=== PATIENT | female | born 1940 | race Caucasian/White ===

== ENCOUNTER → 2017-04-04 12:24 | Outpatient (CLI) | payer MEDICARE, SELFPAY ==
--- NOTE | 2017-04-04 12:28 | RAD_ITS ---
STUDY: X-RAY CHEST REASON FOR EXAM: Female, 76 years old. Shortness of breath. Dyspnea. TECHNIQUE: PA and lateral views of the chest. COMPARISON: October 09, 2016. FINDINGS: The lungs are clear and expanded. There is no demonstrated pleural abnormality. Normal size heart. Normal mediastinum and ngoc. Normal visualized pulmonary arteries. There is atherosclerotic calcification of the aortic arch with tortuosity. There are diffuse degenerative changes of the visualized thoracic spine. There is degenerative osteoarthritis of the bilateral shoulders. There is no demonstrated abnormality of the visualized soft tissue structures of the upper abdomen. RAD/Chest PA and Lateral IMPRESSION: No acute cardiopulmonary disease or interval change Electronically Signed: Galdino Kimble DO at 16:56 EST Tel [phone], Service support ,
== END ==
PROVIDERS: Family Provider Internal Medicine; PCP Internal Medicine; Visit Provider Internal Medicine
DX: R06.02 Shortness of breath (principal)
CPT/HCPCS: 71046

== ENCOUNTER → 2017-04-04 13:17 | Outpatient (CLI) | payer MEDICARE, SELFPAY ==
[2016-10-09 12:56] VITALS: BMI 43.2
[2016-10-09 14:48] VITALS: BP 112/43; BP 155/61; BP 155/81
[2016-10-10 17:28] VITALS: BP 129/92
[2017-04-04 13:49] LABS: BNP,B-Type NATRIURETIC PEPTIDE 26.4 pg/mL (0-100)
== END ==
PROVIDERS: Family Provider Internal Medicine; PCP Internal Medicine; Visit Provider Internal Medicine
DX: R06.02 Shortness of breath (principal); R60.0 Localized edema
CPT/HCPCS: 71046; 83880

== ENCOUNTER → 2017-04-06 10:10 | Outpatient (CLI) | payer MEDICARE, SELFPAY ==
[2017-04-06 10:30] LABS: Anion Gap 10 (5-15); BUN 31 mg/dL (7-18); BUN/Creat Ratio 22.3 RATIO (10-20); Calcium,Total 8.6 mg/dL (8.5-10.1); Chloride 102 mmol/L (98-107); Creatinine, Serum 1.39 mg/dL (0.55-1.02); EST Glomerular Filtration Rate 39 mL/min (>60); Est Glom Filt Rate - Afr Amer 48 mL/min (>60); Glucose 200 mg/dL (74-106); Potassium 4.3 mmol/L (3.5-5.1); Sodium Level 139 mmol/L (136-145)
== END ==
PROVIDERS: Family Provider Internal Medicine; PCP Internal Medicine; Visit Provider Internal Medicine
DX: R60.0 Localized edema (principal)
CPT/HCPCS: 80048

== ENCOUNTER → 2017-04-13 14:01 | Outpatient (CLI) | payer MEDICARE, SELFPAY ==
--- NOTE | 2017-04-13 14:06 | RAD_ITS ---
STUDY: X-RAY - LEFT SHOULDER REASON FOR EXAM: Female, 76 years old. Acute left shoulder pain. No known injury. TECHNIQUE: 4 view(s) of the shoulder. COMPARISON: None. FINDINGS: There is moderate degenerative arthrosis of the glenohumeral articulation. There is degenerative arthrosis of the acromioclavicular joint without inferior osseous spur formation. Degenerative spurring along the undersurface of the acromion. Normal humeral head and visualized proximal humerus. The soft tissue structures are unremarkable. Normal visualized pulmonary apex. RAD/Shoulder min 2 Views IMPRESSION: Moderate degree of degenerative changes of the glenohumeral joint. Degenerative spurring along the inferior aspect of the acromion. Electronically Signed: Laureano Freeman MD at 14:53 EST Tel [phone], Service support ,
== END ==
PROVIDERS: Family Provider Internal Medicine; PCP Internal Medicine; Visit Provider Internal Medicine
DX: M25.512 Pain in left shoulder (principal)
CPT/HCPCS: 73030

== ENCOUNTER → 2017-04-25 09:24 | Outpatient (CLI) | payer MEDICARE, SELFPAY ==
--- NOTE | 2017-04-25 09:32 | MRI_ITS ---
STUDY: MRI LEFT SHOULDER REASON FOR EXAM: Female, 76 years old. Shoulder pain following a fall with limited range of motion. Symptoms have been present 3-4 weeks described as dull but sharp when exerting pressure. TECHNIQUE: Standardized fat and water weighted pulse sequences were obtained in all 3 orthogonal planes. COMPARISON: None. FINDINGS: There is a massive rotator cuff tear with large full-thickness tears of both the supraspinatus and infraspinatus tendons (coronal T2 fat sat series 7, images 11 and 16). The supraspinatus tendinous detached from the greater tuberosity and medially retracted approximately 5 cm with the torn retracted tendon attrition lying immediately cephalad to the glenohumeral articulation. The infraspinatus tendinous retracted approximately 3.6 cm. There is tendinosis of the subscapularis tendon with tendon thickening. There is partial tearing of the superior tendinous slip insertion upon the humeral head (axial proton density fat sat series 5, image 8). Normal teres minor tendon. There is greater than a 50% fatty muscular atrophy of the supraspinatus muscle (Goutallier Stage IV) (sagittal T2 series 9, image 8). There is 50% fatty muscular atrophy of the infraspinatus muscle (Goutallier Stage III) (sagittal T2 series 9, image 1). There is greater than a 50% fatty muscular atrophy of the subscapularis muscle (Goutallier Stage IV). Normal teres minor muscle. There is a large volume joint effusion of the glenohumeral joint. There is cephalad migration of the humeral head, which in this right examination is abutting the inferior acromial surface (coronal T2 fat sat series 7, image 10). There is a SLAP tear of the superior labrum (coronal T2 fat sat series 7, image 12), which extends into the posterior labrum. There is intracapsular rupture of the long biceps tendon. The torn retracted tendon can be identified within the inferior aspect of the intertubercular groove (axial proton density fat sat series 5, image 14; coronal T2 fat sat series 7, image 11). There is severe hypertrophic osteoarthritis of the acromioclavicular articulation. There is a Type II morphology (curved), with a anterior downsloping orientation. There is fluid distention of the subacromial-subdeltoid bursa, which communicates with the glenohumeral joint, through a rotator cuff tear. Normal visualized coracohumeral and coracoacromial ligaments. Normal quadrilateral space. Normal axillary space. Normal deltoid muscle. Normal trapezius muscle. MRI/Upper Ext Joint Only(Routine) IMPRESSION: 1. Massive rotator cuff tear with large full-thickness tears of the supraspinatus and infraspinatus tendons. 2. Tendinosis of the subscapularis tendon with partial tearing of the superior tendinous slips at the humeral head insertion. 3. Complete intracapsular rupture of the long biceps tendon which is retracted into the intertubercular groove. 4. 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 5. Large volume joint effusion which communicates with the subacromial bursa. 6. SLAP tear of the superior labrum extending into the posterior labrum. 7. 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 Electronically Signed: Jacob Connors DO at 11:36 EST Tel , Service support ,
== END ==
PROVIDERS: Family Provider Internal Medicine; PCP Internal Medicine; Visit Provider Internal Medicine
DX: M25.512 Pain in left shoulder (principal)
CPT/HCPCS: 73221

== ENCOUNTER → 2017-06-13 07:29 | Outpatient (CLI) | payer MEDICARE, SELFPAY ==
--- NOTE | 2017-06-13 10:16 | NEURO ---
NCS and/or EMG Patient Report Ordering Doctor: Trang Talamantes DATE OF SERVICE: 06/13/17 This is a bilateral upper extremity nerve conduction study and a right upper extremity EMG performed on this 76-year-old female with paresthesias initially in her first 3 digits bilaterally now progressing to all of her digits on both hands, right-handed. He does not experience neck pain. Her diabetes is well actively well-controlled with hemoglobin A1c of 7.1. Bilateral upper extremity sensory and motor nerve conduction studies are performed demonstrating prolongation of the median motor responses bilaterally, moderate on the right side, severe on the left side. The left median sensory response is not obtainable, the right median sensory distal latency is prolonged with reduction of amplitude. The ulnar motor and sensory and radial sensory responses are normal bilaterally. The lateral median F-wave responses are prolonged. Right upper extremity needle electromyography is performed. Muscles evaluated included the first dorsal interosseous, abductor pollicis brevis, brachioradialis, biceps, triceps and deltoid muscles. All muscles demonstrated normal insertional activity with absence of pathologic spontaneous activity, motor unit potential was increased and amplitude in the median nerve distribution including the abductor pollicis brevis muscle. All other muscles demonstrated normal insertional activity and motor unit potential amplitude and pattern. Impression abnormal electrophysiologic study consistent with moderate to severe carpal tunnel syndrome bilaterally worse on the left side electrophysiologically.
== END ==
PROVIDERS: Family Provider Internal Medicine; PCP Internal Medicine; Visit Provider Internal Medicine
DX: R20.2 Paresthesia of skin (principal)
CPT/HCPCS: 95886; 95911

== ENCOUNTER → 2017-10-02 12:44 | Outpatient (CLI) | payer MEDICARE, SELFPAY ==
--- NOTE | 2017-10-02 12:47 | ECHOD_ITS ---
Reason For Study: SOB Procedure This was a 2D Doppler, Color Flow transthoracic echocardiogram. The study was technically difficult. Left Ventricle Normal LV size. Left ventricular systolic function is normal. The estimated ejection fraction is 55 %. There is evidence of diastolic dysfunction. No regional wall motion abnormalities noted. Right Ventricle Normal RV size. Normal systolic function. Atria Normal left atrium. Normal right atrium. No doppler evidence for ASD. Mitral Valve There is no mitral annular calcification. Normal mitral valve. Trivial mitral valve insufficiency. Tricuspid Valve Normal tricuspid valve. Trivial tricuspid valve insufficiency. Unable to estimate RV systolic pressure/pulmonary artery pressure due to technically difficult study. Aortic Valve The aortic valve is not well visualized. Pulmonic Valve The pulmonic valve is not well visualized. Great Vessels Normal sized aortic root. Pericardium/Pleural No pericardial effusion. MMode/2D Measurements & Calculations LVIDd: 4.3 cm IVSd: 1.1 cm Ao root diam: 2.9 cm LVIDs: 2.6 cm LVPWd: 1.1 cm LA dimension: 3.6 cm FS: 39.6 % LAV(MOD-bp): 38.3 ml LA A4 area: 13.7 cm2 RA A4 area: 11.1 cm2 LAV(MOD-bp) Indexed: 19.4 ml/m2 LAV(MOD-sp2): 33.1 ml LAV(MOD-sp4): 37.6 ml Doppler Measurements & Calculations MV E max rajat: 81.8 cm/sec Lat Peak E' Rajat: 4.9 cm/sec Med Peak E' Rajat: 4.8 cm/sec MV A max rajat: 115.5 cm/sec E/E' lat: 16.7 E/E' med: 17.1 MV E/A: 0.71 Ao V2 max: 108.8 cm/sec LV V1 max: 101.5 cm/sec PA V2 max: 117.7 cm/sec Ao max P.7 mmHg LV V1 max P.1 mmHg Interpretation Summary The study was technically difficult. Left ventricular systolic function is normal. The estimated ejection fraction is 55 %. Trivial mitral valve insufficiency. Trivial tricuspid valve insufficiency. Unable to estimate RV systolic pressure/pulmonary artery pressure due to technically difficult study. There is evidence of diastolic dysfunction. Ordering Physician: Trang Talamantes Referring Physician: Trang Talamantes Performed By: Alessia Anaya, RDFILIBERTO, RVT
== END ==
PROVIDERS: Family Provider Internal Medicine; PCP Internal Medicine; Visit Provider Internal Medicine
DX: R06.02 Shortness of breath (principal); R00.0 Tachycardia, unspecified
CPT/HCPCS: 93225; 93226; 93306

== ENCOUNTER 2017-10-28 02:28 | Emergency (ER) | payer MEDICARE, SELFPAY ==
[2017-10-28 02:28] VITALS: BP 145/72; PULSE 82; RESP 18; TEMP 36.4; O2SAT 96; BMI 46.3
--- NOTE | 2017-10-28 03:39 | ED.DCSUM_ITS ---
- ER Visit Summary Date of Service: 10/28/17 Chief Complaint: Left foot pain History of Present Illness: The patient is a 77 F who presents for 3 hours of left foot pain. Patient is having intermittent sharp shocks of pain in the left lateral foot near the fifth toe. No history of injury. They occur every 3 -4 minutes. Patient tried to Tylenol and ice without relief. She has no trouble bearing weight and no history of injury, however when the pain hits while she is walking it is so severe she feels like she might fall. She denies any fever, pain elsewhere, rash, history of neuropathy, although patient is diabetic. Physical Examination: She is awake and alert, well-nourished well-developed, afebrile and normotensive , in no distress. Examination of the lower extremities shows bilateral lower extremity edema with 2+ pitting on the dorsum of the feet. DP pulses are 2+ and symmetric. Mild chronic skin changes, left greater than right, proximal to the ankles, with mild anterior mirza erythema in this region on the left. No rash. Able to induce the sharp shocking pain with light touch to the distal lateral left foot just proximal to the fifth toe. No hyperesthesia in any other area of the foot or leg. No rash. Motor function intact. Calves are nontender with no palpable cords. Test Results: Clinical Impression(s) from Imaging Studies Foot X-Ray 10/28/17 03:36 IMPRESSION: 1. Diffuse soft tissue swelling. 2. Calcaneal spur. 3. Degenerative changes of the midfoot. 4. Intra-articular loose body at the medial clear space. 5. If there is still clinical concern for acute fracture, follow-up radiographs in 7-10 days maybe helpful in evaluating a healing radiographically occult fracture. Electronically Signed: Lynda Veras MD at 4:34 EDT , Service support , Emergency Department Course and Treatment: Patient's complaint of sharp stabbing pain localized to a small area of the left lateral foot is not consistent with pain related to DVT or cellulitis. Patient was concerned about possibility of a blood clot, and was given reassurance that that is very unlikely. Her pain seems more neuropathic in nature, and we discussed that given that she is diabetic it is possible that this could be developing neuropathy. The pain is induced with light touch, however the area of pain is so small and there is no rash making early zoster unlikely. Patient received no relief from norco. Patient is going to try topical pain medications for pain relief at home, and we discussed that at this time there is not a good option for oral medication for brief intermittent sharp nerve pain. She is to follow- up with her doctor for further discussion of her new foot pain if this continues. Patient will return if any worsening of her condition or any new symptoms develop in the leg. Discharged home with daughter. Treatment Plan: [] Disposition: [] Impression: Left lateral foot nerve pain This note was generated with [employer] dictation software. It may contain incorrect words, spelling, and punctuation that were not noted in review of the chart prior to signing ED Disposition - Plan for ED Patient: Disposition: Home or Assisted Living Chief Complaint: Lower Extremity Injury Instructions: ED Acute Pain [facility] Referrals: Trang Talamantes, [Primary Care Provider] - 3-5 Days if not improving Additional Instructions: You are having sharp nerve-like pain in your left foot of unknown origin. Your exam was not concerning for a blood clot in the leg or a skin infection. However if you develop any changes in your leg, such as worsening swelling, redness, or pain that begins to go up the calf, or if you have any fever or new concerning symptoms, please return immediately to the emergency department for another evaluation. You may find some relief from topical pain creams, such as lidocaine cream, BenGay or icy hot. These follow-up with your doctor if you continue to have the shooting pain and are unable to find any medication to relieve it. If you have any worsening of your condition or any new concerning symptoms, please return immediately to the emergency department for another evaluation.
[2017-10-28] MEDS: HYDROcodone Bitartrate/Apap 5/325 Tablet PO (04:33)
--- NOTE | 2017-10-28 05:23 | ED.DEP ---
ED Disposition - Plan for ED Patient: Disposition: Home or Assisted Living Chief Complaint: Lower Extremity Injury Instructions: ED Acute Pain [facility] Referrals: Trang Talamantes, [Primary Care Provider] - 3-5 Days if not improving Additional Instructions: You are having sharp nerve-like pain in your left foot of unknown origin. Your exam was not concerning for a blood clot in the leg or a skin infection. However if you develop any changes in your leg, such as worsening swelling, redness, or pain that begins to go up the calf, or if you have any fever or new concerning symptoms, please return immediately to the emergency department for another evaluation. You may find some relief from topical pain creams, such as lidocaine cream, BenGay or icy hot. These follow-up with your doctor if you continue to have the shooting pain and are unable to find any medication to relieve it. If you have any worsening of your condition or any new concerning symptoms, please return immediately to the emergency department for another evaluation.
[2017-10-28 05:42] VITALS: RESP 18
== END 2017-10-28 05:43 | disposition home or self-care (01) ==
PROVIDERS: Emergency Provider Emergency Medicine; Family Provider Internal Medicine; PCP Internal Medicine
DX: M79.2 Neuralgia and neuritis, unspecified (principal); R60.0 Localized edema; M77.32 Calcaneal spur, left foot; E66.9 Obesity, unspecified; E11.9 Type 2 diabetes mellitus without complications; Z79.82 Long term (current) use of aspirin; Z79.4 Long term (current) use of insulin; Z79.84 Long term (current) use of oral hypoglycemic drugs; Z79.899 Other long term (current) drug therapy
CPT/HCPCS: 73630; 99283

== ENCOUNTER → 2017-11-13 15:36 | Outpatient (CLI) | payer MEDICARE, SELFPAY ==
--- NOTE | 2017-11-13 15:38 | BI_ITS ---
MAMMOGRAPHY - BILATERAL SCREENING REASON FOR EXAM: Female, 77 years old. Routine annual screening examination. PERTINENT HISTORY: Non-contributory. TECHNIQUE: Digital bilateral breast sherin (3D mammographic acquisition) in the CC and MLO projections. 2-D mediolateral oblique (MLO) and craniocaudad (CC) views of both breasts were obtained. CAD: Full Field Digital Mammography with Computer Added Detection was performed. COMPARISON: Comparison is made with prior study dated November 10, 2015. FINDINGS: Breast Composition: There are scattered areas of fibroglandular density. There are no dominant masses or suspicious calcifications. Stable 1.1 cm well-defined nodule in the left axilla suggest a lobar small lymph node. No other significant abnormalities are identified. There has been no significant change since the prior study. BI/SCREENING MAMM (CAD), BILAT IMPRESSION: Stable bilateral screening mammogram. Yearly follow-up mammogram recommended. (A) ASSESSMENT CATEGORY: BIRADS Category 2: Benign. A letter regarding these results will be sent to the patient by the facility within 30 days. Approximately 10% of breast cancers are not detected by mammography. A normal mammogram should not delay biopsy of a clinically suspicious abnormality. [id number] Electronically Signed: Laureano Freeman MD at 8:07 EDT Tel [phone], Service support ,
== END ==
PROVIDERS: Family Provider Internal Medicine; PCP Internal Medicine; Visit Provider Internal Medicine
DX: Z12.31 Encounter for screening mammogram for malignant neoplasm of breast (principal)
CPT/HCPCS: 77063; 77067

== ENCOUNTER → 2017-11-22 08:22 | Outpatient (CLI) | payer MEDICARE, SELFPAY ==
--- NOTE | 2017-11-22 08:24 | BD_ITS ---
STUDY: DUAL ENERGY X-RAY ABSORPTIOMETRY / DXA REASON FOR EXAM: Female, 77 years old. The patient is postmenopausal. Loss of height. TECHNIQUE: Bone Mineral Density (BMD) measurements of lumbar spine and bilateral hips were obtained. COMPARISON: Comparison is made with prior study dated November 10, 2015. FINDINGS: Lumbar Spine (L1-L4): g/cm2 (1.711) / T-score (4.6) / Z-score (6.3) Findings are suggestive of normal bone density with a low fracture risk. Left Femur Total: g/cm2 (1.259) / T-score (2.0) / Z-score (3.8) Left Femoral Neck: g/cm2 (1.456) / T-score (3.0) / Z-score (5.0) Right Femur Total: g/cm2 (1.200) / T-score (1.5) / Z-score (3.3) Right Femoral Neck: g/cm2 (1.104) / T-score (0.5) / Z-score (2.4) The T-Scores on the most recent prior examination were: Lumbar Spine (L1-L4): There has been worsening of bone density since the previous examination. Left Femur Total: which represents an improvement of 6.3%. Right Femur Total: which represents a worsening of 3.1%. BD/Dexa Bone Density Study IMPRESSION: The patient is considered normal as outlined below according to World [employer] Organization (WHO) criteria with a low fracture risk. There has been worsening of bone density since the previous examination. Reference Information: The T-score is the number of standard deviations above or below the standard which is normal for young adults at their peak bone mineral density. The World Health Organization (WHO) interprets the T-scores as follows: Above -1 Normal bone density Between -1 and -2.5 Osteopenia Equal to / or below -2.5 Osteoporosis As a practical clinical guideline, osteopenia may be graded as follows: Mild -1 through -1.5 Moderate -1.6 through -2.0 Severe -2.1 through -2.4 The Z-score is the number of standard deviations above or below age-matched controls. A Z-score of less than -1.5 would be considered abnormal. References: 1. NIH Osteoporosis and Related Bone Diseases http://www.osteo.org 2. International Society for Clinical Densitometry http://www.iscd.org 3. National Osteoporosis Foundation http://www.nof.org Electronically Signed: Laureano Freeman MD at 9:51 EDT Tel [phone], Service support ,
== END ==
PROVIDERS: Family Provider Internal Medicine; PCP Internal Medicine; Visit Provider Internal Medicine
DX: Z78.0 Asymptomatic menopausal state (principal)
CPT/HCPCS: 77080

== ENCOUNTER 2018-06-17 10:24 | Inpatient (IN) | payer MEDICARE, SELFPAY ==
[2018-06-17] VITALS (13 sets, daily range): BP systolic 101–165; BP diastolic 65–85; PULSE 73–98; RESP 16–20; TEMP 35.5–37; O2SAT 92–100; BMI 47.3; BMI 47.4; BMI 47.0
--- NOTE | 2018-06-17 10:58 | RAD_ITS ---
STUDY: X-RAY CHEST REASON FOR EXAM: Female, 77 years old. Dyspnea on exertion. Swelling in legs and feet. TECHNIQUE: PA and lateral views of the chest. COMPARISON: April 04, 2017. FINDINGS: The lungs are clear and expanded. There is no pleural effusion. There is no pneumothorax. Normal size heart. Normal mediastinum and ngoc. Normal visualized pulmonary arteries. There is atherosclerotic calcification of the aortic arch with tortuosity. There are diffuse degenerative changes of the visualized thoracic spine. There is no acute osseous abnormality. There is no demonstrated abnormality of the visualized soft tissue structures of the upper abdomen. RAD/Chest PA and Lateral IMPRESSION: Stable exam. No evident acute cardiopulmonary disease. No interval change. Electronically Signed: Tylor Flower MD at 11:43 EDT , Service support ,
--- NOTE | 2018-06-17 10:58 | EKG12_ITS ---
Test Reason : SOB Blood Pressure : / mmHG Vent. Rate : 073 BPM Atrial Rate : 073 BPM P-R Int : 182 ms QRS Dur : 092 ms QT Int : 386 ms P-R-T Axes : 051 -12 052 degrees QTc Int : 425 ms Normal sinus rhythm Inferior infarct , age undetermined Poor R wave progression Abnormal ECG Confirmed by TOM MARTIN, CONNIE ([id number]), dictionary editor BROOKS GARCIA ([id number]) on 06/27/2018 8:58:02 AM Referred By: No King Confirmed By:CONNIE SANTOS MD
[2018-06-17 11:33] LABS: Absolute Lymphocyte Count 2.14 X10^3/ul (0.83-4.51); Absolute Neutrophil Count 3.5 X10^3/uL (2.0-7.7); Basophil# 0.02 X10^3/uL; Basophil% 0.3 % (0-1); Eosinophil# 0.37 X10^3/uL; Eosinophils% 5.5 % (0-5); Hematocrit 36.5 % (37-47); Hemoglobin 11.9 g/dl (12.0-15.0); Lymphocyte # 2.14 X10^3/ul (4.0); Lymphocyte % 32.1 % (19-41); Mean Corp Hgb Conc 32.6 g/gl (32-36); Mean Corpuscular Volume 95.1 fL (81-99); Mean Platelet Vol. 9.5 fl (6.2-12.0); Monocyte# 0.65 X10^3/uL; Monocyte% 9.7 % (0-10); Neutrophil # 3.48 X10^3/uL (2.7-7.7); Neutrophil % 52.3 % (47-70); Platelet Count 198 K/mm3 (150-450); RBC Distribution Width CV 13.9 % (11.6-14.6); RBC Distribution Width SD 48.1 fl (35.1-43.9); Red Blood Count 3.84 M/mm3 (4.2-5.4); White Blood Count 6.7 K/mm3 (4.4-11.0)
[2018-06-17 11:35] LABS: POSITIVE COUNT NO; POSITIVE DIFFERENTIAL NO; POSITIVE MORPHOLOGY NO
[2018-06-17 11:48] LABS: Anion Gap 4 (5-15); BUN 18 mg/dL (7-18); BUN/Creat Ratio 16.7 RATIO (10-20); Calcium,Total 8.9 mg/dL (8.5-10.1); Chloride 107 mmol/L (98-107); Creatinine, Serum 1.08 mg/dL (0.55-1.02); EST Glomerular Filtration Rate 52 mL/min (>60); Est Glom Filt Rate - Afr Amer 63 mL/min (>60); Estimated Creatinine Clearance 31.83 ml/min; Glucose 144 mg/dL (74-106); Potassium 3.9 mmol/L (3.5-5.1); Sodium Level 141 mmol/L (136-145)
[2018-06-17] MEDS: Furosemide 20 MG/2 ML VIAL IV (11:52)
[2018-06-17 12:01] LABS: Bacteria 0 SEEN /hpf (None Seen); Mucous, Urine 0 SEEN /hpf (<or=2+); Red Blood Cells-Urine 0 SEEN /hpf (0-5); Squamous Epithelial Cells - UA 0 SEEN /hpf (5-10); White Blood Cells 0 SEEN /hpf (0-5)
[2018-06-17 12:02] LABS: Color, Urine Yellow (Yellow); Glucose, Dipstick Normal (Normal); Ketone-Dipstick Negative (Negative); Leukocyte Esterase-Dipstick Negative /ul (Negative); Nitrite-Dipstick Negative (Negative); Occult Blood-Urine Negative /ul (Negative); Protein-Dipstick Negative (Negative); Urine Bilirubin Dipstick Negative (Negative); Urine Clarity Clear (Clear); Urine Urobilinogen Normal (Normal)
[2018-06-17 12:02] LABS: BNP,B-Type NATRIURETIC PEPTIDE 51.1 pg/mL (0-100)
--- NOTE | 2018-06-17 13:33 | CT_ITS ---
STUDY: CTA CHEST REASON FOR EXAM: Female, 77 years old. Increased shortness of breath. Leg edema. RADIATION DOSAGE (If Supplied By Facility): CTDIvol = ( 14.44 ) mGy, DLP = ( 935.05 ) mGycm TECHNIQUE: The examination was performed with the intravenous administration of 100 IV Isovue 300. Post-processing of the angiographic images was performed, with multiplanar reformation and 3D reconstruction. Individualized dose optimization techniques were used for this CT. COMPARISON: None. FINDINGS: HEART: Coronary artery disease/stenting. Normal cardiac size. Left ventricular hypertrophy. No pericardial effusion. AORTA/GREAT VESSELS: Normal caliber aorta. Atherosclerotic calcifications. Normal caliber great vessels. No dissection flap. Adequate contrast enhancement. PULMONARY ARTERIES: Suboptimal contrast enhancement central pulmonary artery measures 130 Hounsfield units. No central or segmental pulmonary embolism. No obvious subsegmental embolus. LUNGS/AIRWAYS: COPD/hyperexpansion. Central airways patent. No focal patchy airspace opacities. No suspicious lung nodules. No lung mass. PLEURA: No pneumothorax. No pleural effusion. MEDIASTINUM/THYROID: No pneumomediastinum. Normal thyroid. No pathologically enlarged nodes. Punctate calcified mediastinal nodes (axial image 112 series 4). SOFT TISSUES: No acute process. Shotty axillary lymph nodes. OSSEOUS STRUCTURES: Degenerative changes at the shoulders and spine. T11 superior endplate chronic compression deformity. No acute process. Mottled osteopenia. UPPER ABDOMEN/ESOPHAGUS: Normal esophagus. Hepatic steatosis. Low-attenuation region/lesion at the left hepatic lobe measuring 5 cm x 3.4 cm (axial image 30 series 4). CT/CTA Chest W/WO Contrast IMPRESSION: Limited evaluation secondary to poor contrast bolus timing No central or segmental pulmonary embolism No aortic aneurysm or dissection COPD/hyperaeration Cardiovascular disease Low-density left hepatic lobe region/lesion (follow-up hepatic protocol MRI recommended) Electronically Signed: Lm Tovar DO at 14:27 EDT Tel , Service support ,
[2018-06-17] MEDS: 0.9% Normal Saline 1,000 ML 1000 ML IV (14:27)
--- NOTE | 2018-06-17 15:14 | ED.VISSUMM ---
- ER Visit Summary Date of Service: 06/17/18 Chief Complaint: Shortness of breath History of Present Illness: The patient is a 77 F who presents with shortness of breath that has been getting worse over the past 2 weeks. Patient states she cannot catch her breath. Patient states this is worse with exertion. Patient admits to some increasing edema of her lower extremities. Patient states she has missed some doses of her Lasix recently. Patient admits to some pain in her chest when she gets short of breath. Patient denies any nausea or vomiting. She denies any fevers or chills. Patient admits to a cough but denies any sputum production. Physical Examination: Vital signs are stable. Patient is afebrile. Patient is in no acute distress. Oral mucosa is pink and moist. Neck is supple. Trachea is midline. There is no JVD noted. Heart was regular rate and rhythm. Lungs were diminished bilaterally. Abdomen is soft. Bowel sounds are normal. There is no tenderness. Extremities are intact. There is 1-2+ edema lower extremities bilaterally. Cranial nerves II through XII are intact. There are no focal motor or sensory deficits noted. Test Results: KG showed sinus rhythm with a rate of 73. There are no acute ST or T wave changes. PA and lateral chest x-ray was obtained. There is no acute cardiopulmonary process noted. Creatinine was slightly elevated at 1.08 which is consistent with previous results. CBC was normal. Troponin was normal. BNP was normal. Patient was still having some shortness of breath with exertion. CTA of the chest was obtained. There is no acute pulmonary embolism noted. Patient Emergency Department Course and Treatment: Patient was given a dose of Lasix initially. Patient was still having some dyspnea with exertion. Patient was given a DuoNeb aerosol. Case was discussed with the hospitalist. She will admit the patient for COPD exacerbation. Patient was given a dose of Solu-Medrol IV here. Disposition: Admit to hospital Impression: Dyspnea This note was generated with [employer] dictation software. It may contain incorrect words, spelling, and punctuation that were not noted in review of the chart prior to signing ED Disposition - Plan for ED Patient: Disposition: Acute Care Hospital [facility] Diagnosis: COPD exacerbation Referrals: Trang Talamantes DO [Primary Care Provider] -
--- NOTE | 2018-06-17 15:19 | ED.DCSUM_ITS ---
- ER Visit Summary Date of Service: 06/17/18 Chief Complaint: Shortness of breath History of Present Illness: The patient is a 77 F who presents with shortness of breath that has been getting worse over the past 2 weeks. Patient states she cannot catch her breath. Patient states this is worse with exertion. Patient admits to some increasing edema of her lower extremities. Patient states she has missed some doses of her Lasix recently. Patient admits to some pain in her chest when she gets short of breath. Patient denies any nausea or vomiting. She denies any fevers or chills. Patient admits to a cough but denies any sputum production. Physical Examination: Vital signs are stable. Patient is afebrile. Patient is in no acute distress. Oral mucosa is pink and moist. Neck is supple. Trachea is midline. There is no JVD noted. Heart was regular rate and rhythm. Lungs were diminished bilaterally. Abdomen is soft. Bowel sounds are normal. There is no tenderness. Extremities are intact. There is 1-2+ edema lower extremities bilaterally. Cranial nerves II through XII are intact. There are no focal motor or sensory deficits noted. Test Results: KG showed sinus rhythm with a rate of 73. There are no acute ST or T wave changes. PA and lateral chest x-ray was obtained. There is no acute cardiopulmonary process noted. Creatinine was slightly elevated at 1.08 which is consistent with previous results. CBC was normal. Troponin was normal. BNP was normal. Patient was still having some shortness of breath with exertion. CTA of the chest was obtained. There is no acute pulmonary embolism noted. Patient Emergency Department Course and Treatment: Patient was given a dose of Lasix initially. Patient was still having some dyspnea with exertion. Patient was given a DuoNeb aerosol. Case was discussed with the hospitalist. She will admit the patient for COPD exacerbation. Patient was given a dose of Solu- Medrol IV here. Disposition: Admit to hospital Impression: Dyspnea This note was generated with wildcraft dictation software. It may contain incorrect words, spelling, and punctuation that were not noted in review of the chart prior to signing ED Disposition - Plan for ED Patient: Disposition: Acute Care Hospital [facility] Diagnosis: COPD exacerbation Referrals: Trang Talamantes DO [Primary Care Provider] -
[2018-06-17] MEDS: Ipratropium/Albuterol Sulfate 3 ML AMPUL.NEB INHALATION ×3 (15:22→23:04)
--- NOTE | 2018-06-17 15:26 | CPS ---
Pt wears 2L hs at home.
--- NOTE | 2018-06-17 15:31 | CASEMGMT ---
RN CM Assessment Introduced role of RN CM to patient and patient daughter Shyla at bedside.? Patient is alert, oriented and able?to participate in RN CM Assessment. ?Care providers, pharmacy, and demographics verified. Presentation: SOB, Swelling to BLE, Weight Gain Re-Admit: No Barriers/Issues: None PCP: Trang Talamantes Specialists: Pulm- Dr Triana, Pain- dr Ornelas Preferred Pharmacy: [facility] Insurance: [facility] Rx Benefit:?Yes LNOK: Dtr Sarai Prakash LW/HPOA: Yes, HPOA- Dtr Sarai Prakash Living Arrangements:? Lives alone in a Ranch Home, 4 steps to enter. ADL?s: Independent with ambulation, using cane as needed, and Independent with ADL's Transportation: Patient drives, Dtr Shyla to drive on DC DME: Cane, Home O2 2L at night- [facility], Shower Chair HHC: Past, cannot recall Agency SNF: None Goal: Home DC PLAN: Home with no anticipated needs at this time. Concepción Tijerina RNCM
--- NOTE | 2018-06-17 15:49 | PCM.HP.STD ---
Problem List (1) COPD exacerbation Status: Suspected (2) Lymphedema Status: Chronic (3) PVD (peripheral vascular disease) Status: Chronic (4) Anxiety Status: Chronic (5) Chronic renal failure, stage 3 (moderate) Status: Chronic (6) DM type 2 (diabetes mellitus, type 2) Status: Chronic Qualifiers: Diabetes mellitus net developer programmer insulin use: with longterm use Diabetes mellitus complication status: with unspecified complications Qualified Code(s): E11.8 - Type 2 diabetes mellitus with unspecified complications; Z79.4 - care home (current) use of insulin (7) Depression Status: Chronic Qualifiers: Depression Type: unspecified Qualified Code(s): F32.9 - Major depressive disorder, single episode, unspecified (8) 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 (9) HLD (hyperlipidemia) Status: Chronic Qualifiers: Hyperlipidemia type: pure hypercholesterolemia Qualified Code(s): E78.00 - Pure hypercholesterolemia, unspecified; E78.0 - Pure hypercholesterolemia (10) HTN (hypertension) Status: Chronic Qualifiers: Hypertension type: essential hypertension Qualified Code(s): I10 - Essential (primary) hypertension (11) Iron deficiency anemia Status: Chronic Qualifiers: Iron deficiency anemia type: unspecified iron deficiency Qualified Code(s): D50.9 - Iron deficiency anemia, unspecified (12) Morbid obesity with BMI of 40.0-44.9, adult Status: Chronic History of Present Illness Date of Admission: 06/17/18 Chief Complaint: Dyspnea, worse with exertion, wheezing The patient is a 77 y/o F w/ PMHx: Morbid Obesity, Chronic lumbar back pain s/p surgery w/ hardware following w/ Pain Management, HTN, HLD, Diabetes mellitus type II, Denied MARY ANNE but on chronic 2L NC q HS, Anxiety and Depression, CKD stage III, Fe deficiency anemia, Chronic BL LE Lymphedema, PVD who presents to the [facility] ED on 06/17/18 with history of ~ 3 weeks ongoing dyspnea, worse with any effort increase, associated coughing, congestion, rhinorrhea, post-nasal drip without fever or chills with intermittent occasional wheeze concurrently more pronounced over the last 24-48 hours. She does not that her chest will occasionally feel tight with dyspnea with exertion independent of recent worsened state. She also noted initially weight gain over the last ~ 1-2 months, 3 lb increase over the last week but BNP normal, CXR and CTPA without congestion/effusions, discussed diet intake and amenable to nutrition consultation. Work-up in the ED included T 95.9, heart rate 81, BP initially 165/76, respiratory rate 20, 95% on room air, CBC with WBC 6.7, hemoglobin 11.9, platelet 198 without left shift, BMP with BUN/Cr 18/1.08, glucose 144, trop < 0.015, BNP 51.1, UA unremarkable, CXR w/ no acute cardiopulmonary process, CTPA limited secondary to poor contrast bolus timing, no central or segmental PE, no aneurysm or dissection, chronic COPD changes, low density left hepatic lobe lesion of unclear etiology, EKG w/ sinus rhythm with no acute evidence of ischemia. In the ED patient administered normal saline, Lasix 20 mg IV x1, DuoNeb. Evaluated patient and discussed with ED physician, symptoms ongoing x ~ 3 weeks, concurrent congestion, rhinorrhea, post-nasal drip, wheezing, currently wheezing, will administer solumedrol in the ED. Past Medical History Past Medical History (Chronic Problems): Chronic Problems Lymphedema (Chronic) PVD (peripheral vascular disease) (Chronic) HTN (hypertension) (Chronic) Nephrolithiasis (Chronic) HLD (hyperlipidemia) (Chronic) Iron deficiency anemia (Chronic) Anxiety (Chronic) Depression (Chronic) Osteoarthritis of knees, bilateral (Chronic) History of nephrolithiasis (Chronic) DM type 2 (diabetes mellitus, type 2) (Chronic) Morbid obesity with BMI of 40.0-44.9, adult (Chronic) Osteoarthritis (Chronic) Dermatitis (Chronic) Chronic renal failure, stage 3 (moderate) (Chronic) Foraminal stenosis of lumbar region (Chronic) Lumbar canal stenosis (Chronic) Steatosis of liver (Chronic) Obesities, morbid (Chronic) Allergies acetaminophen [From Percocet] Allergy (Verified 06/17/18 14:28) Unknown insulin detemir [From Levemir] Allergy (Verified 06/17/18 14:28) Hives oxycodone [From Percocet] Allergy (Verified 06/17/18 14:28) Unknown amlodipine [From Norvasc] Adverse Reaction (Verified 06/17/18 14:28) Itching Home Medications: Ambulatory Orders Medication Instructions Recorded Ascorbic Acid [Vitamin C] 1,000 mg PO DAILY 06/17/18 Atorvastatin Calcium [Lipitor] 20 mg PO QHS 06/17/18 Carvedilol 25 mg PO BID 06/17/18 Cataplex 3 tab PO DAILY 06/17/18 Clonidine HCl [Catapres] 0.1 mg PO DAILY 06/17/18 Furosemide [Lasix] 20 mg PO DAILY 06/17/18 Insulin Degludec [Tresiba 70 units SQ DAILY 06/17/18 Flextouch U-200] Insulin Lispro [Humalog KwikPen] 16 units SQ TIDCM 06/17/18 Iron Poly/Vit C [Niferex-150] 150 mg PO DAILYCM 06/17/18 Losartan Potassium [Cozaar] 100 mg PO DAILY 06/17/18 Metformin HCl [Metformin HCl ER] 750 mg PO DAILY 06/17/18 Metronidazole 0.75% [Metrogel] 1 applic VAGINAL DAILY 06/17/18 Multivitamin [Multivitamins] 1 each PO DAILY 06/17/18 Venlafaxine HCl [Venlafaxine HCl 75 mg PO DAILY 06/17/18 ER] Surgical History: - - Lumbar back surgery with hardware placement, tonsillectomy, right foot surgery with fusion. Psychiatric History: Anxiety, Depression DOPE HEATER History: No pertinent DOPE HEATER history Lives: Alone Smoking Status: Former smoker - Patient quit in 1990 but prior to this had been up to 3 pack/day cigarette tobacco usage. Tobacco Use: Non-smoker Alcohol: None Drugs: None - *Family History Sibling History Items: - - Patient notes a sister with history of uterine cancer.rysm Maternal History Items: - - Mother with a history of Alzheimer's dementia. Paternal History Items: - - Patient notes a paternal family history of diabetes and heart disease. Review of Systems Constitutional: Reports: Malaise, Weakness, Fatigue. Denies: Chills, Fever, Weight Change HEENT: Reports: Nasal Congestion, Post Nasal Drip, Sinus Congestion, Sinus Drainage. Denies: Head Aches Cardiovascular: Reports: Chest Tightness, Edema. Denies: Chest Pain, Heaviness, Orthopnea, Palpitations, Syncope Respiratory: Reports: Cough, Shortness of Breath, Shortness of breath upon exertion, Wheezing. Denies: Shortness of breath at rest, Sputum production Gastrointestinal: Denies: Abdominal Pain, Nausea, Vomiting Genitourinary: Denies: Dysuria Musculoskeletal: Reports: Back Pain, Joint Pain. Denies: Joint Tenderness Skin: Denies: Rash, Wounds Neurological: Denies: Numbness, Tingling, Focal weakness Psychiatric: Reports: Anxiety, Depression. Denies: Homicidal Ideations, Suicidal Ideations Hematologic/ Lymphatic: Reports: Anemia. Denies: Easy Bruising, Easy Bleeding VTE Information - Inpt Only VTE Present on Admission: No VTE Mechan Device Prophylaxis: SCD's VTE Pharm Prophylaxis ordered?: Yes Patient Problems: Active and Suspected Problems COPD exacerbation (Suspected) Subjective: Patient seated upright in ED bed, fatigued appearance, ongoing wheezing still. Objective: Physical Examination: General: awake, alert, oriented x 3 and cooperative, seated upright in the ED bed in no apparent distress, still notes ongoing dyspnea sensation although primarily with exertion with requested effort increased upon examination. Skin: normal color, turgor, no icterus, cyanosis except noted bilateral lower extremity chronic lymphedema and peripheral vascular disease stasis skin changes. HEENT: AT/NC, EOMI, PERRLA, MMM, no carotid bruits or JVD noted; however habitus with thickened neck makes examination difficult. Lungs: Diffusely diminished, greater bases, audible expiratory wheezing, mild effort, no rales or rhonchi. Heart: Regular rate and rhythm; no gallop, rub audible. Abdomen: soft, morbidly obese, NTTP, ND, normal BS, no HSM. Extremities: no cyanosis, clubbing, chronic bilateral lower extremity lymphedema however no pitting, no hair growth noted, see skin with noted chronic venous stasis skin changes. Neurological: patient awake, alert, oriented x 3; cognitive function intact; pupils equally reactive to light and accomodation; cranial nerves II-XII grossly normal, moving all 4 extremities, no focal deficits, strength moderately to severely global decrease secondary to acute presentation. Psychiatric: affect appears normal, no acute evidence of depressive or anxiety feelings. - Physical Exam Vital Signs Temp Pulse Resp BP Pulse Ox 95.9 F L 78 18 153/65 H 95 06/17/18 10:25 06/17/18 15:22 06/17/18 15:22 06/17/18 14:23 06/17/18 14:23 Oxygen Delivery Method Room Air Weight: 242 lb 8.136 oz Body Mass Index (BMI) 47.3 Finger Stick Blood Glucose 145 Laboratory Tests Past 24 Hrs 06/17/18 06/17/18 06/17/18 11:05 11:05 11:05 WBC 6.7 RBC 3.84 L Hgb 11.9 L Hct 36.5 L MCV 95.1 MCH 31.0 MCHC 32.6 RDW 13.9 RDW Differential 48.1 H Plt Count 198 MPV 9.5 Immature Gran % (Auto) 0.100 Neut % (Auto) 52.3 Lymph % (Auto) 32.1 [place] % (Auto) 9.7 Eos % (Auto) 5.5 H Baso % (Auto) 0.3 Absolute Neuts (auto) 3.5 Absolute Lymphs (auto) 2.14 Total Counted Not Reportable Sodium 141 Potassium 3.9 Chloride 107 Carbon Dioxide 30.0 Anion Gap 4 L BUN 18 Creatinine 1.08 H Estim Creat Clear Calc 31.83 Est GFR (MDRD) Af Amer 63 Est GFR (MDRD) Non-Af 52 L BUN/Creatinine Ratio 16.7 Glucose 144 H Calcium 8.9 Troponin I < 0.015 B-Natriuretic Peptide 51.1 Urine Color Urine Clarity Urine pH Ur Specific [place] Urine Protein Urine Glucose (UA) Urine Ketones Urine Occult Blood Urine Nitrite Urine Bilirubin Urine Urobilinogen Ur Leukocyte Esterase Urine RBC Urine WBC Ur Squamous Epith Cells Urine Bacteria Urine Mucus 06/17/18 11:50 WBC RBC Hgb Hct MCV MCH MCHC RDW RDW Differential Plt Count MPV Immature Gran % (Auto) Neut % (Auto) Lymph % (Auto) [place] % (Auto) Eos % (Auto) Baso % (Auto) Absolute Neuts (auto) Absolute Lymphs (auto) Total Counted Sodium Potassium Chloride Carbon Dioxide Anion Gap BUN Creatinine Estim Creat Clear Calc Est GFR (MDRD) Af Amer Est GFR (MDRD) Non-Af BUN/Creatinine Ratio Glucose Calcium Troponin I B-Natriuretic Peptide Urine Color Yellow Urine Clarity Clear Urine pH 6.0 Ur Specific [place] 1.010 Urine Protein Negative Urine Glucose (UA) Normal Urine Ketones Negative Urine Occult Blood Negative Urine Nitrite Negative Urine Bilirubin Negative Urine Urobilinogen Normal Ur Leukocyte Esterase Negative Urine RBC 0 SEEN Urine WBC 0 SEEN Ur Squamous Epith Cells 0 SEEN Urine Bacteria 0 SEEN Urine Mucus 0 SEEN Assessment/Plan All Active Problems Dehydration (Acute) Renal failure (Acute) Dizziness (Acute) Knee pain, bilateral (Acute) Frequent falls (Acute) Hydronephrosis of left kidney (Resolved) Pyelonephritis (Resolved) Septic shock (Resolved) Ureteral obstruction, left (Resolved) The patient is a 77 y/o F w/ PMHx: Morbid Obesity, Chronic lumbar back pain s/p surgery w/ hardware following w/ Pain Management, HTN, HLD, Diabetes mellitus type II, Denied MARY ANNE but on chronic 2L NC q HS, Anxiety and Depression, CKD stage III, Fe deficiency anemia, Chronic BL LE Lymphedema, PVD who presents to the [facility] ED on 06/17/18 with history of ~ 3 weeks ongoing dyspnea, worse with any effort increase, associated coughing, congestion, rhinorrhea, post-nasal drip without fever or chills with intermittent occasional wheeze concurrently more pronounced over the last 24-48 hours. (1) Acute on Chronic Suspected COPD exacerbation on Chronic Hypoxic Respiratory Failure (2L NC q HS): Work-up in the ED included T 95.9, heart rate 81, BP initially 165/76, respiratory rate 20, 95% on room air, CBC with WBC 6.7, hemoglobin 11.9, platelet 198 without left shift, BMP with BUN/Cr 18/1.08, glucose 144, trop < 0.015, BNP 51.1, UA unremarkable, CXR w/ no acute cardiopulmonary process, CTPA limited secondary to poor contrast bolus timing, no central or segmental PE, no aneurysm or dissection, chronic COPD changes, low density left hepatic lobe lesion of unclear etiology, EKG w/ sinus rhythm with no acute evidence of ischemia. Will admit to [facility] on telemetry given additional history and some concern for possible concurrent anginal equivalent, maintain on oxygen with wean as tolerated to room air, cycle cardiac enzymes, ECHO requested, repeat EKG in AM, obtain AM FLP, continue ATC duonebs, PRN albuterol, IV methylprednisolone, HOB, IS parameters, defer abx, requested viral panel and sputum cultures. ASA, NG. Upon discharge will necessitate outpatient PFTs, has seen Dr. Triana prior for MARY ANNE assessment. (2) Chronic Hypoxic Respiratory Failure: Noted to have had MARY ANNE testing which was negative per Dr. Triana but had hypoxia, on 2L NC q HS, no history of PFT testing per patient, notable tobacco use history. (3) Diabetes mellitus type II: Hold oral home regimen, continue home insulin regimen, ADA diet, accu checks w/ ISS, nutrition consulted for education and teaching. (4) Hypertension: Continue home regimen including coreg, catapres, lasix, cozaar, PRN hydralazine. (5) Hyperlipidemia: Continue home statin regimen. AM FLP. (6) Morbid Obesity: Weight loss and lifestyle changes encouraged, nutrition consulted. (7) CKD stage III: Admission BUN/Cr 18/1.08, CrCl 31, stable, trend. (8) Anxiety and Depression: Continue home venlafaxine regimen. (9) Chronic BL LE Edema with Chronic PVD: Place QUE wraps, elevation. (10) Fe Deficiency Anemia: Admission Hgb 11.9, stable, continue Fe supplementation. (11) DVT prophylaxis: SCDs, renally dosed lovenox. Code Visit Inpatient E&M: 51805 Init Hosp L3
--- NOTE | 2018-06-17 16:00 | HP.PCM_ITS ---
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 manager insulin use: with senior care use Diabetes mellitus complication status: with unspecified complications Qualified Code(s): E11.8 - Type 2 diabetes mellitus with unspecified complications; Z79.4 - senior care (current) use of insulin (7) Depression Status: Chronic Qualifiers: Depression Type: unspecified Qualified Code(s): F32.9 - Major depressive disorder, single episode, unspecified (8) 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 (9) HLD (hyperlipidemia) Status: Chronic Qualifiers: Hyperlipidemia type: pure hypercholesterolemia Qualified Code(s): E78.00 - Pure hypercholesterolemia, unspecified; E78.0 - Pure hypercholesterolemia (10) HTN (hypertension) Status: Chronic Qualifiers: Hypertension type: essential hypertension Qualified Code(s): I10 - Essenti al (primary) hypertension (11) Iron deficiency anemia Status: Chronic Qualifiers: Iron deficiency anemia type: unspecified iron deficiency Qualified Code(s): D50.9 - Iron deficiency anemia, unspecified (12) Morbid obesity with BMI of 40.0-44.9, adult Status: Chronic History of Present Illness Date of Admission: 06/17/18 Chief Complaint: Dyspnea, worse with exertion, wheezing The patient is a 77 y/o F w/ PMHx: Morbid Obesity, Chronic lumbar back pain s/p surgery w/ hardware following w/ Pain Management, HTN, HLD, Diabetes mellitus type II, Denied MARY ANNE but on chronic 2L NC q HS, Anxiety and Depression, CKD stage III, Fe deficiency anemia, Chronic BL LE Lymphedema, PVD who presents to the [facility] [place] ED on 06/17/18 with history of ~ 3 weeks ongoing dyspnea, worse with any effort increase, associated coughing, congestion, rhinorrhea, post-nasal drip without fever or chills with intermittent occasional wheeze concurrently more pronounced over the last 24-48 hours. She does not that her chest will occasionally feel tight with dyspnea with exertion independent of recent worsened state. She also noted initially weight gain over the last ~ 1-2 months, 3 lb increase over the last week but BNP normal, CXR and CTPA without congestion/effusions, discussed diet intake and amenable to nutrition consultation. Work-up in the ED included T 95.9, heart rate 81, BP initially 165/76, respiratory rate 20, 95% on room air, CBC with WBC 6.7, hemoglobin 11.9, platelet 198 without left shift, BMP with BUN/Cr 18/1.08, glucose 144, trop < 0.015, BNP 51.1, UA unremarkable, CXR w/ no acute cardiopulmonary process, CTPA limited secondary to poor contrast bolus timing, no central or segmental PE, no aneurysm or dissection, chronic COPD changes, low density left hepatic lobe lesion of unclear etiology, EKG w/ sinus rhythm with no acute evidence of ischemia. In the ED patient administered normal saline, Lasix 20 mg IV x1, DuoNeb. Evaluated patient and discussed with ED physician, symptoms ongoing x ~ 3 weeks, concurrent congestion, rhinorrhea, post-nasal drip, wheezing, currently wheezing, will administer solumedrol in the ED. Past Medical History Past Medical History (Chronic Problems): Chronic Problems Lymphedema (Chronic) PVD (peripheral vascular disease) (Chronic) HTN (hypertension) (Chronic) Nephrolithiasis (Chronic) HLD (hyperlipidemia) (Chronic) Iron deficiency anemia (Chronic) Anxiety (Chronic) Depression (Chronic) Osteoarthritis of knees, bilateral (Chronic) History of nephrolithiasis (Chronic) DM type 2 (diabetes mellitus, type 2) (Chronic) Morbid obesity with BMI of 40.0-44.9, adult (Chronic) Osteoarthritis (Chronic) Dermatitis (Chronic) Chronic renal failure, stage 3 (moderate) (Chronic) Foraminal stenosis of lumbar region (Chronic) Lumbar canal stenosis (Chronic) Steatosis of liver (Chronic) Obesities, morbid (Chronic) Allergies acetaminophen [From Percocet] Allergy (Verified 06/17/18 14:28) Unknown insulin detemir [From Levemir] Allergy (Verified 06/17/18 14:28) Hives oxycodone [From Percocet] Allergy (Verified 06/17/18 14:28) Unknown amlodipine [From Norvasc] Adverse Reaction (Verified 06/17/18 14:28) Itching Home Medications: Ambulatory Orders Medication Instructions Recorded Ascorbic Acid [Vitamin C] 1,000 mg PO DAILY 06/17/18 Atorvastatin Calcium [Lipitor] 20 mg PO QHS 06/17/18 Carvedilol 25 mg PO BID 06/17/18 Cataplex 3 tab PO DAILY 06/17/18 Clonidine HCl [Catapres] 0.1 mg PO DAILY 06/17/18 Furosemide [Lasix] 20 mg PO DAILY 06/17/18 Insulin Degludec [Tresiba 70 units SQ DAILY 06/17/18 Flextouch U-200] Insulin Lispro [Humalog KwikPen] 16 units SQ TIDCM 06/17/18 Iron Poly/Vit C [Niferex-150] 150 mg PO DAILYCM 06/17/18 Losartan Potassium [Cozaar] 100 mg PO DAILY 06/17/18 Metformin HCl [Metformin HCl ER] 750 mg PO DAILY 06/17/18 Metronidazole 0.75% [Metrogel] 1 applic VAGINAL DAILY 06/17/18 Multivitamin [Multivitamins] 1 each PO DAILY 06/17/18 Venlafaxine HCl [Venlafaxine HCl 75 mg PO DAILY 06/17/18 ER] Surgical History: - - Lumbar back surgery with hardware placement, tonsillectomy, right foot surgery with fusion. 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 Tobacco Use: Non-smoker Alcohol: None Drugs: None - *Family History Sibling History Items: - - Patient notes a sister with history of uterine cancer.rysm Maternal History Items: - - Mother with a history of Alzheimer's dementia. Paternal History Items: - - Patient notes a paternal family history of diabetes and heart disease. Review of Systems Constitutional: Reports: Malaise, Weakness, Fatigue. Denies: Chills, Fever, Weight Change HEENT: Reports: Nasal Congestion, Post Nasal Drip, Sinus Congestion, Sinus Drainage. Denies: Head Aches Cardiovascular: Reports: Chest Tightness, Edema. Denies: Chest Pain, Heaviness, Orthopnea, Palpitations, Syncope Respiratory: Reports: Cough, Shortness of Breath, Shortness of breath upon exertion, Wheezing. Denies: Shortness of breath at rest, Sputum production Gastrointestinal: Denies: Abdominal Pain, Nausea, Vomiting Genitourinary: Denies: Dysuria Musculoskeletal: Reports: Back Pain, Joint Pain. Denies: Joint Tenderness Skin: Denies: Rash, Wounds Neurological: Denies: Numbness, Tingling, Focal weakness Psychiatric: Reports: Anxiety, Depression. Denies: Homicidal Ideations, Suicidal Ideations Hematologic/ Lymphatic: Reports: Anemia. Denies: Easy Bruising, Easy Bleeding VTE Information - Inpt Only VTE Present on Admission: No VTE Mechan Device Prophylaxis: SCD's VTE Pharm Prophylaxis ordered?: Yes Patient Problems: Active and Suspected Problems COPD exacerbation (Suspected) Subjective: Patient seated upright in ED bed, fatigued appearance, ongoing wheezing still. Objective: Physical Examination: General: awake, alert, oriented x 3 and cooperative, seated upright in the ED bed in no apparent distress, still notes ongoing dyspnea sensation although primarily with exertion with requested effort increased upon examination. Skin: normal color, turgor, no icterus, cyanosis except noted bilateral lower extremity chronic lymphedema and peripheral vascular disease stasis skin changes. HEENT: AT/NC, EOMI, PERRLA, MMM, no carotid bruits or JVD noted; however habitus with thickened neck makes examination difficult. Lungs: Diffusely diminished, greater bases, audible expiratory wheezing, mild effort, no rales or rhonchi. Heart: Regular rate and rhythm; no gallop, rub audible. Abdomen: soft, morbidly obese, NTTP, ND, normal BS, no HSM. Extremities: no cyanosis, clubbing, chronic bilateral lower extremity lymphedema however no pitting, no hair growth noted, see skin with noted chronic venous stasis skin changes. Neurological: patient awake, alert, oriented x 3; cognitive function intact; pu pils equally reactive to light and accomodation; cranial nerves II-XII grossly normal, moving all 4 extremities, no focal deficits, strength moderately to severely global decrease secondary to acute presentation. Psychiatric: affect appears normal, no acute evidence of depressive or anxiety feelings. - Physical Exam Vital Signs Temp Pulse Resp BP Pulse Ox 95.9 F L 78 18 153/65 H 95 06/17/18 10:25 06/17/18 15:22 06/17/18 15:22 06/17/18 14:23 06/17/18 14:23 Oxygen Delivery Method Room Air Weight: 242 lb 8.136 oz Body Mass Index (BMI) 47.3 Finger Stick Blood Glucose 145 Laboratory Tests Past 24 Hrs 06/17/18 06/17/18 06/17/18 11:05 11:05 11:05 WBC 6.7 RBC 3.84 L Hgb 11.9 L Hct 36.5 L MCV 95.1 MCH 31.0 MCHC 32.6 RDW 13.9 RDW Differential 48.1 H Plt Count 198 MPV 9.5 Immature Gran % (Auto) 0.100 Neut % (Auto) 52.3 Lymph % (Auto) 32.1 [place] % (Auto) 9.7 Eos % (Auto) 5.5 H Baso % (Auto) 0.3 Absolute Neuts (auto) 3.5 Absolute Lymphs (auto) 2.14 Total Counted Not Reportable Sodium 141 Potassium 3.9 Chloride 107 Carbon Dioxide 30.0 Anion Gap 4 L BUN 18 Creatinine 1.08 H Estim Creat Clear Calc 31.83 Est GFR (MDRD) Af Amer 63 Est GFR (MDRD) Non-Af 52 L BUN/Creatinine Ratio 16.7 Glucose 144 H Calcium 8.9 Troponin I < 0.015 B-Natriuretic Peptide 51.1 Urine Color Urine Clarity Urine pH Ur Specific [place] Urine Protein Urine Glucose (UA) Urine Ketones Urine Occult Blood Urine Nitrite Urine Bilirubin Urine Urobilinogen Ur Leukocyte Esterase Urine RBC Urine WBC Ur Squamous Epith Cells Urine Bacteria Urine Mucus 06/17/18 11:50 WBC RBC Hgb Hct MCV MCH MCHC RDW RDW Differential Plt Count MPV Immature Gran % (Auto) Neut % (Auto) Lymph % (Auto) [place] % (Auto) Eos % (Auto) Baso % (Auto) Absolute Neuts (auto) Absolute Lymphs (auto) Total Counted Sodium Potassium Chloride Carbon Dioxide Anion Gap BUN Creatinine Estim Creat Clear Calc Est GFR (MDRD) Af Amer Est GFR (MDRD) Non-Af BUN/Creatinine Ratio Glucose Calcium Troponin I B-Natriuretic Peptide Urine Color Yellow Urine Clarity Clear Urine pH 6.0 Ur Specific [place] 1.010 Urine Protein Negative Urine Glucose (UA) Normal Urine Ketones Negative Urine Occult Blood Negative Urine Nitrite Negative Urine Bilirubin Negative Urine Urobilinogen Normal Ur Leukocyte Esterase Negative Urine RBC 0 SEEN Urine WBC 0 SEEN Ur Squamous Epith Cells 0 SEEN Urine Bacteria 0 SEEN Urine Mucus 0 SEEN Assessment/Plan All Active Problems Dehydration (Acute) Renal failure (Acute) Dizziness (Acute) Knee pain, bilateral (Acute) Frequent falls (Acute) Hydronephrosis of left kidney (Resolved) Pyelonephritis (Resolved) Septic shock (Resolved) Ureteral obstruction, left (Resolved) The patient is a 77 y/o F w/ PMHx: Morbid Obesity, Chronic lumbar back pain s/p surgery w/ hardware following w/ Pain Management, HTN, HLD, Diabetes mellitus type II, Denied MARY ANNE but on chronic 2L NC q HS, Anxiety and Depression, CKD stage III, Fe deficiency anemia, Chronic BL LE Lymphedema, PVD who presents to the [facility] [place] ED on 06/17/18 with history of ~ 3 weeks ongoing dyspnea, worse with any effort increase, associated coughing, congestion, rhinorrhea, post-nasal drip without fever or chills with intermittent occasional wheeze concurrently more pronounced over the last 24-48 hours. (1) Acute on Chronic Suspected COPD exacerbation on Chronic Hypoxic Respiratory Failure (2L NC q HS): Work-up in the ED included T 95.9, heart rate 81, BP initially 165/76, respiratory rate 20, 95% on room air, CBC with WBC 6.7, hemoglobin 11.9, platelet 198 without left shift, BMP with BUN/Cr 18/1.08, glucose 144, trop < 0.015, BNP 51.1, UA unremarkable, CXR w/ no acute cardiopulmonary process, CTPA limited secondary to poor contrast bolus timing, no central or segmental PE, no aneurysm or dissection, chronic COPD changes, low density left hepatic lobe lesion of unclear etiology, EKG w/ sinus rhythm with no acute evidence of ischemia. Will admit to [facility] on telemetry given additional history and some concern for possible concurrent anginal equivalent, maintain on oxygen with wean as tolerated to room air, cycle cardiac enzymes, ECHO requested, repeat EKG in AM, obtain AM FLP, continue ATC duonebs, PRN albuterol, IV methylprednisolone, HOB, IS parameters, defer abx, requested viral panel and sputum cultures. ASA, NG. Upon discharge will necessitate outpatient PFTs, has seen Dr. Triana prior for MARY ANNE assessment. (2) Chronic Hypoxic Respiratory Failure: Noted to have had MARY ANNE testing which was negative per Dr. Triana but had hypoxia, on 2L NC q HS, no history of PFT testing per patient, notable tobacco use history. (3) Diabetes mellitus type II: Hold oral home regimen, continue home insulin regimen, ADA diet, accu checks w/ ISS, nutrition consulted for education and teaching. (4) Hypertension: Continue home regimen including coreg, catapres, lasix, cozaar, PRN hydralazine. (5) Hyperlipidemia: Continue home statin regimen. AM FLP. (6) Morbid Obesity: Weight loss and lifestyle changes encouraged, nutrition consulted. (7) CKD stage III: Admission BUN/Cr 18/1.08, CrCl 31, stable, trend. (8) Anxiety and Depression: Continue home venlafaxine regimen. (9) Chronic BL LE Edema with Chronic PVD: Place QEU wraps, elevation. (10) Fe Deficiency Anemia: Admission Hgb 11.9, stable, continue Fe supplementation. (11) DVT prophylaxis: SCDs, renally dosed lovenox. Code Visit Inpatient E&M: 92567 Init Hosp L3
[2018-06-17] MEDS: MethylPREDNISolone 125 MG/2 ML Vial IV (16:30)
--- NOTE | 2018-06-17 16:58 | ECHOD_ITS ---
Reason For Study: Dyspena/SOB Procedure This was a 2D Doppler, Color Flow transthoracic echocardiogram. The study was technically difficult. Exam performed portable in patient room. Left Ventricle Normal LV size. Mild concentric left ventricular hypertrophy. Mid cavitary false tendon noted. Left ventricular systolic function is normal. The estimated ejection fraction is 70 %. Diastolic function is indeterminate. No regional wall motion abnormalities noted. Right Ventricle Normal RV size. Normal systolic function. Atria Normal left atrium. Normal right atrium. No doppler evidence for ASD. Mitral Valve There is no mitral annular calcification. Normal mitral valve. Trivial mitral valve insufficiency. Tricuspid Valve Normal tricuspid valve. Mild eccentric tricuspid valve insufficiency. Right ventricular systolic pressure estimated to be 34 mmHg. Aortic Valve Trisinus/trileaflet aortic valve. Mild focal aortic valve thickening. Pulmonic Valve The pulmonic valve is not well visualized. Great Vessels The aortic root is not well visualized. Pericardium/Pleural No pericardial effusion. MMode/2D Measurements & Calculations LVIDd: 4.0 cm IVSd: 1.3 cm LA dimension: 3.3 cm LVIDs: 2.6 cm LVPWd: 1.4 cm RVDd: 3.4 cm FS: 34.0 % LAV(MOD-bp): 37.7 ml LA A4 area: 14.2 cm2 RA A4 area: 14.8 cm2 LAV(MOD-bp) Indexed: 18.7 ml/m2 LAV(MOD-sp2): 41.5 ml LAV(MOD-sp4): 33.3 ml Time Measurements MV dec time: 0.21 sec Doppler Measurements & Calculations MV E max rajat: 85.1 cm/sec Lat Peak E' Rajat: 9.4 cm/sec Med Peak E' Rajat: 7.4 cm/sec MV A max rajat: 131.7 cm/sec E/E' lat: 9.1 E/E' med: 11.5 MV E/A: 0.65 MV V2 max: 147.2 cm/sec MV P1/2t max rajat: 102.7 cm/sec Ao V2 max: 158.8 cm/sec MV max P.7 mmHg MV P1/2t: 58.0 msec Ao max P.1 mmHg MV V2 mean: 81.7 cm/sec MV dec slope: 518.8 cm/sec2 Ao V2 mean: 107.5 cm/sec MV mean P.1 mmHg MVA(P1/2t): 3.8 cm2 Ao mean P.3 mmHg MV V2 VTI: 28.1 cm Ao V2 VTI: 34.3 cm LV V1 max: 127.7 cm/sec PA V2 max: 110.7 cm/sec TR max rajat: 279.1 cm/sec LV V1 max P.5 mmHg TR max P.1 mmHg LV V1 mean P.4 mmHg LV V1 mean: 85.5 cm/sec LV V1 VTI: 34.1 cm Interpretation Summary The study was technically difficult. Left ventricular systolic function is normal. The estimated ejection fraction is 70 %. Mild concentric left ventricular hypertrophy. Mid cavitary false tendon noted. Trivial mitral valve insufficiency. Mild eccentric tricuspid valve insufficiency. Mild focal aortic valve thickening. Right ventricular systolic pressure estimated to be 34 mmHg. Diastolic function is indeterminate. Ordering Physician: No King Referring Physician: No King Performed By: Eugenio Kelley RCS
[2018-06-17 17:20] LABS: Magnesium 1.4 mg/dL (1.6-2.6)
[2018-06-17] MEDS: Glucerna Shake 120 ML LIQUID PO ×2 (17:32→21:59)
[2018-06-17] MEDS: Aspirin 81 MG TAB.CHEW PO (17:32)
[2018-06-17] MEDS: Insulin Lispro 100 UNIT/ML INSULN.PEN 16 UNIT SC (17:33)
[2018-06-17 17:40] LABS: Bedside Glucose 128 mg/dL (70-110)
[2018-06-17] MEDS: guaiFENesin 1,200 MG Tablet 1200 MG PO (21:59)
[2018-06-17] MEDS: Atorvastatin Calcium 10 MG Tablet 20 MG PO (21:59)
[2018-06-17] MEDS: 0.9% NaCl Peripheral Flush Adult/Peds IV (21:59)
[2018-06-17] MEDS: Carvedilol 25 MG Tablet PO (21:59)
[2018-06-17] MEDS: Insulin Lispro 100 UNIT/ML INSULN.PEN SQ (22:00)
[2018-06-17 22:10] LABS: Bedside Glucose 267 mg/dL (70-110)
[2018-06-18] VITALS (13 sets, daily range): BP systolic 118–153; BP diastolic 56–78; PULSE 84–98; RESP 16–20; TEMP 36.4–37.2; O2SAT 91–98
--- NOTE | 2018-06-18 05:55 | EKG12_ITS ---
Test Reason : MORNING EKG Blood Pressure : / mmHG Vent. Rate : 091 BPM Atrial Rate : 091 BPM P-R Int : 180 ms QRS Dur : 106 ms QT Int : 380 ms P-R-T Axes : 061 -19 060 degrees QTc Int : 467 ms Normal sinus rhythm Normal ECG When compared with ECG of 17-JUN-2018 11:28, MANUAL COMPARISON REQUIRED, DATA IS UNCONFIRMED Confirmed by PALOMA LUCAS ([id number]), video editor BROOKS GARCIA ([id number]) on 06/20/2018 11:02:19 AM Referred By: No King Confirmed By:PALOMA LUCAS
[2018-06-18] MEDS: 0.9% NaCl Peripheral Flush Adult/Peds IV (06:15)
[2018-06-18] MEDS: Insulin Lispro 100 UNIT/ML INSULN.PEN SQ ×4 (06:15→21:53)
[2018-06-18] MEDS: Acetaminophen 325 MG Tablet 650 MG PO (06:23)
[2018-06-18 06:35] LABS: Bedside Glucose 297 mg/dL (70-110)
[2018-06-18] MEDS: Ipratropium/Albuterol Sulfate 3 ML AMPUL.NEB INHALATION ×5 (07:02→23:21)
--- NOTE | 2018-06-18 07:15 | PN_ITS ---
Patient Problems: Active and Suspected Problems COPD exacerbation (Suspected) Subjective: The patient is a 77-year-old female with a past medical history of COPD, peripheral vascular disease, anxiety/depression, chronic renal failure stage III, former smoking history, chronic pain syndrome, diabetes mellitus type 2, foraminal stenosis of lumbar region, hyperlipidemia, hypertension, iron deficiency anemia and super morbid obesity with a BMI of 47 who presented to the emergency department at [facility] on 06/17/2018 complaining of shortness of breath and wheezing that had been present for 3 weeks. Vital signs in the ER were temp 95.9, pulse rate 81, blood pressure 165/76, respiratory rate 20 and she was 93-95% saturated on room air. White blood cell count was normal at 6.7 with an unremarkable differential. Eosinophils were mildly increased at 5.5%. Hemoglobin is 11.9 and platelets were normal. BMP was remarkable for a BUN of 18 and a creatinine of 1.08 which is actually low for her. Chest x-ray showed no acute cardiopulmonary disease. A CTA of the chest was a limited study secondary to poor contrast bolus timing but showed no central or segmental pulmonary embolism. There was a low-density left hepatic lobe lesion noted. On physical examination the breath sounds were markedly diminished with expiratory wheezing. She was admitted to the hospital and started on [id number] DuoNeb aerosols and Solu-Medrol. A respiratory panel was ordered. Afebrile. Vital signs are stable. She is currently 95% saturated on room air. Serial cardiac enzymes were negative. BNP was 51. UA had 0 WBCs. Stress test in 2017 was negative. Echocardiogram in September 2017 showed a left ventricular ejection fraction of 55% with no significant valvular heart disease. There was evidence of diastolic dysfunction and the PA pressure could not be estimated due to technically difficult study due to the patient's size. Repeat ECHO was ordered for today - Physical Exam General: Alert, Oriented x3, Cooperative, No apparent distress HEENT: Atraumatic, PERRLA, Normocephalic Oral: Moist Mucosa Neck: Supple, No JVD, No Nodes, Trachea Midline Lungs: Clear to auscultation, Diminished Cardiovascular: Regular rate, Regular Rhythm, Normal S1, Normal S2, No murmurs, No Gallop Abdomen: Bowel Sounds Present, Soft, Non Tender, Non-Distended, Obese Extremities: No clubbing, No cyanosis, Edema - She has Gerardo wraps in place on both lower extremities Skin: No rashes, No breakdown Musculoskeletal: No Muscle Wasting Neurological: Cranial nerves II-XII grossly intact, Neuro grossly intact Psych/Mental Status: Normal Affect, Appropriate Vital Signs Temp Pulse Resp BP Pulse Ox 98.4 F 96 16 138/70 H 96 06/18/18 02:07 06/18/18 06:00 06/18/18 02:07 06/18/18 02:07 06/18/18 02:10 Oxygen Delivery Method Room Air Weight: 241 lb Body Mass Index (BMI) 47.0 Finger Stick Blood Glucose 145 Intake and Output for Last 24 Hours 06/16/18 06/17/18 06/18/18 23:59 23:59 23:59 Intake Total 240 / 240 1340 / 1340 Balance 240 / 240 1340 / 1340 Laboratory Tests Past 24 Hrs 06/17/18 06/17/18 06/17/18 11:05 11:05 11:05 WBC 6.7 RBC 3.84 L Hgb 11.9 L Hct 36.5 L MCV 95.1 MCH 31.0 MCHC 32.6 RDW 13.9 RDW Differential 48.1 H Plt Count 198 MPV 9.5 Immature Gran % (Auto) 0.100 Neut % (Auto) 52.3 Lymph % (Auto) 32.1 [place] % (Auto) 9.7 Eos % (Auto) 5.5 H Baso % (Auto) 0.3 Absolute Neuts (auto) 3.5 Absolute Lymphs (auto) 2.14 Total Counted Not Reportable Sodium 141 Potassium 3.9 Chloride 107 Carbon Dioxide 30.0 Anion Gap 4 L BUN 18 Creatinine 1.08 H Estim Creat Clear Calc 31.83 Est GFR (MDRD) Af Amer 63 Est GFR (MDRD) Non-Af 52 L BUN/Creatinine Ratio 16.7 Glucose 144 H Calcium 8.9 Magnesium Troponin I < 0.015 B-Natriuretic Peptide 51.1 Urine Color Urine Clarity Urine pH Ur Specific [place] Urine Protein Urine Glucose (UA) Urine Ketones Urine Occult Blood Urine Nitrite Urine Bilirubin Urine Urobilinogen Ur Leukocyte Esterase Urine RBC Urine WBC Ur Squamous Epith Cells Urine Bacteria Urine Mucus 06/17/18 06/17/18 06/17/18 11:05 11:50 18:09 WBC RBC Hgb Hct MCV MCH MCHC RDW RDW Differential Plt Count MPV Immature Gran % (Auto) Neut % (Auto) Lymph % (Auto) [place] % (Auto) Eos % (Auto) Baso % (Auto) Absolute Neuts (auto) Absolute Lymphs (auto) Total Counted Sodium Potassium Chloride Carbon Dioxide Anion Gap BUN Creatinine Estim Creat Clear Calc Est GFR (MDRD) Af Amer Est GFR (MDRD) Non-Af BUN/Creatinine Ratio Glucose Calcium Magnesium 1.4 L Troponin I < 0.015 B-Natriuretic Peptide Urine Color Yellow Urine Clarity Clear Urine pH 6.0 Ur Specific [place] 1.010 Urine Protein Negative Urine Glucose (UA) Normal Urine Ketones Negative Urine Occult Blood Negative Urine Nitrite Negative Urine Bilirubin Negative Urine Urobilinogen Normal Ur Leukocyte Esterase Negative Urine RBC 0 SEEN Urine WBC 0 SEEN Ur Squamous Epith Cells 0 SEEN Urine Bacteria 0 SEEN Urine Mucus 0 SEEN 06/17/18 06/17/18 20:38 23:43 WBC RBC Hgb Hct MCV MCH MCHC RDW RDW Differential Plt Count MPV Immature Gran % (Auto) Neut % (Auto) Lymph % (Auto) [place] % (Auto) Eos % (Auto) Baso % (Auto) Absolute Neuts (auto) Absolute Lymphs (auto) Total Counted Sodium Potassium Chloride Carbon Dioxide Anion Gap BUN Creatinine Estim Creat Clear Calc Est GFR (MDRD) Af Amer Est GFR (MDRD) Non-Af BUN/Creatinine Ratio Glucose Calcium Magnesium Troponin I < 0.015 < 0.015 B-Natriuretic Peptide Urine Color Urine Clarity Urine pH Ur Specific [place] Urine Protein Urine Glucose (UA) Urine Ketones Urine Occult Blood Urine Nitrite Urine Bilirubin Urine Urobilinogen Ur Leukocyte Esterase Urine RBC Urine WBC Ur Squamous Epith Cells Urine Bacteria Urine Mucus POC Glucose 06/18/18 06/17/18 06/17/18 06:14 21:57 17:31 POC Glucose 297 H 267 H 128 H Medical Necessity - Tobacco Use Smoking Status: Former smoker - Patient quit in 1990 but prior to this had been up to 3 pack/day cigarette tobacco usage. Tobacco Use: Non-smoker Assessment/Plan All Active Problems Dehydration (Acute) Renal failure (Acute) Dizziness (Acute) Knee pain, bilateral (Acute) Frequent falls (Acute) Hydronephrosis of left kidney (Resolved) Pyelonephritis (Resolved) Septic shock (Resolved) Ureteral obstruction, left (Resolved) Impressions 1. exertional dyspnea and chest tightness - etiology undetermined at this time She may have asthma or COPD but, she has never had PFT's so we can not be sure. It may be due to CAD or CHF or diastolic dysfunction. she may have pulmonary HTN. She will need further W/U 2. Nocturnal hypoxemia 3. Morbid obesity 4. Peripheral vascular disease 5. Anxiety/depression 6. Chronic renal failure stage III 7. Former smoker 8. Chronic pain syndrome 9. Diabetes mellitus type 2 10. Foraminal stenosis of the lumbar region 11. Hyperlipidemia 12. Hypertension 13. History of iron deficiency anemia Consult Dr. Jos Olivo to participate in management Continue aerosol treatments Echocardiogram ordered for today Continue low-dose diuretics Reevaluate in the a.m. Code Visit Inpatient E&M: 93968 Subs Hosp L2
[2018-06-18 07:45] LABS: Absolute Lymphocyte Count 1.32 X10^3/ul (0.83-4.51); Absolute Neutrophil Count 10.4 X10^3/uL (2.0-7.7); Hematocrit 37.1 % (37-47); Hemoglobin 12.5 g/dl (12.0-15.0); Lymphocyte # 1.32 X10^3/ul (4.0); Mean Corp Hgb Conc 33.7 g/gl (32-36); Mean Corpuscular Hgb 31.7 pg (27.0-32.0); Mean Corpuscular Volume 94.2 fL (81-99); Mean Platelet Vol. 9.9 fl (6.2-12.0); Monocyte# 0.25 X10^3/uL; Monocyte% 2.1 % (0-10); Neutrophil # 10.43 X10^3/uL (2.7-7.7); Neutrophil % 86.8 % (47-70); Platelet Count 207 K/mm3 (150-450); RBC Distribution Width CV 13.5 % (11.6-14.6); RBC Distribution Width SD 46.3 fl (35.1-43.9); Red Blood Count 3.94 M/mm3 (4.2-5.4)
[2018-06-18 07:54] LABS: POSITIVE COUNT NO; POSITIVE DIFFERENTIAL NO; POSITIVE MORPHOLOGY NO
[2018-06-18] MEDS: Insulin Lispro 100 UNIT/ML INSULN.PEN 16 UNIT SC ×3 (08:15→16:34)
[2018-06-18] MEDS: Furosemide 20 MG Tablet PO (08:16)
[2018-06-18] MEDS: Enoxaparin 30 MG/0.3 ML Syringe SC (08:16)
[2018-06-18] MEDS: Ascorbic Acid 500 MG Tablet 1000 MG PO (08:16)
[2018-06-18] MEDS: guaiFENesin 1,200 MG Tablet 1200 MG PO ×2 (08:16→21:59)
[2018-06-18] MEDS: Aspirin 81 MG TAB.CHEW PO (08:16)
[2018-06-18] MEDS: cloNIDine HCl 0.1 MG Tablet PO (08:16)
[2018-06-18] MEDS: Carvedilol 25 MG Tablet PO ×2 (08:16→21:59)
[2018-06-18 08:27] LABS: Anion Gap 10 (5-15); BUN 26 mg/dL (7-18); BUN/Creat Ratio 18.4 RATIO (10-20); Calcium,Total 8.8 mg/dL (8.5-10.1); Chloride 100 mmol/L (98-107); Cholesterol 129 mg/dL (200); Creatinine, Serum 1.41 mg/dL (0.55-1.02); EST Glomerular Filtration Rate 39 mL/min (>60); Est Glom Filt Rate - Afr Amer 47 mL/min (>60); Estimated Creatinine Clearance 24.38 ml/min; Glucose 308 mg/dL (74-106); High Density Lipoprotein 50 mg/dL; Potassium 3.9 mmol/L (3.5-5.1); Sodium Level 137 mmol/L (136-145); Triglycerides 99 mg/dL; Very Low Density Lipoprotein 20 mg/dL (5-40)
[2018-06-18 08:42] LABS: Hemoglobin A1c 7.6 % (4.2-6.3)
[2018-06-18 08:44] LABS: AST(SGOT) 28 U/L (15-37); Alanine Aminotransfer ALT/SGPT 27 U/L (13-56); Albumin, Serum 3.5 g/dL (3.2-5.0); Alkaline Phosphatase 74 U/L (45-117); Bilirubin, Direct 0.15 mg/dL (0.00-0.30); Globulin 3.5 g/dL (2.2-4.2); Magnesium 1.5 mg/dL (1.6-2.6)
--- NOTE | 2018-06-18 11:03 | PCM.CONS.PUL ---
Reason for Consult Date of Consultation: 06/18/18 Reason for Consultation: Shortness of breath and wheezing History of Present Illness: The patient is a 77-year-old female, with a history as outlined below, who presented to the emergency department on June 17 with complaints of progressive worsening shortness of breath and wheezing. The patient reports that over the last couple months she has become more short of breath, primarily with exertion. However, during the aforementioned time period, the patient was being treated with prednisone for an underlying skin condition. Following this, she was treated with prednisone on several occasions for presumptive bronchitis. The patient does have a previous smoking history. She reports that she initially began smoking at the age of 18 and smoked upwards of 3 packs of cigarettes per day. She quit smoking completely in 1990. She has never undergone formal pulmonary function testing. Nevertheless, she was evaluated recently by Dr. Triana over concerns for underlying sleep disordered breathing. She underwent a polysomnogram, which reportedly did not show sleep apnea, but did demonstrate nocturnal hypoxemia. She was then placed on supplemental oxygen on a nightly basis. In addition to her exertional dyspnea, she also experiences intermittent chest tightness and wheezing. She denies ever having been diagnosed with asthma in childhood. She does not currently keep any pets in her home environment. She has no history of seasonal allergic rhinitis. During her last office visit with Dr. Triana, she was given a prescription for Combivent Respimat. Nevertheless, the patient was never instructed on the use of the inhaler. She reported to me that she use the inhaler but it did not provide any symptom relief. Upon my inspection, the patient had not actually inserted the medication cartridge into the inhaler. She does report that since being hospitalized and receiving scheduled nebulizer treatments, that her perceived chest tightness and wheezing has improved. On presentation to the emergency department, the patient was noted be afebrile and hemodynamically stable. She was maintaining appropriate oxygen saturations on room air. Laboratory evaluation revealed no evidence of a leukocytosis. She did have a mild degree of peripheral eosinophilia with 5.5% eosinophils noted. Chemistry profile was largely unremarkable. Magnesium was low at 1.4. Troponin was negative. BNP was within normal limits. Urinalysis was unremarkable. CTA chest revealed suboptimal contrast-enhancement without central or segmental pulmonary embolism identified. No focal airspace disease was noted. In the emergency department, the patient was given a dose of Lasix and started on aerosol treatments and steroids. She was subsequently admitted to the medical surgical floor for ongoing management. A surface echocardiogram from September 2017 revealed normal LV size and function with an ejection fraction of 55% and evidence of diastolic dysfunction. The right ventricular systolic pressure was unable to be estimated. Respiratory viral panel was noted to be negative. The patient has been maintained on scheduled bronchodilators, IV steroids and Lasix. Past Medical History Past Medical History (Chronic Problems): Chronic Problems Lymphedema (Chronic) PVD (peripheral vascular disease) (Chronic) COPD exacerbation (Chronic) HTN (hypertension) (Chronic) Nephrolithiasis (Chronic) HLD (hyperlipidemia) (Chronic) Iron deficiency anemia (Chronic) Anxiety (Chronic) Depression (Chronic) Osteoarthritis of knees, bilateral (Chronic) History of nephrolithiasis (Chronic) DM type 2 (diabetes mellitus, type 2) (Chronic) Morbid obesity with BMI of 40.0-44.9, adult (Chronic) Osteoarthritis (Chronic) Dermatitis (Chronic) Chronic renal failure, stage 3 (moderate) (Chronic) Foraminal stenosis of lumbar region (Chronic) Lumbar canal stenosis (Chronic) Steatosis of liver (Chronic) Obesities, morbid (Chronic) Allergies insulin detemir [From Levemir] Allergy (Verified 06/17/18 14:28) Hives oxycodone [From Percocet] Allergy (Verified 06/17/18 15:55) can't remember amlodipine [From Norvasc] Adverse Reaction (Verified 06/17/18 14:28) Itching Home Medications: Ambulatory Orders Medication Instructions Recorded Ascorbic Acid [Vitamin C] 1,000 mg PO DAILY 06/17/18 Atorvastatin Calcium [Lipitor] 20 mg PO QHS 06/17/18 Carvedilol 25 mg PO BID 06/17/18 Cataplex 3 tab PO DAILY 06/17/18 Clonidine HCl [Catapres] 0.1 mg PO DAILY 06/17/18 Furosemide [Lasix] 20 mg PO DAILY 06/17/18 Insulin Degludec [Tresiba 70 units SQ DAILY 06/17/18 Flextouch U-200] Insulin Lispro [Humalog KwikPen] 16 units SQ TIDCM 06/17/18 Iron Poly/Vit C [Niferex-150] 150 mg PO DAILYCM 06/17/18 Losartan Potassium [Cozaar] 100 mg PO DAILY 06/17/18 Metformin HCl [Metformin HCl ER] 750 mg PO DAILY 06/17/18 Metronidazole 0.75% [Metrogel] 1 applic VAGINAL DAILY 06/17/18 Multivitamin [Multivitamins] 1 each PO DAILY 06/17/18 Venlafaxine HCl [Venlafaxine HCl 75 mg PO DAILY 06/17/18 ER] Surgical History: - - Lumbar back surgery with hardware placement, tonsillectomy, right foot surgery with fusion. 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 Tobacco Use: Non-smoker Alcohol: None Drugs: None - *Family History Sibling History Items: - - Patient notes a sister with history of uterine cancer.rysm Maternal History Items: - - Mother with a history of Alzheimer's dementia. Paternal History Items: - - Patient notes a paternal family history of diabetes and heart disease. Review of Systems Constitutional: Reports: Weight Change. Denies: Chills, Fever Eyes: Denies: Blurred vision, Double vision HEENT: Denies: Head Aches, Sinus Congestion, Sinus Drainage Cardiovascular: Reports: Chest Tightness, Edema Respiratory: Reports: Cough, Shortness of Breath, Shortness of breath upon exertion, Wheezing Gastrointestinal: Denies: Abdominal Pain, Nausea, Vomiting Genitourinary: Denies: Dysuria Musculoskeletal: Denies: Joint Pain, Joint Tenderness Skin: Denies: Rash, Wounds Neurological: Reports: Tremor Psychiatric: Denies: Anxiety, Depression, Homicidal Ideations, Suicidal Ideations Hematologic/ Lymphatic: Denies: Easy Bruising, Easy Bleeding Patient Problems: Active and Suspected Problems COPD exacerbation (Suspected) Objective: The patient's most recent lab work, culture data and imaging studies have all been personally reviewed. Respiratory viral panel was negative. - Physical Exam General: Alert, Oriented x3, Cooperative, No apparent distress, - - Morbidly obese. Sitting in bedside recliner. Family is present at the bedside. HEENT: Atraumatic, PERRLA, Normocephalic Oral: No Gingival or Mucosal Lesions/ Ulcerations Neck: Supple, No Nodes, Trachea Midline, - - Large neck circumference Lungs: - - Lung diaz are grossly clear bilaterally without appreciable wheezes, rales or rhonchi. Cardiovascular: Regular rate, Regular Rhythm, Normal S1, Normal S2, No murmurs Abdomen: Bowel Sounds Present, Soft, Non Tender, Obese Extremities: No clubbing, No cyanosis, Edema Skin: - - Wrapped lower extremities Musculoskeletal: No Tenderness to Palpation of Joints or Extremities Lymphatic: No Cervical, Supraclavicular, or Inguinal Adenopathy Neurological: Cranial nerves II-XII grossly intact, Neuro grossly intact Psych/Mental Status: Alert and oriented to time, place, person, mood and affect Vital Signs Temp Pulse Resp BP Pulse Ox 98.6 F 95 20 H 153/78 H 98 06/18/18 08:20 06/18/18 08:20 06/18/18 08:20 06/18/18 08:20 06/18/18 08:20 Oxygen Flow Rate (L/min) 3 Oxygen Delivery Method Nasal Cannula Weight: 241 lb Body Mass Index (BMI) 47.0 Finger Stick Blood Glucose 145 Intake and Output for Last 24 Hours 06/16/18 06/17/18 06/18/18 23:59 23:59 23:59 Intake Total 240 / 240 1340 / 1340 Balance 240 / 240 1340 / 1340 Microbiology Past 72 Hours 06/17/18 19:53 Respiratory Panel (PCR) - Final Mucosa - Nose Laboratory Tests Past 24 Hrs 06/17/18 06/17/18 06/17/18 11:05 11:05 11:05 WBC 6.7 RBC 3.84 L Hgb 11.9 L Hct 36.5 L MCV 95.1 MCH 31.0 MCHC 32.6 RDW 13.9 RDW Differential 48.1 H Plt Count 198 MPV 9.5 Immature Gran % (Auto) 0.100 Neut % (Auto) 52.3 Lymph % (Auto) 32.1 [place] % (Auto) 9.7 Eos % (Auto) 5.5 H Baso % (Auto) 0.3 Absolute Neuts (auto) 3.5 Absolute Lymphs (auto) 2.14 Total Counted Not Reportable Sodium 141 Potassium 3.9 Chloride 107 Carbon Dioxide 30.0 Anion Gap 4 L BUN 18 Creatinine 1.08 H Estim Creat Clear Calc 31.83 Est GFR (MDRD) Af Amer 63 Est GFR (MDRD) Non-Af 52 L BUN/Creatinine Ratio 16.7 Glucose 144 H Hemoglobin A1c Calcium 8.9 Magnesium Total Bilirubin Direct Bilirubin AST ALT Alkaline Phosphatase Troponin I < 0.015 B-Natriuretic Peptide 51.1 Total Protein Albumin Globulin Triglycerides Cholesterol LDL Cholesterol VLDL Cholesterol HDL Cholesterol Urine Color Urine Clarity Urine pH Ur Specific [place] Urine Protein Urine Glucose (UA) Urine Ketones Urine Occult Blood Urine Nitrite Urine Bilirubin Urine Urobilinogen Ur Leukocyte Esterase Urine RBC Urine WBC Ur Squamous Epith Cells Urine Bacteria Urine Mucus 06/17/18 06/17/18 06/17/18 11:05 11:50 18:09 WBC RBC Hgb Hct MCV MCH MCHC RDW RDW Differential Plt Count MPV Immature Gran % (Auto) Neut % (Auto) Lymph % (Auto) [place] % (Auto) Eos % (Auto) Baso % (Auto) Absolute Neuts (auto) Absolute Lymphs (auto) Total Counted Sodium Potassium Chloride Carbon Dioxide Anion Gap BUN Creatinine Estim Creat Clear Calc Est GFR (MDRD) Af Amer Est GFR (MDRD) Non-Af BUN/Creatinine Ratio Glucose Hemoglobin A1c Calcium Magnesium 1.4 L Total Bilirubin Direct Bilirubin AST ALT Alkaline Phosphatase Troponin I < 0.015 B-Natriuretic Peptide Total Protein Albumin Globulin Triglycerides Cholesterol LDL Cholesterol VLDL Cholesterol HDL Cholesterol Urine Color Yellow Urine Clarity Clear Urine pH 6.0 Ur Specific [place] 1.010 Urine Protein Negative Urine Glucose (UA) Normal Urine Ketones Negative Urine Occult Blood Negative Urine Nitrite Negative Urine Bilirubin Negative Urine Urobilinogen Normal Ur Leukocyte Esterase Negative Urine RBC 0 SEEN Urine WBC 0 SEEN Ur Squamous Epith Cells 0 SEEN Urine Bacteria 0 SEEN Urine Mucus 0 SEEN 06/17/18 06/17/18 06/18/18 20:38 23:43 07:19 WBC 12.0 H RBC 3.94 L Hgb 12.5 Hct 37.1 MCV 94.2 MCH 31.7 MCHC 33.7 RDW 13.5 RDW Differential 46.3 H Plt Count 207 MPV 9.9 Immature Gran % (Auto) 0.100 Neut % (Auto) 86.8 H Lymph % (Auto) 11.0 L [place] % (Auto) 2.1 Eos % (Auto) 0.0 Baso % (Auto) 0.0 Absolute Neuts (auto) 10.4 H Absolute Lymphs (auto) 1.32 Total Counted Not Reportable Sodium Potassium Chloride Carbon Dioxide Anion Gap BUN Creatinine Estim Creat Clear Calc Est GFR (MDRD) Af Amer Est GFR (MDRD) Non-Af BUN/Creatinine Ratio Glucose Hemoglobin A1c Calcium Magnesium Total Bilirubin Direct Bilirubin AST ALT Alkaline Phosphatase Troponin I < 0.015 < 0.015 B-Natriuretic Peptide Total Protein Albumin Globulin Triglycerides Cholesterol LDL Cholesterol VLDL Cholesterol HDL Cholesterol Urine Color Urine Clarity Urine pH Ur Specific [place] Urine Protein Urine Glucose (UA) Urine Ketones Urine Occult Blood Urine Nitrite Urine Bilirubin Urine Urobilinogen Ur Leukocyte Esterase Urine RBC Urine WBC Ur Squamous Epith Cells Urine Bacteria Urine Mucus 06/18/18 06/18/18 06/18/18 07:19 07:19 07:19 WBC RBC Hgb Hct MCV MCH MCHC RDW RDW Differential Plt Count MPV Immature Gran % (Auto) Neut % (Auto) Lymph % (Auto) [place] % (Auto) Eos % (Auto) Baso % (Auto) Absolute Neuts (auto) Absolute Lymphs (auto) Total Counted Sodium 137 Potassium 3.9 Chloride 100 Carbon Dioxide 27.0 Anion Gap 10 BUN 26 H Creatinine 1.41 H Estim Creat Clear Calc 24.38 Est GFR (MDRD) Af Amer 47 L Est GFR (MDRD) Non-Af 39 L BUN/Creatinine Ratio 18.4 Glucose 308 H Hemoglobin A1c 7.6 H Calcium 8.8 Magnesium 1.5 L Total Bilirubin 0.50 Direct Bilirubin 0.15 AST 28 ALT 27 Alkaline Phosphatase 74 Troponin I B-Natriuretic Peptide Total Protein 7.0 Albumin 3.5 Globulin 3.5 Triglycerides 99 Cholesterol 129 LDL Cholesterol 59 VLDL Cholesterol 20 HDL Cholesterol 50 Urine Color Urine Clarity Urine pH Ur Specific [place] Urine Protein Urine Glucose (UA) Urine Ketones Urine Occult Blood Urine Nitrite Urine Bilirubin Urine Urobilinogen Ur Leukocyte Esterase Urine RBC Urine WBC Ur Squamous Epith Cells Urine Bacteria Urine Mucus POC Glucose 06/18/18 06/17/18 06/17/18 06:14 21:57 17:31 POC Glucose 297 H 267 H 128 H Clinical Impression(s) from Imaging Studies Chest X-Ray 06/17/18 10:58 IMPRESSION: Stable exam. No evident acute cardiopulmonary disease. No interval change. Electronically Signed: Tylor Flower MD at 11:43 EDT , Service support , Chest CTA 06/17/18 13:33 IMPRESSION: Limited evaluation secondary to poor contrast bolus timing No central or segmental pulmonary embolism No aortic aneurysm or dissection COPD/hyperaeration Cardiovascular disease Low-density left hepatic lobe region/lesion (follow-up hepatic protocol MRI recommended) Electronically Signed: Lm DO Guy at 14:27 EDT Tel , Service support , Assessment/Plan All Active Problems Dehydration (Acute) Renal failure (Acute) Dizziness (Acute) Knee pain, bilateral (Acute) Frequent falls (Acute) Hydronephrosis of left kidney (Resolved) Pyelonephritis (Resolved) Septic shock (Resolved) Ureteral obstruction, left (Resolved) RECOMMENDATIONS: 1. Await results of repeat echocardiogram. 2. Continue nocturnal supplemental oxygen. 3. Continue scheduled bronchodilators. 4. Discontinue IV steroids. 5. Encourage incentive spirometer use and mobilize patient as tolerated. 6. Perform walking oximetry study prior to consideration for discharge from the hospital. 7. At discharge, recommend that the patient be provided with an albuterol metered-dose inhaler to be utilized PRN for shortness of breath and wheezing. 8. Outpatient pulmonary follow-up within 2 weeks of discharge so that PFTs can be obtained. IMPRESSIONS: 1. Exertional shortness of breath/wheezing The etiology for the patient's exertional dyspnea is likely multifactorial. She does report significant weight gain over the last month due to the use of prednisone. In addition, she did previously have evidence of diastolic dysfunction on prior echocardiogram. I agree with obtaining a repeat echo as ordered. Continue diuretic therapy. The patient's wheezing may be the consequence of underlying bronchospastic airway disease or cardiac in nature. While she does have a prior smoking history, the patient undoubtedly needs to undergo formal pulmonary function testing to establish a diagnosis of obstructive lung disease, prior to being initiated on therapy for COPD. At this time, I do believe that it is reasonable to continue her aerosolized bronchodilators. I do not necessarily see an indication for the patient to be continued on IV steroids. I advised the patient that I would discontinue the Combivent that was provided to her by Dr. Triana. At the time of her discharge, I would instead provide her with an albuterol metered-dose inhaler to be utilized on an as-needed basis. We can assess her symptom response to the aforementioned therapy upon her follow-up in the pulmonary medicine clinic. Once the patient is stable for discharge, I would recommend that she be set up for a follow-up visit within 2 weeks so that baseline pulmonary function studies and a 6-minute walk test can be obtained. In the interim, will await the results of her repeat echocardiogram from today. 2. Nocturnal hypoxemia The patient reports that she recently underwent a polysomnogram by Dr. Triana. Per her account, there was no evidence of sleep apnea. However, the patient was hypoxic, requiring supplemental oxygen to be worn on a nightly basis. 3. Heart failure with preserved ejection fraction Prior echocardiogram from September 2017 did reveal diastolic dysfunction with preserved ejection fraction. It is highly likely that given the patient's frequent use of corticosteroids, that she may have developed fluid retention as a consequence of said medication use. A repeat echocardiogram is currently pending. Continue low-dose diuretic therapy as ordered. This note was generated with [employer] dictation software. It may contain incorrect words, spelling, and punctuation that were not noted in checking the note before signing. Code Visit Inpatient E&M: 95000 Init Hosp L3
[2018-06-18 11:31] LABS: Bedside Glucose 408 mg/dL (70-110)
[2018-06-18] MEDS: Iron Polysaccharide Complex 150 MG CAPSULE PO (12:27)
[2018-06-18] MEDS: Venlafaxine XR 75 MG Capsule PO (12:27)
[2018-06-18] MEDS: Losartan Potassium 100 MG Tablet PO (12:28)
[2018-06-18 17:01] LABS: Bedside Glucose 312 mg/dL (70-110)
[2018-06-18] MEDS: Atorvastatin Calcium 10 MG Tablet 20 MG PO (21:59)
[2018-06-19] VITALS (13 sets, daily range): BP systolic 124–155; BP diastolic 56–81; PULSE 76–98; RESP 16–20; TEMP 36.4–36.7; O2SAT 82–98
[2018-06-19] MEDS: Insulin Lispro 100 UNIT/ML INSULN.PEN SQ ×2 (07:04→11:40)
[2018-06-19 07:10] LABS: Bedside Glucose 320 mg/dL (70-110)
[2018-06-19 07:10] LABS: Bedside Glucose 297 mg/dL (70-110)
[2018-06-19 07:10] LABS: Bedside Glucose 206 mg/dL (70-110)
[2018-06-19] MEDS: Ipratropium/Albuterol Sulfate 3 ML AMPUL.NEB INHALATION ×2 (07:25→11:28)
[2018-06-19] MEDS: Iron Polysaccharide Complex 150 MG CAPSULE PO (07:49)
[2018-06-19] MEDS: Venlafaxine XR 75 MG Capsule PO (07:49)
[2018-06-19] MEDS: Losartan Potassium 100 MG Tablet PO (07:49)
[2018-06-19] MEDS: Insulin Lispro 100 UNIT/ML INSULN.PEN 16 UNIT SC ×3 (07:49→16:39)
[2018-06-19] MEDS: Enoxaparin 30 MG/0.3 ML Syringe SC (07:52)
[2018-06-19] MEDS: cloNIDine HCl 0.1 MG Tablet PO (07:53)
[2018-06-19] MEDS: Aspirin 81 MG TAB.CHEW PO (07:53)
[2018-06-19] MEDS: Furosemide 20 MG Tablet PO (07:53)
[2018-06-19] MEDS: Ascorbic Acid 500 MG Tablet 1000 MG PO (07:53)
[2018-06-19] MEDS: guaiFENesin 1,200 MG Tablet 1200 MG PO (07:53)
[2018-06-19] MEDS: Carvedilol 25 MG Tablet PO (07:54)
--- NOTE | 2018-06-19 09:45 | PCM.PN.PUL ---
Patient Problems: Active and Suspected Problems COPD exacerbation (Suspected) Subjective: The patient was seen and examined at the bedside this morning. Events from the last 24 hours have been reviewed. The patient is currently afebrile, hemodynamically stable and maintaining appropriate oxygen saturations on room air. She did report an episode of wheezing this morning, which she felt was coming from her upper airway. Regardless, the patient did receive an aerosol treatment with subsequent resolution of her perceived wheezing. Objective: The patient's most recent lab work, culture data and imaging studies have all been personally reviewed. Respiratory viral panel was negative. CTA chest revealed suboptimal contrast-enhancement without central or segmental pulmonary embolism identified. No focal airspace disease was noted. A surface echocardiogram from September 2017 revealed normal LV size and function with an ejection fraction of 55% and evidence of diastolic dysfunction. The right ventricular systolic pressure was unable to be estimated. Repeat echocardiogram completed June 17 revealed mild concentric LVH with an ejection fraction of 70% and indeterminate diastolic function. Right ventricular systolic pressure was estimated to be 34 mmHg. RV function was normal. - Physical Exam General: Alert, Oriented x3, Cooperative, No apparent distress, - - Sitting at the bedside. HEENT: Atraumatic, PERRLA, Normocephalic Oral: No Gingival or Mucosal Lesions/ Ulcerations Neck: Supple, No Nodes, Trachea Midline Lungs: Normal air movement, No rhonchi, No wheeze, No rales Cardiovascular: Regular rate, Regular Rhythm, Normal S1, Normal S2, No murmurs Abdomen: Bowel Sounds Present, Soft, Non Tender, Obese Extremities: No clubbing, No cyanosis, Edema Skin: - - No significant change from previous. Musculoskeletal: No Tenderness to Palpation of Joints or Extremities Lymphatic: No Cervical, Supraclavicular, or Inguinal Adenopathy Neurological: Cranial nerves II-XII grossly intact, Neuro grossly intact Psych/Mental Status: Alert and oriented to time, place, person, mood and affect Vital Signs Temp Pulse Resp BP Pulse Ox 97.5 F L 87 19 H 124/56 H 95 06/19/18 08:36 06/19/18 08:36 06/19/18 08:36 06/19/18 08:36 06/19/18 08:36 Oxygen Flow Rate (L/min) 3 Oxygen Delivery Method Room Air Weight: 240 lb 15.444 oz Body Mass Index (BMI) 47.0 Finger Stick Blood Glucose 145 Intake and Output for Last 24 Hours 06/17/18 06/18/18 06/19/18 23:59 23:59 23:59 Intake Total 240 / 240 1740 / 1740 200 / 200 Balance 240 / 240 1740 / 1740 200 / 200 Microbiology Past 72 Hours 06/17/18 19:53 Respiratory Panel (PCR) - Final Mucosa - Nose POC Glucose 06/19/18 06/18/18 06/18/18 07:03 21:49 21:48 POC Glucose 206 H 320 H 297 H 06/18/18 06/18/18 16:32 11:14 POC Glucose 312 H 408 H Clinical Impression(s) from Imaging Studies Chest X-Ray 06/17/18 10:58 IMPRESSION: Stable exam. No evident acute cardiopulmonary disease. No interval change. Electronically Signed: Tylor Flower MD at 11:43 EDT , Service support , Chest CTA 06/17/18 13:33 IMPRESSION: Limited evaluation secondary to poor contrast bolus timing No central or segmental pulmonary embolism No aortic aneurysm or dissection COPD/hyperaeration Cardiovascular disease Low-density left hepatic lobe region/lesion (follow-up hepatic protocol MRI recommended) Electronically Signed: Lm Tovar DO at 14:27 EDT Tel , Service support , Medical Necessity - Tobacco Use Smoking Status: Former smoker - Patient quit in 1990 but prior to this had been up to 3 pack/day cigarette tobacco usage. Tobacco Use: Non-smoker Assessment/Plan All Active Problems Dehydration (Acute) Renal failure (Acute) Dizziness (Acute) Knee pain, bilateral (Acute) Frequent falls (Acute) Hydronephrosis of left kidney (Resolved) Pyelonephritis (Resolved) Septic shock (Resolved) Ureteral obstruction, left (Resolved) RECOMMENDATIONS: 1. Continue nocturnal supplemental oxygen. 2. Continue scheduled bronchodilators. 3. Encourage incentive spirometer use and mobilize patient as tolerated. 4. Perform walking oximetry study prior to consideration for discharge from the hospital. 5. At discharge, recommend that the patient be provided with an albuterol metered-dose inhaler to be utilized PRN for shortness of breath and wheezing. 6. The patient has been scheduled for a follow-up office visit in the pulmonary medicine clinic at 2:45 PM on June 24. The patient has been provided with an appointment card and new patient packet. IMPRESSIONS: 1. Exertional shortness of breath/wheezing The etiology for the patient's exertional dyspnea is likely multifactorial. She does report significant weight gain over the last month due to the use of prednisone. In addition, she did previously have evidence of diastolic dysfunction on prior echocardiogram. Continue diuretic therapy. The patient's wheezing may be the consequence of underlying bronchospastic airway disease or cardiac in nature. While she does have a prior smoking history, the patient undoubtedly needs to undergo formal pulmonary function testing to establish a diagnosis of obstructive lung disease, prior to being initiated on therapy for COPD. At this time, I do believe that it is reasonable to continue her aerosolized bronchodilators. I advised the patient that I would discontinue the Combivent that was provided to her by Dr. Triana. At the time of her discharge, I would instead provide her with an albuterol metered-dose inhaler to be utilized on an as-needed basis. We can assess her symptom response to the aforementioned therapy upon her follow-up in the pulmonary medicine clinic. She is currently scheduled to follow-up in the pulmonary medicine office as noted above. At that time, orders can be placed for pulmonary function studies along with a 6-minute walk test. 2. Nocturnal hypoxemia The patient reports that she recently underwent a polysomnogram by Dr. Triana. Per her account, there was no evidence of sleep apnea. However, the patient was hypoxic, requiring supplemental oxygen to be worn on a nightly basis. 3. Heart failure with preserved ejection fraction Prior echocardiogram from September 2017 did reveal diastolic dysfunction with preserved ejection fraction. It is highly likely that given the patient's frequent use of corticosteroids, that she may have developed fluid retention as a consequence of said medication use. Continue low-dose diuretic therapy as ordered. This note was generated with [employer] software. It may contain incorrect words, spelling, and punctuation that were not noted in checking the note before signing. Code Visit Inpatient E&M: 68721 Subs Hosp L2
--- NOTE | 2018-06-19 09:48 | PN_ITS ---
Patient Problems: Active and Suspected Problems COPD exacerbation (Suspected) Subjective: The patient was seen and examined at the bedside this morning. Events from the last 24 hours have been reviewed. The patient is currently afebrile, hemodynamically stable and maintaining appropriate oxygen saturations on room air. She did report an episode of wheezing this morning, which she felt was coming from her upper airway. Regardless, the patient did receive an aerosol treatment with subsequent resolution of her perceived wheezing. Objective: The patient's most recent lab work, culture data and imaging studies have all been personally reviewed. Respiratory viral panel was negative. CTA chest reve aled suboptimal contrast-enhancement without central or segmental pulmonary embolism identified. No focal airspace disease was noted. A surface echocardiogram from September 2017 revealed normal LV size and function with an ejection fraction of 55% and evidence of diastolic dysfunction. The right ventricular systolic pressure was unable to be estimated. Repeat echocardiogram completed June 17 revealed mild concentric LVH with an ejection fraction of 70% and indeterminate diastolic function. Right ventricular systolic pressure was estimated to be 34 mmHg. RV function was normal. - Physical Exam General: Alert, Oriented x3, Cooperative, No apparent distress, - - Sitting at the bedside. HEENT: Atraumatic, PERRLA, Normocephalic Oral: No Gingival or Mucosal Lesions/ Ulcerations Neck: Supple, No Nodes, Trachea Midline Lungs: Normal air movement, No rhonchi, No wheeze, No rales Cardiovascular: Regular rate, Regular Rhythm, Normal S1, Normal S2, No murmurs Abdomen: Bowel Sounds Present, Soft, Non Tender, Obese Extremities: No clubbing, No cyanosis, Edema Skin: - - No significant change from previous. Musculoskeletal: No Tenderness to Palpation of Joints or Extremities Lymphatic: No Cervical, Supraclavicular, or Inguinal Adenopathy Neurological: Cranial nerves II-XII grossly intact, Neuro grossly intact Psych/Mental Status: Alert and oriented to time, place, person, mood and affect Vital Signs Temp Pulse Resp BP Pulse Ox 97.5 F L 87 19 H 124/56 H 95 06/19/18 08:36 06/19/18 08:36 06/19/18 08:36 06/19/18 08:36 06/19/18 08:36 Oxygen Flow Rate (L/min) 3 Oxygen Delivery Method Room Air Weight: 240 lb 15.444 oz Body Mass Index (BMI) 47.0 Finger Stick Blood Glucose 145 Intake and Output for Last 24 Hours 06/17/18 06/18/18 06/19/18 23:59 23:59 23:59 Intake Total 240 / 240 1740 / 1740 200 / 200 Balance 240 / 240 1740 / 1740 200 / 200 Microbiology Past 72 Hours 06/17/18 19:53 Respiratory Panel (PCR) - Final Mucosa - Nose POC Glucose 06/19/18 06/18/18 06/18/18 07:03 21:49 21:48 POC Glucose 206 H 320 H 297 H 06/18/18 06/18/18 16:32 11:14 POC Glucose 312 H 408 H Clinical Impression(s) from Imaging Studies Chest X-Ray 06/17/18 10:58 IMPRESSION: Stable exam. No evident acute cardiopulmonary disease. No interval change. Electronically Signed: Tylor Flower MD at 11:43 EDT , Service support , Chest CTA 06/17/18 13:33 IMPRESSION: Limited evaluation secondary to poor contrast bolus timing No central or segmental pulmonary embolism No aortic aneurysm or dissection COPD/hyperaeration Cardiovascular disease Low-density left hepatic lobe region/lesion (follow-up hepatic protocol MRI recommended) Electronically Signed: Lm Tovar DO at 14:27 EDT Tel , Service support , Medical Necessity - Tobacco Use Smoking Status: Former smoker - Patient quit in 1990 but prior to this had been up to 3 pack/day cigarette tobacco usage. Tobacco Use: Non-smoker Assessment/Plan All Active Problems Dehydration (Acute) Renal failure (Acute) Dizziness (Acute) Knee pain, bilateral (Acute) Frequent falls (Acute) Hydronephrosis of left kidney (Resolved) Pyelonephritis (Resolved) Septic shock (Resolved) Ureteral obstruction, left (Resolved) RECOMMENDATIONS: 1. Continue nocturnal supplemental oxygen. 2. Continue scheduled bronchodilators. 3. Encourage incentive spirometer use and mobilize patient as tolerated. 4. Perform walking oximetry study prior to consideration for discharge from the hospital. 5. At discharge, recommend that the patient be provided with an albuterol metered-dose inhaler to be utilized PRN for shortness of breath and wheezing. 6. The patient has been scheduled for a follow-up office visit in the pulmonary medicine clinic at 2:45 PM on June 24. The patient has been provided with an appointment card and new patient packet. IMPRESSIONS: 1. Exertional shortness of breath/wheezing The etiology for the patient's exertional dyspnea is likely multifactorial. She does report significant weight gain over the last month due to the use of prednisone. In addition, she did previously have evidence of diastolic dysfunction on prior echocardiogram. Continue diuretic therapy. The patient's wheezing may be the consequence of underlying bronchospastic airway disease or cardiac in nature. While she does have a prior smoking history, the patient undoubtedly needs to undergo formal pulmonary function testing to establish a diagnosis of obstructive lung disease, prior to being initiated on therapy for COPD. At this time, I do believe that it is reasonable to continue her aerosolized bronchodilators. I advised the patient that I would discontinue the Combivent that was provided to her by Dr. Triana. At the time of her discharge, I would instead provide her with an albuterol metered-dose inhaler to be utilized on an as-needed basis. We can assess her symptom response to the aforementioned therapy upon her follow-up in the pulmonary medicine clinic. She is currently scheduled to follow-up in the pulmonary medicine office as noted above. At that time, orders can be placed for pulmonary function studies along with a 6-minute walk test. 2. Nocturnal hypoxemia The patient reports that she recently underwent a polysomnogram by Dr. Triana. Per her account, there was no evidence of sleep apnea. However, the patient was hypoxic, requiring supplemental oxygen to be worn on a nightly basis. 3. Heart failure with preserved ejection fraction Prior echocardiogram from September 2017 did reveal diastolic dysfunction with preserved ejection fraction. It is highly likely that given the patient's fr equent use of corticosteroids, that she may have developed fluid retention as a consequence of said medication use. Continue low-dose diuretic therapy as ordered. This note was generated with Expandlyation software. It may contain incorrect words, spelling, and punctuation that were not noted in checking the note before signing. Code Visit Inpatient E&M: 48275 Subs Hosp L2
[2018-06-19 12:11] LABS: Bedside Glucose 197 mg/dL (70-110)
--- NOTE | 2018-06-19 14:30 | CASEMGMT ---
ALTAF MARTINEZ received updated from therapy that patient will need walker at discharge. ALTAF MARTINEZ discussed need for walker with patient and she would like [facility] [place] for DME. Script received for walker and sent to [facility] [place]. ALTAF MARTINEZ arranged for walker to be delivered to [facility]. Walking oxygen testing redone and patient did not qualify for home oxygen.
--- NOTE | 2018-06-19 15:57 | PCM.DC ---
- Discharge Diagnoses Current Active Problems: Current Active and Chronic Problems Lymphedema (Chronic) PVD (peripheral vascular disease) (Chronic) COPD exacerbation (Chronic) You will use the following diet at home:: Calorie/Carbohydrate Controlled (specify 1200, 1400, etc), Cardiac Your food should be the consistency of: Regular Your liquids should be the consistency of: Regular/Thin Discharge Activity: Return to Normal Activity, - - Avoid exposure to any strong smells such as bleach, cleaning products, strong colognes or perfumes, paint fumes and smoke of any kind. Avoid sudden exposure to cold air because this can cause bronchospasm. You may want to cover your mouth when you go outside in the winter. Avoid exposure to anyone who is sick with a cough or sore throat. Call your doctor if you observe: Fever of 101 or Higher, Shortness of breath, Dizziness, Fainting spells, Chest pain, Uncontrolled pain Additional Instructions: You do not have to take the Furosemide. The best way to control the swelling in the legs is to watch the salt in your diet. Wear the QUE wraps for compression from the time you swing your legs out of bed in the mornig until the time you get in bed. Elevate your legs whenever you are seated. Ask Dr. Ornelas for a referral for PT at [facility] and he must write on the PT referral for Aqua therapy. The water in the pool offloads weight and it will be easier on your back. Ask your PCP for a referral to the [facility] clinic for weight managemen and blood sugar control. Keep your appt with Dr. Olivo on Sunday. Your cholesterol is well controlled and the HGBA1C is OK at 7.6......the repair coil winder's will help you to get this number even lower. Allergies/Adverse Reactions: Allergies insulin detemir [From Levemir] Allergy (Verified 06/17/18 14:28) Hives oxycodone [From Percocet] Allergy (Verified 06/17/18 15:55) can't remember amlodipine [From Norvasc] Adverse Reaction (Verified 06/17/18 14:28) Itching Medications to take at Discharge Ascorbic Acid [Vitamin C] 1,000 mg PO DAILY 06/17/18 Atorvastatin Calcium [Lipitor] 20 mg PO QHS 06/17/18 Carvedilol 25 mg PO BID 06/17/18 Cataplex 3 tab PO DAILY 06/17/18 Clonidine HCl [Catapres] 0.1 mg PO DAILY 06/17/18 Insulin Degludec [Tresiba Flextouch U-200] 70 units SQ DAILY 06/17/18 Insulin Lispro [Humalog KwikPen] 16 units SQ TIDCM 06/17/18 Iron Poly/Vit C [Niferex-150] 150 mg PO DAILYCM 06/17/18 Losartan Potassium [Cozaar] 100 mg PO DAILY 06/17/18 Metformin HCl [Metformin HCl ER] 750 mg PO DAILY 06/17/18 Metronidazole 0.75% [Metrogel Vaginal] 1 applic VAGINAL DAILY 06/17/18 Multivitamin [Multivitamins] 1 each PO DAILY 06/17/18 Venlafaxine HCl [Venlafaxine HCl ER] 75 mg PO DAILY 06/17/18 Albuterol Inhaler [Ventolin Hfa] 1 - 2 puff INHALATION Q4H PRN PRN #1 inhaler 06/19/18 The following prescriptions were given: Albuterol Inhaler [Ventolin Hfa] 1 - 2 puff INHALATION Q4H PRN PRN #1 inhaler PRN Reason: Wheezing Primary Care Physician: Trang Talamantes DO [Primary Care Provider] - Test Results: Test results from this visit will be discussed in further detail at your follow-up appointment, if applicable. Please Follow Up With: Trang Talamantes DO When: 1-2 weeks Please Follow Up With: Jos Olivo DO When: 1-2 weeks Proposed Discharge Date: 06/19/18
--- NOTE | 2018-06-19 16:02 | DCINST_ITS ---
- Discharge Diagnoses Current Active Problems: Current Active and Chronic Problems Lymphedema (Chronic) PVD (peripheral vascular disease) (Chronic) COPD exacerbation (Chronic) You will use the following diet at home:: Calorie/Carbohydrate Controlled (specify 1200, 1400, etc), Cardiac Your food should be the consistency of: Regular Your liquids should be the consistency of: Regular/Thin Discharge Activity: Return to Normal Activity, - - Avoid exposure to any strong smells such as bleach, cleaning products, strong colognes or perfumes, paint fumes and smoke of any kind. Avoid sudden exposure to cold air because this can cause bronchospasm. You may want to cover your mouth when you go outside in the winter. Avoid exposure to anyone who is sick with a cough or sore throat. Call your doctor if you observe: Fever of 101 or Higher, Shortness of breath, Dizziness, Fainting spells, Chest pain, Uncontrolled pain Additional Instructions: You do not have to take the Furosemide. The best way to control the swelling in the legs is to watch the salt in your diet. Wear the QUE wraps for compression from the time you swing your legs out of bed in the mornig until the time you get in bed. Elevate your legs whenever you are seated. Ask Dr. Ornelas for a referral for PT at [facility] and he must write on the PT referral for Aqua therapy. The water in the pool offloads weight and it will be easier on your back. Ask your PCP for a referral to the mix house operator's clinic for weight managemen and blood sugar control. Keep your appt with Dr. Olivo on Sunday. Your cholesterol is well controlled and the HGBA1C is OK at 7.6......the mix house operator's will help you to get this number even lower. Allergies/Adverse Reactions: Allergies insulin detemir [From Levemir] Allergy (Verified 06/17/18 14:28) Hives oxycodone [From Percocet] Allergy (Verified 06/17/18 15:55) can't remember amlodipine [From Norvasc] Adverse Reaction (Verified 06/17/18 14:28) Itching Medications to take at Discharge Ascorbic Acid [Vitamin C] 1,000 mg PO DAILY 06/17/18 Atorvastatin Calcium [Lipitor] 20 mg PO QHS 06/17/18 Carvedilol 25 mg PO BID 06/17/18 Cataplex 3 tab PO DAILY 06/17/18 Clonidine HCl [Catapres] 0.1 mg PO DAILY 06/17/18 Insulin Degludec [Tresiba Flextouch U-200] 70 units SQ DAILY 06/17/18 Insulin Lispro [Humalog KwikPen] 16 units SQ TIDCM 06/17/18 Iron Poly/Vit C [Niferex-150] 150 mg PO DAILYCM 06/17/18 Losartan Potassium [Cozaar] 100 mg PO DAILY 06/17/18 Metformin HCl [Metformin HCl ER] 750 mg PO DAILY 06/17/18 Metronidazole 0.75% [Metrogel Vaginal] 1 applic VAGINAL DAILY 06/17/18 Multivitamin [Multivitamins] 1 each PO DAILY 06/17/18 Venlafaxine HCl [Venlafaxine HCl ER] 75 mg PO DAILY 06/17/18 Albuterol Inhaler [Ventolin Hfa] 1 - 2 puff INHALATION Q4H PRN PRN #1 inhaler 06/19/18 The following prescriptions were given: Albuterol Inhaler [Ventolin Hfa] 1 - 2 puff INHALATION Q4H PRN PRN #1 inhaler PRN Reason: Wheezing Primary Care Physician: Trang Talamantes DO [Primary Care Provider] - Test Results: Test results from this visit will be discussed in further detail at your follow- up appointment, if applicable. Please Follow Up With: Trang Talamantes DO When: 1-2 weeks Please Follow Up With: Jos Olivo DO When: 1-2 weeks Proposed Discharge Date: 06/19/18
--- NOTE | 2018-06-19 16:15 | DS.PCM_ITS ---
Discharge Date and Diagnosis Date of Admission: 06/17/18 Date of Discharge: 06/19/18 - Primary Discharge Diagnosis Active and Suspected Problems COPD exacerbation (Suspected) - has never had PFT's so unknown if she has COPD Bronchospasm Low density lesion in the left lobe of the liver - Secondary Discharge Diagnosis Chronic Problems Lymphedema (Chronic) PVD (peripheral vascular disease) (Chronic) HTN (hypertension) (Chronic) HLD (hyperlipidemia) (Chronic) Iron deficiency anemia (Chronic) Anxiety (Chronic) Depression (Chronic) Osteoarthritis of knees, bilateral (Chronic) Knee pain, bilateral (Chronic) post fall History of nephrolithiasis (Chronic) DM type 2 (diabetes mellitus, type 2) (Chronic) Morbid obesity with BMI of 40.0-44.9, adult (Chronic) Osteoarthritis (Chronic) Dermatitis (Chronic) Chronic renal failure, stage 3 (moderate) (Chronic) Foraminal stenosis of lumbar region (Chronic) Lumbar canal stenosis (Chronic) Steatosis of liver (Chronic) Obesities, morbid (Chronic) Mild left ventricular hypertrophy Hospital Course and Treatment Imaging Results: Clinical Impression(s) from Imaging Studies Chest X-Ray 06/17/18 10:58 IMPRESSION: Stable exam. No evident acute cardiopulmonary disease. No interval change. Electronically Signed: Tylor Flower MD at 11:43 EDT , Service support , Chest CTA 06/17/18 13:33 IMPRESSION: Limited evaluation secondary to poor contrast bolus timing No central or segmental pulmonary embolism No aortic aneurysm or dissection COPD/hyperaeration Cardiovascular disease Low-density left hepatic lobe region/lesion (follow-up hepatic protocol MRI recommended) Electronically Signed: Lm Tovar DO at 14:27 EDT Tel , Service support , Dr. Jos Olivo-pulmonology Operations: None Procedures: 2-D Echocardiogram - Normal left ventricular function with an ejection fraction of 70% and mild concentric left ventricular hypertrophy. Trivial MR and mild TR. Mild aortic valve thickening with no aortic stenosis. Diastolic function is indeterminate. Summary of Care Provided: The patient is a 77-year-old female with a past medical history of COPD, peripheral vascular disease, anxiety/depression, chronic renal failure stage III, former smoking history, chronic pain syndrome, diabetes mellitus type 2, bullous pemphigoid, foraminal stenosis of the lumbar region, hyperlipidemia, hypertension, iron deficiency anemia and morbid obesity with a BMI of 47 who presented to the emergency department at [facility] on 06/17/2018 complaining of shortness of breath and wheezing that had been present for 3 weeks. Vital signs in the ER were temp 95.9, pulse rate 81, blood pressure 165/76, respiratory rate 20 and she was 93-95% saturated on room air. White blood cell count was normal at 6.7 with an unremarkable differential. Eosinophils were mildly increased at 5.5%. Hemoglobin was 11.9 and platelets were normal. BMP was remarkable for a BUN of 18 and a creatinine of 1.08 which is actually low for her. Chest x-ray showed no acute cardiopulmonary disease. EKG in the emergency room showed no significant ST or T wave changes. A CTA of the chest was a limited study secondary to poor contrast bolus timing but showed no central or segmental pulmonary embolism. There was a low-density left hepatic lobe lesion noted. On physical examination the breath sounds were markedly diminished with expiratory wheezing. She was admitted to the hospital and started on [id number] DuoNeb aerosols and Solu-Medrol. A respiratory panel was ordered. Less than 24 hours after admission her lungs were clear to auscultation without crackles, wheezes or rhonchi. she had no CP and she denied SOB. Serial cardiac enzymes were negative. Respiratory panel was negative. She has never had PFT's and therefore she can not be diagnosed with an acute exacerbation of COPD because we do not know that she has COPD. Consultation was placed with Dr. Olivo from pulmonary medicine and he recommended discontinuing steroids. Albuterol aerosols as needed were continued. On 06/19/2018 she was afebrile with stable vital signs. Pulse ox with ambulation on room air was 92% in the afternoon and she was 95% at rest. She does get somewhat short of breath with exertion however she was recently on a 3-month course of high-dose steroids to treat bullous pemphigoid and this completed in the end of March. Since that time she has been prescribed a steroid taper for wheezing. Because of the steroids she has gained 25-30 lbs and she is deconditioned. I think the QUIROGA is due to weight gain and deconditioning. While she was in the hospital she was seen by the business case analyst and she is very interested in the [facility] program they run along with diabetic clinic. She will need a referral form her PCP. She was discharged home on 06/19/2018 with a prescription for an albuterol metered-dose inhaler. She has an appointment scheduled on this coming Sunday for pulmonary function tests in the pulmonary office. She has decided she would like to follow up with Dr. Olivo. The hypodense lesion in the liver can be evaluated as an OP if it is new. If she continues to have chest pain despite the inhaler than I think she should have an OP stress test. She will follow-up with Dr. Olivo to discuss the results of pulmonary function tests. - Physical Exam General: Alert, Oriented x3, Cooperative, No apparent distress HEENT: Atraumatic, PERRLA, Normocephalic Oral: Moist Mucosa Neck: Supple, No JVD, No Nodes, Trachea Midline Lungs: Clear to auscultation, Diminished Cardiovascular: Regular rate, Regular Rhythm, Normal S1, Normal S2, No murmurs, No Gallop Abdomen: Bowel Sounds Present, Soft, Non Tender, Non-Distended, Obese Extremities: No clubbing, No cyanosis, Edema - She has Gerardo wraps in place on both lower extremities Skin: No rashes, No breakdown Musculoskeletal: No Muscle Wasting Neurological: Cranial nerves II-XII grossly intact, Neuro grossly intact Psych/Mental Status: Normal Affect, Appropriate She was instructed to follow-up with Dr. Talamantes in 1-2 weeks. - Physical Exam Vital Signs Temp Pulse Resp BP Pulse Ox 98.0 F 83 20 H 155/81 H 95 06/19/18 14:29 06/19/18 15:02 06/19/18 14:29 06/19/18 14:29 06/19/18 15:20 Oxygen Flow Rate (L/min) [ 4 AMBULATION with Oxygen] Oxygen Flow Rate (L/min) 3 Oxygen Delivery Method Room Air Weight: 240 lb 15.444 oz Body Mass Index (BMI) 47.0 Finger Stick Blood Glucose 145 Intake and Output for Last 24 Hours 06/17/18 06/18/18 06/19/18 23:59 23:59 23:59 Intake Total 240 / 240 1740 / 1740 200 / 200 Balance 240 / 240 1740 / 1740 200 / 200 Microbiology Past 72 Hours 06/17/18 19:53 Respiratory Panel (PCR) - Final Mucosa - Nose POC Glucose 06/19/18 06/19/18 06/18/18 11:39 07:03 21:49 POC Glucose 197 H 206 H 320 H 06/18/18 06/18/18 21:48 16:32 POC Glucose 297 H 312 H Discharge Activity: Return to Normal Activity, - - Avoid exposure to any strong smells such as bleach, cleaning products, strong colognes or perfumes, paint fumes and smoke of any kind. Avoid sudden exposure to cold air because this can cause bronchospasm. You may want to cover your mouth when you go outside in the winter. Avoid exposure to anyone who is sick with a cough or sore throat. Call your doctor if you observe: Fever of 101 or Higher, Shortness of breath, Dizziness, Fainting spells, Chest pain, Uncontrolled pain Home Medications: Medications to take at Discharge Ascorbic Acid [Vitamin C] 1,000 mg PO DAILY 06/17/18 Atorvastatin Calcium [Lipitor] 20 mg PO QHS 06/17/18 Carvedilol 25 mg PO BID 06/17/18 Cataplex 3 tab PO DAILY 06/17/18 Clonidine HCl [Catapres] 0.1 mg PO DAILY 06/17/18 Insulin Degludec [Tresiba Flextouch U-200] 70 units SQ DAILY 06/17/18 Insulin Lispro [Humalog KwikPen] 16 units SQ TIDCM 06/17/18 Iron Poly/Vit C [Niferex-150] 150 mg PO DAILYCM 06/17/18 Losartan Potassium [Cozaar] 100 mg PO DAILY 06/17/18 Metformin HCl [Metformin HCl ER] 750 mg PO DAILY 06/17/18 Metronidazole 0.75% [Metrogel Vaginal] 1 applic VAGINAL DAILY 06/17/18 Multivitamin [Multivitamins] 1 each PO DAILY 06/17/18 Venlafaxine HCl [Venlafaxine HCl ER] 75 mg PO DAILY 06/17/18 Albuterol Inhaler [Ventolin Hfa] 1 - 2 puff INHALATION Q4H PRN PRN #1 inhaler 06/19/18 Following Prescrptions Were Given to Patient: Albuterol Inhaler [Ventolin Hfa] 1 - 2 puff INHALATION Q4H PRN PRN #1 inhaler PRN Reason: Wheezing Primary Care Physician: Trang Talamantes DO [Primary Care Provider] - Please Follow Up With: Trang Talamantes DO When: 1-2 weeks Please Follow Up With: Jos Olivo DO When: 1-2 weeks Disposition: Home Minutes spent on discharge:: 30 Medical Necessity - Tobacco Use Smoking Status: Former smoker - Patient quit in 1990 but prior to this had been up to 3 pack/day cigarette tobacco usage. Tobacco Use: Non-smoker Meaningful Use Info Meaningful Use Diagnoses (Choose all that apply): None applicable Code Visit Inpatient E&M: 12529 Disch Hosp
[2018-06-19 17:01] LABS: Bedside Glucose 111 mg/dL (70-110)
--- NOTE | 2018-06-21 14:45 | CASEMGMT ---
ALTAF MARTINEZ DC PHONE CALL DC DATE: 06/19/18 DC Disposition: Home LACE/STRATA: 11/28 Intro role of CM to patient via phone. Pt states she does not have any questions re: her prescriptions, f/u or instructions. Pt has f/u appointments made and will be able to have transportation to appts. No care improvement suggestions given. Genesis PAKN RN ACM
== END 2018-06-19 18:53 | disposition home or self-care (01) | DRG 191 ==
LOC: ED 15:49 → MS3 16:23
PROVIDERS: Admitting Provider Family Medicine; Emergency Provider Emergency Medicine; Family Provider Internal Medicine; PCP Internal Medicine; Referring Provider Family Medicine; Visit Provider Internal Medicine
DX: J44.1 Chronic obstructive pulmonary disease with (acute) exacerbation (principal); J96.11 Chronic respiratory failure with hypoxia; Z68.42 Body mass index [BMI] 45.0-49.9, adult; Z99.81 Dependence on supplemental oxygen; Z79.4 Long term (current) use of insulin; I12.9 Hypertensive chronic kidney disease with stage 1 through stage 4 chronic kidney disease, or unspecified chronic kidney disease; E11.22 Type 2 diabetes mellitus with diabetic chronic kidney disease; N18.3 Chronic kidney disease, stage 3 (moderate); E66.01 Morbid (severe) obesity due to excess calories; D50.9 Iron deficiency anemia, unspecified; E78.5 Hyperlipidemia, unspecified; Z87.891 Personal history of nicotine dependence; I73.9 Peripheral vascular disease, unspecified; G89.4 Chronic pain syndrome; K76.9 Liver disease, unspecified; J98.01 Acute bronchospasm; I89.0 Lymphedema, not elsewhere classified; F41.9 Anxiety disorder, unspecified; M17.0 Bilateral primary osteoarthritis of knee; F32.9 Major depressive disorder, single episode, unspecified; Z87.442 Personal history of urinary calculi; K76.0 Fatty (change of) liver, not elsewhere classified; M48.061 Spinal stenosis, lumbar region without neurogenic claudication
CPT/HCPCS: 36415; 71046; 71275; 80048; 80061; 80076; 81001; 82962; 83036; 83735; 83880; 84484; 85025; 87633; 93005; 93306; 94640; 94667; 97162; 97166; 97530; 97802; 99285; J7030; Q9967; A4216; J1940

== ENCOUNTER → 2018-07-03 | Outpatient (CLI) | payer MEDICARE, SELFPAY ==
[2018-06-19 11:32] VITALS: BMI 47.3
--- NOTE | 2018-07-03 10:11 | MRI_ITS ---
STUDY: MRI ABDOMEN WITHOUT CONTRAST REASON FOR EXAM: Female, 77 years old. Liver lesion. Follow-up abnormality on CT chest. TECHNIQUE: Standardized fat and water weighted pulse sequences were obtained in all 3 orthogonal planes. COMPARISON: CTA chest 06/15/2017, CT abdomen and pelvis 02/21/2014, 02/17/2014. FINDINGS: On the CT abdomen and pelvis of 02/21/2014, bulging from the posterior margin of the left liver, there is an ill-defined lesion measuring approximately 4.5 x 4.3 x 5.7 cm. On the CTA chest 06/17/2018, in the same position and was similar morphological features, a lesion measuring approximately 5.0 x 6.2 x 3.9 cm. On today's MRI, the liver lesion exhibits circumscribed margins, mild macrolobulation, partially bilobed appearance, with a greatest craniocaudal dimension of 5.57 cm, a greatest transverse dimension of 4.18 cm, and a greatest anterior-posterior dimension of 6.1 cm. The lesion is T1 hypointense, heterogeneously T2 hyperintense, without apparent restricted diffusion. Lesion cannot be described as a simple cyst. There are no other suspicious hepatic lesions. Hepatomegaly, craniocaudal right liver 19.6 cm. Nondilated intrahepatic biliary tree. Normal gallbladder. On opposed phase imaging, there is generalized mild signal dropout throughout the liver consistent with the presence of hepatic steatosis, concordant with steatotic features on prior CT imaging. Mild pancreatic atrophy. Normal spleen. Normal adrenal glands. Normal bilateral kidneys, collecting systems, proximal ureters. No retroperitoneal mass or lymphadenopathy. Unremarkable vascular structures. Normal stomach. Observed portions of small and large bowel exhibits no acute process. Multilevel lumbar spondylosis, prominent multilevel degenerative disc disease, L3-L4 anterior listhesis, L4-L5 posterior sydney fixation with pedicle screws and laminectomy. Multilevel posterior disc bulging most severe at T12-L1. These features contributes to multilevel foraminal narrowing, and mild spinal canal narrowing at T12-L1, moderate spinal canal narrowing at L3-L4. MRI/Abdomen without Contrast IMPRESSION: The left liver lesion appears to be mildly/gradually enlarged compared to prior imaging of 2014. The lesion remains a complete characterized in the absence of IV contrast. Characterization of liver lesions requires multiphase dynamic contrast-enhanced CT or MRI of the liver (hemangioma/mass protocol) for complete characterization of enhancement and washout characteristics. Electronically Signed: Rahat Maurer MD at 12:17 EDT Tel , Service support ,
== END | disposition home or self-care (01) ==
LOC: MRI 10:01
PROVIDERS: Family Provider Internal Medicine; PCP Internal Medicine; Referring Provider Internal Medicine; Visit Provider Internal Medicine
DX: K76.9 Liver disease, unspecified (principal)
CPT/HCPCS: 74181

== ENCOUNTER → 2018-07-08 | Outpatient (CLI) | payer MEDICARE, SELFPAY ==
[2018-07-03 12:33] VITALS: BMI 47.3
--- NOTE | 2018-07-08 07:18 | MRI_ITS ---
STUDY: MRI ABDOMEN WITH CONTRAST REASON FOR EXAM: Female, 77 years old. Hepatic lesion TECHNIQUE: Standardized fat and water weighted pulse sequences were obtained in all 3 orthogonal planes post contrast administration. 20 IV Dotarem was administered. COMPARISON: Noncontrast abdominal MRI 07/03/[address] abdomen and pelvis 02/21/2014. FINDINGS: The visualized lung bases are unremarkable. The visualized portions of the heart are within normal limits. Circumscribed, bilobed mass in the left hepatic lobe, segment 2 is again seen measuring approximately 5.8 x 4.3 cm. (Previously 5.7 x 4 cm in 2013 when measured in a similar manner). This demonstrates thick, nodular peripheral enhancement which follows blood pool on all sequences with a nonenhancing, centrally T2 hyperintense component. There is no evidence of delayed washout. Again, this is hypointense on previous exam T1 sequence. This abuts and moderately narrows the left hepatic vein without evidence of thrombus or definite occlusion. There are no other enhancing hepatic lesions. Hepatomegaly again noted. Normal gallbladder and extrahepatic biliary system. Normal spleen. Normal pancreas. Normal bilateral adrenal glands. Normal right kidney. Normal left kidney. Normal visualized stomach. Normal visualized small and large bowel. Normal abdominal aorta. Normal inferior vena cava. Normal retroperitoneum. Normal abdominal wall. There is metallic hardware in the lower lumbar spine. MRI/Abdomen without Contrast IMPRESSION: 1. 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 Again, this is noted to have only mildly increased in size since CT abdomen and pelvis from 2013. 2. One-year follow-up with hepatic ultrasound can be obtained to document stability. Of note, there is an increased risk of bleeding based on size. Electronically Signed: Sammy French, at 11:41 EDT Tel , Service support ,
[2018-07-08 09:31] LABS: CREATININE FINGERSTICK 0.8 mg/dL (0.55-1.02); EGFR FINGERSTICK > 60.0000 mL/min (>60)
== END | disposition home or self-care (01) ==
PROVIDERS: Family Provider Internal Medicine; PCP Internal Medicine; Referring Provider Internal Medicine; Visit Provider Internal Medicine
DX: K76.9 Liver disease, unspecified (principal); R93.5 Abnormal findings on diagnostic imaging of other abdominal regions, including retroperitoneum
CPT/HCPCS: 74181; 74182; A9575

== ENCOUNTER → 2018-07-18 | Outpatient (CLI) | payer MEDICARE, SELFPAY ==
[2018-07-03 12:33] VITALS: BMI 47.3
--- NOTE | 2018-07-18 12:31 | RAD_ITS ---
STUDY: X-RAY CHEST REASON FOR EXAM: Female, 77 years old. Cough. TECHNIQUE: PA and lateral views of the chest. COMPARISON: [address] chest FINDINGS: Chronic appearing prominent interstitial markings of lung bases is present with no distinct focal airspace disease. There is no demonstrated pleural abnormality. Normal size heart. Normal mediastinum and ngoc. Normal visualized pulmonary arteries. There is atherosclerotic calcification of the aortic arch with tortuosity. Normal visualized thoracic spine. Normal visualized ribs, clavicles, and shoulders. There is no demonstrated abnormality of the visualized soft tissue structures of the upper abdomen. RAD/Chest PA and Lateral IMPRESSION: Mild chronic basilar interstitial markings with no distinct focal airspace disease. Underlying mild peribronchial inflammation is not excluded. Electronically Signed: Ulises Simon DO at 9:53 EDT , Service support ,
== END | disposition home or self-care (01) ==
PROVIDERS: Family Provider Internal Medicine; PCP Internal Medicine; Referring Provider Internal Medicine; Visit Provider Internal Medicine
DX: R05 Cough (principal)
CPT/HCPCS: 71046

== ENCOUNTER → 2018-07-26 | Outpatient (CLI) | payer MEDICARE, SELFPAY ==
[2018-07-03 12:33] VITALS: BMI 47.3
[2018-07-26 09:00] VITALS: PULSE 102; PULSE 103; PULSE 104; PULSE 94; PULSE 96; O2SAT 90; O2SAT 91; O2SAT 92; O2SAT 93
--- NOTE | 2018-07-26 14:48 | PCM.PSN.6M ---
PSN 6 Minute Walk Test - 6 Minute Walk Test 6 Minute Walk Test: 6 Minute Walk Test PSN:6-Minute Walk Test Start: 07/26/18 09:26 Freq: Status: Active Protocol: RESP.6MINW Document 07/26/18 09:00 HG (Rec: 07/26/18 09:31 HG [id number]) 6 Minute Walk Test Date Performed 07/26/18 Time Performed 09:00 Height 5 ft Weight: 107.048 kg Weight in Pounds 236.[address]: Gabbie Lopez Assistive device used: Cane Pre-test Oxygen Delivery Method Room Air Pulse Ox (%) 91 Pulse Rate (60-100 beats/min) 96 Dyspnea Elida Scale (0-10) 5 Exertion Elida Scale (6-20) 13 1st minute Oxygen Delivery Method Room Air Pulse Ox (%) 93 Pulse Rate (60-100 beats/min) 94 2nd minute Oxygen Delivery Method Room Air Pulse Ox (%) 92 Pulse Rate (60-100 beats/min) 102 H 3rd minute Oxygen Delivery Method Room Air Pulse Ox (%) 90 Pulse Rate (60-100 beats/min) 104 H Number of Rests Taken 1 Reported Symptoms Increased Work of Breathing 4th minute Oxygen Delivery Method Room Air Pulse Ox (%) 91 Pulse Rate (60-100 beats/min) 104 H Reported Symptoms Increased Work of Breathing 5th minute Oxygen Delivery Method Room Air Pulse Ox (%) 92 Pulse Rate (60-100 beats/min) 103 H Reported Symptoms Increased Work of Breathing 6th minute Oxygen Delivery Method Room Air Pulse Ox (%) 90 Pulse Rate (60-100 beats/min) 103 H Reported Symptoms Increased Work of Breathing Post-test Oxygen Delivery Method Room Air Pulse Ox (%) 92 Pulse Rate (60-100 beats/min) 96 Dyspnea Elida Scale (0-10) 7 Exertion Elida Scale (6-20) 16 Full Laps Walked 8 Partial Lap, Number of Tiles Walked 26 Total Distance Walked (ft) 498 - Interpretation Interpretation: The patient was able to ambulate 498 feet over the course of 6 minutes on room air with the assistance of a cane and one break. The patient was noted to have decreased baseline saturations of 91%, but dropped as low as 90% during ambulation. Some reflexive tachycardia was noted. These findings are consistent with a respiratory limitation exercise tolerance. - Recommendations Recommendations: No supplemental oxygen is indicated at this time.
== END | disposition home or self-care (01) ==
LOC: PSN 08:38
PROVIDERS: Family Provider Internal Medicine; PCP Internal Medicine; Referring Provider Nurse Practitioner Acute Care; Visit Provider Nurse Practitioner Acute Care
DX: J44.1 Chronic obstructive pulmonary disease with (acute) exacerbation (principal)
CPT/HCPCS: 94618

== ENCOUNTER → 2018-08-06 | Outpatient (CLI) | payer MEDICARE, SELFPAY ==
[2018-07-03 12:33] VITALS: BMI 47.3
--- NOTE | 2018-08-06 15:06 | PFTCOMP ---
COMPLETE PULMONARY FUNCTION TEST INTERPRETATION Brief HPI: Patient is a 77 year old female, currently under the care of Dr. Olivo, who presents to [facility] for complete pulmonary function tests secondary to diagnosis of COPD. Respiratory therapist reports good effort and reproducible results. Interpretation: Forced expiration spirometry shows a moderate large airways obstructive ventilatory defect with an FEV1 of 68% predicted. There is no significant bronchodilator response by strict ATS criteria. Spirograms are of good quality and plateau slowly, indicating slowly emptying areas of the lungs. The respiratory flow volume loop shows decreased expiratory flow rates at all lung volumes consistent with airway obstruction. Lung volumes by body plethysmography show a normal total lung capacity at 4.29 L, 108% predicted. FRC and RV are elevated out of proportion. Lung volume measurements are consistent with air-trapping. Diffusion capacity by carbon monoxide is decreased at 39% predicted. The airway resistance is normal. No previous pulmonary function tests were available for review. Impression: Irreversible moderate large airways obstructive ventilatory defect with a symmetric reduction in diffusing capacity, consistent with a diagnosis of COPD.
== END | disposition home or self-care (01) ==
LOC: PSN 08:37
PROVIDERS: Family Provider Internal Medicine; PCP Internal Medicine; Referring Provider Nurse Practitioner Acute Care; Visit Provider Nurse Practitioner Acute Care
DX: J44.1 Chronic obstructive pulmonary disease with (acute) exacerbation (principal)
CPT/HCPCS: 94060; 94726; 94729

== ENCOUNTER → 2018-08-12 | Outpatient (CLI) | payer MEDICARE, SELFPAY ==
[2018-07-03 12:33] VITALS: BMI 47.3
[2018-08-14 11:17] LABS: AFP, Tumor Marker 2.2 ng/mL (0.0-8.3); Carcinoembryonic Antigen 1.5 ng/mL (0.0-4.7)
== END | disposition home or self-care (01) ==
LOC: MTLAB 14:45
PROVIDERS: Family Provider Internal Medicine; PCP Internal Medicine; Referring Provider Internal Medicine Gastroenterology; Visit Provider Internal Medicine Gastroenterology
DX: K76.89 Other specified diseases of liver (principal)
CPT/HCPCS: 36415; 82105; 82378

== ENCOUNTER 2018-09-27 19:00 | Inpatient (IN) | payer MEDICARE, SELFPAY ==
[2018-07-03 12:33] VITALS: BMI 47.3
[2018-09-27] VITALS (12 sets, daily range): BP systolic 155–187; BP diastolic 62–97; PULSE 84–96; RESP 12–28; TEMP 36.6–36.7; O2SAT 88–97; BMI 44.7; BMI 44.8
--- NOTE | 2018-09-27 19:44 | EKG12_ITS ---
Test Reason : Blood Pressure : / mmHG Vent. Rate : 088 BPM Atrial Rate : 088 BPM P-R Int : 168 ms QRS Dur : 092 ms QT Int : 370 ms P-R-T Axes : 069 -06 069 degrees QTc Int : 447 ms Normal sinus rhythm Normal ECG Confirmed by TOM MARTIN, CONNIE ([id number]), newspaper editor PHILOMENA TREVIZO ([id number] on 09/30/2018 11:48:30 AM Referred By: Gregorio West Confirmed By:CONNIE SANTOS MD
--- NOTE | 2018-09-27 19:45 | ED.VISSUMM ---
- ER Visit Summary Date of Service: 09/27/18 Chief Complaint: Shortness of breath History of Present Illness: The patient is a 77 F presenting with shortness of breath. This started on Sunday. It worsened today. Shortness of breath is much worse with exertion. She denies chest pain. She has had a nonproductive cough. She denies fever. She is currently seeing Dr. Olivo and is being worked up for possible COPD. She wears home O2 only at night. She denies other complaints. Physical Examination: Vitals are stable. Patient is afebrile. Alert no acute distress. HEENT exam is unremarkable. Neck is supple. Lungs are wheezing bilaterally. Heart is regular rate and rhythm. Abdomen is soft nontender nondistended. Extremities are unremarkable. Skin is warm and dry. No focal neurologic deficit. Remainder of exam is unremarkable. Emergency Department Course and Treatment: Patient given albuterol, Atrovent aerosols. EKG is sinus rate of 88 with no acute ischemic changes. Chest x-ray shows No acute cardiopulmonary process. Bilateral subacromial spurs which can be associated with rotator cuff pathology. Right humeral head osteophyte unchanged. CBC, chemistries unremarkable other than glucose 198, BUN 24, creatinine 1.12. Troponin is negative. Patient initially declined BiPAP. She has improvement after breathing treatments but continues to have wheezing. With ambulation her pulse ox drops to 84% on room air. She was given Solu-Medrol IV. Will discuss with the hospitalist for admission. Disposition: Admission Impression: COPD exacerbation, hypoxia This note was generated with [employer] dictation software. It may contain incorrect words, spelling, and punctuation that were not noted in review of the chart prior to signing ED Disposition - Plan for ED Patient:
--- NOTE | 2018-09-27 19:50 | RAD_ITS ---
STUDY: X-RAY CHEST REASON FOR EXAM: Female, 77 years old. Short of breath TECHNIQUE: Portable chest COMPARISON: 07/18/2018 FINDINGS: The lungs are clear and expanded. There is no demonstrated pleural abnormality. There is a stable right humeral head osteophyte. Normal size heart. Normal mediastinum and ngoc. Normal visualized pulmonary arteries. Normal visualized aortic arch and descending thoracic aorta. Normal visualized thoracic spine. The bilateral subacromial spurs.. There is no demonstrated abnormality of the visualized soft tissue structures of the upper abdomen. RAD/Chest 1 View (Portable) IMPRESSION: No acute cardiopulmonary process Bilateral subacromial spurs which can be associated with rotator cuff pathology Right humeral head osteophyte unchanged Electronically Signed: Aayush Alejandra, at 20:07 EDT Tel , Service support ,
[2018-09-27 19:55] LABS: Absolute Lymphocyte Count 2.06 X10^3/uL (0.83-4.51); Absolute Neutrophil Count 3.9 X10^3/uL (2.0-7.7); Basophil# 0.03 X10^3/uL; Basophil% 0.4 % (0-1); Eosinophil# 0.44 X10^3/uL; Eosinophils% 6.2 % (0-5); Hematocrit 38.9 % (37-47); Hemoglobin 12.8 g/dL (12.0-15.0); Lymphocyte # 2.06 X10^3/ul (4.0); Lymphocyte % 29.1 % (19-41); Mean Corp Hgb Conc 32.9 g/dL (32-36); Mean Corpuscular Hgb 30.8 pg (27.0-32.0); Mean Corpuscular Volume 93.5 fL (81-99); Mean Platelet Vol. 10.1 fl (6.2-12.0); Monocyte# 0.63 X10^3/uL; Monocyte% 8.9 % (0-10); NRBC Flagged by Analyzer 0 % (0-5); Neutrophil # 3.88 X10^3/uL (2.7-7.7); Neutrophil % 54.8 % (47-70); Platelet Count 207 K/mm3 (150-450); RBC Distribution Width CV 13.9 % (11.6-14.6); RBC Distribution Width SD 47.4 fl (35.1-43.9); Red Blood Count 4.16 M/mm3 (4.2-5.4); White Blood Count 7.1 K/mm3 (4.4-11.0)
[2018-09-27 20:06] LABS: Anion Gap 5 (5-15); BUN 24 mg/dL (7-18); BUN/Creat Ratio 21.4 RATIO (10-20); Calcium,Total 9.2 mg/dL (8.5-10.1); Chloride 106 mmol/L (98-107); Creatinine, Serum 1.12 mg/dL (0.55-1.02); EST Glomerular Filtration Rate 50 mL/min (>60); Est Glom Filt Rate - Afr Amer 61 mL/min (>60); Estimated Creatinine Clearance 30.69 ml/min; Glucose 198 mg/dL (74-106); Potassium 3.9 mmol/L (3.5-5.1); Sodium Level 141 mmol/L (136-145)
--- NOTE | 2018-09-27 20:08 | ED.RN ---
PT REFUSES BIPAP AT THIS TIME, MADE AWARE NO FURTHER ORDERS AT THIS TIME. WILL CONTINUE TO MONITOR THE PT.
--- NOTE | 2018-09-27 20:48 | ED.RN ---
DR. DAVID MADE AWARE OF WALKING PULSE OX OF 84% ON ROOM AIR. NO FURTHER ORDERS AT THIS TIME WILL CONTINUE TO MONITOR THE PT.
[2018-09-27] MEDS: Albuterol 2.5 MG/3 ML VIAL.NEB. INHALATION ×2 (20:50)
[2018-09-27] MEDS: Ipratropium/Albuterol Sulfate 3 ML AMPUL.NEB INHALATION (20:50)
--- NOTE | 2018-09-27 21:50 | CPS ---
Patient refused this shortly after getting her on. Dr & RN were made aware of patient's refusal.
--- NOTE | 2018-09-27 22:57 | ED.RN ---
PT WANTS TO BE A FULL CODE PER DR. DAVID, WILL COMMUNICATE THIS TO FLOOR UPON TRANSFER HANDOFF.
[2018-09-27] MEDS: MethylPREDNISolone 125 MG/2 ML Vial IV (23:04)
--- NOTE | 2018-09-27 23:16 | HP.PCM_ITS ---
Problem List (1) PND (post-nasal drip) Status: Acute (2) COPD exacerbation Status: Acute (3) Lymphedema Status: Chronic (4) PVD (peripheral vascular disease) Status: Chronic (5) Dehydration Status: Acute (6) HTN (hypertension) Status: Chronic Qualifiers: Hypertension type: essential hypertension Qualified Code(s): I10 - Essential (primary) hypertension (7) Renal failure Status: Inactive (8) Nephrolithiasis Status: Ruled-out (9) HLD (hyperlipidemia) Status: Chronic Qualifiers: Hyperlipidemia type: pure hypercholesterolemia Qualified Code(s): E78.00 - Pure hypercholesterolemia, unspecified; E78.0 - Pure hypercholesterolemia (10) Iron deficiency anemia Status: Chronic Qualifiers: Iron deficiency anemia type: unspecified iron deficiency Qualified Code(s): D50.9 - Iron deficiency anemia, unspecified (11) Anxiety Status: Chronic (12) Depression Status: Chronic Qualifiers: Depression Type: unspecified Qualified Code(s): F32.9 - Major depressive disorder, single episode, unspecified (13) Osteoarthritis of knees, bilateral Status: Chronic (14) Knee pain, bilateral Status: Chronic Comment: post fall (15) History of nephrolithiasis Status: Chronic (16) DM type 2 (diabetes mellitus, type 2) Status: Chronic Qualifiers: Diabetes mellitus dedicated intermodal truck driver insulin use: with dedicated intermodal truck driver use Diabetes mellitus complication status: with unspecified complications (17) Morbid obesity with BMI of 40.0-44.9, adult Status: Chronic (18) Osteoarthritis Status: Chronic (19) Dermatitis Status: Chronic (20) Chronic renal failure, stage 3 (moderate) Status: Chronic (21) 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 Patient denies any fever or chills but she came in contact with her daughter who had features like URI. Patient also complained of chest congestion for like mucus is stuck in chest not able to cough out. Denies any chest pain or heaviness. Patient also has chronic bilateral lower extremity swelling, lymphedema. [] In ED, patient was tachypneic respiratory rate 24/min, heart rate in 90s but no fever. Pulse ox 96% on 3 L of oxygen Chest x-ray does not show acute change. Past Medical History Past Medical History (Chronic Problems): Chronic Problems (Last Reviewed 07/03/18 @ 12:59 by Gabbie Lopez, [employer]ERAL CAR DRIVER-C) Lymphedema (Chronic) PVD (peripheral vascular disease) (Chronic) HTN (hypertension) (Chronic) HLD (hyperlipidemia) (Chronic) Iron deficiency anemia (Chronic) Anxiety (Chronic) Depression (Chronic) Osteoarthritis of knees, bilateral (Chronic) Knee pain, bilateral (Chronic) post fall History of nephrolithiasis (Chronic) DM type 2 (diabetes mellitus, type 2) (Chronic) Morbid obesity with BMI of 40.0-44.9, adult (Chronic) Osteoarthritis (Chronic) Dermatitis (Chronic) Chronic renal failure, stage 3 (moderate) (Chronic) Foraminal stenosis of lumbar region (Chronic) Lumbar canal stenosis (Chronic) Steatosis of liver (Chronic) Obesities, morbid (Chronic) Medical History: Medical History (Last Reviewed 07/03/18 @ 12:59 by Gabbie Lopez, FUNERAL CAR DRIVER-C) COPD exacerbation (Suspected) J44.1 Lymphedema (Chronic) I89.0 PVD (peripheral vascular disease) (Chronic) I73.9 Dehydration (Acute) E86.0 HTN (hypertension) (Chronic) I10 Renal failure (Acute) Nephrolithiasis (Ruled-out) HLD (hyperlipidemia) (Chronic) E78.5 Iron deficiency anemia (Chronic) D50.9 Anxiety (Chronic) F41.9 Depression (Chronic) F32.9 Osteoarthritis of knees, bilateral (Chronic) M17.0 Knee pain, bilateral (Chronic) M25.561, M25.562 post fall History of nephrolithiasis (Chronic) Z87.442 DM type 2 (diabetes mellitus, type 2) (Chronic) E11.9 Morbid obesity with BMI of 40.0-44.9, adult (Chronic) E66.01, Z68.41 Osteoarthritis (Chronic) M19.90 Dermatitis (Chronic) L30.9 Chronic renal failure, stage 3 (moderate) (Chronic) N18.3 Foraminal stenosis of lumbar region (Chronic) M99.83 Lumbar canal stenosis (Chronic) M48.06 Steatosis of liver (Chronic) K76.0 Obesities, morbid (Chronic) E66.01 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 Allergies insulin detemir [From Levemir] Allergy (Verified 07/03/18 12:17) Hives oxycodone [From Percocet] Allergy (Verified 07/03/18 12:17) can't remember amlodipine [From Norvasc] Adverse Reaction (Verified 07/03/18 12:17) Itching Home Medications: Ambulatory Orders Medication Instructions Recorded Ascorbic Acid [Vitamin C] 1,000 mg PO DAILY 06/17/18 Atorvastatin Calcium [Lipitor] 20 mg PO QHS 06/17/18 Carvedilol 25 mg PO BID 06/17/18 Cataplex 3 tab PO DAILY 06/17/18 Clonidine HCl [Catapres] 0.1 mg PO DAILY 06/17/18 Insulin Degludec [Tresiba 70 units SQ DAILY 06/17/18 Flextouch U-200] Insulin Lispro [Humalog KwikPen] 16 units SQ TIDCM 06/17/18 Iron Poly/Vit C [Niferex-150] 150 mg PO DAILYCM 06/17/18 Losartan Potassium [Cozaar] 100 mg PO DAILY 06/17/18 Metformin HCl [Metformin HCl ER] 750 mg PO DAILY 06/17/18 Multivitamin [Multivitamins] 1 ea PO DAILY 06/17/18 Venlafaxine HCl [Venlafaxine HCl 75 mg PO DAILY 06/17/18 ER] metroNIDAZOLE 0.75% [Metrogel 1 applic VAGINAL DAILY 06/17/18 Vaginal] Albuterol Inhaler [Ventolin Hfa] 1 - 2 puff INHALATION Q4H PRN PRN 06/19/18 #1 inhaler fluticasone propionate 50 2 spray INTRANASAL DAILY #16 g 07/03/18 mcg/actuation nasal spray,suspension guaifenesin ER 1,200 mg tablet, 1,200 mg PO Q12H #60 tab 09/27/18 extended release 12 hr spacer 0 .ROUTE .MEDSUPPLY #1 ea 09/27/18 Surgical History: Surgical History (Last Reviewed 07/03/18 @ 12:59 by Gabbie Lopez NP-C) History of back surgery Z98.890 Surgical History: - - Lumbar back surgery with hardware placement, tonsillectomy, right foot surgery with fusion. Psychiatric History: Anxiety, Depression AIRCRAFT MANAGER History: No pertinent AIRCRAFT MANAGER history Smoking Status: Former smoker - *Family History Sibling Family History: Family History (Last Reviewed 07/03/18 @ 12:59 by TANIA Hunt) Other Advanced dementia Diabetes Enlarged heart History Items: - - Patient notes a sister with history of uterine cancer.rysm Maternal Family History: Family History (Last Reviewed 07/03/18 @ 12:59 by TANIA Hunt) Other Advanced dementia Diabetes Enlarged heart History Items: - - Mother with a history of Alzheimer's dementia. Paternal Family History: Family History (Last Reviewed 07/03/18 @ 12:59 by TANIA Hunt) Other Advanced dementia Diabetes Enlarged heart History Items: - - Patient notes a paternal family history of diabetes and heart disease. Review of Systems Constitutional: Denies: Chills, Fever, Weight Change HEENT: Reports: Post Nasal Drip. Denies: Head Aches, Sinus Congestion, Sinus Drainage Cardiovascular: Denies: Chest Pain, Palpitations Respiratory: Reports: Shortness of breath at rest, Shortness of breath upon exertion, Wheezing. Denies: Cough, Sputum production Gastrointestinal: Denies: Abdominal Pain, Nausea, Vomiting Genitourinary: Reports: Incontinence. Denies: Dysuria, Frequency, Hematuria, Urgency Musculoskeletal: Denies: Joint Pain, Joint Tenderness Skin: Denies: Rash, Wounds Neurological: Denies: Numbness, Tingling, Focal weakness Psychiatric: Denies: Anxiety, Depression, Homicidal Ideations, Suicidal Ideations Hematologic/ Lymphatic: Denies: Easy Bruising, Easy Bleeding VTE Information - Inpt Only VTE Present on Admission: No VTE Mechan Device Prophylaxis: None VTE Pharm Prophylaxis ordered?: Yes - Physical Exam General: Alert, Oriented x3, Cooperative HEENT: Atraumatic, PERRLA, EOMI, Normocephalic Oral: Dry Mucosa Neck: Supple, No JVD, Negative Carotid Bruits Lungs: Diminished - Air entry is severely diminished in all lung diaz., Rhonchi, Short of Breath, Tachypneic, Using Accessory Muscles, Wheezes Cardiovascular: Regular rate, Regular Rhythm, Normal S1, Normal S2, No murmurs Abdomen: Bowel Sounds Present, Soft, Non Tender, Non-Distended Extremities: Capillary Refill Less than 3 Seconds, Edema Skin: No rashes, No breakdown Musculoskeletal: No Tenderness to Palpation of Joints or Extremities, Arthritic Changes Neurological: Cranial nerves II-XII grossly intact, Deep Tendon Reflexes 2+/4 and Symmetrical, Neuro grossly intact, Motor Exam 5/5 strength throughout Psych/Mental Status: Normal Affect, Appropriate Vital Signs Temp Pulse Resp BP Pulse Ox 97.9 F 88 23 H 157/75 H 96 09/27/18 22:00 09/27/18 22:00 09/27/18 22:00 09/27/18 22:00 09/27/18 22:00 Oxygen Flow Rate (L/min) 3 Oxygen Delivery Method Nasal Cannula Weight: 229 lb Body Mass Index (BMI) 44.7 Finger Stick Blood Glucose 145 Laboratory Tests Past 24 Hrs 09/27/18 09/27/18 19:35 19:35 WBC 7.1 RBC 4.16 L Hgb 12.8 Hct 38.9 MCV 93.5 MCH 30.8 MCHC 32.9 RDW Std Deviation 47.4 H RDW Coeff of Harvey 13.9 Plt Count 207 MPV 10.1 Immature Gran % (Auto) 0.600 Neut % (Auto) 54.8 Lymph % (Auto) 29.1 [place] % (Auto) 8.9 Eos % (Auto) 6.2 H Baso % (Auto) 0.4 Absolute Neuts (auto) 3.9 Absolute Lymphs (auto) 2.06 Nucleated RBC % 0 Sodium 141 Potassium 3.9 Chloride 106 Carbon Dioxide 30.0 Anion Gap 5 BUN 24 H Creatinine 1.12 H Estim Creat Clear Calc 30.69 Est GFR (MDRD) Af Amer 61 Est GFR (MDRD) Non-Af 50 L BUN/Creatinine Ratio 21.4 H Glucose 198 H Calcium 9.2 Troponin I < 0.015 Assessment/Plan All Active Problems (Last Reviewed 07/03/18 @ 12:59 by Gabbie Lopez NP-C) PND (post-nasal drip) (Acute) COPD exacerbation (Acute) Dehydration (Acute) Nephrolithiasis (Ruled-out) Hydronephrosis of left kidney (Resolved) Pyelonephritis (Resolved) Septic shock (Resolved) Ureteral obstruction, left (Resolved) The patient is a 77 year old F with history of COPD as per PFT done in July 2018 came to ER for progressive worsening of shortness of breath and wheezing for 5 days. Patient denies any fever or chills but she came in contact with her daughter who had features like URI. Patient also complained of chest congestion for like mucus is stuck in chest not able to cough out. Denies any chest pain or heaviness. Patient also has chronic bilateral lower extremity swelling, lymphedema. [] In ED, patient was tachypneic respiratory rate 24/min, heart rate in 90s but no fever. Pulse ox 96% on 3 L of oxygen Chest x-ray does not show acute change. 1. COPD exacerbation: Patient is being admitted on [facility] floor. Patient is not aware of COPD diagnosis. Patient follows Dr. Copeland and PFT of July 2018 reviewed. It is reported as FEV1 68%, irreversible moderate large airway obstructive ventilatory defect with symmetric reduction in diffusion capacity, DLCO 39%. FRC and RV are elevated. This is consistent with COPD. On DuoNeb every 4 hourly, albuterol as needed, Solu-Medrol 40 mg IV every 8 hourly, Zithromax, incentive spirometry and chest physiotherapy. Respiratory panel ordered. Sputum culture if patient gets a sputum. Symptomatic management with Mucinex 2. Bilateral lower extremity edema with lymphedema, possible chronic heart failure with preserved EF: BNP ordered. Patient is carvedilol, losartan and atorvastatin. 2D echo done in May 2018 reviewed. Reported as EF 70% with indeterminant diastolic dysfunction. Normal left and right atria. Trivial MR, mild eccentric TR. RVSP 34 mmHg. No significant valvular abnormality. Probably patient has heart failure with preserved EF. Home medications continued. Troponin is normal. Patient not on Lasix at home. 3. Diabetes mellitus type 2: Accu-Chek before meals and at bedtime. Patient is on long-acting insulin 70 units and insulin lispro 16 units of cutaneous 3 times daily. Accu-Chek essences and cover with NovoLog sliding scale. 4. 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 Estimated creatinine clearance 30 mils per minute. Patient had lumbar spinal surgery in the past. Home medication reconciliation done. Multiple comorbidities complicates the present care and expect difficult and delay recovery DVT prophylaxis: On Lovenox 30 mg subcu daily, adjusted to the creatinine clearance. Laboratory Results 09/27/18 19:35: WBC 7.1, RBC 4.16 L, Hgb 12.8, Hct 38.9, MCV 93.5, MCH 30.8, MCHC 32.9, RDW Std Deviation 47.4 H, RDW Coeff of Harvey 13.9, Plt Count 207, MPV 10.1, Immature Gran % (Auto) 0.600, Neut % (Auto) 54.8, Lymph % (Auto) 29.1, [place] % (Auto) 8.9, Eos % (Auto) 6.2 H, Baso % (Auto) 0.4, Absolute Neuts (auto) 3.9, Absolute Lymphs (auto) 2.06, Nucleated RBC % 0 09/27/18 19:35: Sodium 141, Potassium 3.9, Chloride 106, Carbon Dioxide 30.0, Anion Gap 5, BUN 24 H, Creatinine 1.12 H, Estim Creat Clear Calc 30.69, Est GFR (MDRD) Af Amer 61, Est GFR (MDRD) Non-Af 50 L, BUN/Creatinine Ratio 21.4 H, Glucose 198 H, Calcium 9.2, Troponin I < 0.015 Clinical Impression(s) from Imaging Studies Chest X-Ray 09/27/18 19:50 IMPRESSION: No acute cardiopulmonary process Bilateral subacromial spurs which can be associated with rotator cuff pathology Right humeral head osteophyte unchanged Code Visit Inpatient E&M: 25777 Init Hosp L3
[2018-09-28] VITALS (11 sets, daily range): BP systolic 155–172; BP diastolic 44–92; PULSE 81–100; RESP 18–24; TEMP 36.4–37.1; O2SAT 92–96
[2018-09-28] MEDS: Albuterol 2.5 MG/3 ML VIAL.NEB. INHALATION (01:27)
[2018-09-28 01:29] LABS: BNP,B-Type NATRIURETIC PEPTIDE 26.5 pg/mL (0-100)
[2018-09-28 02:31] LABS: Bedside Glucose 218 mg/dL (70-110)
[2018-09-28] MEDS: Ipratropium/Albuterol Sulfate 3 ML AMPUL.NEB INHALATION ×4 (06:47→18:45)
[2018-09-28] MEDS: Enoxaparin 30 MG/0.3 ML Syringe SC (06:49)
[2018-09-28] MEDS: Insulin Lispro 100 UNIT/ML INSULN.PEN SC ×4 (07:02→21:37)
--- NOTE | 2018-09-28 08:12 | PCM.PN.HOSP ---
Subjective: Patient is a 77-year-old lady with history of COPD who presented to the emergency department with progressive shortness of breath and wheezing of 5 days duration and assessment of COPD with acute exacerbation was made admitted to a regular nursing floor for further management. Patient was also noted to have increasing bipedal edema. Was previously on Lasix which she took herself off in view of frequent micturition Objective: GENERAL: cooperative HEENT: Atraumatic; EYES; Anicteric, Normal Conjunctiva NECK; supple, normal thyroid, RESPIRATORY: Diminished to auscultation with bilateral wheezes CARDIOVASCULAR: Regular S1 S2, GI: soft, non-tender, normoactive bowel sounds, : No Renal angle tenderness; EXTREMITIES: edema, no clubbing, no cyanosis. MUSCULOSKELETAL: No Joint Tenderness; NEURO: Awake; no lateralizing signs. SKIN: No Rash PSYCH; Normal affect Vitals/I&O's: Vital Signs Temp Pulse Resp BP Pulse Ox 97.7 F L 82 18 155/74 H 92 09/28/18 02:41 09/28/18 07:21 09/28/18 07:21 09/28/18 02:41 09/28/18 07:21 Oxygen Flow Rate (L/min) 2 Oxygen Delivery Method Nasal Cannula Weight: 104.071 kg Body Mass Index (BMI) 44.8 Finger Stick Blood Glucose 145 Intake and Output for Last 24 Hours 09/26/18 09/27/18 09/28/18 23:59 23:59 23:59 Intake Total 434 / 434 Output Total 200 / 200 Balance 234 / 234 Laboratory Results 09/27/18 19:35: WBC 7.1, RBC 4.16 L, Hgb 12.8, Hct 38.9, MCV 93.5, MCH 30.8, MCHC 32.9, RDW Std Deviation 47.4 H, RDW Coeff of Harvey 13.9, Plt Count 207, MPV 10.1, Immature Gran % (Auto) 0.600, Neut % (Auto) 54.8, Lymph % (Auto) 29.1, [place] % (Auto) 8.9, Eos % (Auto) 6.2 H, Baso % (Auto) 0.4, Absolute Neuts (auto) 3.9, Absolute Lymphs (auto) 2.06, Nucleated RBC % 0 09/27/18 19:35: Sodium 141, Potassium 3.9, Chloride 106, Carbon Dioxide 30.0, Anion Gap 5, BUN 24 H, Creatinine 1.12 H, Estim Creat Clear Calc 30.69, Est GFR (MDRD) Af Amer 61, Est GFR (MDRD) Non-Af 50 L, BUN/Creatinine Ratio 21.4 H, Glucose 198 H, Calcium 9.2, Troponin I < 0.015 09/27/18 19:35: B-Natriuretic Peptide 26.5 09/28/18 01:11: POC Glucose 218 H 09/28/18 07:32: Sodium Pending, Potassium Pending, Chloride Pending, Carbon Dioxide Pending, Anion Gap Pending, BUN Pending, Creatinine Pending, Est GFR (MDRD) Af Amer Pending, Est GFR (MDRD) Non-Af Pending, BUN/Creatinine Ratio Pending, Glucose Pending, Calcium Pending, TSH Pending Current Medications Acetaminophen (Tylenol) 650 mg PO Q6H PRN PRN PRN Reason: Mild Pain (1-3)/Temp > 100.7 F Al Hydroxide/Mg Hydroxide (Mylanta Ii) 30 ml PO Q6H PRN PRN PRN Reason: Gastric Burning Albuterol Sulfate (Ventolin Aerosols) 2.5 mg INHALATION Q2H PRN PRN PRN Reason: Shortness of Breath/Wheezing Last Admin: 09/28/18 01:27 Dose: 2.5 mg Documented by: Albuterol/Ipratropium (Duoneb) 3 ml INHALATION Q4H.RT [facility] Last Admin: 09/28/18 06:47 Dose: 3 ml Documented by: Ascorbic Acid (Vitamin C) [facility] Atorvastatin Calcium (Lipitor) 20 mg PO QHS [facility] Carvedilol (Coreg) 25 mg PO BID [facility] Dextrose (D50w Syringe) 0 gm IV X1 PRN; Protocol PRN Reason: Hypoglycemia Enoxaparin Sodium (Lovenox) 30 mg SC DAILY@0600 [facility] Last Admin: 09/28/18 06:49 Dose: 30 mg Documented by: Furosemide (Lasix) 40 mg PO DAILY [facility] Glucagon () 1 mg IM .X1 PRN PRN Reason: Hypoglycemia Guaifenesin (Mucinex) 1,200 mg PO BID [facility] Azithromycin 500 mg/ Dextrose 255 mls @ 250 mls/hr IV Q24H [facility] Stop: 09/30/18 02:02 Last Admin: 09/28/18 01:27 Dose: 250 mls/hr Documented by: Insulin Glargine (Lantus (Bkc)) 70 units SC DAILY [facility] Insulin Human Lispro (Humalog Kwikpen (Bkc)) 0 unit SC ACHS [facility]; Protocol Last Admin: 09/28/18 07:02 Dose: 6 u Documented by: Insulin Human Lispro (Humalog Kwikpen (Bkc)) 16 unit SC TIDCM [facility] Losartan Potassium (Cozaar) 100 mg PO DAILY [facility] Melatonin (Melatonin) 3 mg PO QHS PRN PRN PRN Reason: INSOMNIA Methylprednisolone (Solu-Medrol) 40 mg IV Q8 [facility] Last Admin: 09/28/18 06:49 Dose: 40 mg Documented by: Morphine Sulfate () 2 mg IV Q3H PRN PRN PRN Reason: Severe pain (7-10/10) Multivitamins (Multivitamin) 1 tablet PO DAILY@0800 [facility] Nitroglycerin (Nitrostat) 0.4 mg SUBLINGUAL Q5M PRN PRN Reason: CARDIAC/CHEST PAIN Oxycodone HCl (Oxyir) 5 mg PO Q4H PRN PRN PRN Reason: Moderate Pain (4-6/10) Polyethylene Glycol (Miralax) 17 gm PO DAILY [facility] Polysaccharide Iron Complex (Ferrex 150) [facility] Prochlorperazine Edisylate (Compazine Iv) 5 mg IV Q4H PRN PRN PRN Reason: Breakthrough nausea/vomiting Senna/Docusate Sodium (Senokot-S, Radha-Colace) 2 tablet PO BID PRN PRN PRN Reason: Constipation Sodium Chloride () 10 - 40 ml IV UD PRN PRN Reason: SALINE FLUSH Venlafaxine HCl (Effexor Xr) 75 mg PO DAILY [facility] Medical Necessity - Tobacco Use Smoking Status: Former smoker Assessment/Plan All Active Problems (Last Reviewed 07/03/18 @ 12:59 by Gabbie Lopez NP-C) PND (post-nasal drip) (Acute) COPD exacerbation (Acute) Dehydration (Acute) Nephrolithiasis (Ruled-out) Hydronephrosis of left kidney (Resolved) Pyelonephritis (Resolved) Septic shock (Resolved) Ureteral obstruction, left (Resolved) Patient is a 77-year-old lady with history of COPD who presented to the emergency department with progressive shortness of breath and wheezing of 5 days duration and assessment of COPD with acute exacerbation was made admitted to a regular nursing floor for further management. Patient was also noted to have increasing bipedal edema. Was previously on Lasix which she took herself off in view of frequent micturition 1. COPD with acute exacerbation admitted to the regular nursing floor managed with supplemental oxygen, aerosol treatment with steroid as well as bronchodilator treatment in addition to antibiotics. Patient still remains significantly symptomatic as of 10/15/2018 2. Acute congestive heart failure with preserved ejection fraction. Echo obtained in May 2008 demonstrated EF of 70% with RVSP of 34. Patient was previously on Lasix which she took herself off this was restarted 3. Morbid obesity with BMI of 44.8 weight loss advised 4. Hypertension-blood pressure controlled, home medications continued with dose adjustment as needed 5. Diabetes mellitus type 2 patient is on long-acting insulin discontinued in addition to Accu-Cheks before meals and at bedtime with sliding scale coverage 6. Dyslipidemia-patient is on statin therapy, continued at home dose 7. Chronic bilateral lower extremity lymphedema patient is supposed to be on FARHANA hoses 8. Depression with anxiety patient is on SNRI 9. Chronic kidney disease stage III 10. Chronic back pain due to degenerative joint disease involving the knees and bilateral lumbar spine 11. History of nephrolithiasis currently asymptomatic 12. DVT prophylaxis SC Lovenox dose adjusted for kidney function Active Medications Acetaminophen (Tylenol) 650 mg PO Q6H PRN PRN PRN Reason: Mild Pain (1-3)/Temp > 100.7 F Al Hydroxide/Mg Hydroxide (Mylanta Ii) 30 ml PO Q6H PRN PRN PRN Reason: Gastric Burning Albuterol Sulfate (Ventolin Aerosols) 2.5 mg INHALATION Q2H PRN PRN PRN Reason: Shortness of Breath/Wheezing Last Admin: 09/28/18 01:27 Dose: 2.5 mg Documented by: Albuterol/Ipratropium (Duoneb) 3 ml INHALATION Q4H.RT [facility] Last Admin: 09/28/18 06:47 Dose: 3 ml Documented by: Ascorbic Acid (Vitamin C) 1,000 mg PO DAILYCM [facility] Atorvastatin Calcium (Lipitor) 20 mg PO QHS [facility] Carvedilol (Coreg) 25 mg PO BID [facility] Dextrose (D50w Syringe) 0 gm IV X1 PRN; Protocol PRN Reason: Hypoglycemia Enoxaparin Sodium (Lovenox) 30 mg SC DAILY@0600 [facility] Last Admin: 09/28/18 06:49 Dose: 30 mg Documented by: Furosemide (Lasix) 40 mg PO DAILY [facility] Glucagon () 1 mg IM .X1 PRN PRN Reason: Hypoglycemia Guaifenesin (Mucinex) 1,200 mg PO BID [facility] Azithromycin 500 mg/ Dextrose 255 mls @ 250 mls/hr IV Q24H [facility] Stop: 09/30/18 02:02 Last Admin: 09/28/18 01:27 Dose: 250 mls/hr Documented by: Insulin Glargine (Lantus (Bkc)) 70 units SC DAILY [facility] Insulin Human Lispro (Humalog Kwikpen (Bkc)) 0 unit SC ACHS [facility]; Protocol Last Admin: 09/28/18 07:02 Dose: 6 u Documented by: Insulin Human Lispro (Humalog Kwikpen (Bkc)) 16 unit SC TIDCM [facility] Losartan Potassium (Cozaar) 100 mg PO DAILY [facility] Melatonin (Melatonin) 3 mg PO QHS PRN PRN PRN Reason: INSOMNIA Methylprednisolone (Solu-Medrol) 40 mg IV Q8 [facility] Last Admin: 09/28/18 06:49 Dose: 40 mg Documented by: Morphine Sulfate () 2 mg IV Q3H PRN PRN PRN Reason: Severe pain (7-10/10) Multivitamins (Multivitamin) 1 tablet PO DAILY@0800 [facility] Nitroglycerin (Nitrostat) 0.4 mg SUBLINGUAL Q5M PRN PRN Reason: CARDIAC/CHEST PAIN Oxycodone HCl (Oxyir) 5 mg PO Q4H PRN PRN PRN Reason: Moderate Pain (4-6/10) Polyethylene Glycol (Miralax) 17 gm PO DAILY [facility] Polysaccharide Iron Complex (Ferrex 150) [facility] Prochlorperazine Edisylate (Compazine Iv) 5 mg IV Q4H PRN PRN PRN Reason: Breakthrough nausea/vomiting Senna/Docusate Sodium (Senokot-S, Radha-Colace) 2 tablet PO BID PRN PRN PRN Reason: Constipation Sodium Chloride () 10 - 40 ml IV UD PRN PRN Reason: SALINE FLUSH Venlafaxine HCl (Effexor Xr) 75 mg PO DAILY [facility] Clinical Impression(s) from Imaging Studies Chest X-Ray 09/27/18 19:50 IMPRESSION: No acute cardiopulmonary process Bilateral subacromial spurs which can be associated with rotator cuff pathology Right humeral head osteophyte unchanged Electronically Signed: Aayush Alejandra, at 20:07 EDT Tel , Service support , Code Visit Inpatient E&M: 21696 Subs Hosp L3
[2018-09-28 08:31] LABS: Bedside Glucose 313 mg/dL (70-110)
[2018-09-28 08:32] LABS: Anion Gap 7 (5-15); BUN 21 mg/dL (7-18); BUN/Creat Ratio 19.1 RATIO (10-20); Calcium,Total 9.1 mg/dL (8.5-10.1); Chloride 103 mmol/L (98-107); EST Glomerular Filtration Rate 51 mL/min (>60); Est Glom Filt Rate - Afr Amer 62 mL/min (>60); Estimated Creatinine Clearance 31.25 ml/min; Glucose 310 mg/dL (74-106); Sodium Level 137 mmol/L (136-145); Thyroid Stim Hormone (TSH) 1.24 uIU/mL (0.358-3.74)
[2018-09-28] MEDS: Iron Polysaccharide Complex 150 MG CAPSULE PO (09:00)
[2018-09-28] MEDS: Losartan Potassium 100 MG Tablet PO (09:02)
[2018-09-28] MEDS: Ascorbic Acid 500 MG Tablet 1000 MG PO (09:02)
[2018-09-28] MEDS: Carvedilol 25 MG Tablet PO ×2 (09:02→21:34)
[2018-09-28] MEDS: Multivitamins,Therapeutic Tablet 1 TABLET PO (09:02)
[2018-09-28] MEDS: Venlafaxine XR 75 MG Capsule PO (09:03)
[2018-09-28] MEDS: Polyethylene Glycol 3350 17 GM PACKET PO (09:03)
[2018-09-28] MEDS: guaiFENesin 1,200 MG Tablet 1200 MG PO ×2 (09:04→21:34)
[2018-09-28] MEDS: Furosemide 40 MG Tablet PO (09:08)
[2018-09-28] MEDS: Insulin Lispro 100 UNIT/ML INSULN.PEN 16 UNIT SC ×3 (09:14→16:59)
[2018-09-28 11:51] LABS: Bedside Glucose 360 mg/dL (70-110)
--- NOTE | 2018-09-28 15:17 | CM.UR ---
RN CM Assessment Met face to face with patient. Introduced role of RN CM to patient. Patient is alert and able to participate in RN CM Assessment. Care providers, pharmacy, and demographics verified. No family at bedside. Presentation: Progressively worsening sob Admit Dx: COPD exacerbation. Re-Admit: NO Barriers/Issues: None. PCP: Dr. Talamantes Specialists: Dr. David Olivo (pulm) and Dr. Ornelas (pain). Preferred Pharmacy: [facility] in [place]. Used to live in [place] but relocated to [place]. Insurance: [facility] Rx Benefit: yes, no problems affording medications. LNOK: Daughter Sarai Prakash LW/HPOA: Yes. Daughter Sarai is HPOA. Instructed her that we need a copy on file. States currently a lot of things are packed or a mess d/t moving. States she will bring copy in as soon as able. Living Arrangements: Lives alone in mobile home. 4 steps to enter, railings on both sides. ADL?s: Independent with self care, financial and house cleaning. Daughters help with yard work and anything she needs. Transportation: does still drive herself. Daughters will drive her whenever necessary. DME: Cane, walker, shower chair and home o2. Currently only wears home o2 at night. DME co: [employer] HHC: Past, can't remember name of agency SNF: [facility]. Goal: To return home with assistance as needed from daughters. DC PLAN: Home. New diagnosis of COPD. ? Need nebulizer. Otherwise no needs identified. Sherry Mcfarland RN, CCM.
[2018-09-28 16:36] LABS: Bedside Glucose 323 mg/dL (70-110)
[2018-09-28] MEDS: predniSONE 20 MG Tablet PO (16:58)
[2018-09-28] MEDS: Atorvastatin Calcium 20 MG Tablet PO (21:34)
[2018-09-28 21:46] LABS: Bedside Glucose 401 mg/dL (70-110)
[2018-09-29] VITALS (15 sets, daily range): BP systolic 138–182; BP diastolic 78–95; PULSE 78–90; RESP 17–20; TEMP 36.2–36.8; O2SAT 94–100
[2018-09-29] MEDS: Acetaminophen 325 MG Tablet 650 MG PO (00:43)
[2018-09-29] MEDS: MELATONIN 3 MG TABLET PO ×2 (02:06→22:35)
[2018-09-29] MEDS: Ipratropium/Albuterol Sulfate 3 ML AMPUL.NEB INHALATION ×6 (02:22→23:35)
[2018-09-29] MEDS: DiphenhydrAMINE 25 MG Capsule PO ×2 (04:37→22:36)
[2018-09-29] MEDS: Insulin Lispro 100 UNIT/ML INSULN.PEN SC ×4 (06:15→22:25)
[2018-09-29] MEDS: Enoxaparin 30 MG/0.3 ML Syringe SC (06:16)
[2018-09-29 06:20] LABS: Absolute Lymphocyte Count 1.44 X10^3/uL (0.83-4.51); Absolute Neutrophil Count 12.3 X10^3/uL (2.0-7.7); Basophil# 0.02 X10^3/uL; Basophil% 0.1 % (0-1); Hematocrit 36.9 % (37-47); Hemoglobin 12.2 g/dL (12.0-15.0); Lymphocyte # 1.44 X10^3/ul (4.0); Lymphocyte % 9.4 % (19-41); Mean Corp Hgb Conc 33.1 g/dL (32-36); Mean Corpuscular Hgb 30.4 pg (27.0-32.0); Mean Platelet Vol. 9.9 fl (6.2-12.0); Monocyte# 1.35 X10^3/uL; Monocyte% 8.8 % (0-10); NRBC Flagged by Analyzer 0 % (0-5); Neutrophil # 12.29 X10^3/uL (2.7-7.7); Neutrophil % 80.1 % (47-70); POSITIVE MORPHOLOGY YES; Platelet Count 229 K/mm3 (150-450); RBC Distribution Width CV 13.8 % (11.6-14.6); RBC Distribution Width SD 46.6 fl (35.1-43.9); Red Blood Count 4.01 M/mm3 (4.2-5.4); White Blood Count 15.3 K/mm3 (4.4-11.0)
[2018-09-29 06:23] LABS: Differential Indicated SCAN CRITERIA MET
[2018-09-29 06:35] LABS: Anion Gap 8 (5-15); BUN 29 mg/dL (7-18); BUN/Creat Ratio 25.2 RATIO (10-20); Calcium,Total 8.7 mg/dL (8.5-10.1); Chloride 101 mmol/L (98-107); Creatinine, Serum 1.15 mg/dL (0.55-1.02); EST Glomerular Filtration Rate 49 mL/min (>60); Est Glom Filt Rate - Afr Amer 59 mL/min (>60); Estimated Creatinine Clearance 29.89 ml/min; Glucose 266 mg/dL (74-106); Magnesium 1.8 mg/dL (1.6-2.6); Sodium Level 138 mmol/L (136-145)
[2018-09-29 06:50] LABS: Bedside Glucose 258 mg/dL (70-110)
--- NOTE | 2018-09-29 07:42 | PN_ITS ---
Subjective: Adjusted patient systemic steroid use discontinue IV Solu-Medrol start the patient on p.o. prednisone. Also did increase her pre-meal short acting insulin in view of persistent hyperglycemia Patient did complain of going into a panic attack around 3 AM in the morning. She was finally able to settle down. She did admit to some improvement in her breathing overall Objective: GENERAL: cooperative HEENT: Atraumatic; EYES; Anicteric, Normal Conjunctiva NECK; supple, normal thyroid, RESPIRATORY: Diminished to auscultation CARDIOVASCULAR: Regular S1 S2, GI: soft, non-tender, normoactive bowel sounds, : No Renal angle tenderness; EXTREMITIES: edema, no clubbing, no cyanosis. MUSCULOSKELETAL: No Joint Tenderness; NEURO: Awake; no lateralizing signs. SKIN: No Rash PSYCH; Normal affect Vitals/I&O's: Vital Signs Temp Pulse Resp BP Pulse Ox 98.0 F 88 20 H 156/78 H 95 09/29/18 01:58 09/29/18 02:22 09/29/18 02:22 09/29/18 01:58 09/29/18 02:22 Oxygen Flow Rate (L/min) 2 Oxygen Delivery Method Nasal Cannula Weight: 104.071 kg Body Mass Index (BMI) 44.8 Finger Stick Blood Glucose 145 Intake and Output for Last 24 Hours 09/27/18 09/28/18 09/29/18 23:59 23:59 23:59 Intake Total 2144 / 2144 200 / 200 Output Total 1725 / 1725 Balance 419 / 419 200 / 200 Microbiology Past 72 Hours 09/28/18 01:40 Mucosa - Nasopharyngeal Respiratory Panel (PCR) - Final Laboratory Results 09/28/18 06:58: POC Glucose 313 H 09/28/18 07:32: Sodium 137, Potassium 4.0, Chloride 103, Carbon Dioxide 27.0, Anion Gap 7, BUN 21 H, Creatinine 1.10 H, Estim Creat Clear Calc 31.25, Est GFR (MDRD) Af Amer 62, Est GFR (MDRD) Non-Af 51 L, BUN/Creatinine Ratio 19.1, Glucose 310 H, Calcium 9.1, TSH 1.24 09/28/18 11:45: POC Glucose 360 H 09/28/18 16:28: POC Glucose 323 H 09/28/18 21:36: POC Glucose 401 H 09/29/18 05:38: WBC 15.3 H, RBC 4.01 L, Hgb 12.2, Hct 36.9 L, MCV 92.0, MCH 30.4, MCHC 33.1, RDW Std Deviation 46.6 H, RDW Coeff of Harvey 13.8, Plt Count 229, MPV 9.9, Immature Gran % (Auto) 1.600 H, Neut % (Auto) 80.1 H, Lymph % (Auto) 9.4 L, [place] % (Auto) 8.8, Eos % (Auto) 0.0, Baso % (Auto) 0.1, Absolute Neuts (auto) 12.3 H, Absolute Lymphs (auto) 1.44, Nucleated RBC % 0 09/29/18 05:38: Sodium 138, Potassium 4.0, Chloride 101, Carbon Dioxide 29.0, Anion Gap 8, BUN 29 H, Creatinine 1.15 H, Estim Creat Clear Calc 29.89, Est GFR (MDRD) Af Amer 59 L, Est GFR (MDRD) Non-Af 49 L, BUN/Creatinine Ratio 25.2 H, Glucose 266 H, Calcium 8.7, Magnesium 1.8 09/29/18 06:13: POC Glucose 258 H Current Medications Acetaminophen (Tylenol) 650 mg PO Q6H PRN PRN PRN Reason: Mild Pain (1-3)/Temp > 100.7 F Last Admin: 09/29/18 00:43 Dose: 650 mg Documented by: Al Hydroxide/Mg Hydroxide (Mylanta Ii) 30 ml PO Q6H PRN PRN PRN Reason: Gastric Burning Albuterol Sulfate (Ventolin Aerosols) 2.5 mg INHALATION Q2H PRN PRN PRN Reason: Shortness of Breath/Wheezing Last Admin: 09/28/18 01:27 Dose: 2.5 mg Documented by: Albuterol/Ipratropium (Duoneb) 3 ml INHALATION Q4H.RT [facility] Last Admin: 09/29/18 07:18 Dose: 3 ml Documented by: Ascorbic Acid (Vitamin C) 1,000 mg PO DAILYCM [facility] Last Admin: 09/28/18 09:02 Dose: 1,000 mg Documented by: Atorvastatin Calcium (Lipitor) 20 mg PO QHS [facility] Last Admin: 09/28/18 21:34 Dose: 20 mg Documented by: Carvedilol (Coreg) 25 mg PO BID [facility] Last Admin: 09/28/18 21:34 Dose: 25 mg Documented by: Dextrose (D50w Syringe) 0 gm IV X1 PRN; Protocol PRN Reason: Hypoglycemia Diphenhydramine HCl (Benadryl) 25 mg PO TID PRN PRN PRN Reason: itching Last Admin: 09/29/18 04:37 Dose: 25 mg Documented by: Enoxaparin Sodium (Lovenox) 30 mg SC DAILY@0600 [facility] Last Admin: 09/29/18 06:16 Dose: 30 mg Documented by: Furosemide (Lasix) 40 mg PO DAILY [facility] Last Admin: 09/28/18 09:08 Dose: 40 mg Documented by: Glucagon () 1 mg IM .X1 PRN PRN Reason: Hypoglycemia Guaifenesin (Mucinex) 1,200 mg PO BID [facility] Last Admin: 09/28/18 21:34 Dose: 1,200 mg Documented by: Azithromycin 500 mg/ Dextrose 255 mls @ 250 mls/hr IV Q24H [facility] Stop: 09/30/18 02:02 Last Admin: 09/28/18 21:32 Dose: 250 mls/hr Documented by: Insulin Glargine (Lantus (Bkc)) 70 units SC DAILY [facility] Last Admin: 09/28/18 09:15 Dose: 70 units Documented by: Insulin Human Lispro (Humalog Kwikpen (Bkc)) 0 unit SC ACHS [facility]; Protocol Last Admin: 09/29/18 06:15 Dose: 4 u Documented by: Insulin Human Lispro (Humalog Kwikpen (Bkc)) 20 unit SC TIDCM [facility] Losartan Potassium (Cozaar) 100 mg PO DAILY [facility] Last Admin: 09/28/18 09:02 Dose: 100 mg Documented by: Melatonin (Melatonin) 3 mg PO QHS PRN PRN PRN Reason: INSOMNIA Last Admin: 09/29/18 02:06 Dose: 3 mg Documented by: Morphine Sulfate () 2 mg IV Q3H PRN PRN PRN Reason: Severe pain (7-10/10) Multivitamins (Multivitamin) 1 tablet PO DAILY@0800 [facility] Last Admin: 09/28/18 09:02 Dose: 1 tablet Documented by: Nitroglycerin (Nitrostat) 0.4 mg SUBLINGUAL Q5M PRN PRN Reason: CARDIAC/CHEST PAIN Oxycodone HCl (Oxyir) 5 mg PO Q4H PRN PRN PRN Reason: Moderate Pain (4-6/10) Polyethylene Glycol (Miralax) 17 gm PO DAILY [facility] Last Admin: 09/28/18 09:03 Dose: 17 gm Documented by: Polysaccharide Iron Complex (Ferrex 150) [facility] Last Admin: 09/28/18 09:00 Dose: 150 mg Documented by: Pred[facility]one () [facility] Last Admin: 09/28/18 16:58 Dose: 20 mg Documented by: Prochlorperazine Edisylate (Compazine Iv) 5 mg IV Q4H PRN PRN PRN Reason: Breakthrough nausea/vomiting Senna/Docusate Sodium (Senokot-S, Radha-Colace) 2 tablet PO BID PRN PRN PRN Reason: Constipation Sodium Chloride () 10 - 40 ml IV UD PRN PRN Reason: SALINE FLUSH Venlafaxine HCl (Effexor Xr) 75 mg PO DAILY [facility] Last Admin: 09/28/18 09:03 Dose: 75 mg Documented by: Medical Necessity - Tobacco Use Smoking Status: Former smoker Assessment/Plan All Active Problems (Last Reviewed 07/03/18 @ 12:59 by Gabbie Lopez NP-C) PND (post-nasal drip) (Acute) COPD exacerbation (Acute) Dehydration (Acute) Nephrolithiasis (Ruled-out) Hydronephrosis of left kidney (Resolved) Pyelonephritis (Resolved) Septic shock (Resolved) Ureteral obstruction, left (Resolved) Patient is a 77-year-old lady with history of COPD who presented to the emergency department with progressive shortness of breath and wheezing of 5 days duration and assessment of COPD with acute exacerbation was made admitted to a regular nursing floor for further management. Patient was also noted to have increasing bipedal edema. Was previously on Lasix which she took herself off in view of frequent micturition 1. COPD with acute exacerbation admitted to the regular nursing floor managed with supplemental oxygen, aerosol treatment with steroid as well as bronchodilator treatment in addition to antibiotics. Patient still remains significantly symptomatic as of 09/28/2018 ~09/29/2018: Patient seen some improvement in her breathing. Patient switched from IV Solu-Medrol to p.o. prednisone. An order was given for patient to be assessed for home oxygen on the morning of 09/30/2018. 2. Acute congestive heart failure with preserved ejection fraction. Echo obtained in May 2008 demonstrated EF of 70% with RVSP of 34. Patient was previously on Lasix which she took herself off this was restarted 3. Morbid obesity with BMI of 44.8 weight loss advised 4. Hypertension-blood pressure controlled, home medications continued with dose adjustment as needed 5. Diabetes mellitus type 2 patient is on long-acting insulin discontinued in addition to Accu-Cheks before meals and at bedtime with sliding scale coverage increase patient's short acting pre-meal insulin 6. Dyslipidemia-patient is on statin therapy, continued at home dose 7. Chronic bilateral lower extremity lymphedema patient is supposed to be on FARHANA hoses 8. Depression with anxiety patient is on SNRI 9. Chronic kidney disease stage III 10. Chronic back pain due to degenerative joint disease involving the knees and bilateral lumbar spine 11. History of nephrolithiasis currently asymptomatic 12. DVT prophylaxis SC Lovenox dose adjusted for kidney function Active Medications Acetaminophen (Tylenol) 650 mg PO Q6H PRN PRN PRN Reason: Mild Pain (1-3)/Temp > 100.7 F Al Hydroxide/Mg Hydroxide (Mylanta Ii) 30 ml PO Q6H PRN PRN PRN Reason: Gastric Burning Albuterol Sulfate (Ventolin Aerosols) 2.5 mg INHALATION Q2H PRN PRN PRN Reason: Shortness of Breath/Wheezing Last Admin: 09/28/18 01:27 Dose: 2.5 mg Documented by: Albuterol/Ipratropium (Duoneb) 3 ml INHALATION Q4H.RT [facility] Last Admin: 09/28/18 06:47 Dose: 3 ml Documented by: Ascorbic Acid (Vitamin C) 1,000 mg PO DAILYCM [facility] Atorvastatin Calcium (Lipitor) 20 mg PO QHS [facility] Carvedilol (Coreg) 25 mg PO BID [facility] Dextrose (D50w Syringe) 0 gm IV X1 PRN; Protocol PRN Reason: Hypoglycemia Enoxaparin Sodium (Lovenox) 30 mg SC DAILY@0600 [facility] Last Admin: 09/28/18 06:49 Dose: 30 mg Documented by: Furosemide (Lasix) 40 mg PO DAILY [facility] Glucagon () 1 mg IM .X1 PRN PRN Reason: Hypoglycemia Guaifenesin (Mucinex) 1,200 mg PO BID [facility] Azithromycin 500 mg/ Dextrose 255 mls @ 250 mls/hr IV Q24H [facility] Stop: 09/30/18 02:02 Last Admin: 09/28/18 01:27 Dose: 250 mls/hr Documented by: Insulin Glargine (Lantus (Bkc)) 70 units SC DAILY [facility] Insulin Human Lispro (Humalog Kwikpen (Bkc)) 0 unit SC ACHS [facility]; Protocol Last Admin: 09/28/18 07:02 Dose: 6 u Documented by: Insulin Human Lispro (Humalog Kwikpen (Bkc)) 16 unit SC TIDCM [facility] Losartan Potassium (Cozaar) 100 mg PO DAILY [facility] Melatonin (Melatonin) 3 mg PO QHS PRN PRN PRN Reason: INSOMNIA Methylprednisolone (Solu-Medrol) 40 mg IV Q8 [facility] Last Admin: 09/28/18 06:49 Dose: 40 mg Documented by: Morphine Sulfate () 2 mg IV Q3H PRN PRN PRN Reason: Severe pain (7-10/10) Multivitamins (Multivitamin) 1 tablet PO DAILY@0800 [facility] Nitroglycerin (Nitrostat) 0.4 mg SUBLINGUAL Q5M PRN PRN Reason: CARDIAC/CHEST PAIN Oxycodone HCl (Oxyir) 5 mg PO Q4H PRN PRN PRN Reason: Moderate Pain (4-6/10) Polyethylene Glycol (Miralax) 17 gm PO DAILY [facility] Polysaccharide Iron Complex (Ferrex 150) [facility] Prochlorperazine Edisylate (Compazine Iv) 5 mg IV Q4H PRN PRN PRN Reason: Breakthrough nausea/vomiting Senna/Docusate Sodium (Senokot-S, Radha-Colace) 2 tablet PO BID PRN PRN PRN Reason: Constipation Sodium Chloride () 10 - 40 ml IV UD PRN PRN Reason: SALINE FLUSH Venlafaxine HCl (Effexor Xr) 75 mg PO DAILY [facility] Clinical Impression(s) from Imaging Studies Chest X-Ray 09/27/18 19:50 IMPRESSION: No acute cardiopulmonary process Bilateral subacromial spurs which can be associated with rotator cuff pathology Right humeral head osteophyte unchanged Electronically Signed: Aayush Alejandra, at 20:07 EDT Tel , Service support , Code Visit Inpatient E&M: 07873 Subs Hosp L2
[2018-09-29] MEDS: Iron Polysaccharide Complex 150 MG CAPSULE PO (10:19)
[2018-09-29] MEDS: Insulin Lispro 100 UNIT/ML INSULN.PEN 20 UNIT SC ×3 (10:20→17:10)
[2018-09-29] MEDS: Multivitamins,Therapeutic Tablet 1 TABLET PO (10:21)
[2018-09-29] MEDS: Ascorbic Acid 500 MG Tablet 1000 MG PO (10:21)
[2018-09-29] MEDS: Carvedilol 25 MG Tablet PO ×2 (10:21→22:22)
[2018-09-29] MEDS: Losartan Potassium 100 MG Tablet PO (10:21)
[2018-09-29] MEDS: Venlafaxine XR 75 MG Capsule PO (10:22)
[2018-09-29] MEDS: Polyethylene Glycol 3350 17 GM PACKET PO (10:23)
[2018-09-29] MEDS: guaiFENesin 1,200 MG Tablet 1200 MG PO ×2 (10:23→22:22)
[2018-09-29] MEDS: predniSONE 20 MG Tablet PO ×2 (10:26→17:10)
[2018-09-29] MEDS: Furosemide 40 MG Tablet PO (10:26)
--- NOTE | 2018-09-29 10:47 | NURSING ---
gets sob w/ activity
[2018-09-29 13:00] LABS: Bedside Glucose 239 mg/dL (70-110)
[2018-09-29] MEDS: Senna/Docusate Sodium 1 Tablet 2 TABLET PO (17:14)
[2018-09-29 18:00] LABS: Bedside Glucose 238 mg/dL (70-110)
[2018-09-29] MEDS: Atorvastatin Calcium 20 MG Tablet PO (22:22)
[2018-09-29] MEDS: 0.9% NaCl Peripheral Flush Adult/Peds IV (22:30)
[2018-09-29 23:15] LABS: Bedside Glucose 249 mg/dL (70-110)
[2018-09-30] VITALS (10 sets, daily range): BP systolic 139–173; BP diastolic 79–93; PULSE 68–85; RESP 18–20; TEMP 36.4–36.9; O2SAT 90–97
[2018-09-30] MEDS: Ipratropium/Albuterol Sulfate 3 ML AMPUL.NEB INHALATION ×3 (02:59→11:28)
[2018-09-30 05:53] LABS: Absolute Lymphocyte Count 2.36 X10^3/uL (0.83-4.51); Absolute Neutrophil Count 9.1 X10^3/uL (2.0-7.7); Basophil# 0.02 X10^3/uL; Basophil% 0.2 % (0-1); Eosinophil# 0.03 X10^3/uL; Eosinophils% 0.2 % (0-5); Hematocrit 36.8 % (37-47); Hemoglobin 12.4 g/dL (12.0-15.0); Lymphocyte # 2.36 X10^3/ul (4.0); Lymphocyte % 18.6 % (19-41); Mean Corp Hgb Conc 33.7 g/dL (32-36); Mean Platelet Vol. 10.1 fl (6.2-12.0); Monocyte# 0.98 X10^3/uL; Monocyte% 7.7 % (0-10); NRBC Flagged by Analyzer 0 % (0-5); Neutrophil # 9.14 X10^3/uL (2.7-7.7); Neutrophil % 72.2 % (47-70); Platelet Count 210 K/mm3 (150-450); RBC Distribution Width CV 13.9 % (11.6-14.6); RBC Distribution Width SD 47.2 fl (35.1-43.9); White Blood Count 12.7 K/mm3 (4.4-11.0)
[2018-09-30 06:04] LABS: Anion Gap 9 (5-15); BUN 36 mg/dL (7-18); Chloride 104 mmol/L (98-107); EST Glomerular Filtration Rate 57 mL/min (>60); Est Glom Filt Rate - Afr Amer 69 mL/min (>60); Estimated Creatinine Clearance 34.38 ml/min; Glucose 150 mg/dL (74-106); Potassium 4.4 mmol/L (3.5-5.1); Sodium Level 140 mmol/L (136-145)
[2018-09-30] MEDS: Insulin Lispro 100 UNIT/ML INSULN.PEN SC ×2 (06:22→11:18)
[2018-09-30] MEDS: Enoxaparin 30 MG/0.3 ML Syringe SC (06:23)
[2018-09-30 06:56] LABS: Bedside Glucose 152 mg/dL (70-110)
[2018-09-30] MEDS: Losartan Potassium 100 MG Tablet PO (08:02)
[2018-09-30] MEDS: Iron Polysaccharide Complex 150 MG CAPSULE PO (08:02)
[2018-09-30] MEDS: Ascorbic Acid 500 MG Tablet 1000 MG PO (08:03)
[2018-09-30] MEDS: predniSONE 20 MG Tablet PO (08:03)
[2018-09-30] MEDS: Multivitamins,Therapeutic Tablet 1 TABLET PO (08:03)
[2018-09-30] MEDS: Insulin Lispro 100 UNIT/ML INSULN.PEN 20 UNIT SC ×2 (08:10→11:18)
--- NOTE | 2018-09-30 09:41 | DCINST_ITS ---
- Discharge Diagnoses Reason(s) for Visit for Discharge Instructions: Shortness of breath You will use the following diet at home:: Calorie/Carbohydrate Controlled (specify 1200, 1400, etc) - 1800, Cardiac Your food should be the consistency of: Regular Your liquids should be the consistency of: Regular/Thin Discharge Activity: Return to Normal Activity Additional Instructions: Continue to take all your medications as prescribed. Take note of your prednisone taper. Continue to take your lasix and continue to weigh yourself everyday. Restrict your fluids to less than 1500mls. Follow-up with your primary care doctor within 1-2 weeks. Take note of changes to your medications. Allergies/Adverse Reactions: Allergies insulin detemir [From Levemir] Allergy (Verified 07/03/18 12:17) Hives oxycodone [From Percocet] Allergy (Verified 07/03/18 12:17) can't remember amlodipine [From Norvasc] Adverse Reaction (Verified 07/03/18 12:17) Itching Medications to take at Discharge Ascorbic Acid [Vitamin C] 1,000 mg PO DAILY 06/17/18 Atorvastatin Calcium [Lipitor] 20 mg PO QHS 06/17/18 Carvedilol 25 mg PO BID 06/17/18 Insulin Degludec [Tresiba Flextouch U-200] 70 units SQ DAILY 06/17/18 Iron Poly/Vit C [Niferex-150] 150 mg PO DAILYCM 06/17/18 Losartan Potassium [Cozaar] 100 mg PO DAILY 06/17/18 Metformin HCl [Metformin HCl ER] 750 mg PO DAILY 06/17/18 Multivitamin [Multivitamins] 1 ea PO DAILY 06/17/18 Venlafaxine HCl [Venlafaxine HCl ER] 75 mg PO DAILY 06/17/18 Albuterol Inhaler [Ventolin Hfa] 1 - 2 puff INHALATION Q4H PRN PRN #1 inhaler 06/19/18 fluticasone propionate 50 mcg/actuation nasal spray,suspension 2 spray INTRANASAL DAILY #16 g 07/03/18 guaifenesin ER 1,200 mg tablet, extended release 12 hr 1,200 mg PO Q12H #60 tab 09/27/18 spacer 0 .ROUTE .MEDSUPPLY #1 ea 09/27/18 Furosemide [Lasix] 40 mg PO DAILY #30 tab 09/30/18 Insulin Lispro [Humalog KwikPen] 20 unit SUBCUT TIDCM #0 insuln.pen 09/30/18 The following prescriptions were given: Furosemide [Lasix] 40 mg PO DAILY #30 tab Primary Care Physician: Trang Talamantes DO [Primary Care Provider] - Please follow up with your Primary Care Physician in: within 1-2 weeks Test Results: Test results from this visit will be discussed in further detail at your follow- up appointment, if applicable. Please Follow Up With: Jos Olivo DO When: within 1-2 weeks Proposed Discharge Date: 09/30/18
[2018-09-30] MEDS: Carvedilol 25 MG Tablet PO (10:01)
[2018-09-30] MEDS: Venlafaxine XR 75 MG Capsule PO (10:01)
[2018-09-30] MEDS: Furosemide 40 MG Tablet PO (10:02)
[2018-09-30] MEDS: guaiFENesin 1,200 MG Tablet 1200 MG PO (10:03)
[2018-09-30] MEDS: Polyethylene Glycol 3350 17 GM PACKET PO (10:03)
--- NOTE | 2018-09-30 10:06 | DS.PCM_ITS ---
Discharge Date and Diagnosis Date of Admission: 09/28/18 Date of Discharge: 09/30/18 - Primary Discharge Diagnosis Acute COPD exacerbation Acute on chronic CHF with preserved EF - Secondary Discharge Diagnosis Chronic Problems (Last Reviewed 07/03/18 @ 12:59 by Gabbie Lopez NP-C) Lymphedema (Chronic) PVD (peripheral vascular disease) (Chronic) HTN (hypertension) (Chronic) HLD (hyperlipidemia) (Chronic) Iron deficiency anemia (Chronic) Anxiety (Chronic) Depression (Chronic) Osteoarthritis of knees, bilateral (Chronic) Knee pain, bilateral (Chronic) post fall History of nephrolithiasis (Chronic) DM type 2 (diabetes mellitus, type 2) (Chronic) Morbid obesity with BMI of 40.0-44.9, adult (Chronic) Osteoarthritis (Chronic) Dermatitis (Chronic) Chronic renal failure, stage 3 (moderate) (Chronic) Foraminal stenosis of lumbar region (Chronic) Lumbar canal stenosis (Chronic) Steatosis of liver (Chronic) Obesities, morbid (Chronic) Hospital Course and Treatment Imaging Results: Clinical Impression(s) from Imaging Studies Chest X-Ray 09/27/18 19:50 IMPRESSION: No acute cardiopulmonary process Bilateral subacromial spurs which can be associated with rotator cuff pathology Right humeral head osteophyte unchanged Electronically Signed: Aayush Alejandra, at 20:07 EDT Tel , Service support , Clinical Impression(s) from Imaging Studies Chest X-Ray 09/27/18 19:50 IMPRESSION: No acute cardiopulmonary process Bilateral subacromial spurs which can be associated with rotator cuff pathology Right humeral head osteophyte unchanged Electronically Signed: Aayush Alejandra at 20:07 EDT Tel , Service support , Operations: None Procedures: None Summary of Care Provided: The patient is a 77 year old F with multiple comorbidities significant for hypertension, chronic diastolic CHF, type II DM, morbid obesity who comes in with progressive shortness of breath ongoing for 5 days. Patient's active management was that of acute CHF exacerbation as well as acute COPD exacerbation. Patient continued to improve on breathing treatments, IV Lasix, as well as Solu-Medrol. She was transitioned to p.o. Lasix and prednisone. Patient did not qualify for oxygen on ambulation. She was prescribed nebulizers at discharge. Patient will follow-up with pulmonology in the outpatient as well as her primary care doctor within 1-2 weeks. She was discharged with a prednisone taper. Subjective: On the day of discharge, patient was seen and examined. Denied any new complaints. She felt improved. Objective: Physical Exam General: Alert, Oriented x3, Cooperative HEENT: Atraumatic, PERRLA, EOMI, Normocephalic Oral: Dry Mucosa Neck: Supple, No JVD, Negative Carotid Bruits Lungs: Diminished - Air entry is severely diminished in all lung diaz., Scattered wheezes Cardiovascular: Regular rate, Regular Rhythm, Normal S1, Normal S2, No murmurs Abdomen: Bowel Sounds Present, Soft, Non Tender, Non-Distended Extremities: Capillary Refill Less than 3 Seconds, Edema +1 Skin: No rashes, No breakdown Musculoskeletal: No Tenderness to Palpation of Joints or Extremities, Arthritic Changes Neurological: Cranial nerves II-XII grossly intact, Deep Tendon Reflexes 2+/4 and Symmetrical, Neuro grossly intact, Motor Exam 5/5 strength throughout Psych/Mental Status: Normal Affect, Appropriate - Physical Exam Vital Signs Temp Pulse Resp BP Pulse Ox 98.2 F 80 18 139/79 H 96 09/30/18 09:20 09/30/18 09:20 09/30/18 09:20 09/30/18 09:37 09/30/18 09:20 Oxygen Flow Rate (L/min) 2 Oxygen Delivery Method Room Air Weight: 104.071 kg Body Mass Index (BMI) 44.8 Finger Stick Blood Glucose 145 Intake and Output for Last 24 Hours 09/28/18 09/29/18 09/30/18 23:59 23:59 23:59 Intake Total 2144 / 2144 600 / 1059 459 / 459 Output Total 1725 / 1725 700 / 1100 400 / 400 Balance 419 / 419 -100 / -41 59 / 59 Microbiology Past 72 Hours 09/29/18 09:00 Gram Stain - Final Sputum, Expectorated/Coughed 09/28/18 01:40 Respiratory Panel (PCR) - Final Mucosa - Nasopharyngeal Laboratory Tests Past 24 Hrs 09/30/18 09/30/18 05:28 05:28 WBC 12.7 H RBC 4.00 L Hgb 12.4 Hct 36.8 L MCV 92.0 MCH 31.0 MCHC 33.7 RDW Std Deviation 47.2 H RDW Coeff of Harvey 13.9 Plt Count 210 MPV 10.1 Immature Gran % (Auto) 1.100 H Neut % (Auto) 72.2 H Lymph % (Auto) 18.6 L [place] % (Auto) 7.7 Eos % (Auto) 0.2 Baso % (Auto) 0.2 Absolute Neuts (auto) 9.1 H Absolute Lymphs (auto) 2.36 Nucleated RBC % 0 Sodium 140 Potassium 4.4 Chloride 104 Carbon Dioxide 27.0 Anion Gap 9 BUN 36 H Creatinine 1.00 Estim Creat Clear Calc 34.38 Est GFR (MDRD) Af Amer 69 Est GFR (MDRD) Non-Af 57 L BUN/Creatinine Ratio 36.0 H Glucose 150 H Calcium 9.0 POC Glucose 09/30/18 09/29/18 09/29/18 06:19 22:24 17:08 POC Glucose 152 H 249 H 238 H 09/29/18 12:51 POC Glucose 239 H Discharge Diet: Low fat/ Low Cholesterol, 2000 mg Sodium Diet, Carb Control Diet Discharge Activity: Return to Normal Activity Home Medications: Medications to take at Discharge Ascorbic Acid [Vitamin C] 1,000 mg PO DAILY 06/17/18 Atorvastatin Calcium [Lipitor] 20 mg PO QHS 06/17/18 Carvedilol 25 mg PO BID 06/17/18 Insulin Degludec [Tresiba Flextouch U-200] 70 units SQ DAILY 06/17/18 Iron Poly/Vit C [Niferex-150] 150 mg PO DAILYCM 06/17/18 Losartan Potassium [Cozaar] 100 mg PO DAILY 06/17/18 Metformin HCl [Metformin HCl ER] 750 mg PO DAILY 06/17/18 Multivitamin [Multivitamins] 1 ea PO DAILY 06/17/18 Venlafaxine HCl [Venlafaxine HCl ER] 75 mg PO DAILY 06/17/18 Albuterol Inhaler [Ventolin Hfa] 1 - 2 puff INHALATION Q4H PRN PRN #1 inhaler 06/19/18 fluticasone propionate 50 mcg/actuation nasal spray,suspension 2 spray INTRANASAL DAILY #16 g 05/08/19 guaifenesin ER 1,200 mg tablet, extended release 12 hr 1,200 mg PO Q12H #60 tab 09/27/18 spacer 0 .ROUTE .MEDSUPPLY #1 ea 09/27/18 Furosemide [Lasix] 40 mg PO DAILY #30 tab 09/30/18 Insulin Lispro [Humalog KwikPen] 20 unit SUBCUT TIDCM #0 insuln.pen 09/30/18 Prednisone 10 mg PO DAILY #30 tab 09/30/18 Following Prescrptions Were Given to Patient: Furosemide [Lasix] 40 mg PO DAILY #30 tab Prednisone 10 mg PO DAILY #30 tab Transmission Status: Received by [id number] Primary Care Physician: Trang Talamantes DO [Primary Care Provider] - Please follow up with your Primary Care Physician in: within 1-2 weeks Please Follow Up With: Jos Olivo DO When: within 1-2 weeks Disposition: Home Minutes spent on discharge:: 40 Patient Condition:: Stable Medical Necessity - Tobacco Use Smoking Status: Former smoker Tobacco Use: Non-smoker Meaningful Use Info Meaningful Use Diagnoses (Choose all that apply): CHF - CHF QUE/ARB ordered at discharge?: Yes Documented LVEF (%): 70 Code Visit Inpatient E&M: 89116 Disch Hosp
--- NOTE | 2018-09-30 10:06 | CASEMGMT ---
ALTAF MARTINEZ updated by nursing the patient does not qualify for home o2 with portability. Per Hospitalist, patient will need nebulizer at discharge. ALTAF MARTINEZ reviewed CM Assessment and patient is established with [facility] for DME. ALTAF MARTINEZ in to updated patient regarding nebulizer, patient states that she would like nebulizer drop shipped to her house. ALTAF MARTINEZ received script for nebulizer and sent to [facility]. Patient declined further needs at this time. JUAN will continue to follow this patient and plan for a safe discharge.
[2018-09-30 11:10] LABS: Bedside Glucose 203 mg/dL (70-110)
[2018-09-30] MEDS: Albuterol 2.5 MG/3 ML VIAL.NEB. INHALATION (14:14)
--- NOTE | 2018-09-30 14:42 | CASEMGMT ---
Social Work Note Per dealer sales manager questions, pt has completed HCPOA and LW, hasn't provided copies to [facility] and is able to bring in copies. Vicky Solorio PROFESSOR OF FOOD BIOCHEMISTRY, TOOL BUILDER
--- NOTE | 2018-10-01 13:58 | CASEMGMT ---
ALTAF MARTINEZ DC PHONE CALL DC DATE: 09/30/18 DC Disposition: Home Diagnosis on Discharge: COPD exacerbation LACE/STRATA: 01/29 Intro role of CM to patient via phone. Pt states she has prescriptions and understood her instructions well. F/U appt is made. No questions at this time. No care improvement suggestions were given. Genesis SAVAGE RN AC
== END 2018-09-30 15:55 | disposition home or self-care (01) | DRG 291 ==
LOC: ED 22:42 → MS3 23:10
PROVIDERS: Internal Medicine; Admitting Provider Internal Medicine; Emergency Provider Emergency Medicine; Family Provider Internal Medicine; PCP Internal Medicine; Referring Provider Internal Medicine; Visit Provider Internal Medicine
DX: I13.0 Hypertensive heart and chronic kidney disease with heart failure and stage 1 through stage 4 chronic kidney disease, or unspecified chronic kidney disease (principal); I50.33 Acute on chronic diastolic (congestive) heart failure; J44.1 Chronic obstructive pulmonary disease with (acute) exacerbation; Z68.41 Body mass index [BMI] 40.0-44.9, adult; E66.01 Morbid (severe) obesity due to excess calories; E78.5 Hyperlipidemia, unspecified; M17.0 Bilateral primary osteoarthritis of knee; M47.896 Other spondylosis, lumbar region; I89.0 Lymphedema, not elsewhere classified; F41.8 Other specified anxiety disorders; N18.3 Chronic kidney disease, stage 3 (moderate); R09.02 Hypoxemia; K76.0 Fatty (change of) liver, not elsewhere classified; M48.061 Spinal stenosis, lumbar region without neurogenic claudication; Z87.891 Personal history of nicotine dependence; Z87.442 Personal history of urinary calculi; Z79.4 Long term (current) use of insulin
CPT/HCPCS: 36415; 71045; 80048; 82962; 83735; 83880; 84443; 84484; 85025; 87070; 87205; 87633; 93005; 94002; 94640; 94667; 94668; 99285; J7040; A4216

== ENCOUNTER → 2018-12-09 09:18 | Outpatient (CLI) | payer MEDICARE, SELFPAY ==
[2018-11-27 12:44] VITALS: BMI 44.0
--- NOTE | 2018-12-09 10:00 | MRI_ITS ---
STUDY: MRI LUMBAR SPINE WITHOUT CONTRAST REASON FOR EXAM: Female, 78 years old. Low back pain. Prior surgery. TECHNIQUE: Standardized fat and water weighted pulse sequences were obtained in the sagittal and axial planes. COMPARISON: May 01, 2016. FINDINGS: Exaggerated lumbar lordosis. No significant scoliosis. Conus medullaris terminates normally at the L1 level. No acute fracture, dislocation or osseous destruction. T11 Schmorl's node. Posterior spinal fixation at the L4 and L5 levels. Multilevel laminectomy extending from L2-3 through L5-S1. Paraspinal muscle atrophy. Normal aorta. Normal retroperitoneum. Small left renal cyst. T12-L1: Mild endplate spondylosis. Central caudal disc extrusion with moderate central canal narrowing (axial image 26 series 5). Extruded disc material measures approximately 10 mm x 15 mm x 17 mm. Facet joint arthrosis. Bilateral lateral recess narrowing without impingement.. Normal bilateral intervertebral neural foramina. L1-2: Mild endplate spondylosis. Disc bulge/uncovering without central canal narrowing. Facet joint arthrosis. Normal central canal and bilateral lateral recesses. Bilateral neural femoral narrowing without impingement. Minimal grade 1 spondylolisthesis. L2-3: Mild endplate spondylosis. Disc disc bulge/uncovering without central canal narrowing. Facet joint arthrosis. Normal central canal and bilateral lateral recesses. Bilateral neural foraminal narrowing without impingement. Grade 1 spondylolisthesis. L3-4: Mild endplate spondylosis. Disc bulge/uncovering with mild/moderate central canal narrowing. Facet joint arthrosis. Bilateral lateral recess narrowing with impingement. Bilateral neural foraminal narrowing with impingement. Grade 1 spondylolisthesis. L4-5: Normal endplates. Disc bulge, annular fissure, without central canal narrowing. Facet joint arthrosis. Normal central canal and bilateral lateral recesses. Right neural foraminal narrowing without impingement. L5-S1: Mild endplate spondylosis. Shallow asymmetric disc bulge without central canal narrowing. Facet joint arthrosis. Normal central canal and bilateral lateral recesses. Normal bilateral intervertebral neural foramina. MRI/Spine Lumbar (Routine) IMPRESSION: Extensive multilevel intervertebral disc disease with disc extrusion at T12-L1 with moderate central canal narrowing Multilevel grade 1 spondylolisthesis with moderate central canal narrowing at the L3-4 level Multilevel lateral recess narrowing with impingement of the bilateral descending L4 nerve roots Multilevel neural foraminal narrowing with impingement of the bilateral exiting L3 nerve roots Exaggerated lumbar lordosis with moderate/severe osteoarthritis Lower lumbar surgical fixation with multilevel laminectomy Electronically Signed: Lm Tovar DO at 12:14 EDT Tel , Service support ,
== END ==
PROVIDERS: Family Provider Internal Medicine; PCP Internal Medicine; Referring Provider Nurse Practitioner Family
DX: M47.817 Spondylosis without myelopathy or radiculopathy, lumbosacral region (principal)
CPT/HCPCS: 72148

== ENCOUNTER 2019-03-13 09:30 | Outpatient (RCR) | payer MEDICARE, SELFPAY ==
[2018-11-27 12:44] VITALS: BMI 44.0
--- NOTE | 2018-12-18 09:22 | HP.PTEVAL_ITS ---
Patient's Visit Information VIC ALEXANDER is a 78 year old F referred to Physical Therapy by TANIA Ferguson with a diagnosis of Degenerative spondylolisthesis, IV disc degeneration. Date of Evaluation: 12/18/18 Physical Therapist: Lm Pretty, DPT, OCS, CSCS - Visit Plan Frequency: 2x /Week Duration: 4-6 Weeks Plan: 2x/week for 4-6 weeks for pool therapy for: 1. LB ROM emphasizing flexion stretches, LE stretches to hip flexors and quads and ITB. 2. Core strength focus NS. 3. Glut stretching and muscle pumping execises. 4. Progress all to I pool program as helpful. Pt going on cruise at [facility] and wants to walk better/farther - Subjective Findings: I have back pain. Buttocks have been hurting lately for the last year. Has to bend over to compensate for that pain. Can't stand up straight due to excruciating pain in buttocks. Cortisone shots and nerve ablations. They did not help. They may want to put injections in buttocks. Had therapy 2 years ago and had to stop as daughter was having medical issues. it was not helping back pain at the time. Had surgery 2-3 yrs ago to clean out herniated discs and stenosis and put two rods in. Had pain in back at the time and that surgery helped. was able to walk without cane then but has had to use it for the last year due to buttock pain. Also needs ti for balance. Pain is in both buttocks and is constant faint but mostly when she stands. Sitting is also comfortable but faint discomfort. Sleep is ususally OK but hurts buttocks to turn in bed. Sidelying is comfortable. Not employed. 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 Has gained weight over the last year. No regular exercises . Does basics at home just has to sit and rest alot. 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 Also needs L TSA but not a candidate. - Pain B buttocks Pain Intensity (Out of 10): 1 Pain Intensity Range: 1, 9 - Objective Walks with cane mod I but slow and no hip extension with end of stance phase. Hunched over at wais and LB. transfers to and fro supine and sit I. Slow and painful to sit and hesitant. Posture is forward head and flat LB lordosis. reflexes 1/3 patella and achilles. Sensation WNL to gross light touch in LE. Strength in hips is 3/5 abd and ext and 3+ add. Knees are 4- HS and 3+ quads. ankles are 4 in DF and 4- inv/ev. LE AROM limited in ext to -5 degrees B hips. Knees and ankles WFL. LB AROM ext is non existent adn painful, flexion is mod tight, SB are max tight. Poor movement in LB. Hip flexors very tight as are quads, HS not bad at -5 90/90 test. Max tenderness in glut max B and into GT and TB B. - Goals Goal 1:: No tenderness in gluts or GT area to palpation. Goal Time Frame: 4-6 Weeks Goal 2:: Pt feel 50% improved in buttock pain at 4/10 at worst Goal Time Frame: 4-6 Weeks Goal 3:: Pt score less than 40% disability on oswestry LB. Goal Time Frame: 4-6 Weeks Goal 4:: I approp HEP to minimize future problems. Goal Time Frame: 4-6 Weeks Goal 5:: Pt transfer and roll at nigth without noticing buttock pain. Goal Time Frame: 4-6 Weeks - Rehabilitation Potential Physical Therapy Diagnosis: Lumbar degenerative changes casuing gait abnormalities and glut tenderness. Rehabilitation Potential: Fair - Anticipated Interventions Patient/Client Instruction: Educate patient on: Condition, Plan of Care For the Purpose of:: To decrease pain, To increase ROM, To improve nutrient delivery to tissue, To improve muscle performance and motor function, To improve ability of physical actions for home/community/work/leisure, To improve gait and locomotor functions Therapeutic Exercise to Include: Strength training, Postural training, Flexibilty training, Gait and locomotor training, In an aquatic setting, Active ROM, Dynamic Lumbar Stabilization For the Purpose of:: To decrease pain, To increase ROM, To improve nutrient delivery to tissue, To improve muscle performance and motor function, To increase tolerance to activity/condition/position, To improve ability of physical actions for home/community/work/leisure, To improve gait and locomotor functions Thank you for the opportunity to evaluate your patient. For Medicare and Medicare HMO plans, please review the plan of care and approve it. It will need to be FAXED BACK to us at [phone] for Medicare purposes. For Medicare only, by signing this I certify the plan of care. Please let me know if there are questions or concerns regarding this plan of care. Physician Signature: Date:
--- NOTE | 2019-01-30 10:24 | HP.PTREVAL ---
Shyla Veliz, DREDGE OPERATOR-C, It has been my pleasure to treat VIC ALEXANDER over the last 9 visits for Degenerative spondylolisthesis, IV disc degeneration. Please see the progress note below for an update on the physical therapy plan of care! Subjective: Pool was so much easier than land. Standing up straight was easier as was walking. Overall she felt better in the pool but not as much out of the pool. Relief for a couple hours after each session. Still has pain stretching up to get mail. No f/u with pain doctor anytime soon. Had alot of those treatments. May go to spine surgeon next. Pain this week has been 7/10 walking and gone upon sitting. Did fall earlier this week and could not get up, had to call squad, did not get injured. May join and continue in the [employer] open swim and could do that herself. Wants to ex and get off floor easier. Fall was from a chair that broke on her not a balance issue. Objective/Function: L/S ext ROM only to neutral and painful, SB slightly painful and mod limited, Flexion is min limited and withotu pain. Strength LE 4-/5. Gait with wh walker is mod I today. Pt seems motivated to continue in the pool and wants to progress to land PT for strength, ROM and getting up off floor which she was embarassed that she could not do. Plan Plan: 2x/week for 4 weeks for land based ex to compliment her now I pool program. Focus on ... 1. LB ROM. 2. Core strength. 3. General postural and LE strength. 4. Getting up off floor. May use gym or home based ex depending on patient wishes. Goals and new goal appropriate and fair prognosis. Goals Goal 1:: No tenderness in gluts or GT area to palpation. Goal Time Frame: 4-6 Weeks Goal Progress: improved 50%, approp Goal 2:: Pt feel 50% improved in buttock pain at 4/10 at worst Goal Time Frame: 4-6 Weeks Goal Progress: slow rogress, approp Goal 3:: Pt score less than 40% disability on oswestry LB. Goal Time Frame: 4-6 Weeks Goal 4:: I approp HEP to minimize future problems. Goal Time Frame: 4-6 Weeks Goal Progress: pool, not land yet. Goal 5:: Pt transfer and roll at nigth without noticing buttock pain. Goal Time Frame: 4-6 Weeks Goal Progress: not improved, approp Goal 6:: Get up off floor with VC only Goal Time Frame: 2-4 Weeks Goal Progress: New Goal Anticipated Interventions Patient/Client Instruction: Educate patient on: Condition, Plan of Care For the Purpose of:: To decrease pain, To increase ROM, To improve nutrient delivery to tissue, To improve muscle performance and motor function, To improve ability of physical actions for home/community/work/leisure, To improve gait and locomotor functions Therapeutic Exercise to Include: Strength training, Postural training, Flexibilty training, Gait and locomotor training, In an aquatic setting, Active ROM, Dynamic Lumbar Stabilization For the Purpose of:: To decrease pain, To increase ROM, To improve nutrient delivery to tissue, To improve muscle performance and motor function, To increase tolerance to activity/condition/position, To improve ability of physical actions for home/community/work/leisure, To improve gait and locomotor functions Please do not hesitate to contact me at [phone] by phone or if you have questions or concerns regarding this new plan of care! Sincerely, Lm Pretty, DPT, OCS, CSCS
--- NOTE | 2019-03-13 10:12 | HP.PTDCSUM ---
HP - PT D/C Summary It has been my pleasure to treat VIC ALEXANDER under orders from Shyla Veliz, WADEC, for the diagnosis of Degenerative spondylolisthesis, IV disc degeneration for a total of 17 visit(s). Discharge Date: 03/13/19 Please see the following information for a summary of their discharge status. - Subjective Subjective: Feels better. Can walk without walker now. Slowly straightening up. Butt hurts less and less. Still hurts a little but not bad. 3/10 at times. Feels like can continue on her own. No f/u with doctor. Got off the floor a few times at home. - Pain B buttocks Pain Intensity (Out of 10): 3 BLEs Pain Intensity (Out of 10): 0 R knee Pain Intensity (Out of 10): 0 - Overall Improvement % Improvement: 75 - Objective Objective/Function: Meeting goals very wella dn feeling much better when workign out, motivated to continue. Walking well only slightly hunched and standing straighter. Steps prefers R but can use either one with two railings, left slightly weaker. - Goals Goal 1:: No tenderness in gluts or GT area to palpation. Goal Progress: 75% Goal 2:: Pt feel 50% improved in buttock pain at 4/10 at worst Goal Progress: Goal Met Goal 3:: Pt score less than 40% disability on oswestry LB. Goal Progress: Goal Met Goal 4:: I approp HEP to minimize future problems. Goal Progress: Goal Met Goal 5:: Pt transfer and roll at nigth without noticing buttock pain. Goal Progress: Goal Met, in morning. Goal 6:: Get up off floor with VC only Goal Progress: Goal Met - Plan Plan: d/c - D/C Information Discharge Comments: Doing wella dn will continue in gym and pool on own and contact doctor if pain worsens again. If there are questions or concerns regarding this patient's physical therapy, please feel free to call me at [phone]. Thank you for the referral of this patient. Sincerely, Lm Pretty, DPT, OCS, CSCS
== END 2019-03-13 19:00 | disposition home or self-care (01) ==
LOC: PT 09:30
PROVIDERS: Family Provider Internal Medicine; PCP Internal Medicine; Referring Provider Nurse Practitioner Family; Visit Provider Nurse Practitioner Family
DX: M43.10 Spondylolisthesis, site unspecified (principal); M51.17 Intervertebral disc disorders with radiculopathy, lumbosacral region; M79.10 Myalgia, unspecified site; M12.9 Arthropathy, unspecified; M47.817 Spondylosis without myelopathy or radiculopathy, lumbosacral region; M46.1 Sacroiliitis, not elsewhere classified; M53.2X8 Spinal instabilities, sacral and sacrococcygeal region
CPT/HCPCS: 97110; 97113; 97162; 97530

== ENCOUNTER → 2019-07-08 08:45 | Outpatient (CLI) | payer MEDICARE, SELFPAY ==
[2019-01-08 07:57] VITALS: BMI 44.0
== END ==
PROVIDERS: PCP Internal Medicine; Referring Provider Physician Assistant; Visit Provider Physician Assistant
DX: L30.9 Dermatitis, unspecified (principal); L20.89 Other atopic dermatitis; L29.8 Other pruritus
CPT/HCPCS: 36415

== ENCOUNTER → 2020-02-18 10:44 | Outpatient (CLI) | payer MEDICARE, SELFPAY ==
[2019-07-09 08:30] VITALS: BMI 44.0
[2020-01-07 09:01] VITALS: BMI 45.3
--- NOTE | 2020-02-18 10:47 | BI_ITS ---
MAMMOGRAPHY - BILATERAL SCREENING REASON FOR EXAM: Female, 79 years old. Routine annual screening examination. PERTINENT HISTORY: Non-contributory. TECHNIQUE: Digital bilateral breast sherron (3D mammographic acquisition) in the CC and MLO projections. 2-D mediolateral oblique (MLO) and craniocaudad (CC) views of both breasts were obtained. CAD: Full Field Digital Mammography with Computer Added Detection was performed. COMPARISON: Comparison is made with prior study dated 11/13/2017 and 11/10/2015. FINDINGS: Breast Composition: There are scattered areas of fibroglandular density. There are no dominant masses or suspicious calcifications. Stable 1.1 cm nodular density in the left axillary region suggestive of a small lymph node. No other significant abnormalities are identified. There has been no significant change since the prior study. BI/SCREEN MAMM (CAD) W/SHERRON BILAT IMPRESSION: Stable bilateral screening mammogram. Yearly follow-up mammogram recommended. (A) ASSESSMENT CATEGORY: BIRADS Category 2: Benign. A letter regarding these results will be sent to the patient by the facility within 30 days. Approximately 10% of breast cancers are not detected by mammography. A normal mammogram should not delay biopsy of a clinically suspicious abnormality. [id number] Electronically Signed: Laureano Freeman, at 13:04 EST , Service support ,
--- NOTE | 2020-02-18 11:13 | BD_ITS ---
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 COMPARISON: Comparison is made with prior study dated 11/22/2017. FINDINGS: Lumbar Spine (L1-L4): g/cm2 (1.744) / T-score (4.8) / Z-score (6.6) Findings are suggestive of normal bone density with a low fracture risk. Left Femur Total: g/cm2 (1.163) / T-score (1.2) / Z-score (3.1) Left Femoral Neck: g/cm2 (0.936) / T-score (-0.7) / Z-score (1.3) Right Femur Total: g/cm2 (1.137) / T-score (1.0) / Z-score (2.9) Right Femoral Neck: g/cm2 (0.907) / T-score (-0.9) / Z-score (1.1) The T-Scores on the most recent prior examination were: Lumbar Spine (L1-L4): There has been improvement of bone density since the previous examination. Left Femur Total: which represents a worsening of 7.6%. Right Femur Total: which represents a worsening of 5.3%. BD/Dexa Bone Density Study IMPRESSION: The patient is considered normal as outlined below according to World [employer] Organization (WHO) criteria with a low fracture risk. There has been worsening of bone density since the previous examination. Reference Information: The T-score is the number of standard deviations above or below the standard which is normal for young adults at their peak bone mineral density. The World Health Organization (WHO) interprets the T-scores as follows: Above -1 Normal bone density Between -1 and -2.5 Osteopenia Equal to / or below -2.5 Osteoporosis As a practical clinical guideline, osteopenia may be graded as follows: Mild -1 through -1.5 Moderate -1.6 through -2.0 Severe -2.1 through -2.4 The Z-score is the number of standard deviations above or below age-matched controls. A Z-score of less than -1.5 would be considered abnormal. References: 1. NIH Osteoporosis and Related Bone Diseases www osteo.org 2. International Society for Clinical Densitometry www iscd.org 3. National Osteoporosis Foundation www nof.org Electronically Signed: Laureano Freeman, at 8:58 EST , Service support ,
== END ==
PROVIDERS: PCP Internal Medicine; Referring Provider Internal Medicine; Visit Provider Internal Medicine
DX: Z12.31 Encounter for screening mammogram for malignant neoplasm of breast (principal); Z78.0 Asymptomatic menopausal state
CPT/HCPCS: 77063; 77067; 77080

== ENCOUNTER → 2020-06-11 14:53 | Outpatient (CLI) | payer MEDICARE, SELFPAY ==
[2020-01-07 09:01] VITALS: BMI 45.3
--- NOTE | 2020-06-11 14:56 | CT_ITS ---
STUDY: CTA CHEST REASON FOR EXAM: Female, 79 years old. ELEVATED DDIMER RADIATION DOSAGE (If Supplied By Facility): CTDIvol = ( 10.08 ) mGy, DLP = ( 441.56 ) mGycm TECHNIQUE: The examination was performed with the intravenous administration of IV 100mL Isovue-370. Post-processing of the angiographic images was performed, with multiplanar reformation and 3D reconstruction. Individualized dose optimization techniques were used for this CT. COMPARISON: Comparison is made with prior study dated 06/17/2018. FINDINGS: Normal enhancement of the main pulmonary artery and right and left pulmonary arteries. Normal enhancement of the bilateral peripheral pulmonary arteries. There is no demonstrated pulmonary embolism. Normal thoracic aorta and visualized great vessels. There is no demonstrated aortic dissection. There are calcifications of the coronary arteries. Normal mediastinum. Normal hilar regions. Normal visualized trachea and bronchi. The lungs are well expanded. Normal pulmonary parenchyma. Normal pleura. Normal chest wall structures. There are degenerative changes of thoracic spine. Stable 5 cm x 3.4 cm cystic structure arising from the medial aspect of the left lobe of the liver. CT/CTA Chest W/WO Contrast IMPRESSION: No evidence of pulmonary embolism. There has been no change as compared to prior study. Electronically Signed: Laureano Freeman MD at 15:35 EDT , Service support ,
[2020-06-11 15:15] LABS: CREATININE FINGERSTICK 1.2 mg/dL (0.55-1.02)
== END ==
PROVIDERS: PCP Internal Medicine; Referring Provider Internal Medicine; Visit Provider Internal Medicine
DX: R79.89 Other specified abnormal findings of blood chemistry (principal); R06.02 Shortness of breath
CPT/HCPCS: 71275; 83880; 84484; 85379; Q9967

== ENCOUNTER → 2020-06-11 | Outpatient (CLI) | payer MEDICARE, SELFPAY ==
[2020-01-07 09:01] VITALS: BMI 45.3
[2020-06-11 14:11] LABS: BNP,B-Type NATRIURETIC PEPTIDE 43.5 pg/mL (0-100)
[2020-06-11 14:13] LABS: D-Dimer Quantitative (DVT/PE) 0.71 FEU/ug/m (0.27-0.49)
== END | disposition home or self-care (01) ==
LOC: LABSPEC 13:47
PROVIDERS: PCP Internal Medicine; Visit Provider Internal Medicine
DX: R06.02 Shortness of breath (principal)
CPT/HCPCS: 83880; 84484; 85379

== ENCOUNTER → 2020-09-22 10:45 | Outpatient (CLI) | payer MEDICARE, SELFPAY ==
[2020-07-07 09:03] VITALS: BMI 45.5
--- NOTE | 2020-09-22 10:48 | ECHOD_ITS ---
Reason For Study: SOB Procedure This was a 2D Doppler, Color Flow transthoracic echocardiogram. The study was technically difficult. Exam performed in department. Left Ventricle Normal LV size. Left ventricular systolic function is normal. The estimated ejection fraction is 65 %. Diastolic function is indeterminate. No regional wall motion abnormalities noted. Right Ventricle Normal RV size. Normal systolic function. Atria Normal left atrium. Normal right atrium. No doppler evidence for ASD. Mitral Valve There is mild mitral annular calcification. Normal mitral valve. Trivial mitral valve insufficiency. Tricuspid Valve Normal tricuspid valve. Mild tricuspid valve insufficiency. Right ventricular systolic pressure estimated to be 33 mmHg. Aortic Valve The aortic valve is not well visualized. Pulmonic Valve The pulmonic valve is not well visualized. Great Vessels The aortic root is not well visualized. Pericardium/Pleural No pericardial effusion. MMode/2D Measurements & Calculations LVIDd: 3.5 cm IVSd: 1.2 cm LA dimension: 3.6 cm LVIDs: 2.3 cm LVPWd: 1.1 cm RVDd: 3.1 cm FS: 32.7 % LAV(MOD-bp): 47.8 ml LA A4 area: 15.6 cm2 RA A4 area: 12.2 cm2 LAV(MOD-bp) Indexed: 24.0 ml/m2 LAV(MOD-sp2): 42.2 ml LAV(MOD-sp4): 43.3 ml Time Measurements MV dec time: 0.24 sec Doppler Measurements & Calculations MV E max rajat: 92.7 cm/sec Lat Peak E' Rajat: 5.5 cm/sec Med Peak E' Rajat: 5.4 cm/sec MV A max rajat: 112.7 cm/sec E/E' lat: 16.9 E/E' med: 17.3 MV E/A: 0.82 MV V2 max: 132.9 cm/sec MV P1/2t max rajat: 115.6 cm/sec Ao V2 max: 125.5 cm/sec MV max P.1 mmHg MV P1/2t: 86.6 msec Ao max P.3 mmHg MV V2 mean: 82.6 cm/sec MV dec slope: 391.0 cm/sec2 MV mean P.1 mmHg MVA(P1/2t): 2.5 cm2 MV V2 VTI: 38.1 cm LV V1 max: 105.3 cm/sec PA V2 max: 98.2 cm/sec TR max rajat: 272.3 cm/sec LV V1 max P.4 mmHg TR max P.6 mmHg ECHO/Echo Complete Interpretation Summary The study was technically difficult. Left ventricular systolic function is normal. The estimated ejection fraction is 65 %. There is mild mitral annular calcification. Trivial mitral valve insufficiency. Mild tricuspid valve insufficiency. Right ventricular systolic pressure estimated to be 33 mmHg. Diastolic function is indeterminate. Ordering Physician: Trang Talamantes Referring Physician: Trang Talamantes Performed By: Eugenio Kelley RCS
== END ==
PROVIDERS: PCP Internal Medicine; Referring Provider Internal Medicine; Visit Provider Internal Medicine
DX: R06.02 Shortness of breath (principal)
CPT/HCPCS: 93306

== ENCOUNTER 2020-11-19 21:13 | Emergency (ER) | payer MEDICARE, SELFPAY ==
[2020-11-19 21:15] VITALS: BP 159/66; PULSE 103; RESP 18; TEMP 36.8; O2SAT 100; BMI 44.9
--- NOTE | 2020-11-19 22:12 | RAD_ITS ---
HISTORY: Trauma, injury, knee pain EXAMINATION/TECHNIQUE: XR Knee 1 or 2 Views: COMPARISON: 04/29/16 FINDINGS: BONES/JOINTS: No acute fracture or dislocation. [place] severe degenerative changes which have progressed from prior study. No sclerotic or destructive changes observed. SOFT TISSUES: No soft tissue swelling or gas. No radiopaque foreign body. RAD/Knee 1 or 2 Views IMPRESSION: No acute bony abnormality. at 2256 Reported and signed by: Andre Garcia MD Electronically Signed: Andre Garcia MD at 22:54 EDT Tel , Service support ,
--- NOTE | 2020-11-19 22:13 | ED.VIS.LOWEX ---
HPI History of Present Illness Chief Complaint: Lower Extremity Injury Informant: patient Occured/Mechanism Mechanism/Context: Yes other see comment below Comment: twisted Onset/Context/Timing Onset: Days (5) Context: Sudden Onset (gradually worse) Timing: Continuous Quality of Pain: Aching Location: L knee Current Severity: Severe Maximum Severity: Severe Worsened by: bearing weight Relieved by: rest & remaining still Associated Symptoms Associated Symptoms: Negative for Parasthesia and Weakness Narrative Narrative: Patient has been dealing with chronic left knee pain for months, she saw orthopedics and was told she has severe osteoarthritis of that knee and it would be reasonable to consider a total knee arthroplasty. This was about 1 week ago. After that appointment, about 5 days ago, she states she was walking and accidentally twisted it. It hurt, and the pain is progressively getting worse ever since, now she cannot put any weight on it. She has a walker at home, but even with that she is not able to get around because any degree of weightbearing left lower extremity gives her severe pain in her knee, she has pain in the popliteal fossa and in the joint, but she complains of the most pain anteriorly around the kneecap. No neurologic symptoms distally or prodromal symptoms prior to twisting it, nor does she have pain in the hip joint, the hip flexors, or the foot/ankle. [facility] Medical History (Updated 11/20/20 @ 00:[address] 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 Home Medications ascorbic acid (vitamin C) 1,000 mg PO DAILY 06/17/18 [History Last Taken 06/17/18] atorvastatin 20 mg PO QHS 06/17/18 [History Last Taken 06/16/18] carvedilol 25 mg PO BID 06/17/18 [History Last Taken 06/17/18] insulin degludec 86 units SQ QHS 06/17/18 [History Last Taken 06/09/18] iron aspgl,ps complex-vit C-sa 150 mg PO DAILYCM 06/17/18 [History Last Taken 06/17/18] losartan 100 mg PO DAILY 06/17/18 [History Last Taken 06/16/18] metformin 750 mg PO BID 06/17/18 [History Last Taken 06/17/18] multivitamin 1 ea PO DAILY 06/17/18 [History Last Taken 06/17/18] venlafaxine 75 mg PO DAILY 06/17/18 [History Last Taken 06/16/18] spacer #1 ea 09/27/18 [Rx Last Taken Unknown] ipratropium 0.5 mg-albuterol 3 mg (2.5 mg base)/3 mL nebulization soln 3 ml INHALATION Q6H #180 ml 10/14/18 [Rx Last Taken Unknown] dupilumab 300 mg/2 mL subcutaneous syringe 300 mg SC Q2W 01/07/20 [History Last Taken Unknown] umeclidinium 62.5 mcg-vilanterol 25 mcg/actuation powdr for inhalation 1 inh INHALATION Q24H #3 device 07/07/20 [Rx Last Taken Unknown] albuterol sulfate 90 mcg/actuation aerosol inhaler 1 - 2 puff INHALATION Q4H PRN PRN #3 device 10/26/20 [Rx Last Taken Unknown] furosemide 20 mg PO DAILY 11/19/20 [History Last Taken Unknown] guaifenesin 1,200 mg PO QHS 11/19/20 [History Last Taken Unknown] insulin aspart U-100 [Novolog Flexpen U-100 Insulin] See Protocol SUBCUT 11/19/20 [History Last Taken Unknown] oxygen-air delivery systems 11/19/20 [History Last Taken Unknown] hydrocodone-acetaminophen 1 tab PO Q4H PRN PRN 3 Days #18 tablet 11/20/20 [Rx Last Taken Unknown] Allergy/AdvReac Type Severity Reaction Status Date / Time gabapentin [From Neurontin] Allergy PT UNSURE Verified 11/19/20 22:13 OF REACTION insulin detemir Allergy Hives Verified 07/07/20 09:04 [From Levemir] oxycodone [From Percocet] Allergy PT UNSURE Verified 11/19/20 22:13 OF REACTION amlodipine [From Norvasc] AdvReac Itching Verified 07/07/20 09:04 Family History Other Advanced dementia Diabetes Enlarged heart Surgical History History of back surgery Social History adopted: No housing: house Smoking Status: Former smoker quit date: 02/26/90 pack-years: 3 Tobacco: How many years used: 30 ROS ROS ED Constitutional Constitutional ED: Denies chills or fever(s) Musculoskeletal Musculoskeletal: Reports extremity pain; Denies neck pain Integumentary Denies Abrasions, rash or wounds Neurologic Neurologic: Denies paresthesias or weakness EXAM Physical Exam Const Vital Signs: 11/19/20 21:15 Temperature 98.2 F Temperature Source Temporal Pulse Rate 103 H Respiratory Rate 18 Blood Pressure 159/66 H Blood Pressure Mean 97 Pulse Ox 100 Oxygen Delivery Method Room Air Positive well nourished and well developed General Appearance ED: well developed and NAD Neck full ROM and supple Cardio Cardio Narrative: Intact left foot pulse. Back/Spine normal ROM and normal to inspection Extremity Extremity Narrative: Obesity greatly limits the left knee exam. Very limited range of motion, can barely flex 5-10 degrees. Extensor mechanism is intact. There is patellar and tibial tuberosity tenderness, no other bony tenderness. No gross deformities. There is pain with stressing every ligament, but the joint is stable and there is no gross laxity. Very limited evaluation of the ACL/PCL since the patient is not able to flex at all, but again there is no instability grossly. Difficult to evaluate if there is an effusion or not due to obesity. There is no tenderness in the hip flexors or distally. Neuro oriented x3, no focal motor deficits and no sensory deficits noted Sensorium / Orientation: alert Psych mental status grossly normal and thought process normal Skin no wounds Rashes: no rashes MDM MDM MDM Narrative Medical decision making narrative: X-rays obtained, shows significant degenerative arthritis, no acute fractures. No large effusion noted either. I did offer the patient an arthrocentesis to see if it helped her pain, but since there is no large effusion seen on x-ray, she does not want that, understandably. She was given options, namely pain control and discharge home with close outpatient follow-up, and an Gerardo wrap versus admission and short-term rehab if needed. She really wanted to go home so we gave her a [place] and an Gerardo wrap and waited for it to work and observe her for a while. She was able to get up and at least put a little weight on it, which she was not able to do before. She states it hurts but she can tolerate it and think she will be able to function at home. She was offered admission. Advised to follow-up with orthopedics which she intends to do. Etiologies include simple sprain in addition to meniscus injury or other soft tissue injury external to the joint. Radiography Diagnostic Testing: Radiology Impression Knee X-Ray 11/19/20 22:12 IMPRESSION: No acute bony abnormality. at 2256 Reported and signed by: Andre Garcia MD Electronically Signed: Andre Garcia MD at 22:54 EDT Tel , Service support , Discharge Plan Triage Chief Complaint: Lower Extremity Injury ED Provider: Chilango Bailey Dx/Rx/DC Orders Clinical Impression: Left knee sprain, Osteoarthritis of knees, bilateral Instructions: ED Knee Sprain Prescriptions: New hydrocodone-acetaminophen [hydrocodone-acetaminophen] 1 TABLET tablet 1 tab PO Q4H PRN PRN (Reason: Pain) 3 Days Qty: 18 RF: 0 No Action Dupixent Syringe 300 mg/2 mL syringe 300 mg SC Q2W RF: 0 Anoro Ellipta 62.5-25 mcg/actuation blister with device 1 inh inhalation Q24H Qty: 3 RF: 3 multivitamin 1 EACH tablet 1 ea PO DAILY RF: 0 carvedilol 25 MG tablet 25 mg PO BID RF: 0 ascorbic acid (vitamin C) 1,000 MG tablet 1,000 mg PO DAILY RF: 0 venlafaxine 75 MG capsule,extended release 24hr 75 mg PO DAILY RF: 0 atorvastatin 10 MG tablet 20 mg PO QHS RF: 0 losartan 100 MG tablet 100 mg PO DAILY RF: 0 metformin 750 MG tablet extended release 24 hr 750 mg PO BID RF: 0 iron aspgl,ps complex-vit C-sa 150 MG capsule 150 mg PO DAILYCM RF: 0 insulin degludec 200 UNIT/ML insulin pen 86 units SQ QHS RF: 0 insulin aspart U-100 [Novolog Flexpen U-100 Insulin] 100 unit/mL (3 mL) insulin pen See Protocol SUBCUT RF: 0 furosemide 40 MG tablet 20 mg PO DAILY RF: 0 guaifenesin 1,200 mg tablet extended release 12hr 1,200 mg PO QHS RF: 0 (DME) oxygen-air delivery systems Device MISCELLANEOUS RF: 0 (DME) spacer 0 .Route .MEDSUPPLY Qty: 1 RF: 0 ipratropium-albuterol 0.5 mg-3 mg(2.5 mg base)/3 mL solution for nebulization 3 ml INHALATION Q6H Qty: 180 RF: 3 albuterol sulfate 90 mcg/actuation HFA aerosol inhaler 1 - 2 puff inhalation Q4H PRN PRN (Reason: Wheezing) Qty: 3 RF: 3 Primary Care Provider: Trang Talamantes Referrals: Trang Talamantes DO [Primary Care Provider] - Wild Mancilla DO [STAFF PHYSICIAN] - (when able) Disposition Disposition: Home, Self Care
[2020-11-19] MEDS: HYDROcodone Bitartrate/Apap 5/325 Tablet PO (23:08)
== END 2020-11-20 00:37 | disposition home or self-care (01) ==
PROVIDERS: Emergency Provider Emergency Medicine; PCP Internal Medicine
DX: S83.92XA Sprain of unspecified site of left knee, initial encounter (principal); M17.0 Bilateral primary osteoarthritis of knee; X50.1XXA Overexertion from prolonged static or awkward postures, initial encounter; Y93.01 Activity, walking, marching and hiking; Y92.9 Unspecified place or not applicable; D50.9 Iron deficiency anemia, unspecified; I12.9 Hypertensive chronic kidney disease with stage 1 through stage 4 chronic kidney disease, or unspecified chronic kidney disease; E11.22 Type 2 diabetes mellitus with diabetic chronic kidney disease; N18.30 Chronic kidney disease, stage 3 unspecified; E66.01 Morbid (severe) obesity due to excess calories; E78.5 Hyperlipidemia, unspecified; F32.9 Major depressive disorder, single episode, unspecified; F41.9 Anxiety disorder, unspecified; I89.0 Lymphedema, not elsewhere classified; J44.9 Chronic obstructive pulmonary disease, unspecified; E11.51 Type 2 diabetes mellitus with diabetic peripheral angiopathy without gangrene; K76.0 Fatty (change of) liver, not elsewhere classified; M48.061 Spinal stenosis, lumbar region without neurogenic claudication; Z68.41 Body mass index [BMI] 40.0-44.9, adult; Z87.442 Personal history of urinary calculi; Z79.4 Long term (current) use of insulin; Z79.899 Other long term (current) drug therapy; Z87.891 Personal history of nicotine dependence
CPT/HCPCS: 73560; 99284

== ENCOUNTER 2020-12-09 09:30 | Outpatient (RCR) | payer MEDICARE, SELFPAY ==
--- NOTE | 2020-11-09 09:28 | HP.PTEVAL ---
Patient's Visit Information VIC ALEXANDER is a 80 year old F referred to Physical Therapy by TANIA Ferguson with a diagnosis of GEGENERATIVE SPONDYLOTHESIS,LUMBAR RADICULOPATHY,LS SPONDYLOSIS,DDD. Date of Evaluation: 11/09/20 Physical Therapist: Dov Alvarado, PT, Cert MDT, OCS - Visit Plan Frequency: 2x /Week Duration: 4 Weeks Plan: PT INTERVETIONS AQUATIC THERAPY WITH POSTURE EX'S,DLS,LE FLEXABLITY AND STRENGTHENING AND HEP - Subjective This 80 y/o male presents to physical therapy with lumbar pain. Patient has had lumbar pain many years with lumbar fusion ~ 6years ago. Patient continues to have low back pain . Also has left knee pain which requires TKR and left shoulder pain. Patient pain symmetrical region . Patient pain worse with aggravating factors walking and standing `~ 5 min ,bending lifting affects ADL's. Alleviating factors rest and injections. Patient has epidural injection and aplasia nerve which helps pain. Patient use cane for gait and has rollator used at home or when pain is worse. Denies paresthesia/tingling. Bowel/bladder-. Patient is able to sleep at night. Patient has tramadol. Patient pain affects function and ADL'S. Patient condition affects QOL. Patient goals decrease pain and stand up. SOCIAL: single. VOCATION: retired - Pain Bilateral Back Pain Intensity (Out of 10): 7 Pain Intensity Range: 10 - Objective POSTURE: mild forward posture, mod thoracic kyphosis. GAIT: reciprocal pattern antalgic gait forward posture. EDEMA: 1+ bilateral legs. SYMMITIES: align. LUMBAR ROM: flexion mod loss, extension severe loss, side glides mod loss. MMT: quads/hams 4-/5,hip flexion 4-/5,ankle 4/5. FLEXABLITY: hams min loss. HIP ROM: 20 DEGREES - Special Tests L/S Slump test left side: Negative L/S Slump test right side: Negative L/S Left Straight Leg Raise: Negative L/S Right Straight Leg Raise: Negative Lumbar Standing: Flexion - Mechanical Response: No effect Lumbar Standing: Flexion - Symptoms During Testing: No effect Lumbar Standing: Flexion - Symptoms After Testing: No effect Lumbar Standing: Extension - Mechanical Response: No effect Lumbar Standing: Extension - Symptoms During Testing: Increases Lumbar Standing: Extension - Symptoms After Testing: No worse Lumbar Standing: Right Side Glides - Mechanical Response: No effect Lumbar Standing: Right Side [place] - Symptoms During Testing: No effect Lumbar Standing: Right Side [place] - Symptoms After Testing: No effect Lumbar Standing: Left Side [place] - Mechanical Response: No effect Lumbar Standing: Left Side [place] - Symptoms During Testing: No effect Lumbar Standing: Left Side [place] - Symptoms After Testing: No effect - Balance/Special Test Scores Oswestry Low Back Score: 27 - Goals Goal 1:: I with HPE and Aquatic therapy to improve function Goal Time Frame: 4-6 Weeks Goal 2:: Patient to decrease pain by 50% better to ambulate and stand 10 mins Goal Time Frame: 6-8 Weeks Goal 3:: Patient to improve LUMBAR ROM to improve function with putting on pants Goal Time Frame: 4-6 Weeks Goal 4:: Patient to increase strength BLE by 4/5 to improve ability to walk and stand 10 mins Goal Time Frame: 4-6 Weeks Goal 5:: Patient to improve back owestry score by 5 points to improve QOL Goal Time Frame: 4-6 Weeks - Rehabilitation Potential Physical Therapy Diagnosis: This 80 y/o female presents with LBP with h/o lumbar fusion with pain ,poor ROM ,decrease strength and gait and standing 5 mins thus benefit from skilled PT. Rehabilitation Potential: Good - Anticipated Interventions Patient/Client Instruction: Educate patient on: Condition, Plan of Care For the Purpose of:: To decrease pain, To increase ROM, To improve muscle performance and motor function, To improve ability to perform ADL's, To increase tolerance to activity/condition/position, To improve ability of physical actions for home/community/work/leisure, To improve health of tissue, To decrease soft tissue restriction, To increase flexibility/ROM Therapeutic Exercise to Include: Strength training, Endurance training, Balance training, Postural training, Flexibilty training, In an aquatic setting, Dynamic Lumbar Stabilization For the Purpose of:: To decrease pain, To increase ROM, To improve muscle performance and motor function, To improve ability to perform ADL's, To increase tolerance to activity/condition/position, To improve ability of physical actions for home/community/work/leisure, To improve health of tissue, To decrease soft tissue restriction, To increase flexibility/ROM, To prevent re-injury Thank you for the opportunity to evaluate your patient. For Medicare and Medicare HMO plans, please review the plan of care and approve it. It will need to be FAXED BACK to us at [phone] for Medicare purposes. For Medicare only, by signing this I certify the plan of care. Please let me know if there are questions or concerns regarding this plan of care. Physician Signature: Date:
--- NOTE | 2020-12-09 10:11 | HP.PTDCSUM ---
It has been my pleasure to treat VIC ALEXANDER referred by TANIA Ferguson, with the diagnosis of GEGENERATIVE SPONDYLOTHESIS,LUMBAR RADICULOPATHY,LS SPONDYLOSIS,DDD for a total of 5 visit(s). Discharge Date: 12/09/20 Please see the following information for a summary of their discharge status. Subjective: Patient plans to have TKR ..Seen DR Mancilla had x-rays and MRI. Wants to cont with water ex's. Patient unable to stand for 2 mins due Bilateral Back Pain Intensity (Out of 10): 4 L knee Pain Intensity (Out of 10): 8 % Improvement: 50 Objective/Function: POSTURE: mild forward. GAIT ambulated with fww slow peggy. BALANCE: fair+. LUMBAR ROM mod flexion, extension severe loss Goal 1:: I with HPE and Aquatic therapy to improve function Goal Progress: Goal Met Goal 2:: Patient to decrease pain by 50% better to ambulate and stand 10 mins Goal 3:: Patient to improve LUMBAR ROM to improve function with putting on pants Goal Progress: Progressing Goal 4:: Patient to increase strength BLE by 4/5 to improve ability to walk and stand 10 mins Goal Progress: Progressing Goal 5:: Patient to improve back owestry score by 5 points to improve QOL Goal Progress: Progressing Plan: D/C PLAN TKR PER PATIENT Discharge Comments: Plan for TKR If there are questions or concerns regarding this patient's physical therapy, please feel free to call me at [phone]. Thank you for the referral of this patient. Sincerely, Dov Alvarado, PT, Cert MDT, OCS Balance/Gait/Functional tests - Balance/Special Test Scores Oswestry Low Back Score: 19
== END 2020-12-09 19:00 | disposition home or self-care (01) ==
LOC: PT 09:30
PROVIDERS: PCP Internal Medicine; Referring Provider Nurse Practitioner Family; Visit Provider Nurse Practitioner Family
DX: M43.10 Spondylolisthesis, site unspecified (principal); M51.37 Other intervertebral disc degeneration, lumbosacral region; M54.17 Radiculopathy, lumbosacral region; M12.9 Arthropathy, unspecified; M47.817 Spondylosis without myelopathy or radiculopathy, lumbosacral region
CPT/HCPCS: 97110; 97113; 97162; 97530

== ENCOUNTER → 2021-01-12 07:01 | Outpatient (CLI) | payer MEDICARE, SELFPAY ==
--- NOTE | 2021-01-12 07:03 | CT_ITS ---
STUDY: CT SCAN LOWER EXTREMITY LEFT REASON FOR EXAM: Female, 80 years old. KNEE PAIN. [facility] protocol. RADIATION DOSAGE (If Supplied By Facility): CTDIvol = ( 19.52 ) mGy, DLP = ( 1424.33 ) mGycm. Individualized dose optimization techniques were used for this CT.? TECHNIQUE: Multiple axial tomographic images of the hip joint, knee joint and ankle joint were obtained. Coronal and sagittal reconstruction was obtained as well. COMPARISON: None. FINDINGS: Imaging of the left hip joint was obtained. There are small benign-appearing left inguinal lymph nodes. There is evidence of an acetabular spur along the superior lateral aspect of the acetabulum. Mild degree of joint space narrowing. Imaging of the knee joint was obtained. There is a moderate to marked degree of joint space narrowing involving both the medial and lateral compartments of knee joint with degenerative spurring along the distal femoral condyles. Mild degree of joint space narrowing of the femoral patellar joint with degenerative spurs along the superior aspect of the patella. There is a small joint effusion. Imaging of the ankle joint was obtained. There is evidence of a plantar spur as well as a spur at the insertion of the Achilles tendon. CT/Extremity Lower without Contra IMPRESSION: Moderate to marked degree of tricompartmental osteoarthritis of the knee joint. Small joint effusion. Electronically Signed: Laureano Freeman MD at 8:40 EST , Service support ,
[2021-01-12 08:43] LABS: Absolute Lymphocyte Count 2.32 X10^3/uL (0.83-4.51); Absolute Neutrophil Count 4.8 X10^3/uL (2.0-7.7); Basophil# 0.04 X10^3/uL; Basophil% 0.5 % (0-1); Eosinophil# 0.24 X10^3/uL; Hematocrit 35.9 % (37-47); Hemoglobin 11.5 g/dL (12.0-15.0); Lymphocyte # 2.32 X10^3/ul (0.83-4.51); Lymphocyte % 28.6 % (19-41); Mean Corpuscular Hgb 29.9 pg (27.0-32.0); Mean Corpuscular Volume 93.5 fL (81-99); Mean Platelet Vol. 9.9 fl (6.2-12.0); Monocyte# 0.68 X10^3/uL; Monocyte% 8.4 % (0-10); NRBC Flagged by Analyzer 0 % (0-5); Neutrophil # 4.81 X10^3/uL (2.7-7.7); Neutrophil % 59.3 % (47-70); Platelet Count 233 K/mm3 (150-450); RBC Distribution Width CV 13.9 % (11.6-14.6); RBC Distribution Width SD 47.2 fl (35.1-43.9); Red Blood Count 3.84 M/mm3 (4.2-5.4); White Blood Count 8.1 K/mm3 (4.4-11.0)
[2021-01-12 09:12] LABS: Anion Gap 5 (5-15); BUN 32 mg/dL (7-18); BUN/Creat Ratio 30.8 RATIO (10-20); Calcium,Total 8.9 mg/dL (8.5-10.1); Chloride 108 mmol/L (98-107); Creatinine, Serum 1.04 mg/dL (0.55-1.02); EST Glomerular Filtration Rate 54 mL/min (>60); Est Glom Filt Rate - Afr Amer 66 mL/min (>60); Glucose 177 mg/dL (74-106); Potassium 4.5 mmol/L (3.5-5.1); Sodium Level 138 mmol/L (136-145)
[2021-01-12 09:49] LABS: Hemoglobin A1c 6.6 % (3.8-5.6)
[2021-01-17 11:36] LABS: Magnesium 1.8 mg/dL (1.6-2.6)
== END ==
PROVIDERS: Anesthesiology; PCP Internal Medicine; Referring Provider Orthopaedic Surgery; Visit Provider Orthopaedic Surgery
DX: Z01.818 Encounter for other preprocedural examination (principal); M17.12 Unilateral primary osteoarthritis, left knee; Z01.810 Encounter for preprocedural cardiovascular examination
CPT/HCPCS: 36415; 73700; 80048; 83036; 83735; 85025; 87077; 87081

== ENCOUNTER 2021-01-14 10:30 | Outpatient (RCR) | payer MEDICARE, SELFPAY ==
--- NOTE | 2020-12-17 12:31 | HP.PTEVAL ---
Patient's Visit Information VIC ALEXANDER is a 80 year old F referred to Physical Therapy by Dr. Trang Talamantes DO with a diagnosis of Torn medial and lateral meniscus. Date of Evaluation: 12/17/20 Physical Therapist: Dilma Godwin - Visit Plan Frequency: 2x /Week Duration: 4 Weeks Plan: Pt to begin pool ther ex program for increased activity tolerance, decreased pain, and increased participation in functional activities to strengthen LEs prior to possible future TKA. - Subjective Pt had been coming to therapy at [facility] ~3 wks ago for her chronic back pain. She had back surgery in 2017 (unsure of procedure, just that she has some rods and screws). She was doing pool therapy 2x/wk, but only came for 2-3 sessions before quitting as she thought the movement was making her worse. Went back to doctor as back pain was not improving and for worsening L knee pain. MRI showed tears of lateral and medical menisci as well as extensive arthritis. Doctor recommended replacement; for which she does not yet have a date. Pt ambulates with a walker at baseline (for about a year), and uses it both in and out of her home. She has a cane that she was using on and off for awhile, but did not feel secure. Pt lives alone and has 5 stairs to get into her house with handrails that she navigates very slowly and very carefully. Pt sleeps on right side curled up in the position. Pt reports she was told she has extensive spinal stenosis as well. Reports pain keeps her up at night, and that, at the very best, pain is 5/10 with the knee slightly bent in either sitting or lying down. The pain is at it's worst (10/10) when she is trying to go from sitting to standing or when she rolls over in bed at night. Reports constant N&T in fingertips and sometimes in legs. - Pain L knee Pain Intensity (Out of 10): 5 Pain Intensity Range: 5, 10 - Objective POSTURE: kyphotic posture, forward trunk flexion (due to spinal stenosis), forward head. NEURO: diminished light touch to fingertips, otherwise light touch intact. ROM: WFL through available range (limited by body habitus). EDEMA: Pt has 2+ pitting edema in ankles. L ankle girth larger than R. Pt stated she was told she should wear compression stockings; encouraged her to do so. MMT: RLE: knee f/e 4/5, R hip 3+/5, hip abd/add 4/5. LLE: knee f/e 3/5 (pain/failure with any resistance), hip abd/add 3/5, hip flexion (3/5). GAIT: Pt amb with FWW and with slow angalgic gait (decreased speed, peggy). Forward trunk flexion while leaning on FWW. - Balance/Special Test Scores Lower Extremity Functional Score: 9 - Goals Goal 1:: Pt to report decrease in knee pain to at least 2/10 at rest as indicated by decreased use of Vicodin. Goal Time Frame: 4-6 Weeks Goal 2:: Pt to report compliance with HEP. Goal Time Frame: 2-4 Weeks Goal 3:: Pt to demonstrate increase in LLE strength (at least 4/5) as indicated by increased tolerance to functional STS activity. Goal Time Frame: 4-6 Weeks - Rehabilitation Potential Physical Therapy Diagnosis: Pt presents with s/s consistent with torn medial and lateral meniscus. Rehabilitation Potential: Fair - Anticipated Interventions Patient/Client Instruction: Educate patient on: Condition, Plan of Care Therapeutic Exercise to Include: Strength training, Postural training, In an aquatic setting, Active ROM For the Purpose of:: To decrease pain, To decrease swelling/inflammation, To increase ROM Functional electric stimulation: Yes Cryotherapy (ice pack, ice massage): Yes Thermo therapy (hot pack): Yes Ultrasound (thermal/non thermal): Yes Thank you for the opportunity to evaluate your patient. For Medicare and Medicare HMO plans, please review the plan of care and approve it. It will need to be FAXED BACK to us at [phone] for Medicare purposes. For Medicare only, by signing this I certify the plan of care. Please let me know if there are questions or concerns regarding this plan of care. Physician Signature: Date:
--- NOTE | 2021-01-14 10:51 | HP.PTDCSUM ---
It has been my pleasure to treat VIC ALEXANDER referred by Dr. Trang Talamantes DO, with the diagnosis of Torn medial and lateral meniscus for a total of 10 visit(s). Discharge Date: 01/14/21 Please see the following information for a summary of their discharge status. Subjective: Pt reports that her L knee is bad and her back is bad. She is having a L TKR on 01-31-2021. She is scheduled for a PT eval with us but might have to stay in rehab for awhile. She lives by herself. She drives. L knee Pain Intensity (Out of 10): 6 LB Pain Intensity (Out of 10): 5 % Improvement: 25 Objective/Function: L knee flex 4-. L knee ext 4-. gait: walks leaning on her walker with decrease stance time on the L LE. Goal 1:: Pt to report decrease in knee pain to at least 2/10 at rest as indicated by decreased use of Vicodin. Goal Progress: Goal Met Goal 2:: Pt to report compliance with HEP. Goal Progress: Goal Met Goal 3:: Pt to demonstrate increase in LLE strength (at least 4/5) as indicated by increased tolerance to functional STS activity. Goal Progress: Progressing Plan: DC PT to HEP until L TKR. Discharge Comments: DC PT If there are questions or concerns regarding this patient's physical therapy, please feel free to call me at [phone]. Thank you for the referral of this patient. Sincerely, Janice Hunter, MPT Balance/Gait/Functional tests - Balance/Special Test Scores Lower Extremity Functional Score: 22
== END 2021-01-14 19:00 | disposition home or self-care (01) ==
LOC: PT 10:30
PROVIDERS: PCP Internal Medicine; Referring Provider Internal Medicine; Visit Provider Internal Medicine
DX: M25.569 Pain in unspecified knee (principal); R53.1 Weakness; M48.061 Spinal stenosis, lumbar region without neurogenic claudication
CPT/HCPCS: 97113; 97161; 97530

== ENCOUNTER → 2021-01-19 12:36 | Outpatient (CLI) | payer MEDICARE, SELFPAY | PROVIDERS: PCP Internal Medicine; Referring Provider Orthopaedic Surgery; Visit Provider Orthopaedic Surgery | DX: U07.1 COVID-19 (principal) | CPT/HCPCS: 87635; C9803; U0005; U0003 ==

== ENCOUNTER 2021-01-22 15:53 | Emergency (ER) | payer MEDICARE, SELFPAY ==
[2021-01-22 15:53] VITALS: BP 177/98; PULSE 83; RESP 16; TEMP 36.6; O2SAT 99; BMI 44.7
[2021-01-22 16:11] VITALS: PULSE 78; RESP 20; O2SAT 98
--- NOTE | 2021-01-22 16:24 | EX.ED.DYSGE1 ---
HPI History of Present Illness Chief Complaint: General Illness Informant: patient Onset/Context/Timing Onset: Days (6) Context: Gradual Onset Timing: Continuous Quality: cough, sob Location: chest Current Severity: Moderate Maximum Severity: Moderate Worsened by: exertion Relieved by: rest Associated Symptoms Associated Symptoms: fatigue, fevers, diarrhea Associated Symptoms ED: cough Narrative Narrative: Patient on day #6 of Covy[place], she had a positive test as a preoperative test because she was scheduled for a total knee arthroplasty on January 31. Incidentally she had a minor cough when she had the test that turned out positive, and now she feels worse with severe fatigue, some dyspnea, coughing, headaches, myalgias, diarrhea that resolved. She denies any chest pains, near syncope or syncope, focal neurologic problems. She states she initially presents here to the emergency department and seek of monoclonal antibody treatment assuming that we did it here, however she found out that we do not. Patient has history of COPD, she is on 2 L of oxygen every night but not during the day. [facility] Medical History Anemia Anxiety Arthritis Back pain Cancer Chronic renal failure, stage 3 (moderate) COPD exacerbation Dehydration Depression Dermatitis Diabetes DM type 2 (diabetes mellitus, type 2) Foraminal stenosis of lumbar region Former smoker High cholesterol History of echocardiogram History of edema History of nephrolithiasis History of steroid therapy History of stress test HLD (hyperlipidemia) HTN (hypertension) Insulin dependent diabetes mellitus Iron deficiency anemia Knee pain, bilateral Lumbar canal stenosis Lymphedema Morbid obesity with BMI of 40.0-44.9, adult Nephrolithiasis Obesities, morbid On home oxygen therapy Osteoarthritis Osteoarthritis of knees, bilateral Post-menopausal PVD (peripheral vascular disease) Renal failure Steatosis of liver 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 Walker as ambulation aid Wears dentures Wears glasses Home Medications ascorbic acid (vitamin C) 1,000 mg PO DAILY 06/17/18 [History Last Taken 06/17/18] atorvastatin 20 mg PO QHS 06/17/18 [History Last Taken 06/16/18] carvedilol 25 mg PO BID 06/17/18 [History Last Taken 06/17/18] insulin degludec 86 units SQ QHS 06/17/18 [History Last Taken 06/09/18] iron aspgl,ps complex-vit C-sa [Ferrex 150 Plus] 150 mg PO DAILYCM 06/17/18 [History Last Taken 06/17/18] losartan 100 mg PO DAILY 06/17/18 [History Last Taken 06/16/18] metformin 750 mg PO BID 06/17/18 [History Last Taken 06/17/18] multivitamin 1 ea PO DAILY 06/17/18 [History Last Taken 06/17/18] venlafaxine 75 mg PO DAILY 06/17/18 [History Last Taken 06/16/18] spacer #1 ea 09/27/18 [Rx Last Taken Unknown] ipratropium 0.5 mg-albuterol 3 mg (2.5 mg base)/3 mL nebulization soln 3 ml INHALATION Q6H #180 ml 10/14/18 [Rx Last Taken Unknown] dupilumab 300 mg/2 mL subcutaneous syringe 300 mg SC Q2W 01/07/20 [History Last Taken Unknown] albuterol sulfate 90 mcg/actuation aerosol inhaler 1 - 2 puff INHALATION Q4H PRN PRN #3 device 10/26/20 [Rx Last Taken Unknown] furosemide 20 mg PO MOWEFR 11/19/20 [History Last Taken Unknown] guaifenesin 1,200 mg PO QHS 11/19/20 [History Last Taken Unknown] insulin aspart U-100 [Novolog Flexpen U-100 Insulin] 20 unit SUBCUT TID 11/19/20 [History Last Taken Unknown] oxygen-air delivery systems 11/19/20 [History Last Taken Unknown] hydrocodone-acetaminophen 1 tab PO Q4H PRN PRN 3 Days #18 tablet 11/20/20 [Rx Last Taken Unknown] cholecalciferol (vitamin D3) [Vitamin D3] 25 mcg PO DAILY 01/17/21 [History Last Taken Unknown] clonidine HCl 0.1 mg PO DAILY 01/17/21 [History Last Taken Unknown] umeclidinium-vilanterol [Anoro Ellipta] 1 inh INHALATION Q24H 01/17/21 [History Last Taken Unknown] Allergy/AdvReac Type Severity Reaction Status Date / Time gabapentin [From Neurontin] Allergy PT UNSURE Verified 01/22/21 15:58 OF REACTION insulin detemir Allergy Hives Verified 01/22/21 15:58 [From Levemir] oxycodone [From Percocet] Allergy PT UNSURE Verified 01/22/21 15:58 OF REACTION amlodipine [From Norvasc] AdvReac Itching Verified 01/22/21 15:58 Family History (Reviewed 01/07/21 @ 10:07 by Gabbie Lopez PHYSICAL THERAPIST CENTER MANAGER, PHYSICAL THERAPIST CENTER MANAGER-C) Other Advanced dementia Diabetes Enlarged heart Surgical History History of back surgery History of tonsillectomy and adenoidectomy Hx of melanoma excision Hx of surgical procedure Social History adopted: No housing: house Smoking Status: Former smoker quit date: 02/26/90 pack-years: 3 Tobacco: How many years used: 30 ROS ROS ED Constitutional Constitutional ED: Reports body ache(s), chills, fatigue, fever(s), headache(s) and malaise Eyes Eyes: Denies change in vision or diplopia ENT ENT ED: Denies loss taste/smell, rhinorrhea or sore throat Cardiovascular Cardiovascular: Reports pedal edema; Denies chest pain or palpitations Respiratory/Chest Respiratory/Chest: Reports cough, dyspnea and dyspnea on exertion Gastrointestinal Gastrointestinal: Reports diarrhea; Denies abdominal pain, nausea or vomiting Genitourinary Genitourinary ED: Denies dysuria or hematuria Musculoskeletal Musculoskeletal: Denies back pain or neck pain Integumentary Denies abscess or rash Neurologic Neurologic: Reports headache(s); Denies paresthesias or weakness Psychiatric Psychiatric: Denies anxiety or suicidal thoughts EXAM Physical Exam Const Vital Signs: 01/22/21 15:53 01/22/21 16:11 01/22/21 16:12 Temperature 97.8 F Temperature Source Temporal Pulse Rate 83 78 Respiratory Rate 16 20 H Respiratory Effort Normal Respiratory Pattern Normal Blood Pressure 177/98 H Blood Pressure Mean 124 Pulse Ox 99 98 Oxygen Delivery Method Room Air Room Air Positive well nourished and well developed Constitutional Narrative: Malaised-appearing, no distress. Conversive in full sentences. General Appearance ED: well developed and NAD HEENT Reports moist mucous membranes normocephalic and atraumatic Eyes PERRL and EOMs intact bilaterally Neck full ROM and supple Resp normal respiratory effort and clear to auscultation bilaterally Cardio regular rate, regular rhythm and no murmurs Rate: Negative for tachycardic GI non-tender and non-distended Auscultation: normoactive bowel sounds Palpation: soft Back/Spine no CVA tenderness General Back: other FROM Extremity normal to inspection and no calf tenderness General Extremety ED: Yes edema; Negative for pulses abnormal or tenderness General Extremity: edema bilateral lower extremity Details: trace; Negative for pulses abnormal Neuro oriented x3, CN's II-XII intact bilaterally and no sensory deficits noted Sensorium / Orientation: awake and alert Motor Exam: strength 5/5 throughout Skin no rashes or lesions noted and no wounds MDM MDM MDM Narrative Medical decision making narrative: Patient was observed, she is doing well clinically without active dyspnea while resting. She maintained excellent pulse oximetry, 96-99% throughout her visit on room air. She does have some patchy infiltrates consistent with mild Covid pneumonitis at this time. Since she is maintaining good oxygen levels, this does not change the treatment, at this time none are indicated. She states she has been using the albuterol inhaler occasionally, but has not really been trying any rescue treatments, and has not been wheezing or feeling like her COPD is flared up. For these reasons, I do not think steroids are indicated right now, especially since she has been having a little more water retention lately which we could make worse with steroids if she does not need them. I did discuss with her that if she ends up needing oxygen during the day or 18/09, that that would change that picture, and we discussed reasons to return to the hospital. She will be referred to the monoclonal antibody infusion clinic, as she is definitely candidate with multiple risk factors. She was amenable to that, we discussed watching her oxygen levels at home she does have a pulse oximeter, and she was given appropriate instructions regarding that. All questions answered at the bedside prior to discharge. Lab Data Attestation: I reviewed the patient's lab results. Labs: Laboratory Results - last 24 hr 01/22/21 01/22/21 16:18 16:18 WBC 6.2 RBC 4.24 Hgb 13.0 Hct 38.6 MCV 91.0 MCH 30.7 MCHC 33.7 RDW Std Deviation 47.0 H RDW Coeff of Harvey 13.9 Plt Count 193 MPV 9.8 Immature Gran % (Auto) 0.600 Neut % (Auto) 60.5 Lymph % (Auto) 24.2 [place] % (Auto) 14.2 H Eos % (Auto) 0.2 Baso % (Auto) 0.3 Absolute Neuts (auto) 3.8 Absolute Lymphs (auto) 1.50 Nucleated RBC % 0 Sodium 135 L Potassium 4.7 Chloride 103 Carbon Dioxide 24.0 Anion Gap 8 BUN 37 H Creatinine 1.22 H Estim Creat Clear Calc 26.86 Est GFR (MDRD) Af Amer 55 L Est GFR (MDRD) Non-Af 45 L BUN/Creatinine Ratio 30.3 H Glucose 165 H Calcium 9.0 Troponin I High Sens 16 Radiography Diagnostic Testing: Clinical Impression(s) from Imaging Studies Chest X-Ray 01/22/21 16:35 IMPRESSION: 1. Mild left lower lobe patchy infiltrates are present. The remaining lung diaz are unremarkable Electronically Signed: Regulo Martínez MD at 17:36 EST , Service support , Discharge Plan Triage Chief Complaint: General Illness ED Provider: Chilango Bailey Dx/Rx/DC Orders Clinical Impression: Pneumonia due to COVID-19 virus, COPD (chronic obstructive pulmonary disease) Instructions: Coronavirus Disease 2019 (COVID-19): Caring for Yourself or Others Prescriptions: No Action Dupixent Syringe 300 mg/2 mL syringe 300 mg SC Q2W RF: 0 multivitamin 1 EACH tablet 1 ea PO DAILY RF: 0 carvedilol 25 MG tablet 25 mg PO BID RF: 0 ascorbic acid (vitamin C) 1,000 MG tablet 1,000 mg PO DAILY RF: 0 venlafaxine 75 MG capsule,extended release 24hr 75 mg PO DAILY RF: 0 atorvastatin 10 MG tablet 20 mg PO QHS RF: 0 losartan 100 MG tablet 100 mg PO DAILY RF: 0 metformin 750 MG tablet extended release 24 hr 750 mg PO BID RF: 0 Ferrex 150 Plus 150 MG capsule 150 mg PO DAILYCM RF: 0 insulin degludec 200 UNIT/ML insulin pen 86 units SQ QHS RF: 0 insulin aspart U-100 [Novolog Flexpen U-100 Insulin] 100 unit/mL (3 mL) insulin pen 20 unit SUBCUT TID RF: 0 furosemide 40 MG tablet 20 mg PO MOWEFR RF: 0 guaifenesin 1,200 mg tablet extended release 12hr 1,200 mg PO QHS RF: 0 (DME) oxygen-air delivery systems Device MISCELLANEOUS RF: 0 hydrocodone-acetaminophen [hydrocodone-acetaminophen] 1 TABLET tablet 1 tab PO Q4H PRN PRN (Reason: Pain) 3 Days Qty: 18 RF: 0 clonidine HCl 0.1 mg tablet 0.1 mg PO DAILY RF: 0 cholecalciferol (vitamin D3) [Vitamin D3] 25 mcg (1,000 unit) Tablet 25 mcg PO DAILY RF: 0 Anoro Ellipta 62.5-25 mcg/actuation blister with device 1 inh inhalation Q24H RF: 0 (DME) spacer 0 .Route .MEDSUPPLY Qty: 1 RF: 0 ipratropium-albuterol 0.5 mg-3 mg(2.5 mg base)/3 mL solution for nebulization 3 ml INHALATION Q6H Qty: 180 RF: 3 albuterol sulfate 90 mcg/actuation HFA aerosol inhaler 1 - 2 puff inhalation Q4H PRN PRN (Reason: Wheezing) Qty: 3 RF: 3 Other Ambulatory Orders: COVID Outpatient Monoclonal Antibody Referral (Routine) Timeframe: 1 Day Facility: [facility] - Location: [facility] Ordered By: Dr. Chilango Bailey Primary Care Provider: Trang Talamantes Referrals: Trang Talamantes DO [Primary Care Provider] - As Needed Activity Restrictions/Additional Instructions: Try to get a home portable pulse oximeter and closely watch your oxygen levels periodically. If you stay below 90% for more than a minute or so, and/or you are feeling like your breathing is getting worse, you may put your oxygen on at 2 L and may go up to 4 L as needed to make sure you stay in the 90s. If you are feeling very short of breath, or needing more oxygen than this, return to the emergency department for further evaluation. If you do end up needing oxygen throughout the day in order to stay in the 90s, make sure you either return to the ER or call your doctor since at that point, you will need to be put on dexamethasone (steroids). You can stop isolating after 10 days of illness (for you, , January 27) if you are feeling better, not needing oxygen, and you have had no more fevers without the need for Tylenol or ibuprofen for 24 hours. Disposition Disposition: Home, Self Care
--- NOTE | 2021-01-22 16:35 | RAD_ITS ---
STUDY: X-RAY CHEST REASON FOR EXAM: Female, 80 years old. MULTIPLE COMPLAINTS, WEAKNESS, SORE THROAT, FATIGUE. DAY 5 OF COVID, USES HOME O2 AT NIGHT FOR COPD covid sob TECHNIQUE: Single AP portable view of the chest. COMPARISON: September 27, 2018 FINDINGS: Mild left lower lobe patchy infiltrates are present. The remaining lung diaz are unremarkable. There is no demonstrated pleural abnormality. Normal size heart. Normal mediastinum and ngoc. Normal visualized pulmonary arteries. There is atherosclerotic calcification of the aortic arch with tortuosity. There are diffuse degenerative changes of the visualized thoracic spine. Reidentification of spinal hardware. There is no demonstrated abnormality of the visualized soft tissue structures of the upper abdomen. RAD/Chest 1 View (Portable) IMPRESSION: 1. Mild left lower lobe patchy infiltrates are present. The remaining lung diaz are unremarkable Electronically Signed: Regulo Martínez MD at 17:36 EST , Service support ,
[2021-01-22 16:39] LABS: Absolute Neutrophil Count 3.8 X10^3/uL (2.0-7.7); Basophil# 0.02 X10^3/uL; Basophil% 0.3 % (0-1); Eosinophil# 0.01 X10^3/uL; Eosinophils% 0.2 % (0-5); Hematocrit 38.6 % (37-47); Lymphocyte % 24.2 % (19-41); Mean Corp Hgb Conc 33.7 g/dL (32-36); Mean Corpuscular Hgb 30.7 pg (27.0-32.0); Mean Platelet Vol. 9.8 fl (6.2-12.0); Monocyte# 0.88 X10^3/uL; Monocyte% 14.2 % (0-10); NRBC Flagged by Analyzer 0 % (0-5); Neutrophil # 3.76 X10^3/uL (2.7-7.7); Neutrophil % 60.5 % (47-70); Platelet Count 193 K/mm3 (150-450); RBC Distribution Width CV 13.9 % (11.6-14.6); Red Blood Count 4.24 M/mm3 (4.2-5.4); White Blood Count 6.2 K/mm3 (4.4-11.0)
[2021-01-22 17:08] LABS: Anion Gap 8 (5-15); BUN 37 mg/dL (7-18); BUN/Creat Ratio 30.3 RATIO (10-20); Chloride 103 mmol/L (98-107); Creatinine, Serum 1.22 mg/dL (0.55-1.02); EST Glomerular Filtration Rate 45 mL/min (>60); Est Glom Filt Rate - Afr Amer 55 mL/min (>60); Estimated Creatinine Clearance 26.86 ml/min; Glucose 165 mg/dL (74-106); Potassium 4.7 mmol/L (3.5-5.1); Sodium Level 135 mmol/L (136-145); Troponin-I HS 16 pg/mL (3.0-54.0)
[2021-01-22 18:22] VITALS: O2SAT 97
== END 2021-01-22 18:23 | disposition home or self-care (01) ==
PROVIDERS: Emergency Provider Emergency Medicine; PCP Internal Medicine
DX: U07.1 COVID-19 (principal); J12.82 Pneumonia due to coronavirus disease 2019; J44.0 Chronic obstructive pulmonary disease with (acute) lower respiratory infection; D50.9 Iron deficiency anemia, unspecified; E11.22 Type 2 diabetes mellitus with diabetic chronic kidney disease; E66.01 Morbid (severe) obesity due to excess calories; E78.00 Pure hypercholesterolemia, unspecified; E78.5 Hyperlipidemia, unspecified; F32.A Depression, unspecified; F41.9 Anxiety disorder, unspecified; I12.9 Hypertensive chronic kidney disease with stage 1 through stage 4 chronic kidney disease, or unspecified chronic kidney disease; N18.30 Chronic kidney disease, stage 3 unspecified; I89.0 Lymphedema, not elsewhere classified; M17.0 Bilateral primary osteoarthritis of knee; M48.061 Spinal stenosis, lumbar region without neurogenic claudication; Z68.41 Body mass index [BMI] 40.0-44.9, adult; Z87.442 Personal history of urinary calculi; Z79.4 Long term (current) use of insulin; Z79.899 Other long term (current) drug therapy; Z87.891 Personal history of nicotine dependence
CPT/HCPCS: 71045; 80048; 84484; 85025; 99282

== ENCOUNTER 2021-01-23 17:49 | Emergency (ER) | payer MEDICARE, SELFPAY ==
[2021-01-23 17:51] VITALS: BP 152/109; PULSE 92; RESP 26; TEMP 37.1; O2SAT 95; BMI 44.1
--- NOTE | 2021-01-23 17:57 | ED.RN ---
DAUGHTER CALLS WITH CONCERNS FOR INCREASED WEAKNESS, COVID PNEUMONIA. SHE STAYED IN HER CHAIR LAST NIGHT AND DID NOT MOVE. DAUGHTER FOUND HER NOT WEARING HER OXYGEN, BILATERAL HANDS ARE BLUE, LIPS AND CHIN ARE BLUE.
[2021-01-23 18:25] LABS: Absolute Lymphocyte Count 1.51 X10^3/uL (0.83-4.51); Absolute Neutrophil Count 4.3 X10^3/uL (2.0-7.7); Basophil# 0.02 X10^3/uL; Basophil% 0.3 % (0-1); Hematocrit 39.6 % (37-47); Hemoglobin 13.1 g/dL (12.0-15.0); Lymphocyte # 1.51 X10^3/ul (0.83-4.51); Lymphocyte % 22.4 % (19-41); Mean Corp Hgb Conc 33.1 g/dL (32-36); Mean Corpuscular Hgb 29.9 pg (27.0-32.0); Mean Corpuscular Volume 90.4 fL (81-99); Mean Platelet Vol. 9.6 fl (6.2-12.0); Monocyte# 0.89 X10^3/uL; Monocyte% 13.2 % (0-10); NRBC Flagged by Analyzer 0 % (0-5); Neutrophil # 4.29 X10^3/uL (2.7-7.7); Neutrophil % 63.8 % (47-70); Platelet Count 205 K/mm3 (150-450); RBC Distribution Width SD 46.9 fl (35.1-43.9); Red Blood Count 4.38 M/mm3 (4.2-5.4); White Blood Count 6.7 K/mm3 (4.4-11.0)
--- NOTE | 2021-01-23 18:25 | RAD_ITS ---
STUDY: X-RAY CHEST REASON FOR EXAM: Female, 80 years old. weak PT COVID POSITIVE ON FRIDAY 01/19, COMES TO ED TONIGHT FOR COLD AND CYANOTIC HANDS AND FEET. TECHNIQUE: Frontal view of the chest COMPARISON: 22 January 2021 FINDINGS: Pulmonary volumes are low with extensive predominantly mid to lower lung zone interstitial opacities. There is no pneumothorax, cardiomegaly or edema. There are degenerative changes in the right shoulder. RAD/Chest 1 View (Portable) IMPRESSION: Extensive bilateral Covid pneumonia. Electronically Signed: Jana Harry MD at 19:27 EST Tel , Service support ,
[2021-01-23 18:49] LABS: Anion Gap 10 (5-15); BUN 41 mg/dL (7-18); BUN/Creat Ratio 29.9 RATIO (10-20); Chloride 103 mmol/L (98-107); Creatinine, Serum 1.37 mg/dL (0.55-1.02); EST Glomerular Filtration Rate 40 mL/min (>60); Est Glom Filt Rate - Afr Amer 48 mL/min (>60); Estimated Creatinine Clearance 23.92 ml/min; Glucose 184 mg/dL (74-106); Potassium 4.3 mmol/L (3.5-5.1); Sodium Level 135 mmol/L (136-145); Troponin-I HS 17 pg/mL (3.0-54.0)
--- NOTE | 2021-01-23 20:15 | EDS_ITS ---
HPI History of Present Illness Chief Complaint: General Illness Narrative Narrative: Patient here for generalized weakness. Associated with her hands and feet feeling cold. Symptoms started on Sunday. She was diagnosed with COVID- 19 on Sunday. She was seen here yesterday for generalized weakness. She was discharged home. She said she continues to be weak and would like to be admitted to the hospital. No new or worsening issues otherwise. [facility] Medical History Anemia Anxiety Arthritis Back pain Cancer Chronic renal failure, stage 3 (moderate) COPD exacerbation Dehydration Depression Dermatitis Diabetes DM type 2 (diabetes mellitus, type 2) Foraminal stenosis of lumbar region Former smoker High cholesterol History of echocardiogram History of edema History of nephrolithiasis History of steroid therapy History of stress test HLD (hyperlipidemia) HTN (hypertension) Insulin dependent diabetes mellitus Iron deficiency anemia Knee pain, bilateral Lumbar canal stenosis Lymphedema Morbid obesity with BMI of 40.0-44.9, adult Nephrolithiasis Obesities, morbid On home oxygen therapy Osteoarthritis Osteoarthritis of knees, bilateral Post-menopausal PVD (peripheral vascular disease) Renal failure Steatosis of liver 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 Walker as ambulation aid Wears dentures Wears glasses Home Medications ascorbic acid (vitamin C) 1,000 mg PO DAILY 06/17/18 [History Last Taken 06/17/18] atorvastatin 20 mg PO QHS 06/17/18 [History Last Taken 06/16/18] carvedilol 25 mg PO BID 06/17/18 [History Last Taken 06/17/18] insulin degludec 86 units SQ QHS 06/17/18 [History Last Taken 06/09/18] iron aspgl,ps complex-vit C-sa [Ferrex 150 Plus] 150 mg PO DAILYCM 06/17/18 [History Last Taken 06/17/18] losartan 100 mg PO DAILY 06/17/18 [History Last Taken 06/16/18] metformin 750 mg PO BID 06/17/18 [History Last Taken 06/17/18] multivitamin 1 ea PO DAILY 06/17/18 [History Last Taken 06/17/18] venlafaxine 75 mg PO DAILY 06/17/18 [History Last Taken 06/16/18] spacer #1 ea 09/27/18 [Rx Last Taken Unknown] ipratropium 0.5 mg-albuterol 3 mg (2.5 mg base)/3 mL nebulization soln 3 ml INHALATION Q6H #180 ml 10/14/18 [Rx Last Taken Unknown] dupilumab 300 mg/2 mL subcutaneous syringe 300 mg SC Q2W 01/07/20 [History Last Taken Unknown] albuterol sulfate 90 mcg/actuation aerosol inhaler 1 - 2 puff INHALATION Q4H PRN PRN #3 device 10/26/20 [Rx Last Taken Unknown] furosemide 20 mg PO MOWEFR 11/19/20 [History Last Taken Unknown] guaifenesin 1,200 mg PO QHS 11/19/20 [History Last Taken Unknown] insulin aspart U-100 [Novolog Flexpen U-100 Insulin] 20 unit SUBCUT TID 11/19/20 [History Last Taken Unknown] oxygen-air delivery systems 11/19/20 [History Last Taken Unknown] hydrocodone-acetaminophen 1 tab PO Q4H PRN PRN 3 Days #18 tablet 11/20/20 [Rx Last Taken Unknown] cholecalciferol (vitamin D3) [Vitamin D3] 25 mcg PO DAILY 01/17/21 [History Last Taken Unknown] clonidine HCl 0.1 mg PO DAILY 01/17/21 [History Last Taken Unknown] umeclidinium-vilanterol [Anoro Ellipta] 1 inh INHALATION Q24H 01/17/21 [History Last Taken Unknown] Allergy/AdvReac Type Severity Reaction Status Date / Time gabapentin [From Neurontin] Allergy PT UNSURE Verified 01/23/21 17:50 OF REACTION insulin detemir Allergy Hives Verified 01/23/21 17:50 [From Levemir] oxycodone [From Percocet] Allergy PT UNSURE Verified 01/23/21 17:50 OF REACTION amlodipine [From Norvasc] AdvReac Itching Verified 01/23/21 17:50 Family History Other Advanced dementia Diabetes Enlarged heart Surgical History History of back surgery History of tonsillectomy and adenoidectomy Hx of melanoma excision Hx of surgical procedure Social History adopted: No housing: house Smoking Status: Former smoker quit date: 02/26/90 pack-years: 3 Tobacco: How many years used: 30 ROS ROS ED Constitutional Constitutional ED: Reports chills ENT ENT ED: Denies ear pain Cardiovascular Cardiovascular: Denies chest pain Respiratory/Chest Respiratory/Chest: Reports cough and dyspnea Gastrointestinal Gastrointestinal: Denies abdominal pain, constipation, diarrhea, nausea or vomiting Genitourinary Genitourinary ED: Denies dysuria Musculoskeletal Musculoskeletal: Denies arthralgias or myalgias Integumentary Denies rash Neurologic Neurologic: Denies headache(s), paresthesias or weakness Psychiatric Psychiatric: Denies anxiety or depression Endocrine Endocrinology: Denies polyuria Allergic/Immunologic Allergic/Immunologic ED: Denies urticaria EXAM Physical Exam Const Vital Signs: 01/23/21 17:51 01/23/21 18:07 Temperature 98.8 F Temperature Source Oral Pulse Rate 92 Respiratory Rate 26 H Respiratory Effort Normal Blood Pressure 152/109 H Blood Pressure Mean 123 Pulse Ox 95 Oxygen Delivery Method Room Air Positive well nourished and well developed General Appearance ED: well developed HEENT Negative for trauma or tenderness Eyes EOMs intact bilaterally Neck supple Resp normal respiratory effort and clear to auscultation bilaterally Cardio regular rate and regular rhythm GI normal to inspection, nondistended, normoactive bowel sounds Neuro oriented x3 and no sensory deficits noted Sensorium / Orientation: alert Motor Exam: strength 5/5 throughout Psych mental status grossly normal Skin no rashes or lesions noted MDM MDM MDM Narrative Medical decision making narrative: Chest x-ray showed bilateral Covid pneumonia. Reviewed by the radiologist and myself. Labs were all fairly stable. Patient has COVID-19 but is not hypoxic or septic. Her vitals and labs are stable. I advised her that hospitalization will not fix her problems and that she may be sick for days or even weeks. There is no indication for hospitalization at this point. She will be discharged home with symptomatic care. Impression #1 COVID-19 Lab Data Labs: Laboratory Results - last 24 hr 01/23/21 01/23/21 17:55 17:55 WBC 6.7 RBC 4.38 Hgb 13.1 Hct 39.6 MCV 90.4 MCH 29.9 MCHC 33.1 RDW Std Deviation 46.9 H RDW Coeff of Harvey 14.0 Plt Count 205 MPV 9.6 Immature Gran % (Auto) 0.300 Neut % (Auto) 63.8 Lymph % (Auto) 22.4 [place] % (Auto) 13.2 H Eos % (Auto) 0.0 Baso % (Auto) 0.3 Absolute Neuts (auto) 4.3 Absolute Lymphs (auto) 1.51 Nucleated RBC % 0 Sodium 135 L Potassium 4.3 Chloride 103 Carbon Dioxide 22.0 Anion Gap 10 BUN 41 H Creatinine 1.37 H Estim Creat Clear Calc 23.92 Est GFR (MDRD) Af Amer 48 L Est GFR (MDRD) Non-Af 40 L BUN/Creatinine Ratio 29.9 H Glucose 184 H Calcium 9.0 Troponin I High Sens 17 Radiography Diagnostic Testing: Clinical Impression(s) from Imaging Studies Chest X-Ray 01/23/21 18:25 IMPRESSION: Extensive bilateral Covid pneumonia. Electronically Signed: Jana Harry MD at 19:27 EST Tel , Service support , Discharge Plan Triage Chief Complaint: General Illness ED Provider: Baljeet Perez Dx/Rx/DC Orders Clinical Impression: COVID-19 Instructions: Coronavirus Disease 2019 (COVID-19): Overview Prescriptions: No Action Dupixent Syringe 300 mg/2 mL syringe 300 mg SC Q2W RF: 0 multivitamin 1 EACH tablet 1 ea PO DAILY RF: 0 carvedilol 25 MG tablet 25 mg PO BID RF: 0 ascorbic acid (vitamin C) 1,000 MG tablet 1,000 mg PO DAILY RF: 0 venlafaxine 75 MG capsule,extended release 24hr 75 mg PO DAILY RF: 0 atorvastatin 10 MG tablet 20 mg PO QHS RF: 0 losartan 100 MG tablet 100 mg PO DAILY RF: 0 metformin 750 MG tablet extended release 24 hr 750 mg PO BID RF: 0 Ferrex 150 Plus 150 MG capsule 150 mg PO DAILYCM RF: 0 insulin degludec 200 UNIT/ML insulin pen 86 units SQ QHS RF: 0 insulin aspart U-100 [Novolog Flexpen U-100 Insulin] 100 unit/mL (3 mL) insulin pen 20 unit SUBCUT TID RF: 0 furosemide 40 MG tablet 20 mg PO MOWEFR RF: 0 guaifenesin 1,200 mg tablet extended release 12hr 1,200 mg PO QHS RF: 0 (DME) oxygen-air delivery systems Device MISCELLANEOUS RF: 0 hydrocodone-acetaminophen [hydrocodone-acetaminophen] 1 TABLET tablet 1 tab PO Q4H PRN PRN (Reason: Pain) 3 Days Qty: 18 RF: 0 clonidine HCl 0.1 mg tablet 0.1 mg PO DAILY RF: 0 cholecalciferol (vitamin D3) [Vitamin D3] 25 mcg (1,000 unit) Tablet 25 mcg PO DAILY RF: 0 Anoro Ellipta 62.5-25 mcg/actuation blister with device 1 inh inhalation Q24H RF: 0 (DME) spacer 0 .Route .MEDSUPPLY Qty: 1 RF: 0 ipratropium-albuterol 0.5 mg-3 mg(2.5 mg base)/3 mL solution for nebulization 3 ml INHALATION Q6H Qty: 180 RF: 3 albuterol sulfate 90 mcg/actuation HFA aerosol inhaler 1 - 2 puff inhalation Q4H PRN PRN (Reason: Wheezing) Qty: 3 RF: 3 Primary Care Provider: Trang Talamantes Referrals: Trang Talamantes DO [Primary Care Provider] - Disposition Disposition: Home, Self Care
[2021-01-23 20:27] VITALS: PULSE 92; RESP 20; O2SAT 95
--- NOTE | 2021-01-23 21:12 | ED.RN ---
PT was cleaned up, new adult diaper placed. PT had large overgrown of yeast in groin and inbetween buttocks. Appropriate cream was liberally placed. PT states she has nystatin powder at home. I encouraged her to use that or call for more from family doctor. PT was aggressively educated on keeping active and moving as much as possible at home. PT also aggressively encouraged to ask for help in her care until feeling better from COVID. Educated PT on alternating Tylenol and Ibuprofen, keeping hydrated. Family had concerns on getting her into the house d/t weakness. [facility]. Suggested calling Adult Protective Services and/or [facility] for home help. There is a family member able to stay with patient tonight, encouraged to accept help and have other family members help in her care.
== END 2021-01-23 21:05 | disposition home or self-care (01) ==
PROVIDERS: Emergency Provider Emergency Medicine; PCP Internal Medicine
DX: U07.1 COVID-19 (principal); J12.82 Pneumonia due to coronavirus disease 2019; J44.0 Chronic obstructive pulmonary disease with (acute) lower respiratory infection; D50.9 Iron deficiency anemia, unspecified; E66.01 Morbid (severe) obesity due to excess calories; Z68.41 Body mass index [BMI] 40.0-44.9, adult; E78.00 Pure hypercholesterolemia, unspecified; E78.5 Hyperlipidemia, unspecified; F32.A Depression, unspecified; F41.9 Anxiety disorder, unspecified; K76.0 Fatty (change of) liver, not elsewhere classified; I12.9 Hypertensive chronic kidney disease with stage 1 through stage 4 chronic kidney disease, or unspecified chronic kidney disease; E11.22 Type 2 diabetes mellitus with diabetic chronic kidney disease; N18.30 Chronic kidney disease, stage 3 unspecified; I89.0 Lymphedema, not elsewhere classified; E11.51 Type 2 diabetes mellitus with diabetic peripheral angiopathy without gangrene; M17.0 Bilateral primary osteoarthritis of knee; M48.061 Spinal stenosis, lumbar region without neurogenic claudication; Z87.442 Personal history of urinary calculi; Z79.4 Long term (current) use of insulin; Z79.899 Other long term (current) drug therapy; Z87.891 Personal history of nicotine dependence
CPT/HCPCS: 71045; 80048; 84484; 85025; 96360; 99285; J7040; A4216

== ENCOUNTER 2021-01-24 15:31 | Outpatient (CLI) | payer MEDICARE, SELFPAY ==
[2021-01-24] MEDS: 0.9% Saline Lock 10 ML Syringe IV (16:07)
[2021-01-24 16:11] VITALS: BP 106/41; PULSE 63; RESP 20; TEMP 36.3; O2SAT 97; BMI 43.0
[2021-01-24 16:43] VITALS: BP 109/43; PULSE 61; RESP 16; TEMP 36.3; O2SAT 99
[2021-01-24 17:43] VITALS: BP 106/46; PULSE 62; RESP 16; TEMP 36.4; O2SAT 100
== END 2021-01-24 17:43 | disposition home or self-care (01) ==
LOC: MS3OUT 15:31 → MS3 15:32
PROVIDERS: PCP Internal Medicine; Referring Provider Nurse Practitioner Adult Health; Visit Provider Nurse Practitioner Adult Health
DX: Z23 Encounter for immunization (principal); U07.1 COVID-19
CPT/HCPCS: J7050; M0245; Q0245; A4216

== ENCOUNTER 2021-01-25 11:04 | Observation (INO) | payer MEDICARE, SELFPAY ==
[2021-01-25] VITALS (8 sets, daily range): BP systolic 86–148; BP diastolic 39–74; PULSE 64–88; RESP 18–24; TEMP 36.4–36.9; O2SAT 90–97; BMI 44.7; BMI 43.1
--- NOTE | 2021-01-25 12:57 | EX.ED.DYSGE1 ---
HPI History of Present Illness Chief Complaint: Complaint Informant: patient Onset/Context/Timing Onset: Weeks (1) Context: Gradual Onset Timing: Continuous Quality: Burning Location: Perineum Worsened by: Pressure, urination Relieved by: Nothing Narrative Narrative: Patient presents with sores in her perineum that have been getting worse over the past week. Patient states the sores feel like a burning sensation. Patient states that the pain is worse whenever she sits on them and whenever she urinates. Patient states nothing seems to help with it. Patient also admits to some dizziness and lightheadedness. Patient states that she is prone to becoming septic with any infection. Patient also admits to some wheezing. Patient denies any fevers or chills. [facility] Medical History Anemia Anxiety Arthritis Back pain Cancer Chronic renal failure, stage 3 (moderate) COPD exacerbation Dehydration Depression Dermatitis Diabetes DM type 2 (diabetes mellitus, type 2) Foraminal stenosis of lumbar region Former smoker High cholesterol History of echocardiogram History of edema History of nephrolithiasis History of steroid therapy History of stress test HLD (hyperlipidemia) HTN (hypertension) Insulin dependent diabetes mellitus Iron deficiency anemia Knee pain, bilateral Lumbar canal stenosis Lymphedema Morbid obesity with BMI of 40.0-44.9, adult Nephrolithiasis Obesities, morbid On home oxygen therapy Osteoarthritis Osteoarthritis of knees, bilateral Post-menopausal PVD (peripheral vascular disease) Renal failure Steatosis of liver 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 Walker as ambulation aid Wears dentures Wears glasses Home Medications ascorbic acid (vitamin C) 1,000 mg PO DAILY 06/17/18 [History Last Taken 06/17/18] atorvastatin 20 mg PO QHS 06/17/18 [History Last Taken 06/16/18] carvedilol 25 mg PO BID 06/17/18 [History Last Taken 06/17/18] insulin degludec 86 units SQ QHS 06/17/18 [History Last Taken 06/09/18] iron aspgl,ps complex-vit C-sa [Ferrex 150 Plus] 150 mg PO DAILYCM 06/17/18 [History Last Taken 06/17/18] losartan 100 mg PO DAILY 06/17/18 [History Last Taken 06/16/18] metformin 750 mg PO BID 06/17/18 [History Last Taken 06/17/18] multivitamin 1 ea PO DAILY 06/17/18 [History Last Taken 06/17/18] venlafaxine 75 mg PO DAILY 06/17/18 [History Last Taken 06/16/18] spacer #1 ea 09/27/18 [Rx Last Taken Unknown] dupilumab 300 mg/2 mL subcutaneous syringe 300 mg SC Q2W 01/07/20 [History Last Taken Unknown] albuterol sulfate 90 mcg/actuation aerosol inhaler 1 - 2 puff INHALATION Q4H PRN PRN #3 device 10/26/20 [Rx Last Taken Unknown] furosemide 20 mg PO MOWEFR 11/19/20 [History Last Taken Unknown] guaifenesin 1,200 mg PO QHS 11/19/20 [History Last Taken Unknown] insulin aspart U-100 [Novolog Flexpen U-100 Insulin] 20 unit SUBCUT TID 11/19/20 [History Last Taken Unknown] oxygen-air delivery systems 11/19/20 [History Last Taken Unknown] cholecalciferol (vitamin D3) [Vitamin D3] 25 mcg PO DAILY 01/17/21 [History Last Taken Unknown] clonidine HCl 0.1 mg PO DAILY 01/17/21 [History Last Taken Unknown] umeclidinium-vilanterol [Anoro Ellipta] 1 inh INHALATION Q24H 01/17/21 [History Last Taken Unknown] cephalexin 500 mg PO Q6 #28 capsule 01/25/21 [Rx Last Taken Unknown] hydrocodone-acetaminophen 1 tab PO Q6H PRN PRN 3 Days #10 tablet 01/25/21 [Rx Last Taken Unknown] nystatin 1 applic TOPICAL BID #30 g 01/25/21 [Rx Last Taken Unknown] Allergy/AdvReac Type Severity Reaction Status Date / Time gabapentin [From Neurontin] Allergy PT UNSURE Verified 01/25/21 11:32 OF REACTION insulin detemir Allergy Hives Verified 01/25/21 11:32 [From Levemir] amlodipine [From Norvasc] AdvReac Itching Verified 01/25/21 11:32 Family History Other Advanced dementia Diabetes Enlarged heart Surgical History History of back surgery History of tonsillectomy and adenoidectomy Hx of melanoma excision Hx of surgical procedure Social History adopted: No housing: house Smoking Status: Former smoker quit date: 02/26/90 pack-years: 3 Tobacco: How many years used: 30 ROS ROS ED Constitutional Constitutional ED: Denies chills or fever(s) Eyes Eyes: Denies blurry vision or change in vision ENT ENT ED: Reports sore throat; Denies rhinorrhea Cardiovascular Cardiovascular: Denies chest pain or palpitations Respiratory/Chest Respiratory/Chest: Reports dyspnea; Denies cough Gastrointestinal Gastrointestinal: Denies nausea or vomiting Genitourinary Genitourinary ED: Reports dysuria; Denies hematuria Musculoskeletal Musculoskeletal: Reports back pain and neck pain Integumentary Denies abscess or rash Neurologic Neurologic: Reports headache(s) and weakness Allergic/Immunologic Allergic/Immunologic ED: Denies mouth swelling or urticaria EXAM Physical Exam Const Vital Signs: 01/25/21 11:25 01/25/21 13:27 01/25/21 13:29 Temperature 97.6 F L Temperature Source Oral Pulse Rate 65 64 Respiratory Rate 24 H 19 H Respiratory Pattern Tachypnea Blood Pressure 86/39 L 90/55 L Blood Pressure Mean 54 66 Pulse Ox 90 93 Oxygen Delivery Method Room Air Room Air 01/25/21 15:03 01/25/21 17:35 Temperature Temperature Source Pulse Rate 70 72 Respiratory Rate 22 H 22 H Respiratory Pattern Blood Pressure 108/64 116/74 Blood Pressure Mean 78 88 Pulse Ox 95 97 Oxygen Delivery Method Room Air Room Air Positive well nourished, well developed and obese General Appearance ED: well developed Nutritional Appearance: obese HEENT Reports moist mucous membranes Neck supple and no JVD Resp normal respiratory effort Auscultation: wheezes expiratory wheezes and throughout Cardio regular rate, regular rhythm and no murmurs GI normal to inspection, nondistended, normoactive bowel sounds and non-tender Palpation: soft Extremity normal to inspection General Extremety ED: Negative for edema or tenderness General Extremity: Negative for edema Neuro oriented x3, CN's II-XII intact bilaterally and no sensory deficits noted Sensorium / Orientation: alert Motor Exam: strength 5/5 throughout Psych mental status grossly normal Skin no rashes or lesions noted MDM MDM MDM Narrative Medical decision making narrative: Patient was given DuoNeb aerosol here. CBC was essentially within normal limits. Comprehensive metabolic profile showed a slightly elevated creatinine of 1.57 and a BUN of sixty-five. These are consistent with prior results. Lactate was normal. Urinalysis shows leukocyte esterase of 500 with 50-100 white blood cells and 2+ bacteria. Patient was given a dose of Rocephin here. Portable 1 view chest x-ray was obtained. On my interpretation, lung diaz show mild residual markings at the lung bases which are improved compared to previous x-ray. There is normal cardiac silhouette. Bony thorax is normal. There is no acute process noted. Radiologist also interpreted the x-ray and agrees. Corrigan catheter was placed. Patient was given a dose of nystatin cream. Patient would prefer to keep the Corrigan catheter in. Patient was given a leg bag. Patient was given a prescription for Keflex. Patient was also given prescription for nystatin cream. Patient was also given a prescription for [place]. Patient was instructed to follow-up with her primary care physician in 2 to 3 days. Patient and daughter understood and were agreeable with the plan. All questions were answered. Prior to being discharged, patient felt like she could not care for herself at home. Daughter states she did not feel patient was safe going home. caseworker intake was in to evaluate the patient. caseworker intake stated the patient would need to be admitted before going to a nursing facility. Case was discussed with the hospitalist. He will admit the patient for observation. Patient and family understood and were agreeable with the plan. All questions were answered. Lab Data Attestation: I reviewed the patient's lab results. Labs: Laboratory Results - last 24 hr 01/25/21 01/25/21 01/25/21 13:20 13:20 13:20 WBC 8.2 RBC 3.56 L Hgb 10.6 L Hct 32.3 L MCV 90.7 MCH 29.8 MCHC 32.8 RDW Std Deviation 47.4 H RDW Coeff of Harvey 14.1 Plt Count 146 L MPV 9.7 Immature Gran % (Auto) 1.700 H Neut % (Auto) 79.4 H Lymph % (Auto) 12.7 L Pershing % (Auto) 6.1 Eos % (Auto) 0.0 Baso % (Auto) 0.1 Absolute Neuts (auto) 6.5 Absolute Lymphs (auto) 1.04 Nucleated RBC % 0 Sodium 136 Potassium 4.6 Chloride 106 Carbon Dioxide 21.0 Anion Gap 9 BUN 65 H Creatinine 1.57 H Estim Creat Clear Calc 20.87 Est GFR (MDRD) Af Amer 41 L Est GFR (MDRD) Non-Af 34 L BUN/Creatinine Ratio 41.4 H Glucose 57 L Lactic Acid 1.0 Calcium 8.3 L Total Bilirubin 0.20 AST 110 H ALT 59 H Alkaline Phosphatase 48 Total Protein 6.3 L Albumin 2.5 L Globulin 3.8 Albumin/Globulin Ratio 0.7 L Urine Color Urine Clarity Urine pH Ur Specific Gaffney Urine Protein Urine Glucose (UA) Urine Ketones Urine Occult Blood Urine Nitrite Urine Bilirubin Urine Urobilinogen Ur Leukocyte Esterase Urine RBC Urine WBC Ur Squamous Epith Cells Urine Bacteria Urine Mucus 01/25/21 13:45 WBC RBC Hgb Hct MCV MCH MCHC RDW Std Deviation RDW Coeff of Harvey Plt Count MPV Immature Gran % (Auto) Neut % (Auto) Lymph % (Auto) Pershing % (Auto) Eos % (Auto) Baso % (Auto) Absolute Neuts (auto) Absolute Lymphs (auto) Nucleated RBC % Sodium Potassium Chloride Carbon Dioxide Anion Gap BUN Creatinine Estim Creat Clear Calc Est GFR (MDRD) Af Amer Est GFR (MDRD) Non-Af BUN/Creatinine Ratio Glucose Lactic Acid Calcium Total Bilirubin AST ALT Alkaline Phosphatase Total Protein Albumin Globulin Albumin/Globulin Ratio Urine Color Yellow Urine Clarity Sl. Cloudy Urine pH 5.0 Ur Specific Gaffney 1.020 Urine Protein 30 H Urine Glucose (UA) Normal Urine Ketones Negative Urine Occult Blood 250 H Urine Nitrite Negative Urine Bilirubin Negative Urine Urobilinogen Normal Ur Leukocyte Esterase 500 H Urine RBC 0 SEEN Urine WBC 50-100 SEEN Ur Squamous Epith Cells 0 SEEN Urine Bacteria 2+ Urine Mucus 0 SEEN Radiography Chest X-Ray - ED: 1 View, Read by ED Physician, Read by Radiologist and Chronic Changes Diagnostic Testing: Clinical Impression(s) from Imaging Studies Chest X-Ray 01/25/21 13:23 IMPRESSION: Mild residual increased markings at the lung bases although there has been improvement as compared to prior study. Electronically Signed: Laureano Freeman MD at 13:34 EST , Service support , Treatment and Re-Evaluation Vital Sign Attestation:: Vital signs were reviewed prior to admission. They are stable. Discharge Plan Dx/Rx/DC Orders Clinical Impression: Urinary tract infection, Tinea cruris, COVID-19 Disposition Disposition: Acute Care Hospital [facility]
--- NOTE | 2021-01-25 13:23 | RAD_ITS ---
STUDY: X-RAY CHEST REASON FOR EXAM: Female, 80 years old. Dyspnea TECHNIQUE: Single AP portable view of the chest. COMPARISON: Comparison is made with prior study dated 01/23/2021. FINDINGS: Minimal residual increased markings persist at the lung bases although there has been improvement. Further follow-up is recommended. Hyperinflation. Normal size heart. Normal mediastinum and ngoc. Normal visualized pulmonary arteries. There is atherosclerotic tortuosity of the aortic arch and descending thoracic aorta. There are diffuse degenerative changes of the visualized thoracic spine. Normal visualized ribs, clavicles, and shoulders. There is no demonstrated abnormality of the visualized soft tissue structures of the upper abdomen. RAD/Chest 1 View (Portable) IMPRESSION: Mild residual increased markings at the lung bases although there has been improvement as compared to prior study. Electronically Signed: Laureano Freeman MD at 13:34 EST , Service support ,
[2021-01-25] MEDS: Ipratropium/Albuterol Sulfate 3 ML AMPUL.NEB INHALATION (13:27)
[2021-01-25 13:29] LABS: Absolute Lymphocyte Count 1.04 X10^3/uL (0.83-4.51); Absolute Neutrophil Count 6.5 X10^3/uL (2.0-7.7); Basophil# 0.01 X10^3/uL; Basophil% 0.1 % (0-1); Hematocrit 32.3 % (37-47); Hemoglobin 10.6 g/dL (12.0-15.0); Lymphocyte # 1.04 X10^3/ul (0.83-4.51); Lymphocyte % 12.7 % (19-41); Mean Corp Hgb Conc 32.8 g/dL (32-36); Mean Corpuscular Hgb 29.8 pg (27.0-32.0); Mean Corpuscular Volume 90.7 fL (81-99); Mean Platelet Vol. 9.7 fl (6.2-12.0); Monocyte% 6.1 % (0-10); NRBC Flagged by Analyzer 0 % (0-5); Neutrophil # 6.51 X10^3/uL (2.7-7.7); Neutrophil % 79.4 % (47-70); Platelet Count 146 K/mm3 (150-450); RBC Distribution Width CV 14.1 % (11.6-14.6); RBC Distribution Width SD 47.4 fl (35.1-43.9); Red Blood Count 3.56 M/mm3 (4.2-5.4); White Blood Count 8.2 K/mm3 (4.4-11.0)
[2021-01-25 13:45] LABS: ALB/GLOB Ratio 0.7 RATIO (0.9-2.4); AST(SGOT) 110 U/L (15-37); Alanine Aminotransfer ALT/SGPT 59 U/L (13-56); Albumin, Serum 2.5 g/dL (3.2-5.0); Alkaline Phosphatase 48 U/L (45-117); Anion Gap 9 (5-15); BUN 65 mg/dL (7-18); BUN/Creat Ratio 41.4 RATIO (10-20); Calcium,Total 8.3 mg/dL (8.5-10.1); Chloride 106 mmol/L (98-107); Creatinine, Serum 1.57 mg/dL (0.55-1.02); EST Glomerular Filtration Rate 34 mL/min (>60); Est Glom Filt Rate - Afr Amer 41 mL/min (>60); Estimated Creatinine Clearance 20.87 ml/min; Globulin 3.8 g/dL (2.2-4.2); Glucose 57 mg/dL (74-106); Potassium 4.6 mmol/L (3.5-5.1); Protein, Total 6.3 g/dL (6.4-8.2); Sodium Level 136 mmol/L (136-145)
[2021-01-25 13:53] LABS: Mucous, Urine 0 SEEN /hpf (<or=2+); Red Blood Cells-Urine 0 SEEN /hpf (0-5); Squamous Epithelial Cells - UA 0 SEEN /hpf (5-10)
[2021-01-25 13:57] LABS: Color, Urine Yellow (Yellow); Glucose, Dipstick Normal (Normal); Ketone-Dipstick Negative (Negative); Leukocyte Esterase-Dipstick 500 /ul (Negative); Nitrite-Dipstick Negative (Negative); Occult Blood-Urine 250 /ul (Negative); Protein-Dipstick 30 mg/dl (Negative); Urine Bilirubin Dipstick Negative (Negative); Urine Clarity Sl. Cloudy (Clear); Urine Urobilinogen Normal (Normal)
[2021-01-25 14:02] LABS: Bacteria 2+ /hpf (None Seen); White Blood Cells 50-100 SEEN /hpf (0-5)
[2021-01-25] MEDS: Morphine 4 MG/ML Syringe IV (15:58)
[2021-01-25] MEDS: Ceftriaxone 1 GM/50 ML BAG IV (16:01)
[2021-01-25] MEDS: Nystatin Ointment 1 APPLIC TOPICAL (17:46)
--- NOTE | 2021-01-25 17:59 | CM.ED ---
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 SW discussed home health options. Pts daughter said that she has concerns of patient going home and her safety at home. SW clarified as to what the plan is for patient and patient and the daughter said that she is concerned as patient has COPD and diabetes and comorbidities and also has diarrhea related to the covid so she is concerned that her mother would become septic again . Patient's daughter said that patient had been septic in the past and on a vent so she is concerned for patient's safety about going home. ELADIO updated RN and MD. Patient will be admitted. SW spent extensive time with patient and her daughter educating them on SNF are not all accepting COVID + patients, if there is bed availability and approval from the insurance. Daughter verbalized understanding. Patient has never been in SNF before. Patient's daughter and patient were provided with SNF list of [facility] and list of approved providers for patient's insurance. Daughter reports that there preference [facility]. SW again reiterated that due to COVID patient may not have that as an option for placement and they verbalized understanding. Plan: Admit patient for SNF [facility]
--- NOTE | 2021-01-25 18:26 | PCM.HP.STD ---
Documented by User: Luis Felipe AVENDAÑO 01/25/21 18:46 HPI - General General Date of Admission: 01/25/21 Date of Service: 01/25/21 Chief Complaint: Adult failure to thrive HPI Narrative VIC ALEXANDER is a 80-year-old female who presents to the ED at [facility] on 01/25/2021 with a chief complaint of adult failure to thrive. Patient and patient's daughter reports that patient can no longer take care of herself and appropriately manage her hygiene. Patient reports that this has led to increased burning with urination as well as painful and red wounds in her perianal and perigenital region. Patient reports that this is an ongoing problem that is just gotten progressively worse and is increasingly difficult to manage. Of note, patient began feeling ill on 01/17/2021 and subsequently got a Covid antigen test which was positive. Patient reports her COVID-19 symptoms include fever, chills, weakness, and myalgias/arthralgias. Patient was not admitted for COVID-19 infection although did receive monoclonal antibody infusion yesterday. Patient has received 2 doses of the COVID-19 vaccine, although has not gotten a chance to schedule her booster yet. Vital signs in the ED are temperature of 97.6 ?F, HR of 65, BP of 90/55, RR of 24 and patient was satting 93% on room air. CBC shows WBCs at 8.2, hemoglobin of 10.6 and platelets at 146. BMP shows electrolytes within normal limits although creatinine is 1.57 with a BUN of 65 and GFR is 34. Chest x-ray showed mild residual increased markings at the lung bases with improvement compared to prior study. [facility] Medical History Anemia Anxiety Arthritis Back pain Cancer Chronic renal failure, stage 3 (moderate) COPD exacerbation Dehydration Depression Dermatitis Diabetes DM type 2 (diabetes mellitus, type 2) Foraminal stenosis of lumbar region Former smoker High cholesterol History of echocardiogram History of edema History of nephrolithiasis History of steroid therapy History of stress test HLD (hyperlipidemia) HTN (hypertension) Insulin dependent diabetes mellitus Iron deficiency anemia Knee pain, bilateral Lumbar canal stenosis Lymphedema Morbid obesity with BMI of 40.0-44.9, adult Nephrolithiasis Obesities, morbid On home oxygen therapy Osteoarthritis Osteoarthritis of knees, bilateral Post-menopausal PVD (peripheral vascular disease) Renal failure Steatosis of liver 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 Walker as ambulation aid Wears dentures Wears glasses Home Medications ascorbic acid (vitamin C) 1,000 mg PO DAILY 06/17/18 [History Last Taken 01/25/21] carvedilol 25 mg PO BID 06/17/18 [History Last Taken 01/25/21] insulin degludec 86 units SQ QHS 06/17/18 [History Last Taken 01/24/21] iron aspgl,ps complex-vit C-sa [Ferrex 150 Plus] 150 mg PO DAILYCM 06/17/18 [History Last Taken 01/25/21] losartan 100 mg PO DAILY 06/17/18 [History Last Taken 01/24/21] metformin 750 mg PO BID 06/17/18 [History Last Taken 01/25/21] multivitamin 1 ea PO DAILY 06/17/18 [History Last Taken 01/25/21] venlafaxine 75 mg PO DAILY 06/17/18 [History Last Taken 01/24/21] spacer #1 ea 09/27/18 [Rx Last Taken Unknown] dupilumab 300 mg/2 mL subcutaneous syringe 300 mg SC Q2W 01/07/20 [History Last Taken 01/20/21] albuterol sulfate 90 mcg/actuation aerosol inhaler 1 - 2 puff INHALATION Q4H PRN PRN #3 device 10/26/20 [Rx Last Taken 01/23/21] guaifenesin 1,200 mg PO QHS 11/19/20 [History Last Taken 01/24/21] insulin aspart U-100 [Novolog Flexpen U-100 Insulin] 20 unit SUBCUT TID 11/19/20 [History Last Taken 01/24/21] oxygen-air delivery systems 11/19/20 [History Last Taken Unknown] cholecalciferol (vitamin D3) [Vitamin D3] 25 mcg PO BID 01/17/21 [History Last Taken 01/25/21] clonidine HCl 0.1 mg PO DAILY MDD HEART 01/17/21 [History Last Taken 01/24/21] umeclidinium-vilanterol [Anoro Ellipta] 1 inh INHALATION Q24H 01/17/21 [History Last Taken 01/25/21] atorvastatin 20 mg PO QHS 01/25/21 [History Last Taken 01/24/21] cephalexin 500 mg PO Q6 #28 capsule 01/25/21 [Rx Last Taken Unknown] furosemide 20 mg PO MOWEFR 01/25/21 [History Last Taken 01/24/21] nystatin 1 applic TOPICAL BID #30 g 01/25/21 [Rx Last Taken Unknown] nystatin 1 applic TOPICAL DAILY PRN PRN 01/25/21 [History Last Taken 01/25/21] Allergy/AdvReac Type Severity Reaction Status Date / Time gabapentin [From Neurontin] Allergy PT UNSURE Verified 01/25/21 11:32 OF REACTION insulin detemir Allergy Hives Verified 01/25/21 11:32 [From Levemir] amlodipine [From Norvasc] AdvReac Itching Verified 01/25/21 11:32 Family History (Updated 01/25/21 @ 18:33 by Luis Felipe AVENDAÑO) Father Colon cancer Diabetes Mother Diabetes Other Advanced dementia Enlarged heart Surgical History History of back surgery History of tonsillectomy and adenoidectomy Hx of melanoma excision Hx of surgical procedure Social History (Updated 01/25/21 @ 18:34 by Luis Felipe AVENDAÑO) adopted: No housing: house Smoking Status: Former smoker quit date: 02/26/90 pack-years: 90 Tobacco: How many years used: 30 alcohol intake: former substance use type: does not use ROS Constitutional Constitutional: Reports chills, fatigue, fever(s), malaise and weakness; Denies anorexia, change in weight, night sweats or other Eyes Eyes: Denies blurry vision, change in eye color, change in vision, discharge from eye(s), double vision, erythema, eye pain, loss of vision or other ENT HEENT: Denies abnormal hearing, dysphagia, ear pain, epistaxis, headache(s), hearing loss, nasal congestion, nasal discharge, post nasal drip, sinus pressure, sore throat or other Cardiovascular Cardiovascular: Reports dyspnea on exertion; Denies chest pain, claudication, edema, lightheadedness, orthopnea, palpitations, paroxysmal nocturnal dyspnea, rapid heart rate, syncope or other Respiratory/Chest Respiratory/Chest: Reports shortness of breath with exertion; Denies cough, dyspnea, excessive phlegm production, hemoptysis, productive cough, shortness of breath at rest, wheezing or other Gastrointestinal Gastrointestinal: Reports nausea and vomiting; Denies abdominal pain, coffee ground emesis, constipation, diarrhea, dyspepsia, hematemesis, hematochezia, loose stools, melena or other Genitourinary Genitourinary: Reports burning urination, difficulty urinating, dysuria and hematuria; Denies nocturia, urinary frequency, urinary hesitancy, urinary incontinence, urinary urgency or other Musculoskeletal Musculoskeletal: Reports arthralgias and myalgias; Denies back pain, joint pain, joint stiffness, joint swelling, neck pain or other Neurologic Neurologic: Denies abnormal gait, abnormal speech, confusion, disequilibrium, dizziness, focal weakness, headache(s), numbness, paresthesias, seizure-like activity, seizures, syncope, tingling, tremor(s) or other Psychiatric Psychiatric: Denies anxiety, depression, homicidal ideation, suicidal ideation or other Endocrine Endocrinology: Denies change in body appearance, cold intolerance, excessive sweating, heat intolerance, polydipsia, polyuria or other Hematologic/Lymphatic Hematologic/Lymphatic: Denies anemia, easy bleeding, easy bruising, lymphadenopathy or other Vital Signs Vital Signs Vital Signs: 01/25/21 11:25 01/25/21 13:27 01/25/21 13:29 Temperature 97.6 F L Temperature Source Oral Pulse Rate 65 64 Respiratory Rate 24 H 19 H Respiratory Pattern Tachypnea Blood Pressure 86/39 L 90/55 L Blood Pressure Mean 54 66 Pulse Ox 90 93 Oxygen Delivery Method Room Air Room Air 01/25/21 15:03 01/25/21 17:35 Temperature Temperature Source Pulse Rate 70 72 Respiratory Rate 22 H 22 H Respiratory Pattern Blood Pressure 108/64 116/74 Blood Pressure Mean 78 88 Pulse Ox 95 97 Oxygen Delivery Method Room Air Room Air Weight Weight: 229 lb Body Mass Index (BMI) 44.7 Physical Exam Const alert and oriented x3 General Appearance: cooperative HEENT normocephalic, head/scalp atraumatic and hearing grossly normal bilaterally Eyes PERRL, EOMs intact bilaterally and conjunctivae normal Neck no lymphadenopathy, supple and no JVD Resp normal respiratory effort, no retractions, no use of accessory muscles and clear to auscultation bilaterally Cardio regular rate, regular rhythm, no murmurs and no JVD GI soft to palpation and non-tender GI Narrative: Diffuse red satellite lesions about the suprapubic, perigenital and perianal region. Skin Skin Narrative: See GI. Neuro CN's II-XII intact bilaterally Psych affect normal Results Lab / Micro Data Result Diagrams: 01/25/21 13:20 01/25/21 13:20 Labs: Laboratory Results - last 24 hr 01/25/21 13:20: WBC 8.2, RBC 3.56 L, Hgb 10.6 L, Hct 32.3 L, MCV 90.7, MCH 29.8, MCHC 32.8, RDW Std Deviation 47.4 H, RDW Coeff of Harvey 14.1, Plt Count 146 L, MPV 9.7, Immature Gran % (Auto) 1.700 H, Neut % (Auto) 79.4 H, Lymph % (Auto) 12.7 L, [place] % (Auto) 6.1, Eos % (Auto) 0.0, Baso % (Auto) 0.1, Absolute Neuts (auto) 6.5, Absolute Lymphs (auto) 1.04, Nucleated RBC % 0 01/25/21 13:20: Sodium 136, Potassium 4.6, Chloride 106, Carbon Dioxide 21.0, Anion Gap 9, BUN 65 H, Creatinine 1.57 H, Estim Creat Clear Calc 20.87, Est GFR (MDRD) Af Amer 41 L, Est GFR (MDRD) Non-Af 34 L, BUN/Creatinine Ratio 41.4 H, Glucose 57 L, Calcium 8.3 L, Total Bilirubin 0.20, AST 110 H, ALT 59 H, Alkaline Phosphatase 48, Total Protein 6.3 L, Albumin 2.5 L, Globulin 3.8, Albumin/Globulin Ratio 0.7 L 01/25/21 13:20: Lactic Acid 1.0 01/25/21 13:45: Urine Color Yellow, Urine Clarity Sl. Cloudy, Urine pH 5.0, Ur Specific [place] 1.020, Urine Protein 30 H, Urine Glucose (UA) Normal, Urine Ketones Negative, Urine Occult Blood 250 H, Urine Nitrite Negative, Urine Bilirubin Negative, Urine Urobilinogen Normal, Ur Leukocyte Esterase 500 H, Urine RBC 0 SEEN, Urine WBC 50-100 SEEN, Ur Squamous Epith Cells 0 SEEN, Urine Bacteria 2+, Urine Mucus 0 SEEN Radiology Impression Chest X-Ray 01/25/21 13:23 IMPRESSION: Mild residual increased markings at the lung bases although there has been improvement as compared to prior study. Electronically Signed: Laureano Freeman MD at 13:34 EST , Service support , Assessment & Plan Assessment/Plan (1) Urinary tract infection: (2) COVID-19: PLAN: Patient is a 80-year-old female who presents to the ED at [facility] on 01/25/2021 with a chief complaint of failure to thrive. Patient will be admitted for management of acute cystitis as well as placement. 1) Adult failure to thrive Patient reports a chronic history of not being able to care her self which is resulted in decreased hygiene, difficulty with urination and possible Kanchan in the suprapubic, perigenital, perianal region. Patient's daughter reports that her mother is becoming increasingly difficult to take care of and that is significant strain on her and her . Patient reports that in addition to not being able to take care of herself for a while, her recent COVID-19 infection has only made these things worse. Plan; admit to [facility], PT/OT eval ordered, case management eval ordered, as needed medications ordered. 2) acute cystitis Patient presents with a 5-day history of progressively worsening dysuria. Vital signs obtained in the ED are stable and patient is afebrile. CBC does not demonstrate a leukocytosis. Lactic acid not elevated. UA obtained in the ED shows yellow cloudy urine with negative nitrites, 500 leukocyte esterase and 2+ bacteria. Plan; obtain urine cultures, continue Rocephin initiated in the ED. 3) COVID-19 infection Patient self reported that she feels increasingly weak since being infected with COVID-19, and that this is made her failure to thrive on the course. Patient denies any respiratory symptoms, although does report fever, chills, dysuria and nausea with vomiting. Patient has received 2 doses of the Covid vaccine, although has not received her booster yet. Chest x-ray obtained in the ED demonstrated mild residual increased markings at lung bases which is improved from prior study. Plan; as above, O2 per protocol. 4) Kanchan Patient with red satellite lesions in the suprapubic, perigenital and perianal region. Patient reports that she has nystatin powder at home but that it just sloughs off after being applied. We will order nystatin ointment as well as initiate the patient on Diflucan. Home medication list was not reconciled at the time of this note, chronic medications need to be reviewed for continueation or hold. CODE STATUS: Full code Advance care planning: Patient's daughter Shyla is healthcare power of assistant attorney general and is to make decisions for patient in the event that she cannot do so herself. Patient does have a living will, although is not on file. DVT prophylaxis - Lovenox Patient seen by Luis Felipe Plunkett PA-C, under the supervision of Dr. Jennings. Documented by User: Dr. Erich Jennings, 01/25/21 21:29 HPI - General General Date of Admission: 01/25/21 [facility] Medical History Anemia Anxiety Arthritis Back pain Cancer Chronic renal failure, stage 3 (moderate) COPD exacerbation Dehydration Depression Dermatitis Diabetes DM type 2 (diabetes mellitus, type 2) Foraminal stenosis of lumbar region Former smoker High cholesterol History of echocardiogram History of edema History of nephrolithiasis History of steroid therapy History of stress test HLD (hyperlipidemia) HTN (hypertension) Insulin dependent diabetes mellitus Iron deficiency anemia Knee pain, bilateral Lumbar canal stenosis Lymphedema Morbid obesity with BMI of 40.0-44.9, adult Nephrolithiasis Obesities, morbid On home oxygen therapy Osteoarthritis Osteoarthritis of knees, bilateral Post-menopausal PVD (peripheral vascular disease) Renal failure Steatosis of liver 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 Walker as ambulation aid Wears dentures Wears glasses Home Medications ascorbic acid (vitamin C) 1,000 mg PO DAILY 06/17/18 [History Last Taken 01/25/21] carvedilol 25 mg PO BID 06/17/18 [History Last Taken 01/25/21] insulin degludec 86 units SQ QHS 06/17/18 [History Last Taken 01/24/21] iron aspgl,ps complex-vit C-sa [Ferrex 150 Plus] 150 mg PO DAILYCM 06/17/18 [History Last Taken 01/25/21] losartan 100 mg PO DAILY 06/17/18 [History Last Taken 01/24/21] metformin 750 mg PO BID 06/17/18 [History Last Taken 01/25/21] multivitamin 1 ea PO DAILY 06/17/18 [History Last Taken 01/25/21] venlafaxine 75 mg PO DAILY 06/17/18 [History Last Taken 01/24/21] spacer #1 ea 09/27/18 [Rx Last Taken Unknown] dupilumab 300 mg/2 mL subcutaneous syringe 300 mg SC Q2W 01/07/20 [History Last Taken 01/20/21] albuterol sulfate 90 mcg/actuation aerosol inhaler 1 - 2 puff INHALATION Q4H PRN PRN #3 device 10/26/20 [Rx Last Taken 01/23/21] guaifenesin 1,200 mg PO QHS 11/19/20 [History Last Taken 01/24/21] insulin aspart U-100 [Novolog Flexpen U-100 Insulin] 20 unit SUBCUT TID 11/19/20 [History Last Taken 01/24/21] oxygen-air delivery systems 11/19/20 [History Last Taken Unknown] cholecalciferol (vitamin D3) [Vitamin D3] 25 mcg PO BID 01/17/21 [History Last Taken 01/25/21] clonidine HCl 0.1 mg PO DAILY MDD HEART 01/17/21 [History Last Taken 01/24/21] umeclidinium-vilanterol [Anoro Ellipta] 1 inh INHALATION Q24H 01/17/21 [History Last Taken 01/25/21] atorvastatin 20 mg PO QHS 01/25/21 [History Last Taken 01/24/21] cephalexin 500 mg PO Q6 #28 capsule 01/25/21 [Rx Last Taken Unknown] furosemide 20 mg PO MOWEFR 01/25/21 [History Last Taken 01/24/21] nystatin 1 applic TOPICAL BID #30 g 01/25/21 [Rx Last Taken Unknown] nystatin 1 applic TOPICAL DAILY PRN PRN 01/25/21 [History Last Taken 01/25/21] Allergy/AdvReac Type Severity Reaction Status Date / Time gabapentin [From Neurontin] Allergy PT UNSURE Verified 01/25/21 11:32 OF REACTION insulin detemir Allergy Hives Verified 01/25/21 11:32 [From Levemir] amlodipine [From Norvasc] AdvReac Itching Verified 01/25/21 11:32 Family History (Updated 01/25/21 @ 18:33 by Luis Felipe AVENDAÑO) Father Colon cancer Diabetes Mother Diabetes Other Advanced dementia Enlarged heart Surgical History History of back surgery History of tonsillectomy and adenoidectomy Hx of melanoma excision Hx of surgical procedure Social History (Updated 01/25/21 @ 18:34 by Luis Felipe AVENDAÑO) adopted: No housing: house Smoking Status: Former smoker quit date: 02/26/90 pack-years: 90 Tobacco: How many years used: 30 alcohol intake: former substance use type: does not use Results Lab / Micro Data Result Diagrams: 01/25/21 13:20 01/25/21 13:20 Charges/Coding Addendum Addendum: Patient was seen and examined independently of Luis Felipe Plunkett, she came to the emergency room today complaining of generalized weakness and debility. Patient was diagnosed with COVID-19 on 01/19/2021, patient stated that she got the monoclonal antibody treatment. Patient is not requiring oxygen here in the emergency room. Work-up in the ER included labs which revealed a normal white blood cell count, hemoglobin was slightly low at 10.6, creatinine was elevated at 1.57 and BUN was 65. Patient's UA obtained via Corrigan catheter revealed findings indicative of a cystitis. Patient was afebrile in the emergency room On examination she appeared in good health and spirits, she does not appear to be in any distress. Vital signs as documented. Skin-there is evidence of extreme excoriation in the perineal area and in the groin area bilaterally.. Neck without JVD, thyroid appears normal, trachea is midline, neck is supple. Lungs clear, normal air movement was noted. Heart exam notable for regular rhythm, normal sounds and absence of murmurs, rubs or gallops. Abdomen unremarkable and without evidence of organomegaly, masses, or abdominal aortic enlargement, bowel sounds are present in all 4 quadrants, no abdominal tenderness was noted. Extremities nonedematous, no cyanosis was noted, no clubbing was noted. Neuro: Cranial nerves II through XII are grossly intact, no focal motor deficits were noted, sensation to light touch and pinprick is intact, motor exam 5/5 throughout. Psych: Patient is alert and oriented x3, she does not appear anxious or depressed, she does not appear agitated. 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 Patient will be seen by PT and OT, patient and the patient's daughter are aware that it may be difficult for the patient to get into a fdc facility given her recent diagnosis of COVID-19. I do not feel the patient needs to be placed on dexamethasone due to the fact that she is not hypoxic. I have reviewed Luis Felipe Plunkett's history and physical including his medical assessment and plan of care and endorse it. Visit Charges OBSV E&M: 64016 Initial observation care L3
[2021-01-25] MEDS: Heparin Injection (Vial) 5,000 UNIT/ML VIAL 5000 UNIT SC (23:48)
[2021-01-25] MEDS: Carvedilol 25 MG Tablet PO (23:49)
[2021-01-25] MEDS: Atorvastatin Calcium 20 MG Tablet PO (23:49)
[2021-01-25] MEDS: Cholecalciferol (VIT D3) 25 MCG TABLET (1,000 UNITS) PO (23:49)
[2021-01-26 00:16] LABS: Bedside Glucose 106 mg/dL (70-110)
--- NOTE | 2021-01-26 01:25 | PCS.PANDOC ---
PANDEMIC DOCUMENTATION INITIATED: Date: 10/11/2020 Time: 190
[2021-01-26 04:34] VITALS: BP 115/54; PULSE 79; RESP 18; TEMP 37.2; O2SAT 96
[2021-01-26] MEDS: Menthol/Lanolin/Calamine/Znox 113 GM Tube 1 APPLIC TOPICAL ×3 (04:39→22:09)
[2021-01-26] MEDS: Fluconazole 100 MG Tablet 200 MG PO (08:38)
[2021-01-26] MEDS: Furosemide 20 MG Tablet PO (08:38)
[2021-01-26] MEDS: Cholecalciferol (VIT D3) 25 MCG TABLET (1,000 UNITS) PO ×2 (08:38→22:09)
[2021-01-26] MEDS: cloNIDine HCl 0.1 MG Tablet PO (08:38)
[2021-01-26] MEDS: Carvedilol 25 MG Tablet PO ×2 (08:39→22:09)
[2021-01-26] MEDS: Venlafaxine XR 75 MG Capsule PO (08:39)
[2021-01-26] MEDS: Ascorbic Acid 500 MG Tablet 1000 MG PO (08:39)
[2021-01-26] MEDS: Losartan Potassium 100 MG Tablet PO (08:39)
[2021-01-26] MEDS: Heparin Injection (Vial) 5,000 UNIT/ML VIAL 5000 UNIT SC ×3 (08:39→22:10)
[2021-01-26] MEDS: Nystatin Ointment 1 APPLIC TOPICAL ×2 (08:40→12:21)
[2021-01-26] MEDS: Umeclidinium Bromide Inhaler 1 PUFF INHALATION (08:42)
[2021-01-26 09:03] VITALS: BP 122/60; PULSE 88; RESP 18; TEMP 37; O2SAT 97
[2021-01-26 09:30] LABS: Bedside Glucose 78 mg/dL (70-110)
--- NOTE | 2021-01-26 09:52 | CASEMGMT ---
Addendum entered by Vicky Solorio 01/26/21 10:59: SW in to speak with pt and introduced self and role at [facility]. SW spoke with pt about SNF. SW informed pt that [facility] likely not able to accept pt as pt is only 9 days from post positive COVID test. Pt states they want to change their mind on SNF anyway and now prefers [facility]. SW informed pt that this woker will send referral to [facility] now. Pt asked that this worker keep Ofelia updated. SW placed a call to [facility] and spoke with Jenifer. CC willing to review referral. SW placed a call to [facility] and spoke with Naomi and asked her to disregard refrral. Plan: SNF pending acceptance and pre-cert Vicky Solorio [employer] Addendum entered by Vicky Solorio 01/26/21 10:37: ELADIO updated that [facility] is only accepting COVID+ pt's that are 14 days from positive test and are asymptomatic. Pt is only 9 days post positive test. SW to discuss other SNF options with pt. Original Note: Social Work Note SW reviewed chart. Pt tested positive 01/17/2021 for COVID and is in precautions. SNF was discussed with pt and pt's daughter. Pt and pt's daughter preferred SNF is [facility]. ELADIO placed a call to [facility] and asked to speak to admissions. SW was told to just go ahead and fax referral. SW faxed referral. SW to fax PT/OT once completed. Plan: SNF pending acceptance and pre-cert Vicky Solorio [employer]
[2021-01-26 12:36] LABS: Bedside Glucose 142 mg/dL (70-110)
--- NOTE | 2021-01-26 13:35 | PCM.PN.HOSP ---
Documented by User: Luis Felipe AVENDAÑO 01/26/21 13:48 Subjective Subjective Patient is a 80-year-old female comfortably lying in bed, alert and orient x3. Patient reports significant improvement in her discomfort from admission and denies development of any new symptoms overnight. Does not appear in acute distress. Objective Data Objective Data Vital Signs: Vital Signs Temp Pulse Resp BP Pulse Ox 98.6 F 88 18 122/60 H 97 01/26/21 09:03 01/26/21 09:03 01/26/21 09:03 01/26/21 09:03 01/26/21 09:03 Oxygen Flow Rate (L/min) 2 Oxygen Delivery Method Nasal Cannula Weight: 220 lb 10.923 oz Body Mass Index (BMI) 43.1 Intake & Output: Intake and Output for Last 24 Hours 01/24/21 01/25/21 01/26/21 23:59 23:59 23:59 Intake Total 50 / 50 Output Total 500 / 500 Balance 50 / 50 -500 / -500 Lab / Micro Data Result Diagrams: 01/25/21 13:20 01/25/21 13:20 Labs: Laboratory Results - last 24 hr 01/25/21 13:20: Sodium 136, Potassium 4.6, Chloride 106, Carbon Dioxide 21.0, Anion Gap 9, BUN 65 H, Creatinine 1.57 H, Estim Creat Clear Calc 20.87, Est GFR (MDRD) Af Amer 41 L, Est GFR (MDRD) Non-Af 34 L, BUN/Creatinine Ratio 41.4 H, Glucose 57 L, Calcium 8.3 L, Total Bilirubin 0.20, AST 110 H, ALT 59 H, Alkaline Phosphatase 48, Total Protein 6.3 L, Albumin 2.5 L, Globulin 3.8, Albumin/Globulin Ratio 0.7 L 01/25/21 13:20: Lactic Acid 1.0 01/25/21 13:45: Urine Color Yellow, Urine Clarity Sl. Cloudy, Urine pH 5.0, Ur Specific [place] 1.020, Urine Protein 30 H, Urine Glucose (UA) Normal, Urine Ketones Negative, Urine Occult Blood 250 H, Urine Nitrite Negative, Urine Bilirubin Negative, Urine Urobilinogen Normal, Ur Leukocyte Esterase 500 H, Urine RBC 0 SEEN, Urine WBC 50-100 SEEN, Ur Squamous Epith Cells 0 SEEN, Urine Bacteria 2+, Urine Mucus 0 SEEN 01/25/21 23:59: POC Glucose 106 01/26/21 08:36: POC Glucose 78 01/26/21 12:18: POC Glucose 142 H Radiography Diagnostic Testing: Radiology Impression Chest X-Ray 01/25/21 13:23 IMPRESSION: Mild residual increased markings at the lung bases although there has been improvement as compared to prior study. Electronically Signed: Laureano Freeman MD at 13:34 EST , Service support , Physical Exam Const alert, oriented x3 and no apparent distress HEENT head/scalp atraumatic and moist oral mucous membranes Head and Scalp: normocephalic Eyes PERRL, EOMs intact bilaterally and conjunctivae normal Neck no lymphadenopathy, supple and no JVD Resp normal respiratory effort, no retractions, no use of accessory muscles and clear to auscultation bilaterally Cardio regular rate, regular rhythm, no murmurs and no JVD GI normal to inspection, nondistended, normoactive bowel sounds, soft to palpation and non-tender Extremity normal to inspection, full ROM and no clubbing, cyanosis or edema Skin no rashes or lesions noted, no wounds and skin turgor normal Neuro CN's II-XII intact bilaterally Psych affect normal Assessment & Plan Assessment/Plan (1) Urinary tract infection: (2) COVID-19: PLAN: Day 1 Discharge planning: Discharge to [facility] pending acceptance and pre-CERT 1) Adult failure to thrive Placement as above. 2) acute cystitis Vital signs are stable and patient is afebrile. CBC does not demonstrate a leukocytosis. Lactic acid not elevated. UA obtained in the ED shows yellow cloudy urine with negative nitrites, 500 leukocyte esterase and 2+ bacteria. Plan; initiate Keflex for 5 days, 500 mg p.o. every 8 hours. 3) COVID-19 infection On admission patient reportesd infectious symptoms to include fever, chills dysuria and nausea with vomiting for the past week. Denies any respiratory symptoms. Patient's vital signs are stable and patient is afebrile and satting 97% on 2 L via nasal cannula. Patient not initiated on any Decadron or remdesivir due to unremarkable respiratory symptoms. 4) Kanchan Patient with red satellite lesions in the suprapubic, perigenital and perianal region. Patient reports that she has nystatin powder at home but that it just sloughs off after being applied. We will order nystatin ointment as well as initiate the patient on Diflucan. DVT prophylaxis -Heparin Patient seen by Luis Felipe Plunkett PA-C, under the supervision of Dr. Jennings. Documented by User: Dr. Erich Jennings, 01/26/21 19:42 Objective Data Lab / Micro Data Result Diagrams: 01/25/21 13:20 01/25/21 13:20 Charges/Coding Addendum Addendum: Patient was seen and examined today independently of Luis Felipe Plunkett, she is now requiring low-flow oxygen at rest-at the time of my examination, she was on 2 L via nasal cannula. I talked to the patient briefly again today about use of remdesivir-she refuses to take it. I have decided to bump the patient's Lasix to 40 mg daily starting tomorrow morning, I will give an extra 20 mg of Lasix p.o. today. If patient is still hypoxic tomorrow, I will ask her whether she would consider taking dexamethasone. On examination she appeared in good health and spirits, she does not appear to be in any distress. Vital signs as documented. Skin warm and dry and without overt rashes. Neck without JVD, thyroid appears normal, trachea is midline, neck is supple. Lungs clear, normal air movement was noted. Heart exam notable for regular rhythm, normal sounds and absence of murmurs, rubs or gallops. Abdomen unremarkable and without evidence of organomegaly, masses, or abdominal aortic enlargement, bowel sounds are present in all 4 quadrants, no abdominal tenderness was noted. Extremities nonedematous, no cyanosis was noted, no clubbing was noted. Neuro: Cranial nerves II through XII are grossly intact, no focal motor deficits were noted, sensation to light touch and pinprick is intact, motor exam 5/5 throughout. Psych: Patient is alert and oriented x3, she does not appear anxious or depressed, she does not appear agitated. I have reviewed Luis Felipe Plunkett's progress note including his medical assessment and plan of care and with the above additions, endorse it. Visit Charges OBSV E&M: 15487 Subsequent observation care L3
--- NOTE | 2021-01-26 13:58 | CASEMGMT ---
ALTAF CM in to discuss PAIZ form with patient. RN CM explained PAIZ form, patient voiced understanding. Pt signed form and filed in chart. Pt provided with a copy of signed PAIZ form. Patient had no further questions or concerns at this time.
[2021-01-26] MEDS: Cephalexin 500 MG Capsule PO ×2 (14:57→22:09)
--- NOTE | 2021-01-26 14:59 | CASEMGMT ---
Addendum entered by Vicky Solorio 01/26/21 15:36: SW received message from pt's daughter Ofelia requesting call back. SW placed another call to Ofelia, no answer, SW left message. Original Note: Social Work Note SW received message from Jenifer at [facility] stating they can accept pt and will submit for pre-cert once PT/OT note are available. SW checked chart, no PT/OT available at this time. SW to fax PT/OT when available. SW placed a call to pt's daughter Ofelia and left message requesting call back. SW placed a call to pt and updated her that [facility] is able to accept pending pre-cert. Pt states understanding. SW informed pt that this worker did try to call her daughter Ofelia but she did not answer. Plan: [facility] pending pre-cert Vicky Solorio SAFETY AND SECURITY MANAGER, CIRCLE EDGER
[2021-01-26 15:00] VITALS: BP 108/94; PULSE 88; RESP 16; TEMP 37; O2SAT 94
[2021-01-26 16:59] VITALS: O2SAT 91
[2021-01-26] MEDS: Insulin Lispro 100 UNIT/ML INSULN.PEN SC (17:19)
[2021-01-26 17:21] LABS: Bedside Glucose 278 mg/dL (70-110)
[2021-01-26 22:01] VITALS: BP 121/47; PULSE 70; RESP 20; TEMP 36.8; O2SAT 95
[2021-01-26] MEDS: Atorvastatin Calcium 20 MG Tablet PO (22:09)
[2021-01-26] MEDS: Nystatin Powder 15gm Bottle 1 APPLIC TOPICAL (22:10)
[2021-01-26] MEDS: Acetaminophen 325 MG Tablet 650 MG PO (22:14)
[2021-01-27] VITALS (8 sets, daily range): BP systolic 106–120; BP diastolic 50–74; PULSE 64–84; RESP 18; TEMP 36.5–37; O2SAT 94–96
[2021-01-27] MEDS: Acetaminophen 325 MG Tablet 650 MG PO (04:57)
[2021-01-27] MEDS: Heparin Injection (Vial) 5,000 UNIT/ML VIAL 5000 UNIT SC ×2 (04:58→14:22)
[2021-01-27] MEDS: Cephalexin 500 MG Capsule PO ×2 (04:58→14:22)
[2021-01-27] MEDS: Nystatin Powder 15gm Bottle 1 APPLIC TOPICAL ×2 (04:58→14:20)
[2021-01-27] MEDS: Menthol/Lanolin/Calamine/Znox 113 GM Tube 1 APPLIC TOPICAL ×2 (04:59→14:21)
[2021-01-27 06:26] LABS: Bedside Glucose 135 mg/dL (70-110)
[2021-01-27 07:46] LABS: Absolute Lymphocyte Count 2.08 X10^3/uL (0.83-4.51); Absolute Neutrophil Count 2.9 X10^3/uL (2.0-7.7); Basophil# 0.01 X10^3/uL; Basophil% 0.2 % (0-1); Eosinophil# 0.09 X10^3/uL; Eosinophils% 1.6 % (0-5); Hematocrit 34.4 % (37-47); Hemoglobin 11.3 g/dL (12.0-15.0); Lymphocyte # 2.08 X10^3/ul (0.83-4.51); Lymphocyte % 36.7 % (19-41); Mean Corp Hgb Conc 32.8 g/dL (32-36); Mean Corpuscular Volume 91.2 fL (81-99); Mean Platelet Vol. 9.8 fl (6.2-12.0); Monocyte# 0.53 X10^3/uL; Monocyte% 9.3 % (0-10); NRBC Flagged by Analyzer 0 % (0-5); Neutrophil # 2.88 X10^3/uL (2.7-7.7); Neutrophil % 50.8 % (47-70); POSITIVE MORPHOLOGY YES; Platelet Count 163 K/mm3 (150-450); RBC Distribution Width CV 14.4 % (11.6-14.6); RBC Distribution Width SD 48.3 fl (35.1-43.9); Red Blood Count 3.77 M/mm3 (4.2-5.4); White Blood Count 5.7 K/mm3 (4.4-11.0)
[2021-01-27 08:03] LABS: Anion Gap 7 (5-15); BUN 49 mg/dL (7-18); BUN/Creat Ratio 50.6 RATIO (10-20); Calcium,Total 8.4 mg/dL (8.5-10.1); Chloride 111 mmol/L (98-107); Creatinine, Serum 0.97 mg/dL (0.55-1.02); EST Glomerular Filtration Rate 59 mL/min (>60); Est Glom Filt Rate - Afr Amer 71 mL/min (>60); Estimated Creatinine Clearance 33.78 ml/min; Glucose 116 mg/dL (74-106); Potassium 4.3 mmol/L (3.5-5.1); Sodium Level 140 mmol/L (136-145)
[2021-01-27 08:08] LABS: Differential Indicated SCAN CRITERIA MET
[2021-01-27 09:16] LABS: Reactive Lymphocyte 1+
--- NOTE | 2021-01-27 09:20 | CASEMGMT ---
Addendum entered by Vicky Solorio 01/27/21 14:37: Social Work Note SW received message from Jenifer at [facility] stating pre-cert has been obtained, pt can discharge to [facility] today. ELADIO updated physician and PA. Pt is medically ready for discharge today. ELADIO completed PAS/RR in [facility]. ELADIO spoke with RN, pt to transport via wheelchair van. Original Note: Social Work Note ELADIO faxed PT/OT to [facility]. Plan: [facility] pending pre-cert Vicky Solorio RADIATOR CLEANER, BARIATRIC PHYSICIAN
[2021-01-27] MEDS: Carvedilol 25 MG Tablet PO (09:45)
[2021-01-27] MEDS: Ascorbic Acid 500 MG Tablet 1000 MG PO (09:45)
[2021-01-27] MEDS: Cholecalciferol (VIT D3) 25 MCG TABLET (1,000 UNITS) PO (09:45)
[2021-01-27] MEDS: Furosemide 20 MG Tablet PO (09:45)
[2021-01-27] MEDS: Venlafaxine XR 75 MG Capsule PO (09:45)
[2021-01-27] MEDS: cloNIDine HCl 0.1 MG Tablet PO (09:45)
[2021-01-27] MEDS: Umeclidinium Bromide Inhaler 1 PUFF INHALATION (09:46)
[2021-01-27] MEDS: Losartan Potassium 100 MG Tablet PO (09:46)
[2021-01-27] MEDS: Fluconazole 100 MG Tablet 200 MG PO (09:46)
--- NOTE | 2021-01-27 12:03 | PN.HOSP_ITS ---
Documented by User: TANIA Rodriguez 01/27/21 12:08 Subjective Subjective Patient seen and examined. Patient sitting in bed no distress noted. Patient denies any complaints at this time. Objective Data Objective Data Vital Signs: Vital Signs Temp Pulse Resp BP Pulse Ox 98.6 F 64 18 120/64 94 01/27/21 09:52 01/27/21 09:52 01/27/21 09:52 01/27/21 09:52 01/27/21 10:56 Oxygen Flow Rate (L/min) 3 Oxygen Delivery Method Nasal Cannula Weight: 220 lb 10.923 oz Body Mass Index (BMI) 43.1 Intake & Output: Intake and Output for Last 24 Hours 01/25/21 01/26/21 01/27/21 23:59 23:59 23:59 Intake Total 50 / 50 400 / 400 Output Total 1425 / 1425 500 / 500 Balance 50 / 50 -1425 / -1425 -100 / -100 Lab / Micro Data Result Diagrams: 01/27/21 07:00 01/27/21 06:50 Labs: Laboratory Results - last 24 hr 01/26/21 12:18: POC Glucose 142 H 01/26/21 17:16: POC Glucose 278 H 01/26/21 22:00: POC Glucose 135 H 01/27/21 06:50: Sodium 140, Potassium 4.3, Chloride 111 H, Carbon Dioxide 22.0, Anion Gap 7, BUN 49 H, Creatinine 0.97, Estim Creat Clear Calc 33.78, Est GFR (MDRD) Af Amer 71, Est GFR (MDRD) Non-Af 59 L, BUN/Creatinine Ratio 50.6 H, Glucose 116 H, Calcium 8.4 L 01/27/21 07:00: WBC 5.7, RBC 3.77 L, Hgb 11.3 L, Hct 34.4 L, MCV 91.2, MCH 30.0, MCHC 32.8, RDW Std Deviation 48.3 H, RDW Coeff of Harvey 14.4, Plt Count 163, MPV 9.8, Immature Gran % (Auto) 1.400 H, Neut % (Auto) 50.8, Lymph % (Auto) 36.7, [place] % (Auto) 9.3, Eos % (Auto) 1.6, Baso % (Auto) 0.2, Absolute Neuts (auto) 2.9, Absolute Lymphs (auto) 2.08, Nucleated RBC % 0, Reactive Lymphocytes 1+ Physical Exam Const alert, oriented x3 and no apparent distress HEENT head/scalp atraumatic Head and Scalp: normocephalic Eyes conjunctivae normal and no scleral icterus Neck full ROM and supple General: trachea midline Resp normal respiratory effort and clear to auscultation bilaterally Cardio regular rate, regular rhythm, S1 normal heart sound and S2 normal heart sound GI normal to inspection, nondistended, normoactive bowel sounds, soft to palpation and non-tender Extremity normal to inspection and full ROM General Extremity: edema bilateral lower extremity Details: moderate Skin no rashes or lesions noted, no wounds and skin turgor normal Neuro oriented x3, moves all extremities, no focal motor deficits and no sensory d eficits noted Sensorium / Orientation: awake and alert Psych affect normal Assessment & Plan Assessment/Plan (1) Urinary tract infection: QUALIFIERS: Hematuria presence: without hematuria Urinary tract infection type: acute cystitis Qualified Code(s): N30.00 - Acute cystitis without hematuria (2) COVID-19: PLAN: Patient is a 80-year-old female who was recently diagnosed with COVID-19 but presents to the ER with complaints of urinary symptoms. Patient also diagnosed with failure to thrive and was admitted for SNF placement. 1. Adult failure to thrive -Pending placement at [facility], awaiting pre-CERT 2. Acute cystitis -Continue Keflex -Patient reports mild improvement in symptoms -No signs or symptoms of sepsis 3. COVID-19 -Patient currently on 2 L nasal cannula which is the patient baseline -Patient has been symptomatic for approximately 1 week, continue Covid precautions 4. Kanchan -Continue nystatin and Diflucan DVT prophylaxis-subcu heparin This patient was seen by Anastasia Wolfe NP-C under the supervision of Dr. Jennings. Documented by User: Dr. Erich Jennings, 01/28/21 21:42 Objective Data Lab / Micro Data Result Diagrams: 01/27/21 07:00 01/27/21 06:50 Charges/Coding Addendum Addendum: Patient was seen and examined today, she does not appear to be in any respiratory distress and she has no complaints of any chest pain. Patient remains on nasal cannula oxygen at night but has also been using it during the day according to nursing. On examination she appeared her stated age, she does not appear to be in any distress. Vital signs as documented. Skin warm and dry and without overt rashes. Neck without JVD, thyroid appears normal, trachea is midline, neck is supple. Lungs clear, normal air movement was noted. Heart exam notable for regular rhythm, normal sounds and absence of murmurs, rubs or gallops. Abdomen unremarkable and without evidence of organomegaly, masses, or abdominal aortic enlargement, bowel sounds are present in all 4 quadrants, no abdominal tenderness was noted. Extremities nonedematous, no cyanosis was noted, no clubbing was noted. Neuro: Cranial nerves II through XII are grossly intact, no focal motor deficits were noted, sensation to light touch and pinprick is intact, motor exam 5/5 throughout. Psych: Patient is alert and oriented x3, she does not appear anxious or depressed, she does not appear agitated. Continue present treatment at this time, I have reviewed Prabha Wolfe's progress note including her medical assessment and plan of care and endorse it.
[2021-01-27 12:25] LABS: Bedside Glucose 213 mg/dL (70-110)
[2021-01-27] MEDS: Insulin Lispro 100 UNIT/ML INSULN.PEN SC ×2 (12:42→16:38)
--- NOTE | 2021-01-27 14:46 | PCM.TXEXTCAR ---
Documented by User: WADE RodriguezC 01/27/21 14:58 Diet 01/25/21 22:26 Diet: Consistent Carb - Calorie Controlled Food consistency:: Regular Liquid Consistency:: Regular/Thin How many daily calories?: 1800 calorie Routine Orders/Code Status Enema Type: Fleetz Enema Frequency: Daily PRN Suppository Type: Dulcolax 10mg Suppository Frequency: Daily PRN Change Corrigan Catheter: d/c in 2 weeks O2 Liters per Minute: 2 O2 Frequency: PRN (@qhs) Code Status: Full Code Wound(s) buttocks: Wound Type: Abrasion groin/ ABD folds: Wound Type: Abrasion Suggestions for Active Care Change Position every (hours): 2 Therapies Weight Bearing: Full weight bearing Physical Therapy: Eval and Treat Occupational Therapy: Eval and Treat Problem/Diagnosis (1) Urinary tract infection: Status: Acute (2) COVID-19: Status: Acute Allergies/Procedures Done in Hospital Allergies gabapentin [From Neurontin] Allergy (Verified 01/25/21 11:32) PT UNSURE OF REACTION insulin detemir [From Levemir] Allergy (Verified 01/25/21 11:32) Hives amlodipine [From Norvasc] Adverse Reaction (Verified 01/25/21 11:32) Itching Procedures: EKG Type of Care/Length of Stay Estimated LOS: Convalescent Care Less Than 30 days Type of Care Needed: Skilled Rehab Potential: Good Prognosis: Good Additional Orders/Day of Discharge Day of Discharge: 01/27/21 Discharge Plan Admission Admit Date/Time: 01/25/21 18:11 Primary Reason for Your Visit: UTI, debility Attending Provider: Erich Jennings Primary Care Provider: Trang Talamantes Instructions Patient Instructions: ED Corrigan Catheter, Care, ED Fungal Skin Infection (Tinea), ED CYSTITIS Female Adult Discharge Orders/Prescriptions Prescriptions: New cephalexin [cephalexin] 500 MG capsule 500 mg PO Q6 Qty: 28 RF: 0 nystatin 100,000 unit/gram ointment 1 applic topical BID Qty: 30 RF: 0 fluconazole 100 mg Tablet 200 mg PO DAILY Qty: 5 RF: 0 No Action Dupixent Syringe 300 mg/2 mL syringe 300 mg SC Q2W RF: 0 multivitamin 1 EACH tablet 1 ea PO DAILY RF: 0 carvedilol 25 MG tablet 25 mg PO BID RF: 0 ascorbic acid (vitamin C) 1,000 MG tablet 1,000 mg PO DAILY RF: 0 venlafaxine 75 MG capsule,extended release 24hr 75 mg PO DAILY RF: 0 losartan 100 MG tablet 100 mg PO DAILY RF: 0 metformin 750 MG tablet extended release 24 hr 750 mg PO BID RF: 0 Ferrex 150 Plus 150 MG capsule 150 mg PO DAILYCM RF: 0 insulin degludec 200 UNIT/ML insulin pen 86 units SQ QHS RF: 0 insulin aspart U-100 [Novolog Flexpen U-100 Insulin] 100 unit/mL (3 mL) insulin pen 20 unit SUBCUT TID RF: 0 guaifenesin 1,200 mg tablet extended release 12hr 1,200 mg PO QHS RF: 0 (DME) oxygen-air delivery systems Device MISCELLANEOUS RF: 0 clonidine HCl 0.1 mg tablet 0.1 mg PO DAILY MDD HEART RF: 0 cholecalciferol (vitamin D3) [Vitamin D3] 25 mcg (1,000 unit) Tablet 25 mcg PO BID RF: 0 Anoro Ellipta 62.5-25 mcg/actuation blister with device 1 inh inhalation Q24H RF: 0 atorvastatin 20 mg tablet 20 mg PO QHS RF: 0 furosemide 20 mg tablet 20 mg PO MOWEFR RF: 0 nystatin 100,000 unit/gram powder 1 applic TOPICAL DAILY PRN PRN (Reason: Skin Cleansing) RF: 0 (DME) spacer 0 .Route .MEDSUPPLY Qty: 1 RF: 0 albuterol sulfate 90 mcg/actuation HFA aerosol inhaler 1 - 2 puff inhalation Q4H PRN PRN (Reason: Wheezing) Qty: 3 RF: 3 Referrals / Follow Up: Trang Talamantes DO [Primary Care Provider] - 3-5 Days Disposition Disposition (needs filled in before D/C Order can be placed): Retirement Facility Documented by User: Dr. Erich Jennings DO 01/28/21 21:42 Allergies/Procedures Done in Hospital Allergies gabapentin [From Neurontin] Allergy (Verified 01/25/21 11:32) PT UNSURE OF REACTION insulin detemir [From Levemir] Allergy (Verified 01/25/21 11:32) Hives amlodipine [From Norvasc] Adverse Reaction (Verified 01/25/21 11:32) Itching Discharge Plan Admission Admit Date/Time: 01/25/21 18:11 Primary Reason for Your Visit: UTI, debility Attending Provider: Erich Jennings Primary Care Provider: Trang Talamantes Instructions Patient Instructions: ED Corrigan Catheter, Care, ED Fungal Skin Infection (Tinea), ED CYSTITIS Female Adult Discharge Orders/Prescriptions Prescriptions: New cephalexin [cephalexin] 500 MG capsule 500 mg PO Q6 Qty: 28 RF: 0 nystatin 100,000 unit/gram ointment 1 applic topical BID Qty: 30 RF: 0 fluconazole 100 mg Tablet 200 mg PO DAILY Qty: 5 RF: 0 No Action Dupixent Syringe 300 mg/2 mL syringe 300 mg SC Q2W RF: 0 multivitamin 1 EACH tablet 1 ea PO DAILY RF: 0 carvedilol 25 MG tablet 25 mg PO BID RF: 0 ascorbic acid (vitamin C) 1,000 MG tablet 1,000 mg PO DAILY RF: 0 venlafaxine 75 MG capsule,extended release 24hr 75 mg PO DAILY RF: 0 losartan 100 MG tablet 100 mg PO DAILY RF: 0 metformin 750 MG tablet extended release 24 hr 750 mg PO BID RF: 0 Ferrex 150 Plus 150 MG capsule 150 mg PO DAILYCM RF: 0 insulin degludec 200 UNIT/ML insulin pen 86 units SQ QHS RF: 0 insulin aspart U-100 [Novolog Flexpen U-100 Insulin] 100 unit/mL (3 mL) insulin pen 20 unit SUBCUT TID RF: 0 guaifenesin 1,200 mg tablet extended release 12hr 1,200 mg PO QHS RF: 0 (DME) oxygen-air delivery systems Device MISCELLANEOUS RF: 0 clonidine HCl 0.1 mg tablet 0.1 mg PO DAILY MDD HEART RF: 0 cholecalciferol (vitamin D3) [Vitamin D3] 25 mcg (1,000 unit) Tablet 25 mcg PO BID RF: 0 Anoro Ellipta 62.5-25 mcg/actuation blister with device 1 inh inhalation Q24H RF: 0 atorvastatin 20 mg tablet 20 mg PO QHS RF: 0 furosemide 20 mg tablet 20 mg PO MOWEFR RF: 0 nystatin 100,000 unit/gram powder 1 applic TOPICAL DAILY PRN PRN (Reason: Skin Cleansing) RF: 0 (DME) spacer 0 .Route .MEDSUPPLY Qty: 1 RF: 0 albuterol sulfate 90 mcg/actuation HFA aerosol inhaler 1 - 2 puff inhalation Q4H PRN PRN (Reason: Wheezing) Qty: 3 RF: 3 Referrals / Follow Up: Trang Talamantes DO [Primary Care Provider] - 3-5 Days Disposition Disposition (needs filled in before D/C Order can be placed): Retirement Facility
--- NOTE | 2021-01-27 14:58 | PCM.DC.SUM ---
Documented by User: TANIA Rodriguez 01/27/21 15:03 Providers Date of Admission: 01/25/21 Primary Care Physician: Dr. Trang Talamantes DO Reason For Visit: CYSTITIS, DEBILITY Diagnosis Discharge Diagnosis (1) Urinary tract infection: Status: Acute Code(s): N39.0 - Urinary tract infection, site not specified Qualifiers: Hematuria presence: without hematuria Urinary tract infection type: acute cystitis Qualified Code(s): N30.00 - Acute cystitis without hematuria (2) COVID-19: Status: Acute Code(s): U07.1 - COVID-19 Medications at Discharge Home Medications ascorbic acid (vitamin C) 1,000 mg PO DAILY 06/17/18 carvedilol 25 mg PO BID 06/17/18 insulin degludec 86 units SQ QHS 06/17/18 iron aspgl,ps complex-vit C-sa [Ferrex 150 Plus] 150 mg PO DAILYCM 06/17/18 losartan 100 mg PO DAILY 06/17/18 metformin 750 mg PO BID 06/17/18 multivitamin 1 ea PO DAILY 06/17/18 venlafaxine 75 mg PO DAILY 06/17/18 spacer #1 ea 09/27/18 dupilumab 300 mg/2 mL subcutaneous syringe 300 mg SC Q2W 01/07/20 albuterol sulfate 90 mcg/actuation aerosol inhaler 1 - 2 puff INHALATION Q4H PRN PRN #3 device 10/26/20 guaifenesin 1,200 mg PO QHS 11/19/20 insulin aspart U-100 [Novolog Flexpen U-100 Insulin] 20 unit SUBCUT TID 11/19/20 oxygen-air delivery systems 11/19/20 cholecalciferol (vitamin D3) [Vitamin D3] 25 mcg PO BID 01/17/21 clonidine HCl 0.1 mg PO DAILY MDD HEART 01/17/21 umeclidinium-vilanterol [Anoro Ellipta] 1 inh INHALATION Q24H 01/17/21 atorvastatin 20 mg PO QHS 01/25/21 cephalexin 500 mg PO Q6 #28 capsule 01/25/21 furosemide 20 mg PO MOWEFR 01/25/21 nystatin 1 applic TOPICAL BID #30 g 01/25/21 nystatin 1 applic TOPICAL DAILY PRN PRN 01/25/21 fluconazole 200 mg PO DAILY #5 tab 01/27/21 Hospital Course Operations None Summary of Care Provided Minutes Spent on Discharge: 35 Hospital Course: Patient is a 80-year-old female who initially presented with debility and urinary complaints. Patient was initiated on Keflex p.o. as well as Diflucan and nystatin for her Kanchan yeast infection. Patient is being discharged to [facility] for further PT and OT for her debility following Covid. Physical Exam Const alert and oriented x3 HEENT head/scalp atraumatic Eyes conjunctivae normal and no scleral icterus Neck full ROM and supple General: trachea midline Resp normal respiratory effort and clear to auscultation bilaterally Cardio regular rate, regular rhythm, S1 normal heart sound and S2 normal heart sound GI normal to inspection, nondistended, normoactive bowel sounds, soft to palpation and non-tender Extremity normal to inspection and full ROM General Extremity: edema bilateral lower extremity Details: moderate Skin no rashes or lesions noted, no wounds and skin turgor normal Neuro oriented x3, moves all extremities, no focal motor deficits and no sensory deficits noted Sensorium / Orientation: awake and alert Psych affect normal Weight / BMI Weight Weight: 220 lb 10.923 oz Body Mass Index (BMI) 43.1 ABG / Lab / Microbiology Data Result Diagrams: 01/27/21 07:00 01/27/21 06:50 Laboratory: Laboratory Results - last 24 hr 01/26/21 17:16: POC Glucose 278 H 01/26/21 22:00: POC Glucose 135 H 01/27/21 06:50: Sodium 140, Potassium 4.3, Chloride 111 H, Carbon Dioxide 22.0, Anion Gap 7, BUN 49 H, Creatinine 0.97, Estim Creat Clear Calc 33.78, Est GFR (MDRD) Af Amer 71, Est GFR (MDRD) Non-Af 59 L, BUN/Creatinine Ratio 50.6 H, Glucose 116 H, Calcium 8.4 L 01/27/21 07:00: WBC 5.7, RBC 3.77 L, Hgb 11.3 L, Hct 34.4 L, MCV 91.2, MCH 30.0, MCHC 32.8, RDW Std Deviation 48.3 H, RDW Coeff of Harvey 14.4, Plt Count 163, MPV 9.8, Immature Gran % (Auto) 1.400 H, Neut % (Auto) 50.8, Lymph % (Auto) 36.7, [place] % (Auto) 9.3, Eos % (Auto) 1.6, Baso % (Auto) 0.2, Absolute Neuts (auto) 2.9, Absolute Lymphs (auto) 2.08, Nucleated RBC % 0, Reactive Lymphocytes 1+ 01/27/21 12:09: POC Glucose 213 H D/C Instructions Discharge Diet: Low fat / Low cholesterol and 1800 Calorie Control Diet Discharge Activity: Return to Normal Activity Call your doctor if you observe: Inability to urinate Meaningful Use Info Meaningful Use Diagnoses (Choose all that apply): None applicable Discharge Plan Admission Admit Date/Time: 01/25/21 18:11 Primary Reason for Your Visit: UTI, debility Attending Provider: Erich Jennings Primary Care Provider: Trang Talamantes Instructions Patient Instructions: ED Corrigan Catheter, Care, ED Fungal Skin Infection (Tinea), ED CYSTITIS Female Adult Discharge Orders/Prescriptions Prescriptions: New cephalexin [cephalexin] 500 MG capsule 500 mg PO Q6 Qty: 28 RF: 0 nystatin 100,000 unit/gram ointment 1 applic topical BID Qty: 30 RF: 0 fluconazole 100 mg Tablet 200 mg PO DAILY Qty: 5 RF: 0 No Action Dupixent Syringe 300 mg/2 mL syringe 300 mg SC Q2W RF: 0 multivitamin 1 EACH tablet 1 ea PO DAILY RF: 0 carvedilol 25 MG tablet 25 mg PO BID RF: 0 ascorbic acid (vitamin C) 1,000 MG tablet 1,000 mg PO DAILY RF: 0 venlafaxine 75 MG capsule,extended release 24hr 75 mg PO DAILY RF: 0 losartan 100 MG tablet 100 mg PO DAILY RF: 0 metformin 750 MG tablet extended release 24 hr 750 mg PO BID RF: 0 Ferrex 150 Plus 150 MG capsule 150 mg PO DAILYCM RF: 0 insulin degludec 200 UNIT/ML insulin pen 86 units SQ QHS RF: 0 insulin aspart U-100 [Novolog Flexpen U-100 Insulin] 100 unit/mL (3 mL) insulin pen 20 unit SUBCUT TID RF: 0 guaifenesin 1,200 mg tablet extended release 12hr 1,200 mg PO QHS RF: 0 (DME) oxygen-air delivery systems Device MISCELLANEOUS RF: 0 clonidine HCl 0.1 mg tablet 0.1 mg PO DAILY MDD HEART RF: 0 cholecalciferol (vitamin D3) [Vitamin D3] 25 mcg (1,000 unit) Tablet 25 mcg PO BID RF: 0 Anoro Ellipta 62.5-25 mcg/actuation blister with device 1 inh inhalation Q24H RF: 0 atorvastatin 20 mg tablet 20 mg PO QHS RF: 0 furosemide 20 mg tablet 20 mg PO MOWEFR RF: 0 nystatin 100,000 unit/gram powder 1 applic TOPICAL DAILY PRN PRN (Reason: Skin Cleansing) RF: 0 (DME) spacer 0 .Route .MEDSUPPLY Qty: 1 RF: 0 albuterol sulfate 90 mcg/actuation HFA aerosol inhaler 1 - 2 puff inhalation Q4H PRN PRN (Reason: Wheezing) Qty: 3 RF: 3 Referrals / Follow Up: Trang Talamantes DO [Primary Care Provider] - 3-5 Days Disposition Disposition (needs filled in before D/C Order can be placed): [facility] Documented by User: Dr. Erich Jennings DO 01/28/21 21:40 Providers Date of Admission: 01/25/21 Reason For Visit: CYSTITIS, DEBILITY Medications at Discharge Home Medications ascorbic acid (vitamin C) 1,000 mg PO DAILY 06/17/18 carvedilol 25 mg PO BID 06/17/18 insulin degludec 86 units SQ QHS 06/17/18 iron aspgl,ps complex-vit C-sa [Ferrex 150 Plus] 150 mg PO DAILYCM 06/17/18 losartan 100 mg PO DAILY 06/17/18 metformin 750 mg PO BID 06/17/18 multivitamin 1 ea PO DAILY 06/17/18 venlafaxine 75 mg PO DAILY 06/17/18 spacer #1 ea 09/27/18 dupilumab 300 mg/2 mL subcutaneous syringe 300 mg SC Q2W 01/07/20 albuterol sulfate 90 mcg/actuation aerosol inhaler 1 - 2 puff INHALATION Q4H PRN PRN #3 device 10/26/20 guaifenesin 1,200 mg PO QHS 11/19/20 insulin aspart U-100 [Novolog Flexpen U-100 Insulin] 20 unit SUBCUT TID 11/19/20 oxygen-air delivery systems 11/19/20 cholecalciferol (vitamin D3) [Vitamin D3] 25 mcg PO BID 01/17/21 clonidine HCl 0.1 mg PO DAILY MDD HEART 01/17/21 umeclidinium-vilanterol [Anoro Ellipta] 1 inh INHALATION Q24H 01/17/21 atorvastatin 20 mg PO QHS 01/25/21 cephalexin 500 mg PO Q6 #28 capsule 01/25/21 furosemide 20 mg PO MOWEFR 01/25/21 nystatin 1 applic TOPICAL BID #30 g 01/25/21 nystatin 1 applic TOPICAL DAILY PRN PRN 01/25/21 fluconazole 200 mg PO DAILY #5 tab 01/27/21 ABG / Lab / Microbiology Data Result Diagrams: 01/27/21 07:00 01/27/21 06:50 Discharge Plan Admission Admit Date/Time: 01/25/21 18:11 Primary Reason for Your Visit: UTI, debility Attending Provider: Erich Jennings Primary Care Provider: Trang Talamantes Instructions Patient Instructions: ED Corrigan Catheter, Care, ED Fungal Skin Infection (Tinea), ED CYSTITIS Female Adult Discharge Orders/Prescriptions Prescriptions: New cephalexin [cephalexin] 500 MG capsule 500 mg PO Q6 Qty: 28 RF: 0 nystatin 100,000 unit/gram ointment 1 applic topical BID Qty: 30 RF: 0 fluconazole 100 mg Tablet 200 mg PO DAILY Qty: 5 RF: 0 No Action Dupixent Syringe 300 mg/2 mL syringe 300 mg SC Q2W RF: 0 multivitamin 1 EACH tablet 1 ea PO DAILY RF: 0 carvedilol 25 MG tablet 25 mg PO BID RF: 0 ascorbic acid (vitamin C) 1,000 MG tablet 1,000 mg PO DAILY RF: 0 venlafaxine 75 MG capsule,extended release 24hr 75 mg PO DAILY RF: 0 losartan 100 MG tablet 100 mg PO DAILY RF: 0 metformin 750 MG tablet extended release 24 hr 750 mg PO BID RF: 0 Ferrex 150 Plus 150 MG capsule 150 mg PO DAILYCM RF: 0 insulin degludec 200 UNIT/ML insulin pen 86 units SQ QHS RF: 0 insulin aspart U-100 [Novolog Flexpen U-100 Insulin] 100 unit/mL (3 mL) insulin pen 20 unit SUBCUT TID RF: 0 guaifenesin 1,200 mg tablet extended release 12hr 1,200 mg PO QHS RF: 0 (DME) oxygen-air delivery systems Device MISCELLANEOUS RF: 0 clonidine HCl 0.1 mg tablet 0.1 mg PO DAILY MDD HEART RF: 0 cholecalciferol (vitamin D3) [Vitamin D3] 25 mcg (1,000 unit) Tablet 25 mcg PO BID RF: 0 Anoro Ellipta 62.5-25 mcg/actuation blister with device 1 inh inhalation Q24H RF: 0 atorvastatin 20 mg tablet 20 mg PO QHS RF: 0 furosemide 20 mg tablet 20 mg PO MOWEFR RF: 0 nystatin 100,000 unit/gram powder 1 applic TOPICAL DAILY PRN PRN (Reason: Skin Cleansing) RF: 0 (DME) spacer 0 .Route .MEDSUPPLY Qty: 1 RF: 0 albuterol sulfate 90 mcg/actuation HFA aerosol inhaler 1 - 2 puff inhalation Q4H PRN PRN (Reason: Wheezing) Qty: 3 RF: 3 Referrals / Follow Up: Trang Talamantes DO [Primary Care Provider] - 3-5 Days Disposition Disposition (needs filled in before D/C Order can be placed): [facility] Charges/Coding Addendum Addendum: Patient was seen and examined today independently of Prabha Wolfe, she appears stable for discharge to a senior care facility today. On examination she appeared her stated age, she does not appear to be in any distress. Vital signs as documented. Skin warm and dry. Neck without JVD, thyroid appears normal, trachea is midline, neck is supple. Lungs clear, normal air movement was noted. Heart exam notable for regular rhythm, normal sounds and absence of murmurs, rubs or gallops. Abdomen unremarkable and without evidence of organomegaly, masses, or abdominal aortic enlargement, bowel sounds are present in all 4 quadrants, no abdominal tenderness was noted. Extremities nonedematous, no cyanosis was noted, no clubbing was noted. Neuro: Cranial nerves II through XII are grossly intact, no focal motor deficits were noted, sensation to light touch and pinprick is intact, motor exam 5/5 throughout. Psych: Patient is alert and oriented x3, she does not appear anxious or depressed, she does not appear agitated. Patient will be discharged to senior care facility today, I have reviewed Prabha Aiden's discharge summary including her medical assessment and plan of care and endorse it. Visit Charges OBSV E&M: 14237 Observation care discharge
--- NOTE | 2021-01-27 15:56 | CASEMGMT ---
Social Work Note ELADIO faxed completed discharge paperwork to [facility] including transfer to extended care facility, signed medication list, any scripts, COVID tool and PAS/RR. Original in SNF folder and copy on pt's chart. ELADIO completed PAS/RR in [facility]. Original in SNF folder and copy on pt's chart. ELADIO accessed trip assist and arranged transportation via wheelchair van for 5:00pm. Transportation form completed and placed on SNF folder and copy on pt's chart. ELADIO placed a call to pt's room and let her know that pre-cert has been obtained for [facility] and pt will discharge to [facility] today at 5:00pm. ELADIO informed pt that this worker will call her daughter Ofelia to update and pt states understanding. ELADIO placed a call to pt's daughter Ofelia and left message updating her on approval and discharge to [facility] today. ELADIO placed a call to Jenifer at [facility] and updated her on transportation time. RN updated on transportation time. Plan: Discharge to [facility] today with Physician's transporting pt via wheelchair van at 5:00pm Vicky Solorio MEDICAL SECRETARY TEACHER, PATIENT EDUCATOR
[2021-01-27 17:05] LABS: Bedside Glucose 183 mg/dL (70-110)
== END 2021-01-27 17:09 | disposition skilled nursing facility (03) ==
LOC: ED 18:56 → MS3 20:23
PROVIDERS: Physician Assistant; Admitting Provider Internal Medicine; Emergency Provider Emergency Medicine; PCP Internal Medicine; Visit Provider Internal Medicine
DX: N30.00 Acute cystitis without hematuria (principal); U07.1 COVID-19; B37.9 Candidiasis, unspecified; E11.22 Type 2 diabetes mellitus with diabetic chronic kidney disease; I12.9 Hypertensive chronic kidney disease with stage 1 through stage 4 chronic kidney disease, or unspecified chronic kidney disease; E11.51 Type 2 diabetes mellitus with diabetic peripheral angiopathy without gangrene; N18.31 Chronic kidney disease, stage 3a; D50.9 Iron deficiency anemia, unspecified; J44.9 Chronic obstructive pulmonary disease, unspecified; B35.6 Tinea cruris; E78.5 Hyperlipidemia, unspecified; K76.0 Fatty (change of) liver, not elsewhere classified; E66.01 Morbid (severe) obesity due to excess calories; Z87.891 Personal history of nicotine dependence; Z79.899 Other long term (current) drug therapy; Z79.4 Long term (current) use of insulin; Z68.41 Body mass index [BMI] 40.0-44.9, adult; Z99.81 Dependence on supplemental oxygen
CPT/HCPCS: 36415; 51702; 71045; 80048; 80053; 81001; 82962; 83605; 85025; 94640; 96365; 96372; 96375; 97162; 97166; 97530; 97535; 99218; 99285; J7050; A4216; G0378

== ENCOUNTER → 2021-02-23 10:23 | Outpatient (CLI) | payer MEDICARE, SELFPAY ==
--- NOTE | 2021-02-23 10:26 | CT_ITS ---
STUDY: CTA CHEST REASON FOR EXAM: Female, 80 years old. Shortness of breath with history of COVID pneumonia one month ago RADIATION DOSAGE (If Supplied By Facility): CTDIvol = ( 11.38 ) mGy, DLP = ( 480.82 ) mGycm TECHNIQUE: The examination was performed with the intravenous administration of IV 100mL Isovue-370. Post-processing of the angiographic images was performed, with multiplanar reformation and 3D reconstruction. Individualized dose optimization techniques were used for this CT. COMPARISON: 06/11/2020 FINDINGS: Normal enhancement of the main pulmonary artery and right and left pulmonary arteries. Normal enhancement of the bilateral peripheral pulmonary arteries. There is no demonstrated pulmonary embolism. Normal thoracic aorta and visualized great vessels. There is no demonstrated aortic dissection. Normal heart and pericardium. Normal mediastinum. Normal hilar regions. Normal visualized trachea and bronchi. The lungs are well expanded. Multifocal peripheral dominant infiltrates with features commonly reported with COVID pneumonia. The infiltrates are predominantly reticular with some scattered areas of groundglass opacity Normal pleura. Normal chest wall structures. Degenerative changes of the right shoulder. Degenerative changes throughout the thoracic spine. Normal visualized upper abdomen. CT/CTA Chest W/WO Contrast IMPRESSION: 1. No central or segmental pulmonary embolism. 2. Multifocal infiltrates with features commonly reported with COVID pneumonia, subacute or early chronic. Electronically Signed: Sam Klein MD (Brooks) at 10:56 EST , Service support ,
== END ==
PROVIDERS: PCP Internal Medicine; Referring Provider Internal Medicine; Visit Provider Internal Medicine
DX: R06.02 Shortness of breath (principal)
CPT/HCPCS: 71275; Q9967

== ENCOUNTER 2021-05-03 11:46 | Outpatient (CLI) | payer MEDICARE, SELFPAY | END 2021-05-03 23:59 | disposition home or self-care (01) | LOC: PSN 11:46 | PROVIDERS: PCP Internal Medicine; Referring Provider Internal Medicine; Visit Provider Internal Medicine | DX: R00.0 Tachycardia, unspecified (principal) | CPT/HCPCS: 93225; 93226 ==

== ENCOUNTER 2021-12-12 15:00 | Outpatient (RCR) | payer MEDICARE, SELFPAY ==
--- NOTE | 2021-11-23 10:41 | HP.PTEVAL ---
Patient's Visit Information VIC ALEXANDER is a 81 year old F referred to Physical Therapy by Dr. Trang Talamantes DO with a diagnosis of R shoulder pain/R supraspinatus and bicep tendonosis/ L shld weakness. Date of Evaluation: 11/23/21 Physical Therapist: SHAWN Malcolm - Visit Plan Frequency: 2x /Week Duration: 2 Months Plan: 2X/ week for 8 weeks for B shoulder strengthening and ROM (AROM and PROM) (but focus more on the R due to increase in pain and decrease in function), postural exercises with HEP and US and MT as needed. Pt is point tender along the deltoid insertion on the R. HEP: seated wand flexion and standing wand B shoulder IR (behind the back). - Subjective Pt has pain and points along the right deltoid area and it hurts all the time. It never stops hurting but it does change in severity of pain. If she moves her arm back into extension/retraction she says that her arm hurts. She is Right handed. This all started probably about a year ago and did not do anything to hurt it. She has no neck pain. She can lay on her R shoulder if she lays on her R side but it hurts even more if she lies on her L shoulder. She has no N&T. She struggles with lifting things and vaccumming and anything that creates movement including washing hair etc. She uses a rolling walker and has been using that for about 6 months due to bad back. It hurts to put pressure through the walker in her R arm. - Pain R shoulder pain Pain Intensity (Out of 10): 7 - Objective R handed: Installation Superintendent strength 27#R and 10#L. Shoulder AROM: Flex R 70 degrees , ABD 80, IR to greater trochanter, 10 ER. Flex 132, ABD 140 and IR L4, ER 22 degrees. Shoulder MMT: R ER 8.8#, IR 10.1, flex 3.2#, ABD. L ER 12.2#, IR 13,2, flex 7.2#. palpation R shoulder: tender at R deltoid insertion and under the acrominon on the R. Tender along the bicep groove. + HK for impingement. Posture: rounded shoulders and protracted shoulders. - Balance/Special Test Scores Quick DASH Score: 68.1800 - Goals Goal 1:: I HEP Goal Time Frame: 6-8 Weeks Goal 2:: Increase R shoulder AROM to equal the L (At time of the eval: shoulder AROM: Flex R 70 degrees , ABD 80, IR to greater trochanter, 10 ER. Flex 132, ABD 140 and IR L4, ER 22 degrees) Goal Time Frame: 6-8 Weeks Goal 3:: Increase B shoulder strength (at time of the eval: R ER 8.8#, IR 10.1, flex 3.2#, ABD. L ER 12.2#, IR 13,2, flex 7.2#) Goal Time Frame: 6-8 Weeks Goal 4:: Decrease R shoulder pain to less than 1/10 with ADL's Goal Time Frame: 6-8 Weeks - Rehabilitation Potential Rehabilitation Potential: Good - Anticipated Interventions Patient/Client Instruction: Educate patient on: Plan of Care For the Purpose of:: To decrease pain, To increase ROM, To improve muscle performance and motor function, To improve ability to perform ADL's, To increase tolerance to activity/condition/position, To improve performance and independence with ADL's, To decrease level of supervision to perform tasks, To improve ability of physical actions for home/community/work/leisure, To improve health of tissue, To decrease soft tissue restriction, To increase flexibility/ROM Therapeutic Exercise to Include: Strength training, Postural training, Flexibilty training, Passive ROM, Active ROM, Scapular Strength/Stabilization For the Purpose of:: To decrease pain, To decrease swelling/inflammation, To increase ROM, To improve muscle performance and motor function, To improve ability to perform ADL's, To increase tolerance to activity/condition/position, To improve performance and independence with ADL's, To decrease level of supervision to perform tasks, To improve ability of physical actions for home/community/work/leisure, To improve health of tissue, To decrease soft tissue restriction, To increase flexibility/ROM Manual Therapy Techniques to Include: Mobilization, Passive ROM, Soft tissue mobilization For the Purpose of:: To decrease pain, To increase ROM, To improve nutrient delivery to tissue, To increase oxygenation perfusion, To improve ability to perform ADL's, To increase tolerance to activity/condition/position, To improve health of tissue, To decrease soft tissue restriction, To increase flexibility/ROM Cryotherapy (ice pack, ice massage): Yes Thermo therapy (hot pack): Yes Ultrasound (thermal/non thermal): Yes For the Purpose of:: To decrease pain, To decrease swelling/inflammation, To increase ROM, To improve nutrient delivery to tissue Thank you for the opportunity to evaluate your patient. For Medicare and Medicare HMO plans, please review the plan of care and approve it. It will need to be FAXED BACK to us at [phone] for Medicare purposes. For Medicare only, by signing this I certify the plan of care. Please let me know if there are questions or concerns regarding this plan of care. Physician Signature: Date:
== END 2021-12-12 19:00 | disposition home or self-care (01) ==
LOC: PT 15:00
PROVIDERS: PCP Internal Medicine; Referring Provider Internal Medicine; Visit Provider Internal Medicine
DX: M75.22 Bicipital tendinitis, left shoulder (principal); M62.81 Muscle weakness (generalized)
CPT/HCPCS: 97035; 97110; 97161

== ENCOUNTER → 2021-12-31 | Outpatient (CLI) | payer MEDICARE, SELFPAY ==
--- NOTE | 2021-12-31 08:09 | MRI_ITS ---
STUDY: MRI RIGHT SHOULDER REASON FOR EXAM: Female, 81 years old. SHOULDER PAIN TECHNIQUE: Standardized fat and water weighted pulse sequences were obtained in all 3 orthogonal planes. COMPARISON: X-ray of the right shoulder dated November 11, 2021 FINDINGS: The glenohumeral joint space is severely narrowed with full-thickness loss of cartilage in both sides of the articulation. There is mild to moderate osteophyte formation of the medial inferior aspect of the humeral head is well. A moderate to large size joint effusion is present with diffuse synovitis as well as a few loose bodies in the joint space. There is 360 degrees diffuse and high-grade tearing of the glenoid labrum. A large full-thickness tear of the anterior aspect of the supra spinatus tendon is present with retraction of the tendon stump 2.94 cm from the greater tuberosity. There is moderate tendinosis and partial tearing of the infraspinatus at its insertion site. Normal subscapularis tendon. Normal teres minor tendon. There is mild muscular atrophy of the supraspinatus muscle. Normal infraspinatus muscle. There is mild muscular atrophy of the subscapularis muscle. Normal teres minor muscle. Normal biceps labral complex. There is tendinosis with thickening of the biceps tendon, but without a demonstrated tear. Normal labrum. Normal capsulo- ligamentous complex. Normal rotator interval. There is mild osteoarthritis of the acromioclavicular articulation. There is a Type II morphology (curved), with a neutral orientation. There is no subacromial-subdeltoid bursal fluid. Normal visualized coracohumeral and coracoacromial ligaments. Normal quadrilateral space. Normal axillary space. Normal deltoid muscle. Normal trapezius muscle. MRI/Upper Ext Joint Only(Routine) IMPRESSION: 1. 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 Large full-thickness tear the supraspinatus tendon 3. Biceps tendinosis 4. Diffuse labral tearing Electronically Signed: Regulo Martínez MD at 14:23 EST ,
== END | disposition home or self-care (01) ==
LOC: MRI 07:54
PROVIDERS: PCP Internal Medicine; Referring Provider Internal Medicine; Visit Provider Internal Medicine
DX: M25.511 Pain in right shoulder (principal); Z78.0 Asymptomatic menopausal state; Z12.31 Encounter for screening mammogram for malignant neoplasm of breast
CPT/HCPCS: 73221

== ENCOUNTER → 2022-03-08 | Outpatient (CLI) | payer MEDICARE, SELFPAY ==
--- NOTE | 2022-03-08 13:01 | BI_ITS ---
MAMMOGRAPHY - BILATERAL SCREENING REASON FOR EXAM: Female, 81 years old. Routine annual screening examination. PERTINENT HISTORY: Non-contributory. TECHNIQUE: Digital bilateral breast sherron (3D mammographic acquisition) in the CC and MLO projections. 2-D mediolateral oblique (MLO) and craniocaudad (CC) views of both breasts were obtained. CAD: Full Field Digital Mammography with Computer Added Detection was performed. COMPARISON: Comparison is made with prior study dated 02/18/2020 and 11/14/2007. FINDINGS: Breast Composition: The breasts are almost entirely fatty. There are no dominant masses or suspicious calcifications. Stable 1.1 mm benign-appearing lymph node in the left axillary region. No other significant abnormalities are identified. There has been no significant change since the prior study. BI/SCRN MAMM (CAD)W/SHERRON BILAT IMPRESSION: Stable bilateral screening mammogram. Yearly follow-up mammogram recommended. (A) ASSESSMENT CATEGORY: BIRADS Category 2: Benign. A letter regarding these results will be sent to the patient by the facility within 30 days. Approximately 10% of breast cancers are not detected by mammography. A normal mammogram should not delay biopsy of a clinically suspicious abnormality. [id number] Electronically Signed: Laureano Freeman MD at 13:53 EST ,
--- NOTE | 2022-03-08 13:20 | BD_ITS ---
STUDY: DUAL ENERGY X-RAY ABSORPTIOMETRY / DXA REASON FOR EXAM: Female, 81 years old. [id number] TECHNIQUE: Bone Mineral Density (BMD) measurements of lumbar spine and bilateral hips were obtained. COMPARISON: Comparison is made with prior study dated 02/18/2020. FINDINGS: Lumbar Spine (L1-L4): g/cm2 (1.617) / T-score (5.4) / Z-score (8.1) Findings are suggestive of normal bone density with a low fracture risk. Left Femur Total: g/cm2 (1.156) / T-score (1.8) / Z-score (3.8) Left Femoral Neck: g/cm2 (0.927) / T-score (0.7) / Z-score (3.0) Right Femur Total: g/cm2 (1.122) / T-score (1.5) / Z-score (3.6) Right Femoral Neck: g/cm2 (0.755) / T-score (-0.8) / Z-score (1.5) The T-Scores on the most recent prior examination were: Lumbar Spine (L1-L4): There has been improvement of bone density since the previous examination. Left Femur Total: which represents an improvement of 5.8%. Right Femur Total: which represents an improvement of 5.2%. BD/Dexa Bone Density Study IMPRESSION: The patient is considered normal as outlined below according to World [place] Organization (WHO) criteria with a low fracture risk. There has been improvement of bone density since the previous examination. Reference Information: The T-score is the number of standard deviations above or below the standard which is normal for young adults at their peak bone mineral density. The World Health Organization (WHO) interprets the T-scores as follows: Above -1 Normal bone density Between -1 and -2.5 Osteopenia Equal to / or below -2.5 Osteoporosis As a practical clinical guideline, osteopenia may be graded as follows: Mild -1 through -1.5 Moderate -1.6 through -2.0 Severe -2.1 through -2.4 The Z-score is the number of standard deviations above or below age-matched controls. A Z-score of less than -1.5 would be considered abnormal. References: 1. NIH Osteoporosis and Related Bone Diseases www osteo.org 2. International Society for Clinical Densitometry www iscd.org 3. National Osteoporosis Foundation www nof.org Electronically Signed: Laureano Freeman MD at 8:34 EST ,
== END | disposition home or self-care (01) ==
LOC: OPBI 12:59
PROVIDERS: PCP Internal Medicine; Referring Provider Internal Medicine; Visit Provider Internal Medicine
DX: Z12.31 Encounter for screening mammogram for malignant neoplasm of breast (principal); Z78.0 Asymptomatic menopausal state
CPT/HCPCS: 77063; 77067; 77080

== ENCOUNTER → 2023-03-21 | Outpatient (CLI) | payer MEDICARE, SELFPAY ==
--- NOTE | 2023-03-21 08:13 | BI_ITS ---
MAMMOGRAPHY - BILATERAL SCREENING REASON FOR EXAM: Female, 82 years old. Routine annual screening examination. PERTINENT HISTORY: Non-contributory. TECHNIQUE: Digital bilateral breast sherron (3D mammographic acquisition) in the CC and MLO projections. 2-D mediolateral oblique (MLO) and craniocaudad (CC) views of both breasts were obtained. CAD: Full Field Digital Mammography with Computer Added Detection was performed. COMPARISON: Comparison is made with prior study dated March 08, 2022 and February 18, 2020. FINDINGS: Breast Composition: The breasts are almost entirely fatty. There are no dominant masses or suspicious calcifications. Stable fat-containing lymph node in the left axilla. No other significant abnormalities are identified. There has been no significant change since the prior study. BI/SCRN MAMM (CAD)W/SHERRON BILAT IMPRESSION: Stable bilateral screening mammogram. Yearly follow-up mammogram recommended. (A) ASSESSMENT CATEGORY: BIRADS Category 2: Benign. A letter regarding these results will be sent to the patient by the facility within 30 days. Approximately 10% of breast cancers are not detected by mammography. A normal mammogram should not delay biopsy of a clinically suspicious abnormality. [id number] Electronically Signed: Laureano Freeman MD at 13:53 EST ,
== END | disposition home or self-care (01) ==
LOC: OPBI 08:13
PROVIDERS: PCP Internal Medicine; Referring Provider Internal Medicine; Visit Provider Internal Medicine
DX: Z12.31 Encounter for screening mammogram for malignant neoplasm of breast (principal)
CPT/HCPCS: 77063; 77067

== ENCOUNTER → 2023-12-20 | Outpatient (CLI) | payer MEDICARE, SELFPAY ==
[2023-12-20 17:40] LABS: Color, Urine Yellow (Yellow); Glucose, Dipstick 1000 mg/dl (Normal); Ketone-Dipstick Negative (Negative); Leukocyte Esterase-Dipstick 25 /ul (Negative); Nitrite-Dipstick Negative (Negative); Occult Blood-Urine 250 /ul (Negative); Protein-Dipstick 30 mg/dl (Negative); Urine Bilirubin Dipstick Negative (Negative); Urine Clarity Clear (Clear); Urine Urobilinogen Normal (Normal); Urine pH 6.5 (5.0 - 8.0)
== END | disposition home or self-care (01) ==
LOC: LABSPEC 16:48
PROVIDERS: PCP Internal Medicine; Referring Provider Nurse Practitioner Family; Visit Provider Nurse Practitioner Family
DX: N94.89 Other specified conditions associated with female genital organs and menstrual cycle (principal); N93.9 Abnormal uterine and vaginal bleeding, unspecified
CPT/HCPCS: 81002; 87077; 87086; 87088; 87186

== ENCOUNTER → 2023-12-26 | Outpatient (CLI) | payer MEDICARE, SELFPAY ==
--- NOTE | 2023-12-26 14:21 | US_ITS ---
HISTORY: postmenopausal bleeding -- if able please visualize bladder. TECHNIQUE: Transabdominal pelvic ultrasound was performed with ly scale and color Doppler evaluation. 94 images. COMPARISON: CT 02/22/2024. FINDINGS: UTERUS: 10.9 x 4.9 x 6.1 cm. Anteverted. ENDOMETRIAL THICKNESS: 2.3 cm, thickened and heterogeneous with mild internal vascular flow and a 1.1 cm cystic region. RIGHT OVARY: Not visualized. LEFT OVARY: 1.2 x 1.8 x 1.9 cm. 1.1 x 2.2 x 2.2 cm solid oval heterogeneous adnexal lesion. FREE FLUID: None. URINARY BLADDER: Partially distended at 90 cc. US/Pelvic (Non ) IMPRESSION: Marked thickening and heterogeneity of the endometrial complex. Recommend correlation with endometrial biopsy in a patient with postmenopausal bleeding to assess for neoplasm. 2.2 cm left adnexal mass, possible lymphadenopathy. Electronically Signed: Gayla Musa MD at 9:39 EDT ,
== END | disposition home or self-care (01) ==
PROVIDERS: PCP Internal Medicine; Referring Provider Nurse Practitioner Family; Visit Provider Nurse Practitioner Family
DX: N95.0 Postmenopausal bleeding (principal); R31.9 Hematuria, unspecified
CPT/HCPCS: 76856

== ENCOUNTER → 2024-03-14 | Outpatient (CLI) | payer MEDICARE, SELFPAY | END | disposition home or self-care (01) | PROVIDERS: PCP Internal Medicine; Referring Provider Nurse Practitioner Family; Visit Provider Nurse Practitioner Family | DX: J44.9 Chronic obstructive pulmonary disease, unspecified (principal) | CPT/HCPCS: 94060; 94726; 94729 ==

== ENCOUNTER → 2024-04-01 | Outpatient (CLI) | payer MEDICARE, SELFPAY ==
--- NOTE | 2024-04-01 14:10 | BI_ITS ---
PROCEDURE: SCRN MAMM (CAD)W/SHERRON BILAT REASON FOR EXAM: F, Age 83 y/o, presents for annual screening mammogram. TECHNIQUE: Bilateral screening digital breast tomosynthesis with 2D and 3D images. Computer aided detection. COMPARISON: 03/21/2023. FINDINGS: There are scattered areas of fibroglandular density. Somewhat limited examination due to decreased range of motion in the bilateral shoulders, particularly the right MLO view lacks axillary and posterior tissues. No suspicious masses, areas of developing architectural distortion, or suspicious calcifications. BI/SCRN MAMM (CAD)W/SHERRON BILAT IMPRESSION: There is no mammographic evidence of malignancy in either breast. BI-RADS 1: NEGATIVE. RECOMMEND ANNUAL MAMMOGRAPHIC SCREENING. Follow-up code: Routine Follow-up The patient will be notified of the results by letter. Reading Location: [id number]
--- NOTE | 2024-04-01 14:28 | BD_ITS ---
PROCEDURE: DEXA BONE DENSITY STUDY REASON FOR EXAM: Screening for osteoporosis. TECHNIQUE: DEXA scan of the lumbar spine and both hips. COMPARISON: Reviewed. FINDINGS: T-SCORES Lumbar spine: Total bone mineral density 1.551, T-score 4.9, Z-score 7.6. Decrease of 4% from the prior exam which is statistically significant. Left hip: Total bone mineral density 1.110, T-score 1.4, Z-score 3.6. Decrease a 4% from the prior exam which is statistically significant. Right hip: Total bone mineral density 1.042, T-score 0.8, Z-score 3.0, decreased 7% from the prior exam which is statistically significant. FRAX* Results: 10 Year Probability of Fracture: Hip Fracture(1): 1.4% Major Osteoporotic Fracture(2): 8% *FRAX is a trademark of the [employer] [place] for Metabolic Bone Disease, World Health Organization (WHO) Collaborating [place]. 1-The 10-year probability of fracture may be lower than reported if the patient has received treatment. 2-Major Osteoporotic Fracture: Clinical Spine, Forearm, Hip or Shoulder. The T-scores are also available for review on the [facility] PACS or by accessing the [facility] electronic medical record. BD/Dexa Bone Density Study IMPRESSION: Normal bone mineral density. [facility]
== END | disposition home or self-care (01) ==
PROVIDERS: PCP Internal Medicine; Referring Provider Internal Medicine; Visit Provider Internal Medicine
DX: Z12.31 Encounter for screening mammogram for malignant neoplasm of breast (principal); Z78.0 Asymptomatic menopausal state
CPT/HCPCS: 77063; 77067; 77080

== ENCOUNTER → 2024-04-04 | Outpatient (CLI) | payer MEDICARE, SELFPAY ==
[2024-04-04 13:15] VITALS: PULSE 79; PULSE 80; PULSE 81; PULSE 83; PULSE 85; PULSE 87; O2SAT 94; O2SAT 95; O2SAT 96; O2SAT 97; O2SAT 98
--- NOTE | 2024-04-07 12:21 | PCM.PSN.6M ---
PSN 6 Minute Walk Test 6 Minute Walk Test 6 Minute Walk Test: 6 Minute Walk Test PSN:6-Minute Walk Test Start: 04/04/24 13:15 Freq: Status: Active Protocol: [id number].[id number] Document 04/04/24 13:15 TATIANA (Rec: 04/04/24 13:24 MICHELLEON [id number]) 6 Minute Walk Test Date Performed 04/04/24 Time Performed 12:[address]: Rzaia Madera Assistive device Walker used: Pre-test Oxygen Delivery Room Air Method Pulse Ox (%) 98 Pulse Rate (60-100 79 beats/min) Dyspnea Elida Scale ( 0 0-10) Exertion Elida Scale 6 (6-20) 1st minute Oxygen Delivery Room Air Method Pulse Ox (%) 97 Pulse Rate (60-100 79 beats/min) 2nd minute Oxygen Delivery Room Air Method Pulse Ox (%) 98 Pulse Rate (60-100 81 beats/min) 3rd minute Oxygen Delivery Room Air Method Pulse Ox (%) 97 Pulse Rate (60-100 83 beats/min) 4th minute Oxygen Delivery Room Air Method Pulse Ox (%) 95 Pulse Rate (60-100 85 beats/min) 5th minute Oxygen Delivery Room Air Method Pulse Ox (%) 94 Pulse Rate (60-100 87 beats/min) 6th minute Oxygen Delivery Room Air Method Pulse Ox (%) 96 Pulse Rate (60-100 87 beats/min) Dyspnea Elida Scale ( 4 0-10) Exertion Elida Scale 13 (6-20) Post-test Oxygen Delivery Room Air Method Pulse Ox (%) 97 Pulse Rate (60-100 80 beats/min) Full Laps Walked 10 Partial Lap, Number 36 of Tiles Walked Total Distance 626 Walked (ft) Interpretation Interpretation: The patient ambulated 626 feet over the course of 6 minutes beginning on room air with the use of a walker. Pretesting oxygen saturation was noted to be 98% on room air. With ambulation, the estrellita oxygen saturation was 94%. Although there was evidence of impaired walk distance, there was no significant exertional oxygen desaturation. Recommendations Recommendations: There is no indication for the use of supplemental oxygen at this time.
== END | disposition home or self-care (01) ==
LOC: PSN 12:13
PROVIDERS: PCP Internal Medicine; Referring Provider Nurse Practitioner Family; Visit Provider Nurse Practitioner Family
DX: J44.9 Chronic obstructive pulmonary disease, unspecified (principal)
CPT/HCPCS: 94618

== ENCOUNTER → 2024-04-10 | Outpatient (CLI) | payer MEDICARE, SELFPAY ==
--- NOTE | 2024-04-10 12:19 | CT_ITS ---
PROCEDURE: CT chest abdomen and pelvis with IV contrast REASON FOR EXAM: Uterine carcinoma, cancer staging TECHNIQUE: Multiple contiguous axial images through the chest abdomen and pelvis were obtained after the administration of intravenous contrast. Two-dimensional coronal and sagittal reformatted images were reconstructed. Low-dose imaging technique was utilized. COMPARISON: No recent priors FINDINGS: Chest. Heart size is within normal limits. Moderate three-vessel coronary artery calcifications. No significant pericardial effusion. Calcified nonaneurysmal thoracic aorta without gross dissection. Normal caliber pulmonary arteries without central filling defects. No suspicious adenopathy. Superficial soft tissues are within normal limits. Central airways are patent. No acute infiltrates, pleural effusion or pneumothorax. No suspicious pulmonary nodule or mass. No acute or suspicious osseous abnormality. Degenerative changes of the spine and right glenohumeral joint. Mild chronic compression deformity of T12. Abdomen/pelvis. Cystic lesion width a couple of peripheral calcifications along the left hepatic lobe measuring 5.8 x 3.7 x 5.2 cm (AP, TV and CC dimensions). Spleen, pancreas and adrenal glands are intact. Gallbladder is satisfactory. No significant biliary ductal dilation. Kidneys enhance symmetrically. No suspicious renal mass, calculi or hydronephrosis. Urinary bladder is intact. Uterus is present. No bowel obstruction, focal bowel wall thickening or significant perienteric inflammation. Normal appendix. No pelvic free fluid. No free air. Severely calcified non aneurysmal abdominal aorta. No suspicious adenopathy. Small fat containing umbilical hernia. No acute osseous abnormality. Degenerative and postsurgical changes of the lumbar spine. CT/CT Chest, Abd, Pel w/Contrast IMPRESSION: 1. No evidence of metastatic disease to the chest. 2. Cystic lesion with a couple peripheral calcifications in the left hepatic lo be measuring up to 5.8 cm. 3. No suspicious solid mass or adenopathy within the abdomen/pelvis. One or more dose reduction techniques were used (e.g., Automated exposure contr ol, adjustment of the mA and/or kV according to patient size, use of iterative reconstruction technique). Reading Location: [facility]
[2024-04-10 12:47] LABS: CREATININE FINGERSTICK < 1.0 mg/dL (0.55-1.02); EGFR FINGERSTICK > 60.0000 mL/min (>60)
== END | disposition home or self-care (01) ==
LOC: CT 12:17
PROVIDERS: PCP Internal Medicine
DX: C54.1 Malignant neoplasm of endometrium (principal)
CPT/HCPCS: 71260; 74177; Q9967

== ENCOUNTER 2024-05-11 13:00 | Emergency (ER) | payer MEDICARE, SELFPAY ==
[2024-05-11 13:01] VITALS: BP 134/80; PULSE 78; RESP 18; TEMP 36.7; O2SAT 96
[2024-05-11 13:10] VITALS: BP 148/89; PULSE 100; RESP 18; TEMP 36.8; O2SAT 98; BMI 45.3
--- NOTE | 2024-05-11 13:53 | CT_ITS ---
PROCEDURE: CTA chest REASON FOR EXAM: Shortness of breath, pulmonary embolism TECHNIQUE: Multiple contiguous axial images of the chest were obtained after the administration of intravenous contrast. Two-dimensional and three-dimensional MIP coronal and sagittal reformatted images were reconstructed. Low-dose imaging technique was utilized. COMPARISON: 05/08/2024 FINDINGS: Heart size is within normal limits. Mild three-vessel coronary artery calcifications. No significant pericardial effusion. Calcified nonaneurysmal thoracic aorta without gross dissection. Normal caliber pulmonary arteries without filling defects. No suspicious adenopathy. Superficial soft tissues are within normal limits. No acute findings in the visualized upper abdomen. Central airways are patent. No acute infiltrates, pleural effusion or pneumothorax. No pulmonary mass. No acute osseous abnormality. Chronic appearing mild compression deformity of T11. Degenerative changes of the spine. CT/CTA Chest W/WO Contrast IMPRESSION: No acute process. One or more dose reduction techniques were used (e.g., Automated exposure contr ol, adjustment of the mA and/or kV according to patient size, use of iterative reconstruction technique). Reading Location: [facility]
--- NOTE | 2024-05-11 13:53 | EKG12_ITS ---
Test Reason : LOWER EXTREMITY PAIN Blood Pressure : */* mmHG Vent. Rate : 72 BPM Atrial Rate : 72 BPM P-R Int : 190 ms QRS Dur : 102 ms QT Int : 384 ms P-R-T Axes : 45 -22 35 degrees QTcB Int : 420 ms Normal sinus rhythm Low voltage QRS Inferior infarct , age undetermined Cannot rule out Anterior infarct , age undetermined Abnormal ECG Confirmed by MAIK MARTIN, AJAY ([id number]), film and video editor ROSY FUNES ([id number]) on 05/12/2024 8:23:51 AM Referred By: Confirmed By: AJAY PLEITEZ MD
--- NOTE | 2024-05-11 13:54 | CT_ITS ---
PROCEDURE: CT abdomen pelvis with IV contrast REASON FOR EXAM: Pain TECHNIQUE: Multiple contiguous axial images through the abdomen and pelvis were obtained after the administration of intravenous contrast. Two-dimensional coronal and sagittal reformatted images were reconstructed. Low-dose imaging technique was utilized. COMPARISON: April 10, 2024 FINDINGS: No acute findings in the lung bases. Unchanged complex cystic lesion along the left hepatic lobe measuring up to 6 cm. Spleen, pancreas and adrenal glands are intact. Gallbladder is satisfactory. No significant biliary ductal dilation. Kidneys enhance symmetrically. No suspicious renal mass, calculi or hydronephrosis. Urinary bladder is within normal limits. Uterus is absent. Tiny peripherally enhancing linear collection along the uterine fossa measuring 1.8 x 0.7 x 4.8 cm (AP, TV and CC dimensions). No bowel obstruction, focal bowel wall thickening or significant perienteric inflammation. Small umbilical hernia containing and non strangulated short-segment small bowel loop. No pelvic free fluid. Mild inflammatory changes in the pelvis. No free air. Calcified nonaneurysmal abdominal aorta. Enlarged left external iliac lymph node measuring up to 18 mm in short axis. Diffuse subcutaneous edema along the anterior abdominal wall without a drainable fluid collection. No acute osseous abnormality. Degenerative and postsurgical changes of the lumbar spine. Moderate bilateral hip osteoarthritis. CT/Abdomen/Pelvis W IV Cont ONLY IMPRESSION: 1. Status post hysterectomy with inflammatory changes in the pelvis and a tiny linear peripherally enhancing collection at the uterine fossa as above. Abscess and seroma are both considered. No free air o r free fluid. 2. Small umbilical hernia containing a non strangulated short-segment small bow el loop. 3. Unchanged complex cystic lesion in the left hepatic lobe measuring 6 cm. 4. Enlarged left external iliac chain lymph node measuring 18 mm in short axis. Reading Location: [facility]
[2024-05-11 14:14] LABS: Absolute Lymphocyte Count 2.09 X10^3/uL (0.83-4.51); Absolute Neutrophil Count 8.4 X10^3/uL (2.0-7.7); Basophil# 0.04 X10^3/uL; Basophil% 0.3 % (0-1); Eosinophil# 0.17 X10^3/uL; Eosinophils% 1.4 % (0-5); Hematocrit 37.9 % (37-47); Hemoglobin 12.6 g/dL (12.0-15.0); Lymphocyte # 2.09 X10^3/ul (0.83-4.51); Lymphocyte % 17.2 % (19-41); Mean Corp Hgb Conc 33.2 g/dL (32-36); Mean Corpuscular Volume 96.2 fL (81-99); Mean Platelet Vol. 9.3 fl (6.2-12.0); Monocyte# 1.36 X10^3/uL; Monocyte% 11.2 % (0-10); NRBC Flagged by Analyzer 0 % (0-5); Neutrophil # 8.43 X10^3/uL (2.7-7.7); Neutrophil % 69.4 % (47-70); Platelet Count 199 K/mm3 (150-450); RBC Distribution Width CV 14.9 % (11.6-14.6); RBC Distribution Width SD 52.8 fl (35.1-43.9); Red Blood Count 3.94 M/mm3 (4.2-5.4); White Blood Count 12.2 K/mm3 (4.4-11.0)
--- NOTE | 2024-05-11 14:26 | EX.ED.DYSGE1 ---
HPI History of Present Illness Chief Complaint: Lower Extremity Injury Narrative Narrative: Chief complaint and HPI: Left groin/hip pain. 83-year-old female with past medical history of CKD, COPD, HTN, HLD, DM presents for evaluation of left groin/hip pain. Patient was recently worked up for postmenopausal bleeding by [facility]BER TREATING TANK OPERATOR at [facility] Dr. Thomas. She was diagnosed with carcinoma and had a complete laparoscopic hysterectomy performed on 05/05. Patient states after being discharged from the hospital and getting into her car she developed left groin/hip pain. She states the pain has continued making it difficult to ambulate around the house. She denies any lower extremity swelling. Denies any trauma or fall. Patient does endorse intermittent shortness of breath other than her baseline but states that she thinks it secondary to the pain and not true shortness of breath. She denies any fever, chills, URI symptoms, cough, chest pain, abdominal pain, nausea, vomiting, dysuria. She had some constipation but this resolved. Review of systems: See HPI Medications: As listed on the chart Allergies: As listed on the chart PFSH: Per chart Vital signs: As listed on the chart. Reviewed. Physical exam: Gen: A&O x3, NAD Head: Normocephalic, atraumatic Eyes: No sclera icterus, conjunctiva clear ENT: Moist mucous membranes Neck: Trachea midline, No JVD CV: RRR, no murmurs, no peripheral edema Resp: Lungs CTA BL, no w/r/c GI: Abd soft, non-distended, non-tender, no r/r/g, laparoscopic incisions healing well without signs of infection or cellulitis : No CVA tenderness Musc: Limited range of motion of the left lower extremity secondary to left groin/hip pain, patient is tender to palpation of the left hip, femoral/DP/PT pulses +2, bilateral lower extremities without swelling or cellulitis, no calf tenderness, compartments soft Skin: Warm, dry Neuro: Alert, oriented, grossly intact, sensation intact Psych: Cooperative, appropriate mood and affect [facility] Medical History History of endometrial biopsy Wears dentures Post-menopausal Wears glasses Cancer History of steroid therapy Insulin dependent diabetes mellitus Diabetes Walker as ambulation aid Arthritis Anemia High cholesterol Back pain Former smoker On home oxygen therapy History of edema History of echocardiogram History of stress test 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 PVD (peripheral vascular disease) Lymphedema COPD exacerbation Iron deficiency anemia Anxiety Depression Osteoarthritis of knees, bilateral Knee pain, bilateral History of nephrolithiasis Morbid obesity with BMI of 40.0-44.9, adult Osteoarthritis Dermatitis Chronic renal failure, stage 3 (moderate) Foraminal stenosis of lumbar region Lumbar canal stenosis Steatosis of liver Dehydration HTN (hypertension) Renal failure Nephrolithiasis HLD (hyperlipidemia) DM type 2 (diabetes mellitus, type 2) Obesities, morbid Home Medications ?Medication ?Instructions ?Recorded ?Last Taken ?Type ascorbic acid (vitamin C) 1,000 mg 1,000 mg PO DAILY supplement 06/17/18 01/25/21 History tablet carvedilol 25 mg tablet 25 mg PO BID heart 06/17/18 01/25/21 History iron aspgl and ps cmplx 150 mg-vit 150 mg PO DAILYCM SUPPLEMENT 06/17/18 01/25/21 History C 50 mg-succinic acid 50 mg capsule (Ferrex) losartan 100 mg tablet 100 mg PO DAILY heart 06/17/18 01/24/21 History multivitamin 1 ea PO DAILY supplement 06/17/18 01/25/21 History venlafaxine 75 mg capsule,extended 75 mg PO DAILY depression 06/17/18 01/24/21 History release 24 hr spacer #1 ea 09/27/18 Unknown Rx dupilumab 300 mg/2 mL subcutaneous 300 mg subcut Q2W SKIN ISSUE 01/07/20 01/20/21 History syringe (Dupixent) oxygen-air delivery systems 11/19/20 Unknown History clonidine HCl 0.1 mg tablet 0.1 mg PO DAILY BP 01/17/21 01/24/21 History albuterol sulfate 90 mcg/actuation 1 - 2 puff inhalation Q4H PRN PRN 06/21/22 Unknown Rx aerosol inhaler Wheezing #1 device triamcinolone acetonide 0.1 % 1 applic topical TID PRN 06/06/23 Unknown History topical cream atorvastatin 20 mg tablet 20 mg PO .every other day 12/13/23 Unknown History CHOLESTEROL empagliflozin 25 mg tablet 25 mg PO DAILY #90 tabs 01/30/24 Unknown Rx (Jardiance) cholecalciferol (vitamin D3) 25 25 mcg PO QDAY SUPPLEMENT 02/29/24 Unknown History mcg (1,000 unit) tablet (Vitamin D3) furosemide 20 mg tablet 20 mg PO Q OTHER DAY 02/29/24 Unknown History gabapentin 300 mg capsule 300 mg PO DAILY Pain 02/29/24 Unknown History insulin aspart U-100 100 unit/mL 34 unit subcut TID diabetes 02/29/24 Unknown History (3 mL) subcutaneous pen (Novolog FlexPen U-100 Insulin aspart) umeclidinium 62.5 mcg-vilanterol 1 inh inhalation Q24H COPD 02/29/24 Unknown History 25 mcg/actuation powdr for inhalation (Anoro Ellipta) insulin glargine 100 60 unit (0.6 mL) subcut QAM #54 mL 03/05/24 Unknown Rx unit-lixisenatide 33 mcg/mL subcutaneous pen (Soliqua ) icosapent ethyl 1 gram capsule 2 g (2 x 1 gram) PO BID #360 caps 03/10/24 Unknown Rx (Vascepa) bromfenac 0.075 % eye drops 1 drp ophthalmic (eye) QDAY 04/11/24 Unknown History (BromSite) ofloxacin 0.3 % eye drops 1 drp ophthalmic (eye) 4X/DAY 04/11/24 Unknown History Allergy/AdvReac Type Severity Reaction Status Date / Time oxycodone (From Percocet) Allergy Unknown PT UNSURE Verified 04/11/24 10:09 OF REACTION insulin detemir (From Allergy Hives Verified 04/11/24 10:09 Levemir) amlodipine (From Norvasc) AdvReac Itching Verified 04/11/24 10:09 Family History Father Colon cancer Diabetes Mother Diabetes Other Advanced dementia Enlarged heart Surgical History History of hysteroscopy H/O cataract removal with insertion of prosthetic lens Hx of melanoma excision History of tonsillectomy and adenoidectomy Hx of surgical procedure History of back surgery Social History adopted: No housing: house Smoking Status: Former smoker quit date: 02/26/90 pack-years: 90 Tobacco: How many years used: 30 alcohol intake: former substance use type: does not use EXAM Physical Exam Const Vital Signs: 05/11/24 13:01 05/11/24 13:10 05/11/24 15:01 Temperature 98.1 F 98.3 F Temperature Source Oral Oral Pulse Rate 78 100 77 Respiratory Rate 18 18 Blood Pressure 134/80 H 148/89 H 148/71 H Blood Pressure Mean 98 108 96 Pulse Ox 96 98 98 Oxygen Delivery Method Room Air MDM MDM MDM Narrative Medical decision making narrative: 83-year-old female with past medical history of CKD, COPD, HTN, HLD, DM presents for evaluation of left groin/hip pain. Pain started shortly after leaving the hospital when she got into the vehicle. See physical exam findings. Differential diagnosis includes but is not limited to musculoskeletal strain, DVT, UTI, intra-abdominal abscess. Differential for shortness of breath is atelectasis, pain response, pneumonia, PE, suspect less likely ACS. On presentation, patient's vitals are stable except for mild hypertension. Patient was offered pain medication but declined as she states that when she is not moving her leg there is no pain. This makes me suspect more musculoskeletal strain. I do not have ultrasound to rule out DVT. Patient's D-dimer will likely be elevated given that she just had surgery. Surgery does make her high risk for DVT/PE. With her shortness of breath cannot rule out PE especially with inability to rule out DVT with ultrasound therefore CTA chest ordered. NS bolus will be ordered to help with contrast clearance. Labs ordered along with CT abdomen pelvis to assess for intra-abdominal pathology from recent surgery. EKG reviewed. CBC with mild leukocytosis of 12.2. Patient just had surgery. No anemia. CMP with baseline CKD. BNP unremarkable. Troponin 24. Patient not endorsing any chest pain. Will get repeat/delta. UA negative for UTI. CTA chest negative for PE or pneumonia. CT abdomen pelvis shows status post hysterectomy with inflammatory changes in the pelvis and a tiny linear peripheral enhancing collection at the uterine fossa. Abscess and seroma both considered. No free air or free fluid. Small umbilical hernia containing a non-strangulated short segment small bowel loop. Unchanged complex cystic lesion in the left hepatic lobe. Enlarged left external iliac chain lymph node measuring [address] abdomen pelvis finding, her TIMBER TREATING TANK OPERATOR Dr. Mauricio Was contacted and patient was discussed. She states that the patient had a a lot of edematous tissue during surgery. She also placed a hemostatic agent at the uterine fossa which she suspects is what the CT abdomen pelvis is showing given that there is no air. She states that she is not surprised that the patient is complaining of some left hip pain given the position she was placed in surgery. If remainder of the workup is unremarkable, okay with discharge home. Her office will call her for follow-up. at this point in time, no clear etiology to explain patient's left hip pain. Again I suspect it is musculoskeletal in nature given that pain is related to movement and patient noticed pain after shortly getting into a car. However given I do not have ultrasound here I still cannot rule out DVT. Will provide outpatient ultrasound ordered to assess for DVT. Patient's delta troponin pending. I suspect that it will be unremarkable. If delta is unremarkable, plan will be for discharge home patient confirmed understanding of plan. Will give Lidoderm patch here to help with pain. Discussion was had if patient needs PT/OT/skilled facility placement. She declined. She was told to follow-up with her PCP for her left hip pain. Her TIMBER TREATING TANK OPERATOR as well. Return precautions explained. She confirmed understand the plan. Patient was signed out to oncoming physician, Dr. Hermosillo. He will await troponin result for final disposition. EKG: Interpreted by me/EM physician: EKG shows normal sinus rhythm. And no acute ischemic changes. Heart rate 72. Impression: 1. Left groin/hip pain 2. Status post total hysterectomy Lab Data Labs: Laboratory Results - last 24 hr 05/11/24 05/11/24 14:09 15:38 WBC 12.2 H RBC 3.94 L Hgb 12.6 Hct 37.9 MCV 96.2 MCH 32.0 MCHC 33.2 RDW Std Deviation 52.8 H RDW Coeff of Harvey 14.9 H Plt Count 199 MPV 9.3 Immature Gran % (Auto) 0.500 Neut % (Auto) 69.4 Lymph % (Auto) 17.2 L [place] % (Auto) 11.2 H Eos % (Auto) 1.4 Baso % (Auto) 0.3 Absolute Neuts (auto) 8.4 H Absolute Lymphs (auto) 2.09 Nucleated RBC % 0 Sodium 137 Potassium 5.1 Chloride 101 Carbon Dioxide 27.2 Anion Gap 9 BUN 35 H Creatinine 1.44 H Estim Creat Clear Calc 32.99 L Est GFR (MDRD) Non-Af 36 L BUN/Creatinine Ratio 24.4 H Glucose 98 Calcium 9.6 Troponin T High Sens 24 H NT pro BNP II 43 Urine Color Yellow Urine Clarity Clear Urine pH 7.0 Ur Specific Reading 1.005 Urine Protein Negative Urine Glucose (UA) 1000 H Urine Ketones Negative Urine Occult Blood Negative Urine Nitrite Negative Urine Bilirubin Negative Urine Urobilinogen Normal Ur Leukocyte Esterase 100 H Urine RBC 0 SEEN Urine WBC 5-10 SEEN Ur Squamous Epith Cells 0-5 SEEN Urine Bacteria 0 SEEN Urine Mucus 0 SEEN Radiography Diagnostic Testing: Clinical Impression(s) from Imaging Studies Chest CTA 05/11/24 13:53 IMPRESSION: No acute process. One or more dose reduction techniques were used (e.g., Automated exposure control, adjustment of the mA and/or kV according to patient size, use of iterative reconstruction technique). Reading Location: [facility] Abdomen/Pelvis CT 05/11/24 13:54 IMPRESSION: 1. Status post hysterectomy with inflammatory changes in the pelvis and a tiny linear peripherally enhancing collection at the uterine fossa as above. Abscess and seroma are both considered. No free air or free fluid. 2. Small umbilical hernia containing a non strangulated short-segment small bowel loop. 3. Unchanged complex cystic lesion in the left hepatic lobe measuring 6 cm. 4. Enlarged left external iliac chain lymph node measuring 18 mm in short axis. Reading Location: [facility] Discharge Plan Triage Chief Complaint: Lower Extremity Injury ED Provider: Eugenio Infante Dx/Rx/DC Orders Prescriptions: No Action Dupixent Syringe 300 mg/2 mL syringe 300 mg SC Q2W albuterol sulfate 90 mcg/actuation HFA aerosol inhaler 1 - 2 puff inhalation Q4H PRN PRN (Reason: Wheezing) Qty: 1 3RF Rx Instructions: use for shortness of breath and for wheezing triamcinolone acetonide 0.1 % cream 1 applic topical TID PRN icosapent ethyl [Vascepa] 1 gram capsule 2 g PO BID Qty: 360 1RF gabapentin 300 mg capsule 300 mg PO DAILY furosemide 20 mg tablet 20 mg PO Q OTHER DAY Anoro Ellipta 62.5-25 mcg/actuation blister with device 1 inh inhalation Q24H bromfenac [BromSite] 0.075 % drops 1 drp ophthalmic (eye) QDAY ofloxacin 0.3 % drops 1 drp ophthalmic (eye) 4X/DAY multivitamin 1 EACH tablet 1 ea PO DAILY carvedilol 25 MG tablet 25 mg PO BID ascorbic acid (vitamin C) 1,000 MG tablet 1,000 mg PO DAILY venlafaxine 75 MG capsule,extended release 24hr 75 mg PO DAILY losartan 100 MG tablet 100 mg PO DAILY Ferrex 150 Plus 150 MG capsule 150 mg PO DAILYCM (DME) oxygen-air delivery systems Device MISCELLANEOUS Rx Instructions: 2L AT HS insulin aspart U-100 [Novolog FlexPen U-100 Insulin] 100 unit/mL (3 mL) insulin pen 34 unit SUBCUT TID Protocol: 1. Sliding Scale Insulin Low Dosing Condition: 150-224 mg/dl = 1 unit Condition: 225-299 mg/dl = 2 units Condition: 300-374 mg/dl = 3 units Condition: 375-499 mg/dl = 4 units Condition: Greater than 449 call physician Protocol Text: - Use for Total Daily Dose of Insulin 15-27 units - Thin, elderly, renal patients LOW DOSING ALGORITHM clonidine HCl 0.1 mg tablet 0.1 mg PO DAILY MD[facility] cholecalciferol (vitamin D3) [Vitamin D3] 25 mcg (1,000 unit) tablet 25 mcg PO QDAY atorvastatin 20 mg tablet 20 mg PO .every other day (DME) spacer 0 .Route .MEDSUPPLY Qty: 1 0RF Rx Instructions: As directed Jardiance 25 mg tablet 25 mg PO DAILY Qty: 90 1RF Soliqua 100/33 100 unit-33 mcg/mL insulin pen 60 unit subcut QAM Qty: 54 1RF Primary Care Provider: Trang Talamantes Referrals: Trang Talamantes DO [Primary Care Provider] - Print Language: Cape Verdean
[2024-05-11 14:34] LABS: Anion Gap 9 (5-15); BUN 35 mg/dL (4-19); BUN/Creat Ratio 24.4 RATIO (10-20); Calcium,Total 9.6 mg/dL (7.6-11.0); Carbon Dioxide 27.2 mmol/L (21.0-32.0); Chloride 101 mmol/L (98-108); Creatinine, Serum 1.44 mg/dL (0.70-1.20); EST Glomerular Filtration Rate 36 (>60); Estimated Creatinine Clearance 32.99 ml/min (50-250); Glucose 98 mg/dL (70-99); Potassium 5.1 mmol/L (3.3-5.1); Pro- Brain NATRIURETIC PEPTIDE 43 pg/mL (<=1800); Sodium Level 137 mmol/L (133-145)
[2024-05-11 14:55] LABS: Troponin T High Sensitivity 24 ng/L (<=14)
[2024-05-11 15:01] VITALS: BP 148/71; PULSE 77; O2SAT 98
[2024-05-11] MEDS: 0.9% Normal Saline (1000mL) 1,000 ML 1000 ML IV (15:24)
[2024-05-11 15:42] LABS: Bacteria 0 SEEN /hpf (None Seen); Mucous, Urine 0 SEEN /hpf (<or=2+)
[2024-05-11 15:44] LABS: Color, Urine Yellow (Yellow); Glucose, Dipstick 1000 mg/dl (Normal); Ketone-Dipstick Negative (Negative); Leukocyte Esterase-Dipstick 100 /ul (Negative); Nitrite-Dipstick Negative (Negative); Occult Blood-Urine Negative /ul (Negative); Protein-Dipstick Negative (Negative); Specific Gravity, Urine 1.005 (1.002-1.030); Urine Bilirubin Dipstick Negative (Negative); Urine Clarity Clear (Clear); Urine Urobilinogen Normal (Normal)
[2024-05-11 15:54] LABS: Red Blood Cells-Urine 0 SEEN /hpf (0-5); Squamous Epithelial Cells - UA 0-5 SEEN /hpf (5-10); White Blood Cells 5-10 SEEN /hpf (0-5)
[2024-05-11] MEDS: Lidocaine 5% Patch 1 PATCH TOPICAL (16:59)
[2024-05-11 17:00] VITALS: BP 138/78; PULSE 69; RESP 16; O2SAT 98
[2024-05-11 17:08] LABS: Troponin T High Sens 2 HR 21 ng/L (<=14)
== END 2024-05-11 18:29 | disposition home or self-care (01) ==
PROVIDERS: Emergency Provider Surgery; PCP Internal Medicine; Visit Provider Surgery
DX: M25.552 Pain in left hip (principal); J44.9 Chronic obstructive pulmonary disease, unspecified; E11.22 Type 2 diabetes mellitus with diabetic chronic kidney disease; Z79.4 Long term (current) use of insulin; N18.30 Chronic kidney disease, stage 3 unspecified; E78.00 Pure hypercholesterolemia, unspecified; Z87.891 Personal history of nicotine dependence; I12.9 Hypertensive chronic kidney disease with stage 1 through stage 4 chronic kidney disease, or unspecified chronic kidney disease; Z90.710 Acquired absence of both cervix and uterus; Z79.899 Other long term (current) drug therapy; F32.A Depression, unspecified; R06.02 Shortness of breath
CPT/HCPCS: 71275; 74177; 80048; 81001; 83880; 84484; 85025; 93005; 96360; 96361; 99283; Q9967; A4216

== ENCOUNTER → 2024-05-12 | Outpatient (CLI) | payer MEDICARE, SELFPAY ==
--- NOTE | 2024-05-12 13:05 | VDLE_ITS ---
Reason For Study Reason For Study: LLE Pain Procedure LEFT This is a venous duplex using B-mode, color flow and CFV is compressible, spontaneous, phasic, competent, spectral Doppler. and demonstrates normal augmentation. Exam performed in department. FV Prox is compressible, spontaneous, phasic, Limited views were obtained. competent and demonstrates normal augmentation. The study was technically difficult. Unable to acquire compression at mid and dist FV but A preliminary report was called and/or faxed to [facility] flow is visualized with color and pulsed wave ED. doppler. POP V is compressible, spontaneous, phasic, competent and demonstrates normal augmentation. T/P Trunk is compressible. Unable to visualize PTV - Dorita V - GSV due to patient positioning and inability to abduct lt leg at groin. Non vascularized hypoechoic area noted in Lt Groin consistent with possible muscle injury measuring 3.14cm x 1.25cm. VL/Venous Duplex US, Unilateral Interpretation Summary Deep veins of the left lower extremity appear patent. There is no evidence of a cute deep vein thrombosis. However, the left posterior tibial vein and peroneal vein were not visualized due to patient positioning issues. Valvular competence appears intact within the proximal deep venous system on the left . The left gr eat saphenous vein was not visualized due to patient positioning issues. A non-vascular, hypoechoic area is noted in the left groin, measuing 3.14 cm x 1.25 cm. This may represent a hematoma or seroma. Clinical correlation s advised. Ordering Physician: Eugenio Infante Referring Physician: Trang Talamantes M.D. Performed By: Carlos Alberto Hebert RVT
== END | disposition home or self-care (01) ==
PROVIDERS: PCP Internal Medicine; Visit Provider Surgery
DX: M79.605 Pain in left leg (principal)
CPT/HCPCS: 93971

== ENCOUNTER → 2024-09-19 | Outpatient (CLI) | payer MEDICARE, SELFPAY | END | disposition home or self-care (01) | LOC: PSN 11:55 | PROVIDERS: PCP Internal Medicine; Referring Provider Internal Medicine; Visit Provider Internal Medicine | DX: R00.0 Tachycardia, unspecified (principal) | CPT/HCPCS: 93225; 93226 ==

== ENCOUNTER 2024-10-31 10:00 | Outpatient (RCR) | payer MEDICARE, SELFPAY ==
--- NOTE | 2024-08-11 12:39 | HP.PTEVAL ---
Patient's Visit Information Visit Information Visit Information: VIC ALEXANDER is a 83 year old F referred to Physical Therapy by Dr. Trang Talamantes DO with a diagnosis of LUMBAR STENOSIS, R KNEE PAIN AND LACK OF MOBILITY. Date of Evaluation: 08/11/24 Physical Therapist: Erlinda Melo, PT, Cert MDT Visit Plan Frequency: 2x /Week Duration: 4-6 Weeks Plan: AQUATIC THERAPY FOR *GAIT TRAINING*, PAIN RELIEF, POSTURE CORRECTION/STRENGTHENING, INSTRUCTION IN APPROPRIATE BODY MECHANICS AND ACTIVITY MODIFICATIONS. DLS STARTING WITH A NEUTRAL SPINE PROGRESSING ROM TOLERATED. CULLEN LE ROM, STRETCHING AND STRENGTHENING. HEP INSTRUCTION. Subjective Subjective: Work/Leisure: RETIRED Present symptoms: LOW BACK PAIN, UPPER THIGH PAIN, CULLEN KNEE PAIN R>L. NUMBNESS AND TINGLING BOTTOMS OF FEET. Present since: CHRONIC - AT LEAST 10 YEARS SINCE LOW BACK SURGERY. Pain Scale: WORST 8/10, LEAST 4/10 Currently: 4/10 Is it getting better, worse or staying the same: GETTING WORSE Commenced as a result of: NO APPARENT REASON OTHER THAN ARTHRITIS Symptoms at onset: LOW BACK PAIN Worse: BENDING, STANDING, PROLONGED SITTING, WALKING, LIFTING, CLIMBING STEPS (5 STEPS TO GET INTO MOBILE HOME WITH 2 HR'S) Better: EXTRA STRENGTH TYLONOL, BIOFREEZE, frankincense oil, voltaren gel, lying down on R side. Disturbed sleep: YES Previous history/Previous treatment: LUMBAR FUSION 10 YEARS AGO. PAIN MGMT - NEW'S AND OTHER PAIN MGMT PROCEEDURES WITH DR. LONGORIA. NO KNEE INJECTIONS. NO KNEE SURGERIES. R FOOT SURGERIES. Treatment this episode: NONE Coughing/sneezing/straining: NEGATIVE FOR INCREASED PAIN Gait: USES FWW ALMOST ALL THE TIME BUT FURNITURE WALKS SOME IN THE HOUSE. USES A ROLLATOR IN THE HOUSE. NO FALLS FOR ABOUT A YEAR. DOES NOT USE CANE ANYMORE. Bowel or Bladder Dysfunction: NO Accidents: NO Unexplained weight loss: NO Imaging: A LOT OF RECENT IMAGING PER PATIENT REPORT DUE TO CANCER DX. PMH/Recent major surgery: RECENT HYSTERECTOMY APRIL 2024 AND CHOSE NOT TO HAVE RADIATION THERAPY. 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 SEE [facility] EMR FOR MORE PMH. OTHER: PATIENT HAS OT CONSULT PENDING AFTER THIS PT CONSULT FOR R SHLD PAIN AND ADL TRAINING. Objective Objective: Sitting/Standing Posture: INCREASED KYPHOSIS AND REDUCED LORDOSIS. Other Observations: THIS PATIENT AMBULATES INDEP'LY INTO PT WITH DECREASED CADANCE LEANING HEAVILY ON FWW BUT NO LOB. SHE IS PLEASANT AND COOPERATIVE TO WORK WITH AND FOLLOWS COMMANDS WELL. BALANCE: PATIENT IS UNABLE TO SLS ON EITHER LE WITHOUT UE ASSIST. PATIENT IS UNSAFE WITHOUT AD AND THIS PT RECOMMENDS USE OF WALKER OR ROLLATOR AT ALL TIMES AND PATIENT IS AGREEABLE. Sensory deficit: CULLEN LE LIGHT TOUCH SENSATION GROSSLY INTACT - FEET NT. ROM deficit: CULLEN LE HIP FLEXORS, HS, AND CALF TIGHTNESS. AROM R KNEE 0 - 96 DEG FLEX, L KNEE 0- 0 106 DEG FLEX. Motor deficit: R HIP 4-/5, KNEE EXT 4-/5, KNEE FLEX 3-/5, ANKLE 4-/5. L HIP 4-/5, L KNEE EXT 4-/5, KNEE FLEX 3-/5, ANKLE 4-/5 Dural Signs: NEGATIVE CULLEN LE'S. Lumbar mvmt loss: flex - MIN TO MOD ext - VERITO R SG - VERITO L SG - VERITO INCREASED LOW BACK PAIN WITH LUMBAR ROM TESTING ALL PLANE AND REMAINES WORSE UNTIL SITS DOWN. 30"STS TEST - 3 WITH CULLEN UE ASSIST. TUG TEST - 38.31 WITH FWW. Core strength: POOR Palpation: CULLEN LE LYMPHADEMA. NO ACUTE LOW BACK OR LE TENDERNESS. OTHER: CASE CONFERENCE WITH MARY GAUTHIER TODAY. Balance/Special Test Scores Oswestry Low Back Score: 26 Goals Goal 1:: DECREASE C/O LOW BACK AND CULLEN LE SX'S BY AT LEAST 50% TO EASE ADL FUNCTION Goal Time Frame: 6-8 Weeks Goal 2:: IMPROVE PERSONAL CARE, WALKING, SITTING, STANDING, SOCIAL LIFE, TRAVEL AND HOMEMAKING FUNCTION WITH IMPROVED BACK OSWESTRY SCORE BY AT LEAST 5 POINTS. Goal Time Frame: 6-8 Weeks Goal 3:: PATIENT WILL COMPLETE 6 STANDS IN 30 SECS WITH CULLEN UE ASSIST TO DEMONSTRATE IMPROVED FUNCTIONAL STRENGTH Goal Time Frame: 4-6 Weeks Goal 4:: PATIENT WILL COMPLETE TUG IN < 25 SECS WITH FWW TO DEMONSTRATE IMPROVED GAIT STABILITY Goal Time Frame: 4-6 Weeks Goal 5:: INDEP HEP Goal Time Frame: 6-8 Weeks Rehabilitation Potential Physical Therapy Diagnosis: CORE AND CULLEN LE STIFFNESS AND WEAKNESS WITH PAIN AND GAIT DIFFICULTY Rehabilitation Potential: Good Anticipated Interventions Patient/Client Instruction: Educate patient on: Condition, Plan of Care and Risk Factors For the Purpose of:: To improve self management Therapeutic Exercise to Include: Strength training, Body mechanics, Postural training, Flexibilty training, Gait and locomotor training, Neuromotor development, "In an aquatic setting" and Dynamic Lumbar Stabilization For the Purpose of:: To decrease pain, To improve muscle performance and motor function, To improve ability to perform ADL's, To increase tolerance to activity/condition/position, To improve ability of physical actions for home/community/work/leisure, To improve gait and locomotor functions, To increase flexibility/ROM and To improve self management Text: Thank you for the opportunity to evaluate your patient. For Medicare and Medicare HMO plans, please review the plan of care and approve it. It will need to be FAXED BACK to us at [phone] for Medicare purposes. For Medicare only, by signing this I certify the plan of care. Please let me know if there are questions or concerns regarding this plan of care. Physician Signature: Date:
--- NOTE | 2024-08-11 13:47 | HP.OTEVAL ---
Patient's Visit Information Visit Information Visit Information: VIC ALEXANDER is a 83 year old F, referred to Occupational Therapy by Dr. Trang Talamantes DO, with a diagnosis of R shoulder pain. Date of Evaluation: 08/11/24 Occupational Therapist: Robyn Queen Subjective Subjective: R shoulder is worse than L. Pt is R hand dominant. pt had an MRI in the past of R shoulder, possible torn RTC but unsure. Difficulty with reaching into high cabinets, vacuuming, broom sweeping, lifting heavy things, dusting, cooking if she has to stir a lot, lifting jugs of water. Difficulty with getting dressed: donning R arm first with upper body, difficulty with socks so she has a sock aid, has AE to push down pants (difficulty with bending down). Does have a wheel and caster repairer that she uses for LB dressing. Has a dressing stick to push off her socks. 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 Doesn't have to do zippers much, can do snaps. Everything she uses in the kitchen is on the first shelf where she can reach it. Pt lives alone in with 5 steps to enter, B hand rails. No steps once inside. Family lives close. Pt has a walk in shower, no grab bars, has a shower chair, has [facility]. No falls in the past year. Pt has raised toilet seat with handles on both sides. Granddaughter helps with some cleaning. Cooking is still doable but getting harder. Pt uses FWW and rollator, uses rollator at home at all times. Pt still driving. Is able to do car transfers but it's difficult. Pain R shoulder: Current Pain Intensity: 4 Pain Intensity Range: 2 and 8 ROM Shoulder: R flx 60, L flx 135 Elbow: WFL Forearm: WFL ROM Comments: difficulty with all AROM of R shoulder, able to elevate scapula well but difficulty with active depression and retraction. mainly presenting in protracted position, uses upper trap for mobility compensations Strength Marine Surveyor: R 40#, L 25# Quick DASH-Disab of Arm,Shoulder& Hand Quick DASH Score: 70.4525 Goals Goal:: pt will demo good compliance and report of HEP for scapular/shoulder strengthening to participate more successfully in ADLS with decreased pain. Goal:: pt to demo increased shoulder flexion by 10' for greater use of dominant UE during IADLs Goal:: pt to demo reduced overall reported pain to no more than 2/10 on regular basis Goal:: pt will demo good carryover of proper postural techniques and use of AE for greater indep at home. Rehabilitation General Assessment: Pt presenting with R shoulder pain that limits her functional abilities to be pain free and indep at home. Pt reports using several types of AE at home for dressing including wheel and caster repairer (LB dressing), sock aid, and dressing stick. Recommended button hook and long handled shoe horn (specifically because of the hook on the end to put sandal straps on the heel). Pt with limited R shoulder AROM, difficulty to move scapula well with increased UT compensations with all movements. Required VC for relaxing UT to limit compensations. Training on scapular movement specifically posterior chain movements to build strength and reduce pain through mid trap/rhomboid area. Possible supraspinatus tendon entrapment d/t radiating pain down through mid delt/bicep area. Would benefit from STM through pec, bicep, mid delts, UT and rhomboids for reduced pain and increased blood flow. Responding well to MT provided today at these sites. Unsure of ability to gain AROM d/t possible RTC tear and possible frozen shoulder with capsular tightness. Would benefit from shoulder joint mobilization techniques as well to address tight capsule as tolerated. Pt would benefit form skilled OT services in OP setting to improve functional indep through manual techniques, corrective exercise and activity modifications through use of appropriate AE while providing pain management. Rehabilitation Potential: Good Anticipated Interventions Anticipated Interventions: A/AAROM/PROM, Strengthening, Triggerpoint Release, Joint Protection/Energy Conservation, Fine Motor Coord/Seth and ADL Training Other Interventions: manual therapy to include STM with trigger point release and shoulder joint mobilizations for decreased capsular tightness Visit Plan Frequency: 2x /Week Duration: 6 Weeks General Plan: continue per POC for shoulder strengthening, AROM and ADL indep. TEXT: Thank you for the opportunity to evaluate your patient. For Medicare and Medicare HMO plans, please review the plan of care and approve it. It will need to be FAXED BACK to us at [phone] for Medicare purposes. Please let me know if there are questions or concerns regarding this plan of care. Physician Signature: Date:
--- NOTE | 2024-09-17 12:14 | HP.OTDCSUM_ITS ---
Discharge Summary D/C Summary: It has been my pleasure to treat VIC ALEXANDER under orders from Dr. Trang Talamantes DO, for the diagnosis of R shoulder pain for a total of 6 visit(s). Please see the following information for a summary of their discharge status. Overall Improvement % Improvement: 50 Objective Objective/Function: -Pt has not gained ROM- but has gained strength. -Stated that she has experienced up to 8 pain level within the last week- lingers for about 1 hour- tries to avoid things that cause pain. -Pt using Software Reliability Engineer, shoe horn and sock aid. -R shoulder ROM: 0/10 -Discussed adaptive methods of home tasks. Goals Patient Goals: Regain Mobility, Regain Strength, Decrease Pain, Decrease Swelling/Stiffness, Use Hand/Wrist/Arm Normally Again, Sleep Better, Increase ROM and Be More Independent in ADLS Goal:: pt will demo good compliance and report of HEP for scapular/shoulder strengthening to participate more successfully in ADLS with decreased pain. Goal:: pt to demo increased shoulder flexion by 10' for greater use of dominant UE during IADLs Goal:: pt to demo reduced overall reported pain to no more than 2/10 on regular basis Goal:: pt will demo good carryover of proper postural techniques and use of AE for greater indep at home. Plan Plan: Cont. HEP- pt comfortable with exercises at home. D/C Information Discharge Comments: pt demo no sig. change in her ROM but with use of a home tens unit this has decreased her pain to allow her to have relief. pt will cont. with isometric shoulder ex. to strengthen and stabilize with HEP. pt agrees to D/C d/c sentence: If there are questions or concerns regarding this patient's occupational therapy, please fell free to call me at [phone]. Thank you for the referral of this patient. Sincerely, Maureen Enciso, OTR/L, CHT
--- NOTE | 2024-09-18 14:23 | HP.PTREVAL_ITS ---
Re-Evaluation Intro: Dr. Trang Talamantes, DO, It has been my pleasure to treat VIC ALEXANDER over the last 7 visits for LUMBAR STENOSIS, R KNEE PAIN AND LACK OF MOBILITY. Please see the progress note below for an update on the physical therapy plan of care! Subjective Subjective: "I'M AMAZED AT HOW GOOD I FEEL WHEN I GET OUT OF THE POOL. I FIGURE IF I KEEP DOING THE POOL EX'S THE PAIN RELIEF WILL LAST LONGER". PATIENT REPORTS SHE HAS A MONTHLY MEMBERSHIP HERE AT [employer] AND SHE PLANS TO USE THE EX SHEETS WE GAVE HER TO CONTINUE ON HER OWN ONCE FORMAL PHYSICAL THERAPY CONCLUDES. PATIENT WISHING TO CONTINUE AQUATIC THERAPY AT THIS TIME. Objective Objective/Function: PATIENT WAS SEEN TODAY FOR RE-ASSESSMENT OF PROGRESS TOWARD THE SET PT GOALS AND THE NEED FOR FURTHER PHYSICAL THERAPY VS READINESS FOR DISCHARGE. THIS PATIENT HAS RESPONDED REALLY WELL TO AQUATIC THERAPY AND IS A GOOD CANDIDATE TO CONTINUE THERAPY BASED ON PROGRESS MADE AND ROOM FOR FURTHER IMPROVEMENT. PATIENT IS AGREEABLE. SHE WAS SURPRISED AT HOW MUCH BETTER SHE DID WITH TESTING ON [place]AND TODAY COMPARED TO HER INITIAL EVALUATION. UPON EXAM TODAY: 30"STS TEST - 6 WITH HANDS ON KNEES. TUG TEST - 17.38 WITH FWW. Plan Plan Plan: 2X'S A WK X 4 WKS: CONT AQUATIC THERAPY FOR *GAIT TRAINING*, PAIN RELIEF, POSTURE CORRECTION/STRENGTHENING, INSTRUCTION IN APPROPRIATE BODY MECHANICS AND ACTIVITY MODIFICATIONS. DLS STARTING WITH A NEUTRAL SPINE PROGRESSING ROM TOLERATED. CULLEN LE ROM, STRETCHING AND STRENGTHENING. HEP INSTRUCTION. Balance/Gait/Functional tests Balance/Special Test Scores Oswestry Low Back Score: 26 Goals Goals Goal 1:: DECREASE C/O LOW BACK AND CULLEN LE SX'S BY AT LEAST 50% TO EASE ADL FUNCTION Goal Time Frame: 6-8 Weeks Goal Progress: Progressing Goal 2:: IMPROVE PERSONAL CARE, WALKING, SITTING, STANDING, SOCIAL LIFE, TRAVEL AND HOMEMAKING FUNCTION WITH IMPROVED BACK OSWESTRY SCORE BY AT LEAST 5 POINTS. Goal Time Frame: 6-8 Weeks Goal Progress: Progressing Goal 3:: PATIENT WILL COMPLETE 6 STANDS IN 30 SECS WITH CULLEN UE ASSIST TO DEMONST RATE IMPROVED FUNCTIONAL STRENGTH Goal Time Frame: 4-6 Weeks Goal Progress: Goal Met Goal 4:: PATIENT WILL COMPLETE TUG IN < 25 SECS WITH FWW TO DEMONSTRATE IMPROVED GAIT STABILITY Goal Time Frame: 4-6 Weeks Goal Progress: Goal Met Goal 5:: INDEP HEP Goal Time Frame: 6-8 Weeks Goal Progress: Progressing Anticipated Interventions Anticipated Interventions Patient/Client Instruction: Educate patient on: Condition, Plan of Care and Risk Factors For the Purpose of:: To improve self management Therapeutic Exercise to Include: Strength training, Body mechanics, Postural training, Flexibilty training, Gait and locomotor training, Neuromotor development, "In an aquatic setting" and Dynamic Lumbar Stabilization For the Purpose of:: To decrease pain, To improve muscle performance and motor function, To improve ability to perform ADL's, To increase tolerance to activity/condition/position, To improve ability of physical actions for home/community/work/leisure, To improve gait and locomotor functions, To increase flexibility/ROM and To improve self management Re-Evaluation Ending Re-evaluation ending: Please do not hesitate to contact me at [phone] by phone or if you have questions or concerns regarding this new plan of care! Sincerely, Erlinda Melo, PT, Cert MDT
--- NOTE | 2024-10-31 10:32 | HP.PTDCSUM ---
Discharge Summary D/C summary: It has been my pleasure to treat VIC ALEXANDER referred by Dr. Trang Talamantes DO, with the diagnosis of LUMBAR STENOSIS, R KNEE PAIN AND LACK OF MOBILITY for a total of 15 visit(s). Discharge Date: Please see the following information for a summary of their discharge status. Subjective Subjective: PATIENT REPORTS THERAPY HAS REALLY HELPED HER AND SHE IS REALLY GLAD SHE DID IT. STATES HER LOW BACK IS JUST HURTING A LITTLE BIT THIS MORNING BUT SHE HURT HER R SHLD PICKING UP SOMETHING SHE SHOULDN'T HAVE TODAY (TRASH). PATIENT REPORTS SHE IS DOING HER HEP AND SHE IS ALSO GOING TO GET A MEMBERSHIP TO KEEP DOING HER WATER EX. PATIENT REPORTS SHE CAN STAND UP STRAIGHTER IN THE POOL AND THE LONGER SHE IS IN THE POOL THE BETTER HER KNEES FEEL. SHE STATES BY THE TIME SHE GETS OUT OF THE POOL HER KNEES FEEL GREAT. SHE IS HOPING IF SHE KEEPS DOING THE EX'S SHE WILL KEEP GETTING STRONGER BECAUSE SHE DOES NOT WANT TO HAVE KNEE SURGERY. Pain LBP: Pain Intensity (Out of 10): 3 B knees: Pain Intensity (Out of 10): 0 Overall Improvement % Improvement: 55 Objective Objective/Function: PATIENT WAS SEEN TODAY FOR RE-ASSESSMENT OF PROGRESS TOWARD THE SET PT GOALS AND THE NEED FOR FURTHER PHYSICAL THERAPY VS READINESS FOR DISCHARGE. THIS PATIENT HAS RESPONDED REALLY WELL TO AQUATIC THERAPY. SHE IS APPROPRIATE FOR DISCHARGE NOW. PATIENT IS AGREEABLE. UPON EXAM TODAY: 30"STS TEST - 11 WITHOUT UE ASSIST TUG TEST - 16.77 WITH FWW. Goals Goal 1:: DECREASE C/O LOW BACK AND CULLEN LE SX'S BY AT LEAST 50% TO EASE ADL FUNCTION Goal Progress: Goal Met Goal 2:: IMPROVE PERSONAL CARE, WALKING, SITTING, STANDING, SOCIAL LIFE, TRAVEL AND HOMEMAKING FUNCTION WITH IMPROVED BACK OSWESTRY SCORE BY AT LEAST 5 POINTS. Goal Progress: Goal Met Goal 3:: PATIENT WILL COMPLETE 6 STANDS IN 30 SECS WITH CULLEN UE ASSIST TO DEMONSTRATE IMPROVED FUNCTIONAL STRENGTH Goal Progress: Goal Met Goal 4:: PATIENT WILL COMPLETE TUG IN < 25 SECS WITH FWW TO DEMONSTRATE IMPROVED GAIT STABILITY Goal Progress: Goal Met Goal 5:: INDEP HEP Goal Progress: Goal Met Plan Plan: D/C D/C Information d/c sentence: If there are questions or concerns regarding this patient's physical therapy, please feel free to call me at [phone]. Thank you for the referral of this patient. Sincerely, Erlinda Melo, PT, Cert MDT Balance/Gait/Functional tests Balance/Special Test Scores Oswestry Low Back Score: 20 Improvement % Improvement: 55
== END 2024-10-31 19:00 | disposition home or self-care (01) ==
LOC: PT 10:00
PROVIDERS: PCP Internal Medicine; Referring Provider Internal Medicine; Visit Provider Internal Medicine
DX: M25.561 Pain in right knee (principal); M54.50 Low back pain, unspecified; Z98.890 Other specified postprocedural states; M25.511 Pain in right shoulder; R26.89 Other abnormalities of gait and mobility; M48.061 Spinal stenosis, lumbar region without neurogenic claudication
CPT/HCPCS: 97110; 97113; 97140; 97162; 97165; 97530

== ENCOUNTER → 2024-11-17 | Outpatient (CLI) | payer MEDICARE, SELFPAY ==
--- NOTE | 2024-11-17 14:17 | ECHOD_ITS ---
Reason For Study Reason For Study: PHTN Procedure This was a 2D Doppler, Color Flow transthoracic echocardiogram. Exam performed in department. Left Ventricle Normal LV size. Left ventricular systolic function is hyperdynamic. The left ventricular ejection fraction is 70 %. Stage 1 diastolic dysfunction. No regional wall motion abnormalities noted. Right Ventricle Normal RV size. Normal systolic function. Atria Normal left atrium. Normal right atrium. Mitral Valve There is mild mitral annular calcification. Tricuspid Valve Normal tricuspid valve. Mild (1+) tricuspid valve insufficiency. Pulmonary artery systolic pressure is 27 mmHg. Aortic Valve Trisinus/trileaflet aortic valve. Pulmonic Valve Normal pulmonic valve. Great Vessels Mildly calcified aortic root. The pulmonary artery is normal size. Inferior vena cava collapse with respiration. Pericardium/Pleural No pericardial effusion. MMode/2D Measurements & Calculations LVIDd: 4.1 cm IVSd: 1.1 cm LVOT diam: 1.9 cm LVIDs: 2.1 cm LVPWd: 1.0 cm LVOT area: 2.7 cm2 RVDd: 3.5 cm FS: 48.9 % asc Aorta Diam: 3.2 cm LAV(MOD-bp): 38.5 ml LVAd ap4: 20.1 cm2 LAV(MOD-bp) Indexed: 19.5 ml/m2 LVLd ap4: 7.1 cm LAV(MOD-sp2): 35.9 ml EDV(MOD-sp4): 48.8 ml LAV(MOD-sp4): 40.5 ml EDV(sp4-el): 48.5 ml LVAs ap4: 10.0 cm2 LVLs ap4: 6.0 cm ESV(MOD-sp4): 14.5 ml ESV(sp4-el): 14.2 ml EF(MOD-sp4): 70.4 % EF(sp4-el): 70.8 % LVAd ap2: 19.8 cm2 SV(MOD-sp4): 34.3 ml SV(MOD-sp2): 30.5 ml LVLd ap2: 7.1 cm SI(MOD-sp4): 17.4 ml/m2 SI(MOD-sp2): 15.4 ml/m2 EDV(MOD-sp2): 46.1 ml EDV(sp2-el): 47.1 ml LVAs ap2: 10.4 cm2 LVLs ap2: 6.2 cm ESV(MOD-sp2): 15.6 ml ESV(sp2-el): 15.0 ml EF(MOD-sp2): 66.2 % SV(sp4-el): 34.4 ml Ao sinus diam: 2.[address] Junction: 2.2 cm LA dimension(2D): 3.6 cm LA A4 area: 15.4 cm2 RA A4 area: 10.6 cm2 TAPSE: 2.0 cm Time Measurements MV dec time: 0.27 sec Doppler Measurements & Calculations MV E max rajat: 70.6 cm/sec Lat Peak E' Rajat: 8.2 cm/sec Med Peak E' Rajat: 5.9 cm/sec MV A max rajat: 114.3 cm/sec E/E' lat: 8.6 E/E' med: 12.0 MV E/A: 0.62 MV dec slope: 265.8 cm/sec2 Ao V2 max: 161.6 cm/sec LV V1 max: 125.3 cm/sec Ao max P.4 mmHg LV V1 max P.3 mmHg Ao V2 mean: 114.3 cm/sec LV V1 mean P.6 mmHg Ao mean P.9 mmHg LV V1 mean: 89.6 cm/sec Ao V2 VTI: 33.6 cm LV V1 VTI: 30.4 cm AV (velocity ratio): 0.91 MIRANDA(I,D): 2.5 cm2 MIRANDA(V,D): 2.1 cm2 SV(LVOT): 83.5 ml PA V2 max: 104.1 cm/sec TR max rajat: 242.0 cm/sec TR max P.4 mmHg ECHO/Echo Complete Interpretation Summary Normal LV size. Left ventricular systolic function is hyperdynamic. The left ventricular ejection fraction is 70 %. Stage 1 diastolic dysfunction. Mild (1+) tricuspid valve insufficiency. Pulmonary artery systolic pressure is 27 mmHg. Ordering Physician: Trang Talamantes Referring Physician: Trang Talamantes Performed By: Libertad Ku RDCS
== END | disposition home or self-care (01) ==
LOC: CVS 14:15
PROVIDERS: PCP Internal Medicine; Referring Provider Internal Medicine; Visit Provider Internal Medicine
DX: I27.20 Pulmonary hypertension, unspecified (principal)
CPT/HCPCS: 93306